=== PATIENT | female | born 1965 | race Caucasian/White ===

== ENCOUNTER 2016-06-22 15:07 | Emergency (ER) | payer OTHER ==
[2016-06-22 15:13] VITALS: BP 155/80; PULSE 82; TEMP 97.8; BMI 36.3
[2016-06-22 16:19] LABS: URINE APPEARANCE CLEAR; URINE BILIRUBIN 1+ (NEGATIVE); URINE GLUCOSE (UA) NEGATIVE (NEGATIVE); URINE KETONE NEGATIVE (NEGATIVE); URINE LEUK ESTERASE NEGATIVE (NEGATIVE); URINE NITRITE NEGATIVE (NEGATIVE); URINE PROTEIN TRACE (NEGATIVE); URINE UROBILINOGEN 2.0 E.U/dl E.U./dl (0.2-1.0)
[2016-06-22 16:27] LABS: URINE BLOOD 2+ (NEGATIVE); URINE COLOR DK YELLOW
--- NOTE | 2016-06-22 16:46 | PDOC ---
History of Present Illness - General Chief Complaint: Vaginal Sxs Stated Complaint: PAIN Time Seen by Provider: 06/22/16 15:52 History Source: Patient Exam Limitations: No Limitations - History of Present Illness Initial Comments: CHIEF COMPLAINT: 51 y/o afebrile female with no significant PMH here to have tampon removed from her vagina. HISTORY OF PRESENT ILLNESS: The patient states she put a tampon in 2 days ago. She then had a few drinks for her birthday and then had sex with her . She realized today when she started to have foul smelling discharge that she forgot to take it out. She denies f/c, n/v/d, CP, SOB, abd pain, hematuria, dysuria. Vital signs on arrival are within normal limits. REVIEW OF SYSTEMS: GENERAL/CONSTITUTIONAL: No fever/chills. No weakness. No weight change. HEAD, EYES, EARS, NOSE AND THROAT: No change in vision. No ear pain or discharge. No sore throat. GENITOURINARY: No dysuria, frequency, or change in urination. +tampon stuck in vagina. MUSCULOSKELETAL: No joint or muscle swelling or pain. No neck or back pain. SKIN: No rash or easy bruising. NEUROLOGIC: No headache, vertigo, loss of consciousness, or loss of sensation. PHYSICAL EXAM: GENERAL: The patient is awake, alert, and fully oriented, in no acute distress. She is well appearing, ambulatory, in NAD or obvious discomfort. HEAD: Normal with no signs of trauma. EYES: Pupils equal, round and reactive to light, extraocular movements intact, sclera anicteric, conjunctiva clear. VAGINAL: Tampon seen deep in the vaginal canal on speculum exam. Foul odor to area. No obvious discharge. EXTREMITIES: Normal range of motion, no edema. NEUROLOGICAL: Normal speech, normal gait. PSYCH: Normal mood, normal affect. SKIN: Warm, Dry, normal turgor, no rashes or lesions noted. Past History - Past Medical History Allergies/Adverse Reactions: Allergies Allergy/AdvReac Type Severity Reaction Status Date / Time codeine [Codeine] Allergy Severe syncope Verified 06/22/16 15:09 Home Medications: Ambulatory Orders Doxycycline Hyclate 100 mg PO BID #14 capsule 06/22/16 Anemia: Yes Asthma: Yes Cancer: No Cardiac Disorders: No CVA: No COPD: No CHF: No Dementia: No Diabetes: No GI Disorders: Yes (gastric ulcers) Disorders: No HTN: Yes Hypercholesterolemia: Yes Liver Disease: Yes (CIRRHOSIS) Suicide Attempt (Hx): No Seizures: No Thyroid Disease: No - Surgical History Abdominal Surgery: Yes (TUBAL LIGATION.) Appendectomy: No Cardiac Surgery: No Cholecystectomy: Yes Lung Surgery: No Neurologic Surgery: No Orthopedic Surgery: No - Immunization History Immunization Up to Date: No - Psycho/Social/Smoking Cessation Hx Anxiety: No Suicidal Ideation: No Smoking Status: Yes Smoking History: Never smoked Have you smoked in the past 12 months: No Number of Cigarettes Smoked Daily: 0 Information on smoking cessation initiated: No 'Breaking Loose' booklet given: 04/17/14 Hx Alcohol Use: No Drug/Substance Use Hx: No Substance Use Type: None Hx Substance Use Treatment: No *Physical Exam - Vital Signs Last Vital Signs Temp Pulse Resp BP Pulse Ox 97.8 F 82 18 155/80 100 06/22/16 15:10 06/22/16 15:10 06/22/16 15:10 06/22/16 15:10 06/22/16 15:10 Medical Decision Making - Medical Decision Making A/P: 51 y/o afebrile female with tampon stuck in vagina. Used a Santo foreceps to remove the tampon. THe patient states she instantly felt better after it was out. I then cleaned her vaginal canal with hydrogen peroxide and betadine. I will treat with doxycycline for vaginal infection. Pt had a tubal ligation. Will send rx to pharmacy I instructed her to take entire course and return to the eR with any worsening or concerning symptoms including fever, n/v/d, dizziness. The patient verbalizes understanding of all instructions, has no further questions and is awaiting discharge. *DC/Admit/Observation/Transfer Diagnosis at time of Disposition: Foreign body in vagina Qualifiers: Encounter type: initial encounter Qualified Code(s): T19.2XXA - Foreign body in vulva and vagina, initial encounter - Discharge Dispostion Condition at time of disposition: Improved - Prescriptions Prescriptions: Doxycycline Hyclate 100 mg PO BID #14 capsule - Referrals Referrals: Cecilio Alvarado MD [Primary Care Provider] - - Patient Instructions Printed Discharge Instructions: DI for Foreign Body in Vagina-Adult Additional Instructions: Discharge Instructions: -Take entire course of antibiotics -Follow up with your doctor within 1 week -Do not douche -Return to the ER with any worsening or concerning symptoms.
[2016-06-22 17:07] LABS: URINE MUCUS MANY; URINE RBC 4 /hpf (0-3); URINE WBC 2 /hpf (3-5)
== END 2016-06-22 17:22 | disposition home or self-care (01) ==
LOC: JERFT 15:07
DX: T19.2XXA Foreign body in vulva and vagina, initial encounter (principal); X58.XXXA Exposure to other specified factors, initial encounter; Y93.89 Activity, other specified; Y92.038 Other place in apartment as the place of occurrence of the external cause
CPT/HCPCS: 36415; 81003; 81015; 84703; 87491; 87591; 99281-25

== ENCOUNTER → 2016-07-19 | Emergency (ER) | payer OTHER ==
[~2016-07-19] MED LIST: FAMOTIDINE 20 MG/50 ML IVPB 50 ML IVPB ONE; MAG HYDROX/AL HYDROX/SIMETH 30 ML UNIT-DOSE CUP ONE; MAG HYDROX/AL HYDROX/SIMETH 30 ML UNIT-DOSE CUP PO ONE; MAGNESIUM SULF 50% (8.12 MEQ/2 ML-1 GM VIAL) ONE; ONDANSETRON 4 MG/2 ML VIAL ONE; RANITIDINE HCL 150 MG TABLET (FP) ONE; RANITIDINE HCL 150 MG TABLET (FP) PO ONE; SUCRALFATE 1 GM TABLET (FP) ONE; SUCRALFATE 1 GM TABLET (FP) PO ONE
[2016-07-19 11:32] VITALS: BP 126/86; PULSE 72; TEMP 97.9; BMI 35.2
--- NOTE | 2016-07-19 11:58 | PDOC ---
History of Present Illness - General Chief Complaint: Pain, Acute Stated Complaint: SOB, DIZZINESS Time Seen by Provider: 07/19/16 11:40 History Source: Patient - History of Present Illness Timing/Duration: reports: getting worse Abdominal Pain Onset Location: reports: epigastric Pain Radiation: reports: no radiation Past History - Past Medical History Allergies/Adverse Reactions: Allergies Allergy/AdvReac Type Severity Reaction Status Date / Time codeine [Codeine] Allergy Severe syncope Verified 07/19/16 11:32 Home Medications: Ambulatory Orders Ranitidine HCl [Zantac] 150 mg PO BID #30 tablet 07/19/16 Anemia: Yes Asthma: Yes Cancer: No Cardiac Disorders: No CVA: No COPD: No CHF: No Dementia: No Diabetes: No GI Disorders: Yes (gastric ulcers) Disorders: No HTN: Yes Hypercholesterolemia: Yes Liver Disease: Yes (CIRRHOSIS) Suicide Attempt (Hx): No Seizures: No Thyroid Disease: No - Surgical History Abdominal Surgery: Yes (TUBAL LIGATION.) Appendectomy: No Cardiac Surgery: No Cholecystectomy: Yes Lung Surgery: No Neurologic Surgery: No Orthopedic Surgery: No - Immunization History Immunization Up to Date: No - Psycho/Social/Smoking Cessation Hx Anxiety: No Suicidal Ideation: No Smoking Status: Yes Smoking History: Current some day smoker Have you smoked in the past 12 months: No Number of Cigarettes Smoked Daily: 0 Information on smoking cessation initiated: No 'Breaking Loose' booklet given: 04/17/14 Hx Alcohol Use: Yes (:SOCIALLY") Drug/Substance Use Hx: No Substance Use Type: None Hx Substance Use Treatment: No Review of Systems - Review of Systems Constitutional: No: Chills, Fever Respiratory: No: Cough, Shortness of Breath Cardiac (ROS): No: Chest Pain ABD/GI: Yes: Nausea, Vomiting. No: Constipated, Diarrhea : No: Dysuria, Flank Pain *Physical Exam - Vital Signs Last Vital Signs Temp Pulse Resp BP Pulse Ox 97.9 F 72 18 126/86 98 07/19/16 11:25 07/19/16 11:25 07/19/16 11:25 07/19/16 11:25 07/19/16 11:25 - Physical Exam General Appearance: Yes: Appropriately Dressed. No: Apparent Distress HEENT: positive: Normal Voice Neck: positive: Supple Respiratory/Chest: positive: Lungs Clear, Normal Breath Sounds. negative: Respiratory Distress Cardiovascular: positive: Regular Rate, S1, S2 Gastrointestinal/Abdominal: positive: Normal Bowel Sounds, Tender (to epigastrium), Soft. negative: Distended, Guarding, Rebound Musculoskeletal: negative: CVA Tenderness Integumentary: positive: Dry, Warm Neurologic: positive: Fully Oriented, Alert, Normal Mood/Affect Heart Score/ECG Review - ECG Intrepretation Comment:: 07/19/16 12:52 Twelve-lead EKG was performed and reviewed by me. There is normal sinus rhythm with a normal rate. The axis is normal. The intervals are normal. There are no ST or T wave abnormalities. Impression: Normal twelve-lead EKG ED Treatment Course - LABORATORY CBC & Chemistry Diagram: 07/19/16 12:00 07/19/16 12:00 Medical Decision Making - Medical Decision Making 07/19/16 11:54 51 yo F, h/o CAD, MT, s/p tati, p/w burning pain to epigastrium w/ n/v that started last night and worsened this am. No change in BM, melena, dysuria, f/c, CP or SOB. Took alkazelter w/ no relief as per pt. No h/o similar sxs. See exam Episgastric pain Suspect gastritis/GERD, unlikely cardiac Stable w/ sig ttp to epigastrium -pepcid -maalox -ekg/labs r/o other etiology -reassess 07/19/16 11:58 07/19/16 13:29 EKG and lab unremarkable. Pt continues to c/o epigastric pain despite meds in ED. Will continue to control pain in ED 07/19/16 15:19 Patient reports significant improvement in pain and requesting discharge at this time. Rx for Zantac sent to pharmacy and GI referral given to patient *DC/Admit/Observation/Transfer Diagnosis at time of Disposition: Epigastric abdominal pain - Discharge Dispostion Disposition: HOME Condition at time of disposition: Improved - Prescriptions Prescriptions: Ranitidine HCl [Zantac] 150 mg PO BID #30 tablet - Referrals Referrals: Cecilio Alvarado MD [Primary Care Provider] - Franck Dixon MD [Staff Physician] - - Patient Instructions Printed Discharge Instructions: Gastritis Additional Instructions: Take medication as prescribed and follow-up with Dr. Seay of GI
[2016-07-19 12:09] LABS: BASOPHIL 1.3 % (0-2.0); MCH 28.9 pg (25.7-33.7); MCHC 33.3 g/dl (32.0-36.0); MEAN CELL VOLUME 86.8 fl (80-96); MEAN PLT VOLUME 8.7 fl (7.5-11.1); NEUTROPHILS 61.4 % (42.8-82.8); PLATELET COUNT 65 K/MM3 (134-434); RDW 16.9 % (11.6-15.6); WHITE BLOOD COUNT 3.2 K/mm3 (4.0-10.0)
[2016-07-19 12:32] LABS: ALBUMIN 3.1 g/dl (3.4-5.0); ANION GAP 12 (8-16); BILIRUBIN,TOTAL 0.7 mg/dL (0.2-1.0); CALCIUM 8.3 mg/dL (8.5-10.1); CO2 26 mmol/L (21-32); CREATININE 0.6 mg/dL (0.55-1.02); GLUCOSE,RANDOM 109 mg/dL (74-106); SGOT/AST 58 U/L (15-37); SGPT/ALT 33 U/L (12-78); TOT PROT 8.3 g/dl (6.4-8.2)
[2016-07-19 12:35] LABS: ALK PHOS 167 U/L (45-117); TROPONIN I < 0.02 ng/ml (0.00-0.05)
[2016-07-19 15:00] LABS: URINE APPEARANCE CLEAR; URINE BILIRUBIN NEGATIVE (NEGATIVE); URINE COLOR YELLOW; URINE GLUCOSE (UA) NEGATIVE (NEGATIVE); URINE KETONE NEGATIVE (NEGATIVE); URINE LEUK ESTERASE NEGATIVE (NEGATIVE); URINE NITRITE NEGATIVE (NEGATIVE); URINE PROTEIN NEGATIVE (NEGATIVE); URINE UROBILINOGEN 2.0 E.U/dl E.U./dl (0.2-1.0)
[2016-07-19 15:02] LABS: URINE BLOOD 3+ (NEGATIVE)
[2016-07-19 15:07] LABS: URINE BACTERIA RARE /hpf (NONE SEEN); URINE MUCUS RARE; URINE RBC 4 /hpf (0-3); URINE WBC 7 /hpf (3-5)
--- NOTE | 2016-07-20 00:22 | EKG ---
Test Reason : Blood Pressure : / mmHG Vent. Rate : 067 BPM Atrial Rate : 067 BPM P-R Int : 176 ms QRS Dur : 082 ms QT Int : 452 ms P-R-T Axes : 025 -17 006 degrees QTc Int : 477 ms NORMAL SINUS RHYTHM NORMAL ECG WHEN COMPARED WITH ECG OF 23-MAY-2016 16:50, T WAVE VARIATION Confirmed by MOLLY BLANCA MD ([id number]) on 07/20/2016 12:21:44 AM Referred By: Confirmed By:MOLLY BLANCA MD
== END | disposition home or self-care (01) ==
LOC: JER 11:20
PROC: 3E033GC Introduction of Other Therapeutic Substance into Peripheral Vein, Percutaneous Approach (ICD-10-PCS; principal; 2016-07-19)
DX: R10.13 Epigastric pain (principal); J45.909 Unspecified asthma, uncomplicated; I10 Essential (primary) hypertension; E78.00 Pure hypercholesterolemia, unspecified; K74.60 Unspecified cirrhosis of liver; F17.210 Nicotine dependence, cigarettes, uncomplicated
CPT/HCPCS: 36415; 80053; 81003; 81015; 82550; 82553; 83690; 84484; 85025; 93005; 93010; 96365; 99284-25

== ENCOUNTER 2016-07-31 20:09 | Emergency (ER) | payer OTHER ==
[2016-07-31 20:31] VITALS: BP 113/72; PULSE 90; TEMP 97.6; BMI 34.2
[2016-07-31] MEDS ORDERED: CYCLOBENZAPRINE HCL 10 MG TABLET (FP) ONE (21:23)
[2016-07-31] MEDS ORDERED: OXYCODONE/APAP 5/325MG COMBO TABLET ONE (21:23)
[2016-07-31] MEDS ORDERED: KETOROLAC TROMETHAMINE 60 MG/2 ML VIAL ONE (21:23)
[2016-07-31] MEDS ORDERED: OXYCODONE/APAP 5/325MG COMBO TABLET PO ONE (21:33)
[2016-07-31] MEDS ORDERED: KETOROLAC TROMETHAMINE 60 MG/2 ML VIAL IM ONE (21:33)
[2016-07-31] MEDS ORDERED: CYCLOBENZAPRINE HCL 10 MG TABLET (FP) PO ONE (21:33)
--- NOTE | 2016-07-31 21:40 | PDOC ---
History of Present Illness - General Chief Complaint: Back Pain Stated Complaint: BACK PAIN Time Seen by Provider: 07/31/16 21:27 History Source: Patient Exam Limitations: No Limitations - History of Present Illness Initial Comments: 07/31/16 21:34 States woke up this morning at 4 AM to go to the bathroom, twisted and felt an acute onset of pain to left mid and lower back. Denies problems with bowel or bladder, no numbness or tingling in hands or feet. No other injury Occurred: reports: this morning Severity: reports: moderate, severe Pain Location: reports: back Method of Injury: Yes: fall Modifying Factors: improves with: None, cold therapy, pain medication Associated Symptoms (Fall): denies symptoms Past History - Travel Traveled outside of the country in the last 30 days: No Close contact w/someone who was outside of country & ill: No - Past Medical History Allergies/Adverse Reactions: Allergies Allergy/AdvReac Type Severity Reaction Status Date / Time codeine [Codeine] Allergy Severe syncope Verified 07/31/16 20:28 Home Medications: Ambulatory Orders Cyclobenzaprine HCl 7.5 mg PO Q8H PRN #14 tablet 07/31/16 Anemia: Yes Asthma: Yes Cancer: No Cardiac Disorders: No CVA: No COPD: No CHF: No Dementia: No Diabetes: No GI Disorders: Yes (gastric ulcers) Disorders: No HTN: Yes Hypercholesterolemia: Yes Liver Disease: Yes (CIRRHOSIS) Suicide Attempt (Hx): No Seizures: No Thyroid Disease: No - Surgical History Abdominal Surgery: Yes (TUBAL LIGATION.) Appendectomy: No Cardiac Surgery: No Cholecystectomy: Yes Lung Surgery: No Neurologic Surgery: No Orthopedic Surgery: No - Immunization History Immunization Up to Date: No - Psycho/Social/Smoking Cessation Hx Anxiety: No Suicidal Ideation: No Smoking Status: Yes Smoking History: Never smoked Have you smoked in the past 12 months: No Number of Cigarettes Smoked Daily: 0 Information on smoking cessation initiated: No 'Breaking Loose' booklet given: 04/17/14 Hx Alcohol Use: Yes (:SOCIALLY") Drug/Substance Use Hx: No Substance Use Type: None Hx Substance Use Treatment: No Review of Systems - Review of Systems Able to Perform ROS?: Yes Is the patient limited Frisian proficient: Yes Constitutional: Yes: Symptoms Reported, See HPI, Malaise. No: Fever HEENTM: No: Symptoms Reported Respiratory: Yes: See HPI. No: Symptoms reported ABD/GI: No: Symptoms Reported : Yes: See HPI. No: Symptoms Reported Musculoskeletal: Yes: Symptoms Reported, See HPI, Back Pain, Muscle Pain, Muscle Weakness Integumentary: Yes: See HPI. No: Symptoms Reported, Bruising Neurological: Yes: See HPI. No: Symptoms reported All Other Systems: Reviewed and Negative *Physical Exam - Vital Signs Last Vital Signs Temp Pulse Resp BP Pulse Ox 97.6 F 90 22 113/72 96 07/31/16 20:29 07/31/16 20:29 07/31/16 20:29 07/31/16 20:29 07/31/16 20:29 - Physical Exam General Appearance: Yes: Nourished, Appropriately Dressed, Apparent Distress, Mild Distress, Moderate Distress HEENT: positive: LISA, Normal ENT Inspection, TMs Normal, Pharynx Normal Neck: positive: Supple Respiratory/Chest: positive: Lungs Clear Gastrointestinal/Abdominal: positive: Soft Musculoskeletal: positive: Normal Inspection, Muscle Spasm (palpable tension and spasm noted to the paravertebral spinous muscles worse on the left side from lower thorax to upper lumbar. Has no true spine or bone tenderness, range of motion limited secondary to the spasm.). negative: CVA Tenderness, Decreased Range of Motion, Vertebral Tenderness Extremity: positive: Normal Capillary Refill, Normal Inspection, Normal Range of Motion, Tender Integumentary: positive: Normal Color, Dry, Warm, Pale Neurologic: positive: psychology intern II-XII NML intact, Fully Oriented, Alert, Normal Mood/ Affect, Normal Response, Motor Strength 5/5 Progress Note - Progress Note Progress Note: Low back strain/spasm. Will treat with NSAIDs, cyclobenzaprine and given 2 tablets of Percocet Medical Decision Making - Medical Decision Making 07/31/16 21:40 Low back spasm, will treat with NSAIDs and cyclobenzaprine *DC/Admit/Observation/Transfer Diagnosis at time of Disposition: Low back sprain Qualifiers: Encounter type: initial encounter Qualified Code(s): S33.9XXA - Sprain of unspecified parts of lumbar spine and pelvis, initial encounter - Discharge Dispostion Disposition: HOME Condition at time of disposition: Stable Admit: No - Patient Instructions Printed Discharge Instructions: DI for Back Strain or Sprain Additional Instructions: Rest, no heavy lifting or exercise until pain is resolved Hot soaks to neck and low back as often as possible/hot showers or Jacuzzis No massage or therapy until spasm is gone Continue ibuprofen 2-200 mg tablets every 6 hours for the next 3 days then as needed for pain and swelling Cyclobenzaprine 1-10mg every 8 hours as needed for spasm If not significant improvement within 24 hours with medication and rest regime, followup with private physician for change in medications and /or therapy. - Post Discharge Activity Work/School Note: Back to Work
== END 2016-07-31 21:47 | disposition home or self-care (01) ==
LOC: JERFT 20:09
PROC: 3E0233Z Introduction of Anti-inflammatory into Muscle, Percutaneous Approach (ICD-10-PCS; principal; 2016-07-31)
DX: S39.012A Strain of muscle, fascia and tendon of lower back, initial encounter (principal); X50.1XXA Overexertion from prolonged static or awkward postures, initial encounter; Y93.E8 Activity, other personal hygiene; Y92.031 Bathroom in apartment as the place of occurrence of the external cause; I10 Essential (primary) hypertension; E78.00 Pure hypercholesterolemia, unspecified; J45.909 Unspecified asthma, uncomplicated
CPT/HCPCS: 96372; 99281-25

== ENCOUNTER 2016-08-20 14:43 | Emergency (ER) | payer OTHER ==
[2016-08-20 14:49] VITALS: BMI 35.2
--- NOTE | 2016-08-20 14:49 | PDOC ---
Rapid Medical Evaluation Time Seen by Provider: 08/20/16 14:45 Medical Evaluation: Allergies Allergy/AdvReac Type Severity Reaction Status Date / Time codeine [Codeine] Allergy Severe syncope Verified 08/20/16 14:44 08/20/16 14:45 I have performed a brief in-person evaluation of this patient. The patient presents with a chief complaint of: upper epigastric pain x 5 days with nausea . no diarrhea/fever. hx cholecystectomy. sharp pain to left chest wall 2 days ago and resolved with relaxation Pertinent physical exam findings: VSS I have ordered the following: cbc, cardiac profile, comp, lipase, mag, ua, iv insert, ekg The patient will proceed to the ED for further evaluation.
[2016-08-20 15:21] LABS: BASOPHIL 0.8 % (0-2.0); EOSINOPHIL 1.9 % (0-4.5); MCHC 33.3 g/dl (32.0-36.0); MEAN CELL VOLUME 87.1 fl (80-96); MEAN PLT VOLUME 9.4 fl (7.5-11.1); NEUTROPHILS 62.9 % (42.8-82.8); RDW 16.3 % (11.6-15.6); WHITE BLOOD COUNT 3.5 K/mm3 (4.0-10.0)
[2016-08-20 15:37] LABS: URINE APPEARANCE CLEAR; URINE BILIRUBIN NEGATIVE (NEGATIVE); URINE COLOR YELLOW; URINE GLUCOSE (UA) NEGATIVE (NEGATIVE); URINE KETONE NEGATIVE (NEGATIVE); URINE LEUK ESTERASE NEGATIVE (NEGATIVE); URINE NITRITE NEGATIVE (NEGATIVE); URINE PROTEIN NEGATIVE (NEGATIVE); URINE UROBILINOGEN 4.0 E.U/dl E.U./dl (0.2-1.0)
[2016-08-20 15:38] LABS: URINE BLOOD 2+ (NEGATIVE)
[2016-08-20 15:40] LABS: URINE BACTERIA RARE /hpf (NONE SEEN); URINE MUCUS RARE; URINE RBC 2 /hpf (0-3); URINE WBC 1 /hpf (3-5)
[2016-08-20 15:45] LABS: ALBUMIN 3.2 g/dl (3.4-5.0); ANION GAP 5 (8-16); BILIRUBIN,TOTAL 0.7 mg/dL (0.2-1.0); CALCIUM 7.8 mg/dL (8.5-10.1); CO2 29 mmol/L (21-32); CREATININE 0.6 mg/dL (0.55-1.02); GLUCOSE,RANDOM 124 mg/dL (74-106); MAGNESIUM 1.7 mg/dL (1.8-2.4); SGOT/AST 57 U/L (15-37); SGPT/ALT 33 U/L (12-78); TOT PROT 8.4 g/dl (6.4-8.2)
[2016-08-20 15:49] LABS: ALK PHOS 202 U/L (45-117); TROPONIN I < 0.02 ng/ml (0.00-0.05)
--- NOTE | 2016-08-20 16:48 | PDOC ---
History of Present Illness - General History Source: Patient Exam Limitations: No Limitations - History of Present Illness Initial Comments: CHIEF COMPLAINT: 51 y/o afebrile female with PMH anemia, ?cirrhosis, angina c/ o right upper quadrant abdominal pain with nausea for the past few days. HISTORY OF PRESENT ILLNESS: The patient also admits to anterior chest pain for the past few days as well that is brought on by deep inspiration and when she touches her chest. She denies f/c, GRAHAM, v/d, SOB, abd pain, cough, runny nose, back pain, hematuria, dysuria, decrease in PO intake, decrease in urinary output. The patient had her gallbladder removed a few years ago. PCP is Dr. Cecilio Alvarado Processing Associate is Dr. Harding Vital signs on arrival are within normal limits. REVIEW OF SYSTEMS: GENERAL/CONSTITUTIONAL: No fever/chills. No weakness. No weight change. HEAD, EYES, EARS, NOSE AND THROAT: No change in vision. No ear pain or discharge. No sore throat. CARDIOVASCULAR: +anterior chest pain. No shortness of breath. RESPIRATORY: No cough, wheezing, or hemoptysis. GASTROINTESTINAL: +right upper quadrant abd pain and nausea. No vomiting or diarrhea. GENITOURINARY: No dysuria, frequency, or change in urination. MUSCULOSKELETAL: No joint or muscle swelling or pain. No neck or back pain. SKIN: No rash or easy bruising. NEUROLOGIC: No headache, vertigo, loss of consciousness, or loss of sensation. PHYSICAL EXAM: GENERAL: The patient is awake, alert, and fully oriented, in no acute distress. She is very well appearing, in NAD or obvious discomfort. HEAD: Normal with no signs of trauma. ENT: Pupils equal, round and reactive to light, extraocular movements intact, sclera anicteric, conjunctiva clear. Neck supple. LUNGS: Clear to auscultation bilaterally. Normal excursion. No respiratory distress or use of accessory muscles. CV: RRR, S1/S2, no MRG. Cap refill < 2 sec. CHEST: Reproducible chest pain with palpation of anterior chest wall. ABDOMEN: Soft, non-distended, with TTP of epigastric and RUQ. +connor's sign. Passive guarding. No rebound or rigidity. EXTREMITIES: Normal range of motion, no edema. NEUROLOGICAL: Normal speech, normal gait. CN II-XII grossly intact. SKIN: Warm, dry, normal turgor, no rashes or lesions noted. <Emperatriz Easley - Last Filed: 08/20/16 18:21> <Melonie Fink - Last Filed: 08/20/16 20:18> - General Chief Complaint: Pain Stated Complaint: ABD PAIN Time Seen by Provider: 08/20/16 14:45 Past History - Past Medical History Anemia: Yes Asthma: Yes Cancer: No Cardiac Disorders: No CVA: No COPD: No CHF: No Dementia: No Diabetes: No GI Disorders: Yes (gastric ulcers) Disorders: No HTN: Yes Hypercholesterolemia: Yes Liver Disease: Yes (CIRRHOSIS) Suicide Attempt (Hx): No Seizures: No Thyroid Disease: No - Surgical History Abdominal Surgery: Yes (TUBAL LIGATION.) Appendectomy: No Cardiac Surgery: No Cholecystectomy: Yes Lung Surgery: No Neurologic Surgery: No Orthopedic Surgery: No - Immunization History Immunization Up to Date: No - Psycho/Social/Smoking Cessation Hx Anxiety: No Suicidal Ideation: No Smoking Status: Yes Smoking History: Never smoked Have you smoked in the past 12 months: No Number of Cigarettes Smoked Daily: 0 Information on smoking cessation initiated: No 'Breaking Loose' booklet given: 04/17/14 Hx Alcohol Use: No Drug/Substance Use Hx: No Substance Use Type: None Hx Substance Use Treatment: No <Emperatriz Easley - Last Filed: 08/20/16 18:21> <Melonie Fink - Last Filed: 08/20/16 20:18> - Past Medical History Allergies/Adverse Reactions: Allergies Allergy/AdvReac Type Severity Reaction Status Date / Time codeine [Codeine] Allergy Severe syncope Verified 08/20/16 14:44 Home Medications: Ambulatory Orders NK [No Known Home Medication] 08/20/16 *Physical Exam - Vital Signs Last Vital Signs Temp Pulse Resp BP Pulse Ox 98.5 F 93 H 18 140/80 100 08/20/16 14:46 08/20/16 14:46 08/20/16 14:46 08/20/16 14:46 08/20/16 14:46 <Emperatriz Easley - Last Filed: 08/20/16 18:21> - Vital Signs Last Vital Signs Temp Pulse Resp BP Pulse Ox 98.5 F 93 H 18 140/80 100 08/20/16 14:46 08/20/16 14:46 08/20/16 14:46 08/20/16 14:46 08/20/16 14:46 <Melonie Fink - Last Filed: 08/20/16 20:18> ED Treatment Course - LABORATORY CBC & Chemistry Diagram: 08/20/16 14:10 08/20/16 14:10 - ADDITIONAL ORDERS Additional order review: Laboratory Results 08/20/16 08/20/16 14:10 14:10 Sodium 140 Potassium 3.7 Chloride 106 Carbon Dioxide 29 Anion Gap 5 L BUN 9 Creatinine 0.6 Creat Clearance w eGFR > 60 Random Glucose 124 H Calcium 7.8 L Magnesium 1.7 L Total Bilirubin 0.7 AST 57 H ALT 33 Alkaline Phosphatase 202 H D Creatine Kinase 109 Troponin I < 0.02 Total Protein 8.4 H Albumin 3.2 L Lipase 148 Urine Color Yellow Urine Appearance Clear Urine pH 7.0 Ur Specific Baldwin 1.016 Urine Protein Negative Urine Glucose (UA) Negative Urine Ketones Negative Urine Blood 2+ H Urine Nitrite Negative Urine Bilirubin Negative Urine Urobilinogen 4.0 e.u/dl H Ur Leukocyte Esterase Negative Urine RBC 2 Urine WBC 1 Ur Epithelial Cells Rare Urine Bacteria Rare Urine Mucus Rare 08/20/16 14:10 RBC 4.27 MCV 87.1 MCHC 33.3 RDW 16.3 H MPV 9.4 Neutrophils % 62.9 Lymphocytes % 26.1 Monocytes % 8.3 Eosinophils % 1.9 Basophils % 0.8 - RADIOLOGY Radiology Studies Ordered: Category Date Time Status ABDOMEN US -LIMITED [US] Stat Ultrasound 08/20/16 16:39 Ordered <Emperatriz Easley - Last Filed: 08/20/16 18:21> - LABORATORY CBC & Chemistry Diagram: 08/20/16 14:10 08/20/16 14:10 - ADDITIONAL ORDERS Additional order review: Laboratory Results 08/20/16 08/20/16 14:10 14:10 Sodium 140 Potassium 3.7 Chloride 106 Carbon Dioxide 29 Anion Gap 5 L BUN 9 Creatinine 0.6 Creat Clearance w eGFR > 60 Random Glucose 124 H Calcium 7.8 L Magnesium 1.7 L Total Bilirubin 0.7 AST 57 H ALT 33 Alkaline Phosphatase 202 H D Creatine Kinase 109 Troponin I < 0.02 Total Protein 8.4 H Albumin 3.2 L Lipase 148 Urine Color Yellow Urine Appearance Clear Urine pH 7.0 Ur Specific Baldwin 1.016 Urine Protein Negative Urine Glucose (UA) Negative Urine Ketones Negative Urine Blood 2+ H Urine Nitrite Negative Urine Bilirubin Negative Urine Urobilinogen 4.0 e.u/dl H Ur Leukocyte Esterase Negative Urine RBC 2 Urine WBC 1 Ur Epithelial Cells Rare Urine Bacteria Rare Urine Mucus Rare 08/20/16 14:10 RBC 4.27 MCV 87.1 MCHC 33.3 RDW 16.3 H MPV 9.4 Neutrophils % 62.9 Lymphocytes % 26.1 Monocytes % 8.3 Eosinophils % 1.9 Basophils % 0.8 - Medications Given in the ED: ED Medications Discontinued Medications Generic Name Dose Route Start Last Admin Trade Name Jayy PRN Reason Stop Dose Admin Famotidine/Sodium Chloride 50 mls @ 100 mls/hr 08/20/16 17:06 08/20/16 17:30 Pepcid 20 Mg Premixed Ivpb - IVPB 08/20/16 17:35 100 mls/hr ONCE ONE Administration Magnesium Sulfate 1 gm 08/20/16 17:06 08/20/16 17:30 Magnesium Sulfate IVPB 08/20/16 17:07 1 gm ONCE ONE Administration Ondansetron HCl 4 mg 08/20/16 17:06 08/20/16 17:30 Zofran Injection IVPUSH 08/20/16 17:07 4 mg ONCE ONE Administration <Melonie Fink D - Last Filed: 08/20/16 20:18> Progress Note - Progress Note Progress Note: Ultrasound WNL. Patient made aware of LFT. Patient will be referred to GI but request not to be seen by Dr. Serrano or anyone in his group. Plan: D/C to home with f/u GI Copy of Labs and US given to patient. <Melonie Fink D - Last Filed: 08/20/16 20:18> Medical Decision Making - Medical Decision Making A/P: 51 y/o afebrile female with RUQ pain and nausea for the past few days. Plan is as follows: 1. Labs 2. EKG 3. Abd ultrasound limited 4. IV zofran and pepcid Magnesium low; ordered 1g Mag Sulfate I am signing this patient out to my colleague: RYLEE Fink In brief, this patient is being seen in the ED for a chief complaint of: RUQ pain I have completed the initial assessment interview note and have ordered: labs, EKG, abd ultrasound I have reviewed the following results: EKG, labs Pending results are: Abd ultrasound Please call the PCP: Cecilio Alvarado Plan for disposition is as follows: Pending <Emperatriz Easley - Last Filed: 08/20/16 18:21> *DC/Admit/Observation/Transfer <Emperatriz Easley - Last Filed: 08/20/16 18:21> - Discharge Dispostion Admit: No <Melonie Fink - Last Filed: 08/20/16 20:18> Diagnosis at time of Disposition: Elevated liver enzymes Abdominal pain Qualifiers: Abdominal location: right upper quadrant Qualified Code(s): R10.11 - Right upper quadrant pain - Discharge Dispostion Disposition: HOME Condition at time of disposition: Improved - Referrals Referrals: Cecilio Alvarado MD [Primary Care Provider] - Franck Dixon MD [Staff Physician] - - Patient Instructions Printed Discharge Instructions: DI for Cirrhosis, Liver Cirrhosis (Alternative Therapy) Additional Instructions: FOLLOW UP WITH DR. DIXON (GASTROENTEROLOGY). CALL TO SCHEDULE APPOINTMENT. ALSO, FOLLOW UP WITH YOUR PRIMARY CARE PROVIDER FOR FURTHER EVALUATION DISCUSSED. YOU HAVE BEEN PROVIDED COPIES OF BLOOD WORK AND ULTRASOUND FOR YOUR RECORDS REQUESTED. RETURN IF ANY CONCERNS FOR FURTHER EVALUATION. Print Language: KOREAN
[2016-08-20] MEDS ORDERED: FAMOTIDINE 20 MG/50 ML IVPB 50 ML IVPB ONE (17:06)
[2016-08-20] MEDS ORDERED: MAGNESIUM SULF 50% (8.12 MEQ/2 ML-1 GM VIAL) IVPB ONE (17:06)
[2016-08-20] MEDS ORDERED: ONDANSETRON 4 MG/2 ML VIAL IVPUSH ONE (17:06)
[2016-08-20 17:14] LABS: PLATELET COUNT 61 K/MM3 (134-434)
[2016-08-20 17:15] LABS: PLATELET COMMENT2 NO CLUMPING NOTED; PLATELET COMMENT3 NO CLOTTING DETECTED; PLATELET ESTIMATE MOD DECREASED (NORMAL)
[2016-08-20 20:34] VITALS: BP 136/79; PULSE 89; TEMP 97.9
== END 2016-08-20 20:34 | disposition home or self-care (01) ==
LOC: JER 14:43
PROC: 3E033GC Introduction of Other Therapeutic Substance into Peripheral Vein, Percutaneous Approach (ICD-10-PCS; principal; 2016-08-20)
PROC: 3E033GC Introduction of Other Therapeutic Substance into Peripheral Vein, Percutaneous Approach (ICD-10-PCS; 2016-08-20)
PROC: 3E033GC Introduction of Other Therapeutic Substance into Peripheral Vein, Percutaneous Approach (ICD-10-PCS; 2016-08-20)
DX: R74.8 Abnormal levels of other serum enzymes (principal); E83.42 Hypomagnesemia; D64.9 Anemia, unspecified; J45.909 Unspecified asthma, uncomplicated; K74.60 Unspecified cirrhosis of liver
CPT/HCPCS: 36415; 76705-TC; 80053; 81003; 81015; 82550; 83690; 83735; 84484; 85025; 96365; 96375; 99283-25

== ENCOUNTER 2016-12-15 21:32 | Emergency (ER) | payer OTHER ==
[2016-12-15 21:45] VITALS: BP 131/76; PULSE 83; TEMP 98.4; BMI 34.2
--- NOTE | 2016-12-15 22:00 | PDOC ---
History of Present Illness - General History Source: Patient Exam Limitations: No Limitations - History of Present Illness Initial Comments: 12/15/16 22:54 The patient is a 51 year old female, with a significant past medical history of anemia, asthma, fatty liver, gastric ulcers, HTN and HLD, who presents to the emergency department with bilateral lower extremity and bilateral knee swelling with pain for the past 2 days. She reports that the swelling started first and then she developed pain. She describes hes pain as ranging from mild to moderate , without radiation. She states that movements and pressure exacerbates her pain. She notes that the right knee hurts more than the left knee. She states that she took 2 tablets of Motrin around 4pm today with minimal relief of her symptoms. She denies any kind of recent trauma. The patient denies chest pain, shortness of breath, headache and dizziness. Denies fever, chills, nausea, vomit, diarrhea and constipation. Denies dysuria, frequency, urgency and hematuria. Allergies: None Past surgical history: Tubal ligation and cholecystectomy Social history: No tobacco or drug se reported PMD - Dr. Cecilio Alvarado <Jim Law - Last Filed: 12/15/16 22:54> <Didier Barros - Last Filed: 12/16/16 02:11> - General Chief Complaint: Edema Stated Complaint: SWELLING ON FEET Time Seen by Provider: 12/15/16 21:59 Past History <Jim Law - Last Filed: 12/15/16 22:54> - Past Medical History Anemia: Yes Asthma: Yes Cancer: No Cardiac Disorders: No CVA: No COPD: No CHF: No Dementia: No Diabetes: No GI Disorders: Yes (gastric ulcers) Disorders: No HTN: Yes Hypercholesterolemia: Yes Liver Disease: Yes (CIRRHOSIS) Suicide Attempt (Hx): No Seizures: No Thyroid Disease: No - Surgical History Abdominal Surgery: Yes (TUBAL LIGATION.) Appendectomy: No Cardiac Surgery: No Cholecystectomy: Yes Lung Surgery: No Neurologic Surgery: No Orthopedic Surgery: No - Immunization History Immunization Up to Date: No - Psycho/Social/Smoking Cessation Hx Anxiety: No Suicidal Ideation: No Smoking Status: Yes Smoking History: Never smoked Have you smoked in the past 12 months: No Number of Cigarettes Smoked Daily: 0 'Breaking Loose' booklet given: 04/17/14 Hx Alcohol Use: No Drug/Substance Use Hx: No Substance Use Type: None Hx Substance Use Treatment: No <PapoDidier - Last Filed: 12/16/16 02:11> - Past Medical History Allergies/Adverse Reactions: Allergies Allergy/AdvReac Type Severity Reaction Status Date / Time codeine [Codeine] Allergy Severe syncope Verified 12/15/16 21:45 Home Medications: Ambulatory Orders Ibuprofen [Motrin -] 600 mg PO TID #21 tablet 12/16/16 Review of Systems - Review of Systems Able to Perform ROS?: Yes Comments:: 12/15/16 22:56 CONSTITUTIONAL: No fever, no chills, no fatigue EYES: No visual changes ENT: No ear pain, no sore throat CARDIOVASCULAR: No chest pain, no palpitations RESPIRATORY: No cough, no SOB GI: No abdominal pain, no nausea, no vomiting, no constipation, no diarrhea GENITOURINARY: No dysuria, no frequency, no hematuria EXTREMITIES: (+) Bilateral lower extremity and bilateral knee swelling with pain. MUSKULOSKELETAL: No backpain, no joint pain, no myalgias SKIN: No rash NEURO: No headache <Jim Law - Last Filed: 12/15/16 22:54> *Physical Exam - Vital Signs Last Vital Signs Temp Pulse Resp BP Pulse Ox 98.4 F 83 18 131/76 98 12/15/16 21:43 12/15/16 21:43 12/15/16 21:43 12/15/16 21:43 12/15/16 21:43 - Physical Exam Comments: 12/15/16 22:57 CONSTITUTIONAL: Well-appearing; well-nourished; in no apparent distress HEAD: Normocephalic; atraumatic EYES: PERRL; EOM intact ENMT: External appears normal; normal oropharynx NECK: Supple; non-tender; no cervical lymphadenopathy CARD: Normal S1, S2; no murmurs, rubs, or gallops RESP: Normal chest excursion with respiration; breath sounds clear and equal bilaterally; no wheezes, rhonchi, or rales ABD: Soft, non-distended; non-tender; no palpable organomegaly, no palpable hernias EXT: Normal ROM in all four extremities; non-tender to palpation; distal pulses intact SKIN: Warm, dry, no rash NEURO: No focal neurological deficiencies. <Jim Law - Last Filed: 12/15/16 22:54> - Vital Signs Last Vital Signs Temp Pulse Resp BP Pulse Ox 98.4 F 83 18 131/76 98 12/15/16 21:43 12/15/16 21:43 12/15/16 21:43 12/15/16 21:43 12/15/16 21:43 <Didier Barros - Last Filed: 12/16/16 02:11> ED Treatment Course - Medications Given in the ED: ED Medications Discontinued Medications Generic Name Dose Route Start Last Admin Trade Name Khalifq PRN Reason Stop Dose Admin Ketorolac Tromethamine 60 mg 12/15/16 22:10 12/15/16 22:33 Toradol Injection - IM 12/15/16 22:11 60 mg ONCE ONE Administration <Jim Law - Last Filed: 12/15/16 22:54> Medical Decision Making - Medical Decision Making 12/16/16 02:09 Patient is well-appearing 51-year-old female who presents with atraumatic right knee pain and bilateral foot swelling over the past several days. In the ER, patient is awake and alert, with no obvious evidence of arthritis or arthralgia , no evidence of pitting edema or lower extremity asymmetry. Has full range of motion of the hip/ankle/knee joints bilaterally. Patient is able to ambulate without difficulty. Right knee x-ray reveals no evidence of joint effusion/ fracture or dislocation. Will discharge with high-dose NSAIDs with PMD follow- up. <Didier Barros - Last Filed: 12/16/16 02:11> *DC/Admit/Observation/Transfer - Attestations Scribe Attestion: 12/15/16 22:57 Documentation prepared by Jim Law, acting as biomedical specialist for Didier Barros MD <Jim Law - Last Filed: 12/15/16 22:54> - Attestations Physician Attestion: 12/16/16 02:09 The documentation was prepared by the scribe under my direct supervision. I have reviewed the documentation which correctly represents the findings, medical decision-making and critical action taken by me. <Didier Barros - Last Filed: 12/16/16 02:11> Diagnosis at time of Disposition: Pain of right lower extremity - Discharge Dispostion Disposition: HOME Condition at time of disposition: Stable - Referrals Referrals: Cecilio Alvarado MD [Primary Care Provider] - - Patient Instructions Printed Discharge Instructions: DI for Knee Pain
[2016-12-15] MEDS ORDERED: KETOROLAC TROMETHAMINE 60 MG/2 ML VIAL IM ONE (22:10)
[2016-12-15] MEDS ORDERED: KETOROLAC TROMETHAMINE 60 MG/2 ML VIAL ONE (22:35)
== END 2016-12-16 02:15 | disposition home or self-care (01) ==
LOC: JER 21:32
PROC: 3E0333Z Introduction of Anti-inflammatory into Peripheral Vein, Percutaneous Approach (ICD-10-PCS; principal; 2016-12-15)
DX: M79.604 Pain in right leg (principal)
CPT/HCPCS: 73562-TC-RT; 99281-25

== ENCOUNTER 2017-01-04 08:01 | Day surgery (SDC) | payer OTHER ==
[2017-01-03 13:51] VITALS: BMI 36.7
[2017-01-04] MEDS ORDERED: ALPRAZolam 0.25 MG TABLET PO ONE (12:00)
[2017-01-04] MEDS ORDERED: ACETAMINOPHEN 1000 MG/100 ML VIAL (NON FORMULARY) IVPB ONE (12:00)
[2017-01-04] MEDS ORDERED: ACETAMINOPHEN INJECTION 100 ML IVPB ONE (12:08)
[2017-01-04] MEDS ORDERED: ALPRAZolam 0.25 MG TABLET ONE (12:46)
[2017-01-04] MEDS: ALPRAZolam 0.25 MG TABLET PO SCH (22:04)
[2017-01-05] MEDS ORDERED: PT OWN MED DRAWER 7, Y5N ONE ×2 (02:04→09:18)
[2017-01-05] MEDS: LIDOCAINE VISCOUS 2% ORAL/TOP 20 ML UNIT-DOSE CUP MM PRN ×2 (02:20→09:20)
[2017-01-05 07:17] VITALS: BP 146/76; PULSE 84; TEMP 98.8
[2017-01-05] MEDS: ALPRAZolam 0.25 MG TABLET PO SCH (09:20)
== END 2017-01-05 10:30 | disposition home or self-care (01) ==
LOC: JASU-ENDO 08:01 → JASUSAT 08:01 → J6S 14:20 → JASUSAT 01-05 10:30
PROVIDERS: ATTEND Internal Medicine Gastroenterology
PROC: 06L34CZ Occlusion of Esophageal Vein with Extraluminal Device, Percutaneous Endoscopic Approach (ICD-10-PCS; principal; 2017-01-04 11:00)
DX: I85.00 Esophageal varices without bleeding (principal); K75.81 Nonalcoholic steatohepatitis (NASH)
CPT/HCPCS: 36415; 84703; G0480

== ENCOUNTER 2017-03-03 10:41 | Emergency (ER) | payer OTHER ==
[2017-03-03 10:46] VITALS: BP 153/75; PULSE 79; TEMP 98.4; BMI 36.1
[2017-03-03] MEDS ORDERED: ALBUTEROL SO4 2.5/IPRATROPIUM 0.5 INH SOL 3 ML VIAL.NEB. NEB ONE (11:18)
[2017-03-03] MEDS ORDERED: IBUPROFEN 600 MG TABLET (FP) PO ONE ×2 (11:18→11:26)
[2017-03-03] MEDS ORDERED: predniSONE 20 MG TABLET (UD) PO ONE (11:18)
[2017-03-03] MEDS ORDERED: predniSONE 20 MG TABLET (UD) ONE (11:26)
--- NOTE | 2017-03-03 11:27 | PDOC ---
History of Present Illness - General Chief Complaint: Cold Symptoms Stated Complaint: CONGESTED Time Seen by Provider: 03/03/17 11:12 History Source: Patient Exam Limitations: No Limitations - History of Present Illness Initial Comments: 03/03/17 11:21 51-year-old female with history of asthma presents to the ED with complaints of nasal congestion, sore throat, cough intermittent wheezing, and intermittent shortness of breath worsened with coughing episodes. Patient states symptoms began on Tuesday and went to her primary care provider on Tuesday and was given nasal spray along with Claritin. Patient states symptoms did subside slightly but still not completely improved so decided come to the ER. Patient denies fever, chills, chest pain, dizziness, neck stiffness, ear pain abdominal pain, weakness. Patient denies smoking history and denies recent travel. Timing/Duration: reports: other Severity: reports: mild, moderate Possible Cause: Yes: occasional episodes Associated Symptoms: reports: cough, nasal congestion, nasal drainage, shortness of breath, sore throat, wheezing Past History - Past Medical History Allergies/Adverse Reactions: Allergies Allergy/AdvReac Type Severity Reaction Status Date / Time codeine [Codeine] Allergy Severe syncope Verified 03/03/17 10:45 Home Medications: Ambulatory Orders NK [No Known Home Medication] 03/03/17 Anemia: Yes Asthma: Yes Cancer: No Cardiac Disorders: No CVA: No COPD: No CHF: No Dementia: No Diabetes: No GI Disorders: Yes (gastric ulcers) Disorders: No HTN: Yes Hypercholesterolemia: Yes Liver Disease: Yes (CIRRHOSIS) Seizures: No Thyroid Disease: No - Surgical History Abdominal Surgery: Yes (TUBAL LIGATION.) Appendectomy: No Cardiac Surgery: No Cholecystectomy: Yes Lung Surgery: No Neurologic Surgery: No Orthopedic Surgery: No - Immunization History Immunization Up to Date: No - Suicide/Smoking/Psychosocial Hx Smoking Status: Yes Smoking History: Never smoked Have you smoked in the past 12 months: No Number of Cigarettes Smoked Daily: 0 'Breaking Loose' booklet given: 04/17/14 Hx Alcohol Use: No Drug/Substance Use Hx: No Substance Use Type: None Hx Substance Use Treatment: No Patient Lives Alone: No Lives with/in: spouse/SO Respiratory Specific PMHX - Complaint Specific PMHX Bronchitis: No Review of Systems - Review of Systems Able to Perform ROS?: Yes Constitutional: No: Symptoms Reported HEENTM: Yes: Nose Pain, Nose Congestion, Throat Pain Respiratory: Yes: Cough, Shortness of Breath, Wheezing Cardiac (ROS): No: Symptoms Reported ABD/GI: No: Symptoms Reported Musculoskeletal: No: Symptoms Reported Integumentary: No: Symptoms Reported Neurological: No: Headache, Dizziness Hematologic/Lymphatic: No: Symptoms Reported *Physical Exam - Vital Signs Last Vital Signs Temp Pulse Resp BP Pulse Ox 98.4 F 79 19 153/75 99 03/03/17 10:44 03/03/17 10:44 03/03/17 10:44 03/03/17 10:44 03/03/17 10:44 - Physical Exam General Appearance: Yes: Nourished, Appropriately Dressed. No: Apparent Distress HEENT: positive: EOMI, LISA, TMs Normal, Pharynx Normal, Nasal Congestion, Rhinorrhea (clear bilateral), Sinus Tenderness (maxillary). negative: Pale Conjunctivae Neck: positive: Supple Respiratory/Chest: positive: Wheezing (expiratory scattered bilateral). negative: Respiratory Distress, Accessory Muscle Use, Labored Respiration Cardiovascular: positive: Regular Rhythm, Regular Rate. negative: Murmur Gastrointestinal/Abdominal: positive: Soft. negative: Tenderness Extremity: positive: Normal Capillary Refill. negative: Pedal Edema Integumentary: positive: Normal Color, Warm, Moist Neurologic: positive: Normal Mood/Affect, Motor Strength 5/5 (ambulatory) ED Treatment Course - RADIOLOGY Radiology Studies Ordered: Category Date Time Status CHEST - PA [RAD] Stat Radiology 03/03/17 11:18 Ordered Medical Decision Making - Medical Decision Making 03/03/17 11:24 Patient complains of URI symptoms mildly improved with antihistamines such as Claritin and Nasonex for nasal congestion. Patient denies worsening symptoms but concerned with continual symptoms. Patient ordered for influenza swab, Motrin secondary to generalized discomfort, DuoNeb for expiratory wheezing, prednisone secondary to history of asthma and a chest x-ray to rule out pneumonia. 03/03/17 12:16 influence a swab negative. Chest x-ray unremarkable. Patient will be discharged home with continuation of steroids for the next 3 days. Patient also recommended to continue the medication previously prescribed by her primary care provider which included Claritin and Nasonex. Patient may take [id number] Motrin for discomfort. *DC/Admit/Observation/Transfer Diagnosis at time of Disposition: Nasal congestion, Exacerbation of asthma - Discharge Dispostion Disposition: HOME Condition at time of disposition: Improved - Referrals Referrals: Cecilio Alvarado MD [Primary Care Provider] - - Patient Instructions Printed Discharge Instructions: DI for Nasal Congestion, DI for Asthma -- Adult Additional Instructions: At this point I do recommend carrying your inhaler if you experience any wheezing or uncontrollable coughing. Otherwise use DuoNeb at home and begin prednisone tomorrow since your given your first dose here in the ER. Please also continue the medication as previously prescribed including the Claritin and Nasonex.
== END 2017-03-03 12:45 | disposition home or self-care (01) ==
LOC: JERFT 10:41
DX: J45.901 Unspecified asthma with (acute) exacerbation (principal); J34.89 Other specified disorders of nose and nasal sinuses; I10 Essential (primary) hypertension; E78.00 Pure hypercholesterolemia, unspecified; K74.60 Unspecified cirrhosis of liver; D64.9 Anemia, unspecified
CPT/HCPCS: 71010-TC; 87804; 99281-25

== ENCOUNTER 2017-05-16 09:53 | Emergency (ER) | payer OTHER ==
[2017-05-16 10:18] VITALS: BP 131/70; PULSE 81; TEMP 98; BMI 35.2
[2017-05-16] MEDS ORDERED: ALBUTEROL SO4 2.5/IPRATROPIUM 0.5 INH SOL 3 ML VIAL.NEB. NEB ONE ×2 (10:42→10:44)
--- NOTE | 2017-05-16 11:09 | PDOC ---
History of Present Illness - General Chief Complaint: Rash Stated Complaint: SCABIES Time Seen by Provider: 05/16/17 10:29 History Source: Patient Exam Limitations: No Limitations - History of Present Illness Initial Comments: 05/16/17 14:55 Patient is a 51-year-old female, anemia, asthma, hypertension, high cholesterol , cirrhosis presents emergency Department asking for Ventolin treatment states that her asthma has been acting up and she does not have any treatments at home , also requesting treatment for scabies son was recently diagnosed however she has no symptoms. Past Medical History: [Denies]. Allergies: No known allergies Medications: [See medication list] Family History: Non-contributory Social History: Denies smoking, alcohol use, or IVDU Review of Systems GENERAL/CONSTITUTIONAL: [No fever or chills. No weakness. No weight change.] HEAD, EYES, EARS, NOSE AND THROAT: [No change in vision. No ear pain or discharge. No sore throat. ] CARDIOVASCULAR: [No chest pain or shortness of breath.] RESPIRATORY: [No cough, occasional wheezing, no hemoptysis.] GASTROINTESTINAL: [No nausea, vomiting, diarrhea or constipation. No rectal bleeding.] GENITOURINARY: [No dysuria, frequency, or change in urination.] MUSCULOSKELETAL: [No joint or muscle swelling or pain. No neck or back pain.] SKIN : [No rash or easy bruising.] NEUROLOGIC: [No headache, vertigo, loss of consciousness, or loss of sensation.] Physical Exam: GENERAL: [The patient is awake, alert, and fully oriented, in no acute distress. ] HEAD: [Normal with no signs of trauma.] EYES: [Pupils equal, round and reactive to light, extraocular movements intact, sclera anicteric, conjunctiva clear.] ENT: [Ears normal, nares patent, oropharynx clear without exudates. Moist mucous membranes. No uvula deviation] NECK: [Normal range of motion, supple without lymphadenopathy, JVD, or masses.] LUNGS: [Breath sounds equal, clear to auscultation bilaterally. No wheezes, and no crackles.] HEART: [Regular rate and rhythm, normal S1 and S2 without murmur, rub or gallop. ] ABDOMEN: [Soft, nontender, normoactive bowel sounds. No guarding, no rebound. No masses. No bruising or abrasions] MUSCULOSKELETAL: [Normal range of motion, no edema. No clubbing or cyanosis. No cords, erythema, or tenderness. No CVA Tenderness with fist.] NEUROLOGICAL: [Cranial nerves II through XII grossly intact. Normal speech, normal gait.] PSYCH: [Normal mood, normal affect.] SKIN: [Warm, Dry, normal turgor, no rashes or lesions noted. No pruritis. ] 05/16/17 14:56 Past History - Past Medical History Allergies/Adverse Reactions: Allergies Allergy/AdvReac Type Severity Reaction Status Date / Time codeine [Codeine] Allergy Severe syncope Verified 05/16/17 10:16 Home Medications: Ambulatory Orders Albuterol Sulfate Inhaler - [Ventolin HFA Inhaler -] 1 - 2 inh PO Q4H #1 inhaler 05/16/17 Permethrin [Elimite] 60 gm TP ONCE #1 cream..g. 05/16/17 Anemia: Yes Asthma: Yes Cancer: No Cardiac Disorders: No CVA: No COPD: No CHF: No Dementia: No Diabetes: No GI Disorders: Yes (gastric ulcers) Disorders: No HTN: Yes Hypercholesterolemia: Yes Liver Disease: Yes (CIRRHOSIS) Seizures: No Thyroid Disease: No - Surgical History Abdominal Surgery: Yes (TUBAL LIGATION.) Appendectomy: No Cardiac Surgery: No Cholecystectomy: Yes Lung Surgery: No Neurologic Surgery: No Orthopedic Surgery: No - Immunization History Immunization Up to Date: No - Suicide/Smoking/Psychosocial Hx Smoking Status: Yes Smoking History: Current some day smoker Have you smoked in the past 12 months: No Number of Cigarettes Smoked Daily: 0 Information on smoking cessation initiated: No 'Breaking Loose' booklet given: 04/17/14 Hx Alcohol Use: No Drug/Substance Use Hx: No Substance Use Type: None Hx Substance Use Treatment: No *Physical Exam - Vital Signs Last Vital Signs Temp Pulse Resp BP Pulse Ox 98 F 81 19 131/70 99 05/16/17 10:16 05/16/17 10:16 05/16/17 10:16 05/16/17 10:16 05/16/17 10:16 ED Treatment Course - Medications Given in the ED: ED Medications Discontinued Medications Generic Name Dose Route Start Last Admin Trade Name Freq PRN Reason Stop Dose Admin Albuterol/Ipratropium 1 amp 05/16/17 10:42 05/16/17 10:51 Duoneb - NEB 05/16/17 10:43 1 amp ONCE ONE Administration Medical Decision Making - Medical Decision Making 05/16/17 14:57 A/P : She here for evaluation of occasional wheezing, lungs clear and reassessment because patient states she feels short of breath and wheezing, I will give her one Combivent treatment. We'll also give prescription for Elimite since her son lives with her is currently being treated for scabies. She needs prescription for nebulizer I have instructed Patient to call her primary care doctor for new prescription. She has no wheezing upon arrival today. I will give her an albuterol pump which strict follow-up she states she' ll follow-up today I will also given a prescription for Elimite cream which strict instructions on use. *DC/Admit/Observation/Transfer Diagnosis at time of Disposition: Exposure to scabies Asthma Qualifiers: Asthma severity: mild Asthma persistence: intermittent Asthma complication type : uncomplicated Qualified Code(s): J45.20 - Mild intermittent asthma, uncomplicated - Discharge Dispostion Disposition: HOME Condition at time of disposition: Stable Admit: No - Prescriptions Prescriptions: Albuterol Sulfate Inhaler - [Ventolin HFA Inhaler -] 1 - 2 inh PO Q4H #1 inhaler Permethrin [Elimite] 60 gm TP ONCE #1 cream..g. - Referrals Referrals: Cecilio Alvarado MD [Primary Care Provider] - - Patient Instructions Printed Discharge Instructions: DI for Scabies Additional Instructions: Please apply cream head to toe, leave on for 10-14 hours, then wash off. Wash all linens with hot water. Please repeat again in one week. - Post Discharge Activity Forms/Work/School Notes: Back to Work
== END 2017-05-16 11:16 | disposition home or self-care (01) ==
LOC: JERFT 09:53
DX: B86 Scabies (principal)
CPT/HCPCS: 99281-25

== ENCOUNTER 2017-11-15 08:41 | Inpatient (IN) | payer OTHER ==
[2017-11-15 08:49] VITALS: BMI 35.2
--- NOTE | 2017-11-15 09:02 | PDOC ---
History of Present Illness - General Chief Complaint: Vaginal Bleeding Stated Complaint: VAGINAL BLEEDING Time Seen by Provider: 11/15/17 09:02 - History of Present Illness Initial Comments: 11/15/17 09:03 Ms. Gastelum is a 52 yo female w/ pmh of anemia, asthma, fatty liver, HTN, gastric ulcers, and HLD who presents for evaluation of significant vaginal bleeding as of this morning with coinciding pain. She reports she was previously in her normal state of health however woke up this morning with significant blood in her bed and circumferential abdominal pain/cramping. She reports she has not started menopause yet however has had a distant tubal ligation. Finished her last period 10 days ago. The patient denies chest pain, shortness of breath, headache and dizziness. Denies fever, chills, nausea, vomit, diarrhea and constipation. Denies dysuria, frequency, urgency and hematuria. Allergies: Codeine Past History - Past Medical History Allergies/Adverse Reactions: Allergies Allergy/AdvReac Type Severity Reaction Status Date / Time codeine [Codeine] Allergy Severe syncope Verified 11/15/17 08:44 Home Medications: Ambulatory Orders NK [No Known Home Medication] 11/15/17 Anemia: Yes Asthma: Yes Cancer: No Cardiac Disorders: No CVA: No COPD: No CHF: No Dementia: No Diabetes: No GI Disorders: Yes (gastric ulcers) Disorders: No HTN: Yes Hypercholesterolemia: Yes Liver Disease: Yes (CIRRHOSIS) Seizures: No Thyroid Disease: No - Surgical History Abdominal Surgery: Yes (TUBAL LIGATION.) Appendectomy: No Cardiac Surgery: No Cholecystectomy: Yes Lung Surgery: No Neurologic Surgery: No Orthopedic Surgery: No - Immunization History Immunization Up to Date: No - Suicide/Smoking/Psychosocial Hx Smoking Status: Yes Smoking History: Current some day smoker Have you smoked in the past 12 months: No Number of Cigarettes Smoked Daily: 5 Information on smoking cessation initiated: No 'Breaking Loose' booklet given: 04/17/14 Hx Alcohol Use: No Drug/Substance Use Hx: No Substance Use Type: None Hx Substance Use Treatment: No Review of Systems - Review of Systems Comments:: 11/15/17 09:03 GENERAL/CONSTITUTIONAL: No fever or chills. No weakness. HEAD, EYES, EARS, NOSE AND THROAT: No change in vision. No ear pain or discharge. No sore throat. CARDIOVASCULAR: No chest pain or shortness of breath RESPIRATORY: No cough, wheezing, or hemoptysis. GASTROINTESTINAL: +Bilateral lower abdominal pain with back pain. No nausea, vomiting, diarrhea or constipation. GENITOURINARY: +Significant vaginal bleeding in excess of her normal menopause. No dysuria, frequency, or change in urination. MUSCULOSKELETAL: No joint or muscle swelling or pain. No neck or back pain. SKIN: No rash NEUROLOGIC: No headache, vertigo, loss of consciousness, or change in strength/ sensation. ENDOCRINE: No increased thirst. No abnormal weight change HEMATOLOGIC/LYMPHATIC: No anemia, easy bleeding, or history of blood clots. ALLERGIC/IMMUNOLOGIC: No hives or skin allergy. *Physical Exam - Vital Signs Last Vital Signs Temp Pulse Resp BP Pulse Ox 97.8 F 87 20 152/72 100 11/15/17 08:45 11/15/17 08:45 11/15/17 08:45 11/15/17 08:45 11/15/17 08:45 - Physical Exam Comments: 11/15/17 09:03 GENERAL: Awake, alert, and fully oriented, in no acute distress HEAD: No signs of trauma, normocephalic, atraumatic EYES: PERRLA, EOMI, sclera anicteric, conjunctiva clear ENT: Auricles normal inspection, hearing grossly normal, nares patent, oropharynx clear without exudates. Moist mucosa NECK: Normal ROM, supple, no lymphadenopathy, JVD, or masses LUNGS: No distress, speaks full sentences, clear to auscultation bilaterally HEART: Regular rate and rhythm, normal S1 and S2, no murmurs, rubs or gallops, peripheral pulses normal and equal bilaterally. ABDOMEN: Soft, nontender, normoactive bowel sounds. No guarding, no rebound. No masses EXTREMITIES: Normal inspection, Normal range of motion, no edema. No clubbing or cyanosis. NEUROLOGICAL: Cranial nerves II through XII grossly intact. Normal speech, normal gait, no focal sensorimotor deficits SKIN: Warm, Dry, normal turgor, no rashes or lesions noted. : No CMT, no adnexal tenderness. Significant blood/clot noted in vaginal vault. Midline anterior mass noted; TTP. ED Treatment Course - LABORATORY CBC & Chemistry Diagram: 11/15/17 13:00 11/15/17 11:43 Medical Decision Making - Medical Decision Making 11/15/17 12:39 Ms. Gastelum is a 52 yo female w/ pmh as described who presents for evaluation of vaginal bleeding x1 day. Labs as below. Transvaginal US revealed anterior myometrial mass likely fibroid measuring 2.4 cm in lower uterine segment. OB/ ENGRAVER RUBBER consulted for evaluation. 11/15/17 13:57 Discussed patient with AEROGRAPHER who recommended provera 5mg BID for 10 days and outpatient follow-up. Given patients continued bleeding with drop in hemoglobin as below, discussed admission overnight for observation with primary. Dr. Freitas agrees and will admit patient for overnight obs and to follow H/H. Laboratory Results - last 24 hr 11/15/17 11/15/17 11/15/17 09:55 09:57 09:57 WBC 3.8 L RBC 4.13 Hgb 10.5 L D Hct 32.6 MCV 78.8 L MCH 25.4 L D MCHC 32.3 RDW 19.0 H Plt Count 90 L D MPV 9.0 Absolute Neuts (auto) 2.4 Neutrophils % 63.4 Lymphocytes % 24.5 Monocytes % 7.7 Eosinophils % 2.7 Basophils % 1.7 Nucleated RBC % 0 PT with INR 14.70 H INR 1.30 H PTT (Actin FS) 32.5 Sodium Cancelled Potassium Cancelled Chloride Cancelled Carbon Dioxide Cancelled Anion Gap Cancelled BUN Cancelled Creatinine Cancelled Creat Clearance w eGFR Cancelled Random Glucose Cancelled Calcium Cancelled Total Bilirubin Cancelled AST Cancelled ALT Cancelled Alkaline Phosphatase Cancelled Total Protein Cancelled Albumin Cancelled Serum , Qual Blood Type Antibody Screen 11/15/17 11/15/17 11/15/17 09:57 09:57 11:43 WBC RBC Hgb Hct MCV MCH MCHC RDW Plt Count MPV Absolute Neuts (auto) Neutrophils % Lymphocytes % Monocytes % Eosinophils % Basophils % Nucleated RBC % PT with INR INR PTT (Actin FS) Sodium 142 Potassium 3.7 Chloride 111 H Carbon Dioxide 23 Anion Gap 8 BUN 10 Creatinine 0.6 Creat Clearance w eGFR > 60 Random Glucose 109 H Calcium 7.4 L Total Bilirubin 1.1 H D AST 36 ALT 23 Alkaline Phosphatase 129 H Total Protein 6.8 Albumin 2.8 L Serum , Qual Negative Blood Type O POSITIVE Antibody Screen Negative 11/15/17 13:00 WBC 3.1 L RBC 3.80 Hgb 9.6 L Hct 30.2 L MCV 79.3 L MCH 25.3 L MCHC 31.9 L RDW 18.5 H Plt Count 67 L D MPV 8.7 Absolute Neuts (auto) 1.9 Neutrophils % 62.2 Lymphocytes % 27.6 Monocytes % 6.9 Eosinophils % 2.1 Basophils % 1.2 Nucleated RBC % 0 PT with INR INR PTT (Actin FS) Sodium Potassium Chloride Carbon Dioxide Anion Gap BUN Creatinine Creat Clearance w eGFR Random Glucose Calcium Total Bilirubin AST ALT Alkaline Phosphatase Total Protein Albumin Serum , Qual Blood Type Antibody Screen *DC/Admit/Observation/Transfer Diagnosis at time of Disposition: Vaginal bleeding Anemia Qualifiers: Anemia type: unspecified type Qualified Code(s): D64.9 - Anemia, unspecified - Discharge Dispostion Decision to Admit order: Yes - Referrals Referrals: Cecilio Alvarado MD [Primary Care Provider] - - Patient Instructions - Post Discharge Activity
--- NOTE | 2017-11-15 09:27 | PDOC ---
Attending Attestation - Resident Resident Name: Tang Evans - ED Attending Attestation I have performed the following: I have examined & evaluated the patient, The case was reviewed & discussed with the resident, I agree w/resident's findings & plan, Exceptions are as noted - HPI HPI: 11/15/17 09:22 52-year-old female no past medical history here today complaining of vaginal bleeding. Patient states she had a normal period 1 week ago that lasted for 7 days. Today it's exam she awoke with heavy bleeding from the vagina and abdominal cramping. She states she is passing blood with clots does have a history of dysfunctional bleeding many years ago. Has not seen her rate clerk and actually 5 years denies any chest pain or shortness of breath is not feeling lightheaded but does have abdominal pain does not take any blood thinners does not believe that she has been perimenopausal are gone through menopause as of yet her periods have been very regular in the last 6 months - Physicial Exam PE: 11/15/17 09:27 Awake alert no acute distress lungs are clear bilaterally heart is regular without any murmurs rubs or gallops abdomen is soft mild suprapubic tenderness no rebound no guarding nondistended extremities are warm and well-perfused patient is alert oriented 3 moving all 4 extremities skin is warm and dry - Medical Decision Making 11/15/17 09:28 Patient with dysfunctional vaginal bleeding. Differential includes anemia, fibroids, dysfunctional bleeding. Plan: CBC CMP transvaginal ultrasound IV hydration Heart Score/ECG Review #1 General ECG Interpretation: Sinus Rhythm, Normal Rate (79), Normal Intervals, No acute ischemic changes
[2017-11-15] MEDS ORDERED: SODIUM CHLORIDE 1,000 ML IV STA (09:42)
[2017-11-15] MEDS ORDERED: ONDANSETRON 4 MG/2 ML VIAL IVPB ONE (09:42)
[2017-11-15] MEDS ORDERED: morphine CARPU-JECT 4 MG/1 ML DISP.SYRIN IVPUSH ONE (09:42)
[2017-11-15] MEDS ORDERED: morphine SULFATE 4 MG/ML VIAL ONE (09:53)
[2017-11-15 10:01] LABS: BASO % 1.7 % (0-2.0); EOS % 2.7 % (0-4.5); HEMATOCRIT 32.6 % (32.4-45.2); HEMOGLOBIN 10.5 GM/dL (10.7-15.3); LYMPH % 24.5 % (8-40); MCH 25.4 pg (25.7-33.7); MCHC 32.3 g/dl (32.0-36.0); MEAN CELL VOLUME 78.8 fl (80-96); MONO % 7.7 % (3.8-10.2); NEUT % 63.4 % (42.8-82.8); PLATELET COUNT 90 K/MM3 (134-434); RBC 4.13 M/mm3 (3.60-5.2); WHITE BLOOD COUNT 3.8 K/mm3 (4.0-10.0)
[2017-11-15 10:15] LABS: INR 1.3 (0.82-1.09); PROTHROMBIN TIME (PATIENT) 14.7 SEC (9.7-13.0)
[2017-11-15 10:18] LABS: ACTIVATED PTT 32.5 SECONDS (26.9-34.4)
--- NOTE | 2017-11-15 12:11 | EKG ---
Test Reason : Blood Pressure : / mmHG Vent. Rate : 079 BPM Atrial Rate : 079 BPM P-R Int : 170 ms QRS Dur : 084 ms QT Int : 454 ms P-R-T Axes : 047 -18 032 degrees QTc Int : 520 ms NORMAL SINUS RHYTHM POSSIBLE ANTERIOR INFARCT , AGE UNDETERMINED PROLONGED QT ABNORMAL ECG WHEN COMPARED WITH ECG OF 20-AUG-2016 15:03, NO SIGNIFICANT CHANGE WAS FOUND Confirmed by MD IWONA, PURA ([id number]) on 11/15/2017 12:11:22 PM Referred By: Confirmed By:PURA BUSTILLO MD
[2017-11-15 12:17] LABS: ALBUMIN 2.8 g/dl (3.4-5.0); ANION GAP 8 (8-16); BLOOD UREA NITROGEN 10 mg/dL (7-18); CALCIUM 7.4 mg/dL (8.5-10.1); CHLORIDE 111 mmol/L (98-107); CO2 23 mmol/L (21-32); CREATININE 0.6 mg/dL (0.55-1.02); GLUCOSE,RANDOM 109 mg/dL (74-106); POTASSIUM 3.7 mmol/L (3.5-5.1); SGOT/AST 36 U/L (15-37); SGPT/ALT 23 U/L (12-78); SODIUM 142 mmol/L (136-145)
[2017-11-15 12:19] LABS: ALK PHOS 129 U/L (45-117); BILIRUBIN,TOTAL 1.1 mg/dL (0.2-1.0); TOT PROT 6.8 g/dl (6.4-8.2)
[2017-11-15 13:10] LABS: BASO % 1.2 % (0-2.0); EOS % 2.1 % (0-4.5); HEMATOCRIT 30.2 % (32.4-45.2); HEMOGLOBIN 9.6 GM/dL (10.7-15.3); LYMPH % 27.6 % (8-40); MCH 25.3 pg (25.7-33.7); MCHC 31.9 g/dl (32.0-36.0); MEAN CELL VOLUME 79.3 fl (80-96); MEAN PLT VOLUME 8.7 fl (7.5-11.1); MONO % 6.9 % (3.8-10.2); NEUT % 62.2 % (42.8-82.8); PLATELET COUNT 67 K/MM3 (134-434); RDW 18.5 % (11.6-15.6); WHITE BLOOD COUNT 3.1 K/mm3 (4.0-10.0)
[2017-11-15] MEDS ORDERED: medroxyPROGESTERone ACET 5 MG TABLET PO ONE (14:00)
[2017-11-15] MEDS ORDERED: morphine CARPU-JECT 2 MG/1 ML DISP.SYRIN IVPUSH STA (17:38)
--- NOTE | 2017-11-16 02:42 | HP ---
Admitting History and Physical - Admission History of Present Illness: Pt is a 52 y/o female w/ PMH significant for anemia, asthma, fatty liver(? cirrhosis), HTN, gastric ulcers, and HLD who presents for evaluation of significant vaginal bleeding as of day of admission w/ lower abdominal pain. Pt states that there was blood in her bed w/ heavy passing of vaginal clots. Pt's last menstrual period was about 1 week ago. Pt also gives a h/o thrombocytopenia and was told her low plts fluctuated and that was normal. 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 History of Recent Travel: No Home Medications - Allergies Allergies/Adverse Reactions: Allergies Allergy/AdvReac Type Severity Reaction Status Date / Time codeine [Codeine] Allergy Severe syncope Verified 11/15/17 08:44 - Home Medications Home Medications: Ambulatory Orders NK [No Known Home Medication] 11/15/17 Family Disease History - Family Disease History Family History: Unremarkable Family Disease History: Diabetes: Father, Mother (asthma), Brother (liver cancer - age 54), Heart Disease: Father, Other: Mother Review of Systems - Review of Systems Constitutional: reports: No Symptoms HENT: reports: No Symptoms Neck: reports: No Symptoms Cardiovascular: reports: No Symptoms Respiratory: reports: No Symptoms Gastrointestinal: reports: Abdominal Pain Physical Examination Vital Signs: Vital Signs Temperature 98.3 F 11/15/17 20:46 Pulse Rate 72 11/15/17 20:46 Respiratory Rate 18 11/15/17 20:46 Blood Pressure 124/72 11/15/17 20:46 O2 Sat by Pulse Oximetry (%) 97 11/15/17 16:40 Constitutional: Yes: Well Nourished Eyes: Yes: WNL HENT: Yes: WNL Neck: Yes: WNL, Supple Cardiovascular: Yes: WNL, Regular Rate and Rhythm Respiratory: Yes: WNL, Regular, CTA Bilaterally Gastrointestinal: Yes: WNL, Normal Bowel Sounds, Soft Musculoskeletal: Yes: WNL Extremities: Yes: WNL Edema: No Neurological: Yes: WNL ...Motor Strength: WNL Labs: CBC, BMP 11/15/17 13:00 11/15/17 11:43 Problem List - Problems (1) Symptomatic anemia Assessment/Plan: Monitor H?H and transfuse as needed ?Due to vaginal bleeding Transvaginal US showed uterine fibroid Heme consults Code(s): D64.9 - ANEMIA, UNSPECIFIED (2) Vaginal bleeding Assessment/Plan: REGULATORY SUBMISSIONS ASSOCIATE consult Started on progesterone Code(s): N93.9 - ABNORMAL UTERINE AND VAGINAL BLEEDING, UNSPECIFIED (3) Pancytopenia Assessment/Plan: Cont to monitor labs Heme consult Code(s): D61.818 - OTHER PANCYTOPENIA
[2017-11-16 07:30] LABS: BASO % 0.8 % (0-2.0); EOS % 2.4 % (0-4.5); HEMATOCRIT 24.6 % (32.4-45.2); HEMOGLOBIN 8.1 GM/dL (10.7-15.3); LYMPH % 30.3 % (8-40); MCH 25.8 pg (25.7-33.7); MCHC 32.8 g/dl (32.0-36.0); MEAN CELL VOLUME 78.6 fl (80-96); MEAN PLT VOLUME 8.8 fl (7.5-11.1); MONO % 9.9 % (3.8-10.2); NEUT % 56.6 % (42.8-82.8); PLATELET COUNT 52 K/MM3 (134-434); RBC 3.13 M/mm3 (3.60-5.2); RDW 18.5 % (11.6-15.6); WHITE BLOOD COUNT 2.3 K/mm3 (4.0-10.0)
[2017-11-16 07:41] LABS: CHLORIDE 109 mmol/L (98-107); POTASSIUM 3.6 mmol/L (3.5-5.1); SODIUM 141 mmol/L (136-145)
[2017-11-16 07:56] LABS: ANION GAP 7 (8-16); BLOOD UREA NITROGEN 11 mg/dL (7-18); CALCIUM 7.4 mg/dL (8.5-10.1); CO2 25 mmol/L (21-32); CREATININE 0.6 mg/dL (0.55-1.02); GLUCOSE,RANDOM 121 mg/dL (74-106)
[2017-11-16 07:57] LABS: ALBUMIN 2.6 g/dl (3.4-5.0); ALK PHOS 140 U/L (45-117); BILIRUBIN,TOTAL 0.6 mg/dL (0.2-1.0); SGOT/AST 31 U/L (15-37); SGPT/ALT 22 U/L (12-78); TOT PROT 6.2 g/dl (6.4-8.2)
[2017-11-16] MEDS: medroxyPROGESTERone ACET 5 MG TABLET PO SCH ×2 (10:48→22:04)
--- NOTE | 2017-11-16 16:25 | CONSULT ---
Consult Consult Specialty:: Hematology - History of Present Illness History of Present Illness: Ms. Gastelum is a 52 yo female w/ pmh of anemia, asthma, fatty liver, HTN, gastric ulcers, and HLD who presents for evaluation of significant vaginal bleeding as of this morning with coinciding pain. She reports she was previously in her normal state of health however woke up this morning with significant blood in her bed and circumferential abdominal pain/cramping. She reports she has not started menopause yet however has had a distant tubal ligation. Finished her last period 10 days ago. 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 History of Recent Travel: No Home Medications - Allergies Allergies/Adverse Reactions: Allergies Allergy/AdvReac Type Severity Reaction Status Date / Time codeine [Codeine] Allergy Severe syncope Verified 11/15/17 08:44 - Home Medications Home Medications: Ambulatory Orders NK [No Known Home Medication] 11/15/17 Family Disease History - Family Disease History Family Disease History: Diabetes: Father, Mother (asthma), Brother (liver cancer - age 54), Heart Disease: Father, Other: Mother Physical Exam Vital Signs: Vital Signs Temperature 97.6 F 11/16/17 14:54 Pulse Rate 84 11/16/17 14:54 Respiratory Rate 18 11/16/17 14:54 Blood Pressure 119/59 11/16/17 14:54 O2 Sat by Pulse Oximetry (%) 99 11/16/17 09:00 Constitutional: Yes: Well Nourished, No Distress, Calm Eyes: Yes: Conjunctiva Clear HENT: Yes: Atraumatic, Normocephalic Neck: Yes: Supple Cardiovascular: Yes: Regular Rate and Rhythm Respiratory: Yes: Regular, CTA Bilaterally Musculoskeletal: Yes: WNL Extremities: Yes: WNL Labs: CBC, BMP 11/16/17 06:30 11/16/17 06:30 Assessment/Plan Long standing Pancytopenia: Likely fatty liver Was told has ?cirrhosis for w/u US abdomen to r/o HSM As bleeding, will give platelets Coags wnl Regular PRBCs threshold
[2017-11-16] MEDS ORDERED: morphine SULFATE 4 MG/ML VIAL IVPUSH ONE (17:45)
[2017-11-16] MEDS ORDERED: PT OWN MED DRAWER 7, Y5N ONE (22:02)
[2017-11-17] MEDS: ACETAMINOPHEN 325 MG TABLET (FP) PO PRN (04:57)
[2017-11-17 07:27] LABS: BASO % 0.7 % (0-2.0); EOS % 1.1 % (0-4.5); HEMATOCRIT 26.3 % (32.4-45.2); HEMOGLOBIN 8.7 GM/dL (10.7-15.3); LYMPH % 13.6 % (8-40); MCH 25.8 pg (25.7-33.7); MCHC 32.9 g/dl (32.0-36.0); MEAN CELL VOLUME 78.3 fl (80-96); MEAN PLT VOLUME 8.6 fl (7.5-11.1); MONO % 8.9 % (3.8-10.2); NEUT % 75.7 % (42.8-82.8); PLATELET COUNT 64 K/MM3 (134-434); RBC 3.36 M/mm3 (3.60-5.2); RDW 18.8 % (11.6-15.6); RETICULOCYTES 2.55 % (0.5-1.5)
[2017-11-17] MEDS ORDERED: PT OWN MED DRAWER 7, Y5N ONE ×2 (11:13→18:30)
[2017-11-17] MEDS: medroxyPROGESTERone ACET 5 MG TABLET PO SCH ×2 (11:20→21:28)
[2017-11-17] MEDS ORDERED: oxyCODONE HCL 5 MG TABLET PO ONE (19:00)
[2017-11-17] MEDS ORDERED: ACETAMINOPHEN 325 MG TABLET (FP) PO ONE (19:30)
--- NOTE | 2017-11-17 23:52 | PN ---
Progress Note, Physician History of Present Illness: Pt still w/ vaginal bleeding but it is less - Current Medication List Current Medications: Active Medications Acetaminophen (Tylenol -) 650 mg PO Q6H PRN PRN Reason: PAIN LEVEL 1-5 Last Admin: 11/17/17 04:57 Dose: 650 mg Medroxyprogesterone Acetate (Provera -) 5 mg PO BID JEFFERSON Last Admin: 11/17/17 21:28 Dose: 5 mg - Objective Vital Signs: Vital Signs Temperature 98.5 F 11/17/17 18:00 Pulse Rate 80 11/17/17 18:00 Respiratory Rate 20 11/17/17 18:00 Blood Pressure 125/62 11/17/17 18:00 O2 Sat by Pulse Oximetry (%) 99 11/17/17 09:00 Neck: Yes: WNL, Supple Cardiovascular: Yes: WNL, Regular Rate and Rhythm Respiratory: Yes: WNL, Regular, CTA Bilaterally Gastrointestinal: Yes: WNL, Normal Bowel Sounds, Soft Labs: CBC, BMP 11/17/17 06:40 11/16/17 06:30 INR, PTT INR 1.30 (0.82-1.09) H 11/15/17 09:57 Problem List - Problems (1) Symptomatic anemia Code(s): D64.9 - ANEMIA, UNSPECIFIED (2) Vaginal bleeding Code(s): N93.9 - ABNORMAL UTERINE AND VAGINAL BLEEDING, UNSPECIFIED (3) Pancytopenia Code(s): D61.818 - OTHER PANCYTOPENIA
[2017-11-18 08:06] LABS: SERUM IRON SATURATION 12 % (15-55); TOTAL IRON BINDING CAPACITY 377 ug/dL (250-450); UIBC 332 ug/dL (131-425)
[2017-11-18] MEDS ORDERED: PT OWN MED DRAWER 7, Y5N ONE (10:01)
[2017-11-18] MEDS: medroxyPROGESTERone ACET 5 MG TABLET PO SCH ×2 (10:05→21:04)
[2017-11-18 10:49] LABS: BASO % 1.1 % (0-2.0); EOS % 2.9 % (0-4.5); HEMATOCRIT 24.6 % (32.4-45.2); HEMOGLOBIN 7.8 GM/dL (10.7-15.3); LYMPH % 32.9 % (8-40); MCH 25.3 pg (25.7-33.7); MEAN CELL VOLUME 79.3 fl (80-96); MEAN PLT VOLUME 8.8 fl (7.5-11.1); NEUT % 51.1 % (42.8-82.8); PLATELET COUNT 52 K/MM3 (134-434); RDW 18.7 % (11.6-15.6); WHITE BLOOD COUNT 2.3 K/mm3 (4.0-10.0)
--- NOTE | 2017-11-18 13:49 | PN ---
Progress Note (short form) - Note Progress Note: Pt seen and examiend +vaginal bleed +fatigue Constitutional: Yes: Well Nourished, No Distress, Calm Eyes: Yes: Conjunctiva Clear HENT: Yes: Atraumatic, Normocephalic Neck: Yes: Supple Cardiovascular: Yes: Regular Rate and Rhythm Respiratory: Yes: Regular, CTA Bilaterally Musculoskeletal: Yes: WNL Extremities: Yes: WNL Temp Pulse Resp BP Pulse Ox 98.1 F 72 20 118/54 99 11/18/17 10:00 11/18/17 10:00 11/18/17 10:00 11/18/17 10:00 11/17/17 09:00 CBC, BMP 11/18/17 10:35 11/16/17 06:30 Current Medications Generic Name Dose Route Start Last Admin Trade Name Freq PRN Reason Stop Dose Admin Acetaminophen 650 mg 11/16/17 02:43 11/17/17 04:57 Tylenol - PO 650 mg Q6H PRN Administration PAIN LEVEL 1-5 Medroxyprogesterone Acetate 5 mg 11/16/17 10:00 11/18/17 10:05 Provera - PO 5 mg BID JEFFERSON Administration Pancytopenia likely in the setting of fatty liver/Hepatcellular disease Iron studies with Fe -Def Nl LDH/B12/Folate CHEL pending check peripheral blood flow consider GI f/u Inpt/outpt Ongoing vaginal bleed transfuse PRBCs today Platelets stable
[2017-11-18] MEDS ORDERED: IRON SUCROSE INJECTION 200 MG in SODIUM CHLORIDE 240 ML IVPB ONE (13:50)
--- NOTE | 2017-11-18 22:54 | PN ---
Progress Note, Physician - Current Medication List Current Medications: Active Medications Acetaminophen (Tylenol -) 650 mg PO Q6H PRN PRN Reason: PAIN LEVEL 1-5 Last Admin: 11/17/17 04:57 Dose: 650 mg Medroxyprogesterone Acetate (Provera -) 5 mg PO BID JEFFERSON Last Admin: 11/18/17 21:04 Dose: 5 mg - Objective Vital Signs: Vital Signs Temperature 98.2 F 11/18/17 19:48 Pulse Rate 82 11/18/17 19:48 Respiratory Rate 20 11/18/17 19:48 Blood Pressure 138/77 11/18/17 19:48 O2 Sat by Pulse Oximetry (%) 99 11/17/17 09:00 Labs: CBC, BMP 11/18/17 10:35 11/16/17 06:30 INR, PTT INR 1.30 (0.82-1.09) H 11/15/17 09:57 Problem List - Problems (1) Symptomatic anemia Code(s): D64.9 - ANEMIA, UNSPECIFIED (2) Vaginal bleeding Code(s): N93.9 - ABNORMAL UTERINE AND VAGINAL BLEEDING, UNSPECIFIED (3) Pancytopenia Code(s): D61.818 - OTHER PANCYTOPENIA
[2017-11-19] MEDS: ACETAMINOPHEN 325 MG TABLET (FP) PO PRN (05:10)
[2017-11-19 06:28] VITALS: TEMP 98.3
[2017-11-19 08:00] LABS: BASO % 0.9 % (0-2.0); EOS % 2.5 % (0-4.5); HEMATOCRIT 31.5 % (32.4-45.2); HEMOGLOBIN 10.4 GM/dL (10.7-15.3); LYMPH % 23.8 % (8-40); MCH 26.7 pg (25.7-33.7); MEAN CELL VOLUME 80.7 fl (80-96); MONO % 9.5 % (3.8-10.2); NEUT % 63.3 % (42.8-82.8); RDW 17.8 % (11.6-15.6); WHITE BLOOD COUNT 3.1 K/mm3 (4.0-10.0)
[2017-11-19 08:08] LABS: PLATELET COUNT 30 K/MM3 (134-434)
[2017-11-19] MEDS: medroxyPROGESTERone ACET 5 MG TABLET PO SCH (09:42)
[2017-11-19 11:27] VITALS: BP 140/78; PULSE 85
--- NOTE | 2017-11-19 13:21 | PN ---
Progress Note (short form) - Note Progress Note: Hematology/Oncology Follow-up Note S: Patient seen at bedside today, eager to go home, refusing to stay inpatient anymore. Feels well with no complaints. No bleeding etc Last Vital Signs Temp Pulse Resp BP Pulse Ox 98.3 F 85 18 140/78 99 11/19/17 10:00 11/19/17 10:00 11/19/17 10:00 11/19/17 10:00 11/19/17 09:00 PE : AOx3, PERRLA, EOMI CTA (BL) Soft abdomen No c/c/e nonfocal neuro exam CBC, BMP 11/19/17 07:25 11/16/17 06:30 Reviewed current meds Peripheral smear reviewed : smear shows several normal appearing platelets /hpf , no other abnormalities noted, poor quality smear A/P : 52 y/o female with fatty liver disease and pancytopenia -although platelets appear low on CBC today, smear reveals abundant platelets -patient insisting on going home today -recommended to follow-up with Hematology- on Tuesday next week for CBC check and schedule for follow-up appointment -per pt- vaginal bleeding has resolved, H/H is stable
--- NOTE | 2017-11-20 15:58 | DS ---
Physical Examination Vital Signs: Vital Signs Temperature 98.3 F 11/19/17 10:00 Pulse Rate 85 11/19/17 10:00 Respiratory Rate 18 11/19/17 10:00 Blood Pressure 140/78 11/19/17 10:00 O2 Sat by Pulse Oximetry (%) 99 11/19/17 09:00 Labs: CBC, BMP 11/19/17 07:25 11/16/17 06:30 Discharge Summary Reason For Visit: VAGINAL BLEEDING Condition: Good - Instructions Diet, Activity, Other Instructions: See Dr Alvarado on Tuesday See Dr Howard on Tuesday Regular diet Referrals: Cecilio Alvarado MD [Primary Care Provider] - Disposition: HOME - Home Medications Comprehensive Discharge Medication List: Ambulatory Orders Medroxyprogesterone Acetate [Provera -] 5 mg PO BID #12 tablet 11/19/17
== END 2017-11-19 12:19 | disposition home or self-care (01) | DRG 660 ==
LOC: JER 08:41 → JERBED 13:59 → J5S 16:11 → OBSVTOIN 11-16 02:34
PROVIDERS: ADMIT Internal Medicine; ATTEND Internal Medicine
PROC: 30233R1 Transfusion of Nonautologous Platelets into Peripheral Vein, Percutaneous Approach (ICD-10-PCS; principal; 2017-11-17)
PROC: 30233N1 Transfusion of Nonautologous Red Blood Cells into Peripheral Vein, Percutaneous Approach (ICD-10-PCS; 2017-11-18)
DX: D61.818 Other pancytopenia (principal); D64.9 Anemia, unspecified; N93.9 Abnormal uterine and vaginal bleeding, unspecified; I10 Essential (primary) hypertension; K76.0 Fatty (change of) liver, not elsewhere classified; E78.5 Hyperlipidemia, unspecified; Z72.0 Tobacco use; J45.909 Unspecified asthma, uncomplicated; I25.10 Atherosclerotic heart disease of native coronary artery without angina pectoris; D25.9 Leiomyoma of uterus, unspecified
CPT/HCPCS: 36415; 36430; 76700-TC; 76830-TC; 80053; 82607; 82728; 82746; 82784; 83540; 83550; 83615; 84155; 84165; 84703; 85025; 85044; 85610; 85730; 86334; 86850; 86900; 86901; 86922; 93005; 93010; 99284-25; G0378; J1756; J7030; P9034; P9038; P9058

== ENCOUNTER 2017-12-01 14:18 | Emergency (ER) | payer OTHER ==
[2017-12-01 14:25] VITALS: BP 146/83; PULSE 94; TEMP 98.5; BMI 35.3
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
[2017-12-01] MEDS ORDERED: SODIUM CHLORIDE 0.9% 1000 ML INFUS.BAG IV ONE (16:21)
[2017-12-01] MEDS ORDERED: ACETAMINOPHEN 1000 MG/100 ML VIAL (NON FORMULARY) IVPB ONE (16:21)
[2017-12-01 16:55] LABS: BASO % 0.8 % (0-2.0); EOS % 1.2 % (0-4.5); HEMATOCRIT 30.6 % (32.4-45.2); HEMOGLOBIN 10.1 GM/dL (10.7-15.3); LYMPH % 28.7 % (8-40); MCH 27.4 pg (25.7-33.7); MEAN CELL VOLUME 82.8 fl (80-96); MEAN PLT VOLUME 9.2 fl (7.5-11.1); MONO % 9.3 % (3.8-10.2); PLATELET COUNT 69 K/MM3 (134-434); RBC 3.69 M/mm3 (3.60-5.2); RDW 20.5 % (11.6-15.6); WHITE BLOOD COUNT 3.3 K/mm3 (4.0-10.0)
[2017-12-01 16:58] LABS: URINE APPEARANCE CLEAR; URINE BILIRUBIN NEGATIVE (<2.0 mg/dL); URINE COLOR LTYELLOW; URINE GLUCOSE (UA) NEGATIVE (NEGATIVE); URINE KETONE TRACE (NEGATIVE); URINE LEUK ESTERASE NEGATIVE (NEGATIVE); URINE NITRITE NEGATIVE (NEGATIVE); URINE PROTEIN NEGATIVE (NEGATIVE); URINE UROBILINOGEN 4.0 E.U/dl mg/dL (0.2-1.0)
[2017-12-01 17:03] LABS: EPI CELLS RARE /HPF (FEW); URINE MUCUS RARE
[2017-12-01 17:18] LABS: INR 1.1 (0.82-1.09); PROTHROMBIN TIME (PATIENT) 12.4 SEC (9.7-13.0)
[2017-12-01] MEDS ORDERED: ACETAMINOPHEN INJECTION 100 ML IVPB ONE (17:20)
[2017-12-01 17:21] LABS: ACTIVATED PTT 25.4 SECONDS (25.2-36.5)
[2017-12-01 17:30] LABS: ALBUMIN 3.1 g/dl (3.4-5.0); ALK PHOS 105 U/L (45-117); ANION GAP 11 (8-16); BLOOD UREA NITROGEN 8 mg/dL (7-18); CALCIUM 7.5 mg/dL (8.5-10.1); CHLORIDE 110 mmol/L (98-107); CO2 21 mmol/L (21-32); CREATININE 0.5 mg/dL (0.55-1.02); GLUCOSE,RANDOM 93 mg/dL (74-106); POTASSIUM 3.7 mmol/L (3.5-5.1); SGOT/AST 36 U/L (15-37); SGPT/ALT 25 U/L (12-78); SODIUM 142 mmol/L (136-145); TOT PROT 7.6 g/dl (6.4-8.2)
--- NOTE | 2017-12-02 08:49 | EKG ---
Test Reason : Blood Pressure : / mmHG Vent. Rate : 072 BPM Atrial Rate : 072 BPM P-R Int : 176 ms QRS Dur : 082 ms QT Int : 456 ms P-R-T Axes : 053 -13 021 degrees QTc Int : 499 ms NORMAL SINUS RHYTHM PROLONGED QT ABNORMAL ECG WHEN COMPARED WITH ECG OF 15-NOV-2017 10:39, NO SIGNIFICANT CHANGE WAS FOUND Confirmed by PROMISE CANCINO MD ([id number]) on 12/02/2017 8:48:53 AM Referred By: Confirmed By:PROMISE CANCINO MD
== END 2017-12-01 21:15 | disposition home or self-care (01) ==
LOC: JER 14:18
PROC: 3E033NZ Introduction of Analgesics, Hypnotics, Sedatives into Peripheral Vein, Percutaneous Approach (ICD-10-PCS; principal; 2017-12-01)
DX: S09.8XXA Other specified injuries of head, initial encounter (principal); S40.022A Contusion of left upper arm, initial encounter; S40.021A Contusion of right upper arm, initial encounter; N93.8 Other specified abnormal uterine and vaginal bleeding; D69.6 Thrombocytopenia, unspecified; D25.9 Leiomyoma of uterus, unspecified; M54.6 Pain in thoracic spine; Y04.2XXA Assault by strike against or bumped into by another person, initial encounter; Y93.89 Activity, other specified; Y92.098 Other place in other non-institutional residence as the place of occurrence of the external cause; Y99.8 Other external cause status; Y07.03 Male partner, perpetrator of maltreatment and neglect
CPT/HCPCS: 36415; 70450-TC; 71046-TC-FY; 72070-TC-FY; 72100-TC-FY; 76830-TC; 80053; 81003; 81015; 84703; 85025; 85610; 85730; 86850; 86900; 86901; 93005; 93010; 99284-25; J0131; J7030

== ENCOUNTER 2017-12-06 13:37 | Inpatient (IN) | payer OTHER ==
[2017-12-06] MEDS ORDERED: SODIUM CHLORIDE 1,000 ML IV STA (15:30)
--- NOTE | 2017-12-06 15:37 | PDOC ---
*Physical Exam - Vital Signs Last Vital Signs Temp Pulse Resp BP Pulse Ox 98.1 F 85 18 120/60 100 12/06/17 13:52 12/06/17 13:52 12/06/17 13:52 12/06/17 13:52 12/06/17 13:52 ED Treatment Course - LABORATORY CBC & Chemistry Diagram: 12/07/17 06:30 12/07/17 06:30 Medical Decision Making - Medical Decision Making 12/06/17 15:37 Pt seen by Midlevel Provider under my direct supervision Ancillary studies reviewed I agree with plan as outlined by Midlevel Provider *DC/Admit/Observation/Transfer Diagnosis at time of Disposition: Thrombocytopenia, Vaginal bleeding, abnormal, Hypokalemia - Referrals - Patient Instructions - Post Discharge Activity
[2017-12-06 15:50] LABS: BASO % 1.3 % (0-2.0); EOS % 2.2 % (0-4.5); HEMATOCRIT 29.1 % (32.4-45.2); HEMOGLOBIN 9.5 GM/dL (10.7-15.3); MCH 27.5 pg (25.7-33.7); MCHC 32.8 g/dl (32.0-36.0); MEAN CELL VOLUME 83.8 fl (80-96); MEAN PLT VOLUME 8.9 fl (7.5-11.1); MONO % 8.9 % (3.8-10.2); NEUT % 65.6 % (42.8-82.8); PLATELET COUNT 80 K/MM3 (134-434); RBC 3.48 M/mm3 (3.60-5.2); RDW 19.5 % (11.6-15.6); WHITE BLOOD COUNT 3.7 K/mm3 (4.0-10.0)
[2017-12-06] MEDS ORDERED: morphine CARPU-JECT 2 MG/1 ML DISP.SYRIN IVPUSH ONE ×2 (15:51→18:21)
--- NOTE | 2017-12-06 15:51 | PDOC ---
History of Present Illness - General Chief Complaint: Vaginal Bleeding Stated Complaint: VAGINAL BLEEDING Time Seen by Provider: 12/06/17 15:29 History Source: Patient Exam Limitations: No Limitations - History of Present Illness Travel History: No Initial Comments: 12/06/17 15:54 52-year-old female presents the emergency department for evaluation of vaginal bleeding for the past 2 days now associated lower abdominal pain and back pain. Patient is currently under the care of audience development manager secondary to recent diagnosis of thrombocytopenia and under the care of Dr. Hooks, PUBLIC HEALTH MICROBIOLOGIST for fibroids. Patient denies fever, chills, or weakness presently. Patient was told by the audience development manager and PUBLIC HEALTH MICROBIOLOGIST to go to the emergency room for evaluation and likely admission Timing/Duration: reports: constant, getting worse Quality: reports: moderate, cramping Abdominal Pain Onset Location: reports: suprapubic Pain Radiation: reports: back Aggravating Factors: improves with: None Alleviating Factors: improves with: None Past History - Travel Traveled outside of the country in the last 30 days: No - Past Medical History Allergies/Adverse Reactions: Allergies Allergy/AdvReac Type Severity Reaction Status Date / Time codeine [Codeine] Allergy Severe syncope Verified 12/06/17 13:57 Home Medications: Ambulatory Orders NK [No Known Home Medication] 12/06/17 Anemia: Yes Asthma: Yes Cancer: No Cardiac Disorders: No CVA: No COPD: No CHF: No Dementia: No Diabetes: No GI Disorders: Yes (gastric ulcers) Disorders: No HTN: Yes Hypercholesterolemia: Yes Liver Disease: Yes (CIRRHOSIS/spleen swelling) Seizures: No Thyroid Disease: No - Surgical History Abdominal Surgery: Yes (TUBAL LIGATION.) Appendectomy: No Cardiac Surgery: No Cholecystectomy: Yes Lung Surgery: No Neurologic Surgery: No Orthopedic Surgery: No - Reproductive History Therapeutic (s) & number: No - Immunization History Immunization Up to Date: No - Suicide/Smoking/Psychosocial Hx Smoking Status: Yes Smoking History: Never smoked Have you smoked in the past 12 months: No Number of Cigarettes Smoked Daily: 5 Information on smoking cessation initiated: No 'Breaking Loose' booklet given: 04/17/14 Hx Alcohol Use: No Drug/Substance Use Hx: No Substance Use Type: None Hx Substance Use Treatment: No Patient Lives Alone: No Lives with/in: spouse/SO Review of Systems - Review of Systems Able to Perform ROS?: Yes Constitutional: No: Symptoms Reported HEENTM: No: Symptoms Reported Respiratory: No: Symptoms reported Cardiac (ROS): No: Symptoms Reported ABD/GI: Yes: Abdominal cramping : Yes: Discharge Musculoskeletal: Yes: Back Pain Integumentary: No: Symptoms Reported Neurological: No: Symptoms reported Hematologic/Lymphatic: Yes: See HPI *Physical Exam - Vital Signs Last Vital Signs Temp Pulse Resp BP Pulse Ox 98.1 F 85 18 120/60 100 12/06/17 13:52 12/06/17 13:52 12/06/17 13:52 12/06/17 13:52 12/06/17 13:52 - Physical Exam General Appearance: Yes: Nourished, Appropriately Dressed. No: Apparent Distress HEENT: positive: EOMI, LISA. negative: Pale Conjunctivae Neck: positive: Supple Respiratory/Chest: positive: Lungs Clear, Normal Breath Sounds. negative: Respiratory Distress, Accessory Muscle Use Cardiovascular: positive: Regular Rhythm, Regular Rate. negative: Murmur Female Pelvic Exam: positive: vaginal bleeding (moderate amount of bright red blood, no clots) Gastrointestinal/Abdominal: positive: Soft, Tenderness (midsuprapubic) Musculoskeletal: negative: CVA Tenderness Extremity: positive: Normal Capillary Refill. negative: Pedal Edema Integumentary: positive: Warm, Moist, Ecchymosis (scattered to extremities) Neurologic: positive: Motor Strength 5/5 (ambulatory) Heart Score/ECG Review - ECG Intrepretation Rhythm: Regular Rhythm (Sinus rhythm. Rate 81. Prolonged QT. No ST elevation or depression.) ED Treatment Course - LABORATORY CBC & Chemistry Diagram: 12/06/17 15:47 12/06/17 15:47 - RADIOLOGY Radiology Studies Ordered: Category Date Time Status PELVIC / BLADDER US [US] Stat Ultrasound 12/06/17 15:29 Ordered Medical Decision Making - Medical Decision Making 12/06/17 16:05 Pt with low platelet count. Patient ordered for labs, ultrasound, IV fluids and morphine. Consultation placed audience development manager and PUBLIC HEALTH MICROBIOLOGIST. Patient to be admitted to Dr. Freitas. Pt states going through 1 pad every 3-4 hours consisting of bright red blood and large clots the size of grapes. 12/06/17 16:08 Laboratory Tests 11/19/17 11/21/17 12/01/17 07:25 20:30 16:20 WBC Hgb Hct RDW Plt Count 30 L* D 73 L D 69 L Blood Type Antibody Screen 12/06/17 12/06/17 15:47 15:47 WBC 3.7 L Hgb 9.5 L Hct 29.1 L RDW 19.5 H Plt Count 80 L Blood Type Pending Antibody Screen Pending 12/06/17 16:27 Laboratory Tests 12/06/17 15:47 PT with INR 14.00 H INR 1.24 H 12/06/17 18:23 Ultrasound shows fibroids with no other acute pathology. Case discussed with Dr. Freitas and will admit to [facility]. Consultation placed for [employer] OPERATOR and audience development manager. 12/06/17 18:24 Laboratory Tests 12/06/17 15:47 Potassium 3.2 L Magnesium 1.9 *DC/Admit/Observation/Transfer Diagnosis at time of Disposition: Thrombocytopenia, Vaginal bleeding, abnormal, Hypokalemia - Discharge Dispostion Decision to Admit order: Yes - Referrals Referrals: Cecilio Alvarado MD [Primary Care Provider] - - Patient Instructions - Post Discharge Activity
[2017-12-06] MEDS ORDERED: morphine SULFATE 4 MG/ML VIAL ONE ×2 (15:54→18:30)
[2017-12-06 16:05] LABS: INR 1.24 (0.82-1.09)
[2017-12-06 16:36] LABS: ALBUMIN 2.9 g/dl (3.4-5.0); ANION GAP 6 (8-16); BLOOD UREA NITROGEN 10 mg/dL (7-18); CALCIUM 7.8 mg/dL (8.5-10.1); CHLORIDE 108 mmol/L (98-107); CO2 25 mmol/L (21-32); CREATININE 0.8 mg/dL (0.55-1.02); GLUCOSE,RANDOM 137 mg/dL (74-106); POTASSIUM 3.2 mmol/L (3.5-5.1); SGOT/AST 32 U/L (15-37); SGPT/ALT 23 U/L (12-78); SODIUM 139 mmol/L (136-145)
[2017-12-06 16:38] LABS: ALK PHOS 89 U/L (45-117); TOT PROT 7.1 g/dl (6.4-8.2)
[2017-12-06 16:43] LABS: MAGNESIUM 1.9 mg/dL (1.8-2.4)
--- NOTE | 2017-12-06 16:57 | PN ---
Progress Note (short form) - Note Progress Note: this am, received a call from the patient that the vaginal bleeding was "very heavy and with clots and walking makes worse". Spoke to the pt. Asked her to come to the ER to assess her CBC. Spoke to ER attending. Pt mentioned she also spoke to her FOOD ANALYST . I have reached out to and discussed about the pt. Pt's platelets >50K (as of last office visit 12/01). Coags wnl . will check VWD. No bleeding at other sites reportedly. Pt hs hepatocellular disease (?etiology)---->splenomegaly----> thrombocytopenia (since 2010,as per [facility] labs). If any FOOD ANALYST procedure is planned, Hematological management, can give platelet transfusion prior to a goal of platelets as deemed by the surgical/anesthesia team. Communicated this with . Medical optimization per medical team. Avoid NSAIDs/ASA
[2017-12-06] MEDS ORDERED: POTASSIUM CHLORIDE TABS 20 MEQ TABLET.ER (FP) PO ONE ×2 (18:24→18:30)
[2017-12-06 19:04] LABS: URINE APPEARANCE CLOUDY; URINE BILIRUBIN NEGATIVE (<2.0 mg/dL); URINE COLOR AMBER; URINE GLUCOSE (UA) NEGATIVE (NEGATIVE); URINE KETONE NEGATIVE (NEGATIVE); URINE LEUK ESTERASE NEGATIVE (NEGATIVE); URINE NITRITE NEGATIVE (NEGATIVE); URINE UROBILINOGEN 4.0 E.U/dl mg/dL (0.2-1.0)
[2017-12-06 19:05] LABS: URINE PROTEIN 2+ (NEGATIVE)
[2017-12-06 19:10] LABS: URINE MUCUS MANY
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
[2017-12-07] MEDS ORDERED: MORPHINE SULFATE 2 MG/ML VIAL IVPUSH ONE (01:29)
[2017-12-07 07:08] LABS: BASO % 0.7 % (0-2.0); EOS % 3.1 % (0-4.5); HEMATOCRIT 25.4 % (32.4-45.2); HEMOGLOBIN 8.4 GM/dL (10.7-15.3); MCH 27.5 pg (25.7-33.7); MEAN CELL VOLUME 83.4 fl (80-96); MEAN PLT VOLUME 9.1 fl (7.5-11.1); MONO % 9.4 % (3.8-10.2); NEUT % 55.8 % (42.8-82.8); PLATELET COUNT 61 K/MM3 (134-434); RBC 3.05 M/mm3 (3.60-5.2); RDW 19.9 % (11.6-15.6); WHITE BLOOD COUNT 2.8 K/mm3 (4.0-10.0)
[2017-12-07 07:42] LABS: ALBUMIN 2.5 g/dl (3.4-5.0); ANION GAP 6 (8-16); BLOOD UREA NITROGEN 8 mg/dL (7-18); CALCIUM 7.2 mg/dL (8.5-10.1); CHLORIDE 112 mmol/L (98-107); CO2 23 mmol/L (21-32); GLUCOSE,RANDOM 97 mg/dL (74-106); POTASSIUM 3.6 mmol/L (3.5-5.1); SODIUM 141 mmol/L (136-145)
[2017-12-07 08:08] LABS: ALK PHOS 92 U/L (45-117); BILIRUBIN,TOTAL 0.6 mg/dL (0.2-1.0); CREATININE 0.5 mg/dL (0.55-1.02); SGOT/AST 30 U/L (15-37); SGPT/ALT 22 U/L (12-78); TOT PROT 6.1 g/dl (6.4-8.2)
--- NOTE | 2017-12-07 13:00 | EKG ---
Test Reason : Blood Pressure : / mmHG Vent. Rate : 081 BPM Atrial Rate : 081 BPM P-R Int : 158 ms QRS Dur : 084 ms QT Int : 436 ms P-R-T Axes : 005 -04 033 degrees QTc Int : 506 ms NORMAL SINUS RHYTHM PROLONGED QT ABNORMAL ECG WHEN COMPARED WITH ECG OF 01-DEC-2017 20:10, NO SIGNIFICANT CHANGE WAS FOUND Confirmed by ELOISE LI MD ([id number]) on 12/07/2017 12:59:31 PM Referred By: Confirmed By:ELOISE LI MD
[2017-12-07] MEDS: MORPHINE SULFATE 2 MG/ML VIAL IVPUSH PRN ×2 (13:44→20:04)
--- NOTE | 2017-12-07 14:25 | PN ---
Progress Note (short form) - Note Progress Note: Constitutional: Yes: Well Nourished, No Distress, Calm Eyes: Yes: Conjunctiva Clear HENT: Yes: Atraumatic, Normocephalic Neck: Yes: Supple Cardiovascular: Yes: Regular Rate and Rhythm Respiratory: Yes: Regular, CTA Bilaterally Musculoskeletal: Yes: WNLLast Vital Signs Temp Pulse Resp BP Pulse Ox 98.5 F 74 18 130/52 98 12/07/17 08:57 12/07/17 08:57 12/07/17 09:00 12/07/17 08:57 12/07/17 09:00 CBC, BMP 12/07/17 06:30 12/07/17 06:30 Current Medications Generic Name Dose Route Start Last Admin Trade Name Freq PRN Reason Stop Dose Admin Acetaminophen 1,000 mg 12/07/17 01:02 Ofirmev Injection - IVPB Q6H PRN PAIN Morphine Sulfate 2 mg 12/07/17 13:35 12/07/17 13:44 Morphine Sulfate IVPUSH 2 mg Q6H PRN Administration PAIN SCALE 5-8 thrombocytopenia Pancytopenia likely in the setting of fatty liver/Hepatcellular disease Iron studies with Fe -Def Nl LDH/B12/Folate CHEL normal Ongoing vaginal bleed transfuse PRBCs today Platelets stable
[2017-12-07] MEDS: ACETAMINOPHEN 1000 MG/100 ML VIAL (NON FORMULARY) IVPB PRN (23:30)
[2017-12-08 10:51] LABS: BASO % 0.8 % (0-2.0); EOS % 3.1 % (0-4.5); HEMATOCRIT 31.5 % (32.4-45.2); HEMOGLOBIN 10.4 GM/dL (10.7-15.3); LYMPH % 26.6 % (8-40); MCH 27.9 pg (25.7-33.7); MEAN CELL VOLUME 84.5 fl (80-96); MEAN PLT VOLUME 9.2 fl (7.5-11.1); MONO % 8.4 % (3.8-10.2); NEUT % 61.1 % (42.8-82.8); RBC 3.73 M/mm3 (3.60-5.2); WHITE BLOOD COUNT 2.5 K/mm3 (4.0-10.0)
[2017-12-08 11:10] LABS: INR 1.2 (0.82-1.09); PROTHROMBIN TIME (PATIENT) 13.6 SEC (9.7-13.0)
[2017-12-08 11:12] LABS: PLATELET COUNT 22 K/MM3 (134-434)
--- NOTE | 2017-12-08 12:01 | PN ---
Progress Note (short form) - Note Progress Note: seen and examined feels well, ongoing vaginal bleed Constitutional: Yes: Well Nourished, No Distress, Calm Eyes: Yes: Conjunctiva Clear HENT: Yes: Atraumatic, Normocephalic Neck: Yes: Supple Cardiovascular: Yes: Regular Rate and Rhythm Respiratory: Yes: Regular, CTA Bilaterally Musculoskeletal: Yes: WNL Extremities: Yes: WNL Last Vital Signs Temp Pulse Resp BP Pulse Ox 98.4 F 71 20 125/58 98 12/08/17 06:00 12/08/17 06:00 12/08/17 06:00 12/08/17 06:00 12/07/17 21:00 CBC, BMP 12/08/17 10:30 12/07/17 06:30 Current Medications Generic Name Dose Route Start Last Admin Trade Name Freq PRN Reason Stop Dose Admin Acetaminophen 1,000 mg 12/07/17 01:02 12/07/17 23:30 Ofirmev Injection - IVPB 1,000 mg Q6H PRN Administration PAIN Morphine Sulfate 2 mg 12/07/17 13:35 12/07/17 20:04 Morphine Sulfate IVPUSH 2 mg Q6H PRN Administration PAIN SCALE 5-8 thrombocytopenia Anemia--s/ p 2U PRBCS--Iron def--from the vaginal bleeding Liver disease--splenomegaly Vaginal bleeding Plan Liver disease (?etiology)--splenomegaly--noted portal HTN in the CT scans prior- -low platelets could be an explanation--but the down trend of the platelets today to 22K of no unknown cause per pt--underwent BMB by in the past. today, will repeat platelet count in blue top tube LDH wnl B12 / folate/ SPEP/ TSH/extended DAYRON panel /peripheral blood flow cytometry-- all wnl send FISH/Cytogenetics send rheumatoid factor pt seems not have any infectious process going on to consider steroids (Dex 40mg daily for 4days). may need marrow to re-assess. await VW profile. check ct scans--r/o lymphadenopathy or any other process. DRAINMAN Bleeding: pt off of OCPs ?alternate treatment (medicinal) for now Will get GI consult detailed discussion with patient today and with son yesterday
--- NOTE | 2017-12-08 12:28 | PN ---
Progress Note, Physician History of Present Illness: Pt seen and examined on 12/07/17 however note is being entered now due to computer issues - Current Medication List Current Medications: Active Medications Acetaminophen (Ofirmev Injection -) 1,000 mg IVPB Q6H PRN PRN Reason: PAIN Last Admin: 12/07/17 23:30 Dose: 1,000 mg Morphine Sulfate (Morphine Sulfate) 2 mg IVPUSH Q6H PRN PRN Reason: PAIN SCALE 5-8 Last Admin: 12/07/17 20:04 Dose: 2 mg - Objective Vital Signs: Vital Signs Temperature 98.4 F 12/08/17 06:00 Pulse Rate 71 12/08/17 06:00 Respiratory Rate 20 12/08/17 06:00 Blood Pressure 125/58 12/08/17 06:00 O2 Sat by Pulse Oximetry (%) 98 12/07/17 21:00 HENT: Yes: WNL Neck: Yes: WNL, Supple Cardiovascular: Yes: WNL, Regular Rate and Rhythm Respiratory: Yes: WNL, Regular, CTA Bilaterally Gastrointestinal: Yes: WNL, Normal Bowel Sounds, Soft Labs: CBC, BMP 12/08/17 10:30 12/07/17 06:30 INR, PTT INR 1.20 (0.82-1.09) H 12/08/17 10:30 Problem List - Problems (1) Vaginal bleeding, abnormal Code(s): N93.9 - ABNORMAL UTERINE AND VAGINAL BLEEDING, UNSPECIFIED (2) Anemia Code(s): D64.9 - ANEMIA, UNSPECIFIED Qualifiers: Anemia type: unspecified type Qualified Code(s): D64.9 - Anemia, unspecified (3) Asthma Code(s): J45.909 - UNSPECIFIED ASTHMA, UNCOMPLICATED Qualifiers: Asthma severity: mild Asthma persistence: intermittent Asthma complication type: uncomplicated Qualified Code(s): J45.20 - Mild intermittent asthma, uncomplicated (4) Hypertension Code(s): I10 - ESSENTIAL (PRIMARY) HYPERTENSION (5) Pancytopenia Code(s): D61.818 - OTHER PANCYTOPENIA
--- NOTE | 2017-12-08 14:12 | CON.GI ---
Consult Consult Specialty:: GI Reason for Consultation:: Liver cirrhosis - History of Present Illness History of Present Illness: Chart reviewed., Event noted. Prior admissions and EGD 12/2016 reviewed. As per ED: 52-year-old female presents the emergency department for evaluation of vaginal bleeding for the past 2 days now associated lower abdominal pain and back pain. Patient is currently under the care of assurance auditor secondary to recent diagnosis of thrombocytopenia and under the care of Dr. Hooks, PAIN MEDICINE PHYSICIAN for fibroids. Patient denies fever, chills, or weakness presently. Patient was told by the assurance auditor and PAIN MEDICINE PHYSICIAN to go to the emergency room for evaluation and likely admission The pt has been evaluated for pancytopenia. EGD in December of 2016 showed esophageal varices, which were banded. SHe was advised to follow up in 1 month, which she didn't do. Last colonoscopy was done 2y ago at [facility], per patient. No history of heavy ETOH, viral hepatitis, or autoimmune problems. Pt's brother had liver cancer and pt's mother was diagnosed with liver cirrhosis in her 80s. There is normal liver chemistry, ALP, bili, low albumin and minimally elevated PT. US liver in 2016, 2018 showed fatty infiltrate/parenchymal disease and left lobe "hemangioma". S/p cholecystectomy. Never had liver biopsy. Reports no melena, hematochezia, hematemesis, dysphagia, odynophagia, dyspepsia, or jaundice. 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 History of Recent Travel: No Home Medications - Allergies Allergies/Adverse Reactions: Allergies Allergy/AdvReac Type Severity Reaction Status Date / Time codeine [Codeine] Allergy Severe syncope Verified 12/06/17 13:57 - Home Medications Home Medications: Ambulatory Orders NK [No Known Home Medication] 12/06/17 Family Disease History - Family Disease History Family History: Unremarkable Family Disease History: Diabetes: Father, Mother (asthma), Brother (liver cancer - age 54), Heart Disease: Father, Other: Mother Review of Systems Findings/Remarks: as per HPI, H&P Physical Exam-GI Vital Signs: Vital Signs Temperature 98.4 F 12/08/17 06:00 Pulse Rate 71 12/08/17 06:00 Respiratory Rate 20 12/08/17 06:00 Blood Pressure 125/58 12/08/17 06:00 O2 Sat by Pulse Oximetry (%) 98 12/07/17 21:00 Constitutional: Yes: Well Nourished, No Distress, Calm Eyes: No: Sclera Icterus HENT: Yes: Atraumatic Neck: Yes: Supple Cardiovascular: Yes: Regular Rate and Rhythm Respiratory: Yes: Regular Gastrointestinal Inspection: No: Ascites, Distention ...Auscultate: Yes: Normoactive Bowel Sounds ...Palpate: Yes: Soft. No: Firm/Rigid, Guarding, Hepatomegaly, Mass, Tenderness Neurological: Yes: Alert, Oriented Labs: CBC, BMP 12/08/17 10:30 12/07/17 06:30 INR, PTT INR 1.20 (0.82-1.09) H 12/08/17 10:30 Laboratory Last Values WBC 2.5 K/mm3 (4.0-10.0) L 12/08/17 10:30 RBC 3.73 M/mm3 (3.60-5.2) 12/08/17 10:30 Hgb 10.4 GM/dL (10.7-15.3) L 12/08/17 10:30 Hct 31.5 % (32.4-45.2) L D 12/08/17 10:30 MCV 84.5 fl (80-96) 12/08/17 10:30 MCH 27.9 pg (25.7-33.7) 12/08/17 10:30 MCHC 33.0 g/dl (32.0-36.0) 12/08/17 10:30 RDW 18.0 % (11.6-15.6) H 12/08/17 10:30 Plt Count 22 K/MM3 (134-434) L* D 12/08/17 10:30 MPV 9.2 fl (7.5-11.1) 12/08/17 10:30 Absolute Neuts (auto) 1.5 # 12/08/17 10:30 Neutrophils % 61.1 % (42.8-82.8) 12/08/17 10:30 Lymphocytes % 26.6 % (8-40) 12/08/17 10:30 Monocytes % 8.4 % (3.8-10.2) 12/08/17 10:30 Eosinophils % 3.1 % (0-4.5) 12/08/17 10:30 Basophils % 0.8 % (0-2.0) 12/08/17 10:30 Nucleated RBC % 0 % (0-0) 12/08/17 10:30 Plt Clumps, Citrate 49.0 K/MM3 (134-434) L 12/08/17 10:30 PT with INR 13.60 SEC (9.7-13.0) H 12/08/17 10:30 INR 1.20 (0.82-1.09) H 12/08/17 10:30 PTT (Actin FS) 18.0 SECONDS (25.2-36.5) L 12/08/17 10:30 Sodium 141 mmol/L (136-145) 12/07/17 06:30 Potassium 3.6 mmol/L (3.5-5.1) 12/07/17 06:30 Chloride 112 mmol/L (98-107) H 12/07/17 06:30 Carbon Dioxide 23 mmol/L (21-32) 12/07/17 06:30 Anion Gap 6 (8-16) L 12/07/17 06:30 BUN 8 mg/dL (7-18) 12/07/17 06:30 Creatinine 0.5 mg/dL (0.55-1.02) L 12/07/17 06:30 Creat Clearance w eGFR > 60 (>60) 12/07/17 06:30 Random Glucose 97 mg/dL (74-106) 12/07/17 06:30 Calcium 7.2 mg/dL (8.5-10.1) L 12/07/17 06:30 Magnesium 1.9 mg/dL (1.8-2.4) 12/06/17 15:47 Ferritin 14.1 ng/ml (6.9-282.5) 12/07/17 06:30 Total Bilirubin 0.6 mg/dL (0.2-1.0) 12/07/17 06:30 AST 30 U/L (15-37) 12/07/17 06:30 ALT 22 U/L (12-78) 12/07/17 06:30 Alkaline Phosphatase 92 U/L (45-117) 12/07/17 06:30 LD Total 197 U/L (84-246) 12/08/17 10:30 Total Protein 6.1 g/dl (6.4-8.2) L 12/07/17 06:30 Albumin 2.5 g/dl (3.4-5.0) L 12/07/17 06:30 Urine Color M[place]a 12/06/17 18:22 Urine Appearance Cloudy 12/06/17 18:22 Urine pH 6.0 (5.0-8.0) 12/06/17 18:22 Ur Specific [place] 1.017 (1.001-1.035) 12/06/17 18:22 Urine Protein 2+ (NEGATIVE) H 12/06/17 18:22 Urine Glucose (UA) Negative (NEGATIVE) 12/06/17 18:22 Urine Ketones Negative (NEGATIVE) 12/06/17 18:22 Urine Blood 3+ (NEGATIVE) H 12/06/17 18:22 Urine Nitrite Negative (NEGATIVE) 12/06/17 18:22 Urine Bilirubin Negative (<2.0 mg/dL) 12/06/17 18:22 Urine Urobilinogen 4.0 e.u/dl mg/dL (0.2-1.0) H 12/06/17 18:22 Ur Leukocyte Esterase Negative (NEGATIVE) 12/06/17 18:22 Urine WBC (Auto) 6 /hpf (3-5) 12/06/17 18:22 Urine RBC (Auto) 5022 /hpf (0-3) 12/06/17 18:22 Urine Mucus Many 12/06/17 18:22 Blood Type O POSITIVE 12/06/17 15:47 Antibody Screen Negative 12/06/17 15:47 Crossmatch See Detail 12/06/17 15:47 Imaging - Results Ultrasound: Report Reviewed Problem List - Problems (1) Portal hypertension Code(s): K76.6 - PORTAL HYPERTENSION (2) Thrombocytopenia Code(s): D69.6 - THROMBOCYTOPENIA, UNSPECIFIED (3) Vaginal bleeding, abnormal Code(s): N93.9 - ABNORMAL UTERINE AND VAGINAL BLEEDING, UNSPECIFIED (4) Acquired pancytopenia Code(s): D61.818 - OTHER PANCYTOPENIA (5) Fibroid (bleeding) (uterine) Code(s): D25.9 - LEIOMYOMA OF UTERUS, UNSPECIFIED Assessment/Plan A 52F with known esophageal varices, thromobocytopenia/pancytopenia, and a strong family history of liver disease is being evaluated for vaginal bleeding and significant throbosytopenia. Recommend liver biopsy after PLT are restored to around 80-100. MRI of the liver with contrast (hemangioma protocol) to assess the liver lesions noted on the US. DAYRON, AMA, ASMA, ALKM-1, Repeat viral serologies. EGD for esophageal varices surveillance. Discussed with the patient
--- NOTE | 2017-12-08 16:38 | CON.OBG ---
Consult Consult Specialty:: PRORATION CLERK Reason for Consultation:: Vaginal bleeding - History of Present Illness Chief Complaint: Severe anemia / Low platelet History of Present Illness: 52 yo Para 5 with h/o Thrombocytopenia and severe anemia associated with vaginal bleeding, seen and evaluated. Patient is lying comfortably in bed; no malaise, no shortness of breath. Extensive discussion with patient regarding management of menorrhagia. 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 History of Recent Travel: No Home Medications - Allergies Allergies/Adverse Reactions: Allergies Allergy/AdvReac Type Severity Reaction Status Date / Time codeine [Codeine] Allergy Severe syncope Verified 12/06/17 13:57 - Home Medications Home Medications: Ambulatory Orders NK [No Known Home Medication] 12/06/17 Family Disease History - Family Disease History Family Disease History: Diabetes: Father, Mother (asthma), Brother (liver cancer - age 54), Heart Disease: Father, Other: Mother Review of Systems - Review of Systems Constitutional: reports: Malaise, Weakness Eyes: reports: No Symptoms HENT: reports: No Symptoms Neck: reports: No Symptoms Cardiovascular: reports: No Symptoms Respiratory: reports: No Symptoms Gastrointestinal: reports: No Symptoms Genitourinary: reports: No Symptoms Breasts: reports: No Symptoms Reported Musculoskeletal: reports: No Symptoms Neurological: reports: No Symptoms Hematology/Lymphatic: reports: Excessive Bleeding Psychiatric: reports: No Symptoms Pain Intensity: 0 Physical Exam-PRORATION CLERK Vital Signs: Vital Signs Temperature 99.0 F 12/08/17 13:25 Pulse Rate 76 12/08/17 13:25 Respiratory Rate 20 12/08/17 13:25 Blood Pressure 122/56 12/08/17 13:25 O2 Sat by Pulse Oximetry (%) 98 12/08/17 09:00 Constitutional: Yes: Calm. No: No Distress Eyes: Yes: Conjunctiva Clear HENT: Yes: Atraumatic Neck: Yes: Supple, Trachea Midline Cardiovascular: Yes: Regular Rate and Rhythm Respiratory: Yes: Regular Gastrointestinal: Yes: Normal Bowel Sounds Pelvis: Yes: WNL External Genitalia: Yes: Normal Vaginal Exam: Yes: Normal Cervix: Yes: Normal Uterus: Yes: Normal Neurological: Yes: Alert, Oriented Labs: CBC, BMP 12/08/17 10:30 12/07/17 06:30 Assessment/Plan Menorrhagia Thrombocytopenia Severe anemia Consider RYAN after replenishing platelets to avoid excessive vaginal bleeding. Surgery will be scheduled for Tuesday if possible
[2017-12-08] MEDS: MORPHINE SULFATE 2 MG/ML VIAL IVPUSH PRN (16:44)
[2017-12-08] MEDS ORDERED: ACETAMINOPHEN 325 MG TABLET (FP) ONE (16:54)
[2017-12-08] MEDS ORDERED: ACETAMINOPHEN 325 MG TABLET (FP) PO ONE (18:00)
--- NOTE | 2017-12-08 18:34 | PN ---
Progress Note, Physician History of Present Illness: Pt transfused 2 units PRBC's - Current Medication List Current Medications: Active Medications Acetaminophen (Ofirmev Injection -) 1,000 mg IVPB Q6H PRN PRN Reason: PAIN Last Admin: 12/07/17 23:30 Dose: 1,000 mg Morphine Sulfate (Morphine Sulfate) 2 mg IVPUSH Q6H PRN PRN Reason: PAIN SCALE 5-8 Last Admin: 12/08/17 16:44 Dose: 2 mg - Objective Vital Signs: Vital Signs Temperature 99.0 F 12/08/17 13:25 Pulse Rate 91 H 12/08/17 16:55 Respiratory Rate 20 12/08/17 16:55 Blood Pressure 144/104 12/08/17 16:55 O2 Sat by Pulse Oximetry (%) 98 12/08/17 09:00 Neck: Yes: WNL, Supple Cardiovascular: Yes: WNL, Regular Rate and Rhythm Respiratory: Yes: WNL, Regular, CTA Bilaterally Gastrointestinal: Yes: WNL, Normal Bowel Sounds, Soft Labs: CBC, BMP 12/08/17 10:30 12/07/17 06:30 INR, PTT INR 1.20 (0.82-1.09) H 12/08/17 10:30 Problem List - Problems (1) Pancytopenia Assessment/Plan: S/P bone marroww bx Probable due to liver dz Will need to discuss w/ heme how to optimize for possible liver bx Monitor plts Steroids on hold Code(s): D61.818 - OTHER PANCYTOPENIA (2) Vaginal bleeding, abnormal Code(s): N93.9 - ABNORMAL UTERINE AND VAGINAL BLEEDING, UNSPECIFIED (3) Anemia Assessment/Plan: Pt has been transfused 2 unit's PRBC's Monitor H/H Code(s): D64.9 - ANEMIA, UNSPECIFIED Qualifiers: Anemia type: unspecified type Qualified Code(s): D64.9 - Anemia, unspecified (4) Hypertension Code(s): I10 - ESSENTIAL (PRIMARY) HYPERTENSION
[2017-12-08 20:31] LABS: URINE APPEARANCE CLOUDY; URINE BILIRUBIN NEGATIVE (<2.0 mg/dL); URINE COLOR RED; URINE GLUCOSE (UA) NEGATIVE (NEGATIVE); URINE KETONE NEGATIVE (NEGATIVE); URINE LEUK ESTERASE NEGATIVE (NEGATIVE); URINE NITRITE NEGATIVE (NEGATIVE); URINE UROBILINOGEN 4.0 E.U/dl mg/dL (0.2-1.0)
[2017-12-08 21:16] LABS: URINE PROTEIN 2+ (NEGATIVE)
[2017-12-09 07:50] LABS: BASO % 0.8 % (0-2.0); EOS % 2.4 % (0-4.5); HEMATOCRIT 30.7 % (32.4-45.2); HEMOGLOBIN 10.4 GM/dL (10.7-15.3); LYMPH % 24.9 % (8-40); MCH 28.3 pg (25.7-33.7); MCHC 33.8 g/dl (32.0-36.0); MEAN CELL VOLUME 83.7 fl (80-96); MEAN PLT VOLUME 9.9 fl (7.5-11.1); NEUT % 61.9 % (42.8-82.8); PLATELET COUNT 55 K/MM3 (134-434); RBC 3.66 M/mm3 (3.60-5.2); RDW 18.3 % (11.6-15.6); WHITE BLOOD COUNT 2.7 K/mm3 (4.0-10.0)
[2017-12-09 08:10] LABS: CHLORIDE 109 mmol/L (98-107); POTASSIUM 3.7 mmol/L (3.5-5.1); SODIUM 139 mmol/L (136-145)
[2017-12-09] MEDS ORDERED: LIDOCAINE HCL 1%, 10 MG/ML (20ML VIAL) ONE (08:17)
[2017-12-09 08:24] LABS: ALBUMIN 2.6 g/dl (3.4-5.0); ALK PHOS 89 U/L (45-117); ANION GAP 8 (8-16); BILIRUBIN,TOTAL 1.2 mg/dL (0.2-1.0); BLOOD UREA NITROGEN 8 mg/dL (7-18); CALCIUM 7.5 mg/dL (8.5-10.1); CO2 22 mmol/L (21-32); CREATININE 0.5 mg/dL (0.55-1.02); GLUCOSE,RANDOM 82 mg/dL (74-106); SGOT/AST 33 U/L (15-37); SGPT/ALT 22 U/L (12-78); TOT PROT 6.5 g/dl (6.4-8.2)
[2017-12-09] MEDS ORDERED: ACETAMINOPHEN 325 MG TABLET (FP) ONE (15:45)
[2017-12-09] MEDS: MORPHINE SULFATE 2 MG/ML VIAL IVPUSH PRN (17:17)
--- NOTE | 2017-12-09 22:13 | PN ---
Progress Note, Physician History of Present Illness: Pt tolerated bone marrow bx(Rt hip) - Current Medication List Current Medications: Active Medications Acetaminophen (Ofirmev Injection -) 1,000 mg IVPB Q6H PRN PRN Reason: PAIN Last Admin: 12/07/17 23:30 Dose: 1,000 mg Morphine Sulfate (Morphine Sulfate) 2 mg IVPUSH Q6H PRN PRN Reason: PAIN SCALE 5-8 Last Admin: 12/09/17 17:17 Dose: 2 mg - Objective Vital Signs: Vital Signs Temperature 98.8 F 12/09/17 06:00 Pulse Rate 71 12/09/17 06:00 Respiratory Rate 20 12/09/17 06:00 Blood Pressure 113/69 12/09/17 06:00 O2 Sat by Pulse Oximetry (%) 100 12/09/17 09:00 HENT: Yes: WNL Neck: Yes: WNL, Supple Cardiovascular: Yes: WNL, Regular Rate and Rhythm Respiratory: Yes: WNL, Regular, CTA Bilaterally Gastrointestinal: Yes: WNL, Normal Bowel Sounds, Soft Labs: CBC, BMP 12/09/17 06:30 12/09/17 06:30 INR, PTT INR 1.20 (0.82-1.09) H 12/08/17 10:30 Problem List - Problems (1) Pancytopenia Assessment/Plan: S/P bone marroww bx Probable due to liver dz Code(s): D61.818 - OTHER PANCYTOPENIA (2) Vaginal bleeding, abnormal Assessment/Plan: H/O uterine fibroids Pt still needs time to discuss option of RYAN vs ? D&C w/ family Pt advised she needs RYAN and not D&C As per ICE CUTTER Code(s): N93.9 - ABNORMAL UTERINE AND VAGINAL BLEEDING, UNSPECIFIED (3) Anemia Assessment/Plan: Monitor H/H Code(s): D64.9 - ANEMIA, UNSPECIFIED Qualifiers: Anemia type: unspecified type Qualified Code(s): D64.9 - Anemia, unspecified (4) Hypertension Code(s): I10 - ESSENTIAL (PRIMARY) HYPERTENSION
--- NOTE | 2017-12-09 23:07 | PN ---
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 +fatigue Constitutional: Yes: Well Nourished, No Distress, Calm Eyes: Yes: Conjunctiva Clear HENT: Yes: Atraumatic, Normocephalic Neck: Yes: Supple Cardiovascular: Yes: Regular Rate and Rhythm Respiratory: Yes: Regular, CTA Bilaterally Musculoskeletal: Yes: WNL Extremities: Yes: WNLLast Vital Signs Temp Pulse Resp BP Pulse Ox 98.8 F 71 20 113/69 100 12/09/17 06:00 12/09/17 06:00 12/09/17 06:00 12/09/17 06:00 12/09/17 09:00 CBC, BMP 12/09/17 06:30 12/09/17 06:30 Current Medications Generic Name Dose Route Start Last Admin Trade Name Freq PRN Reason Stop Dose Admin Acetaminophen 1,000 mg 12/07/17 01:02 12/07/17 23:30 Ofirmev Injection - IVPB 1,000 mg Q6H PRN Administration PAIN Morphine Sulfate 2 mg 12/07/17 13:35 12/09/17 17:17 Morphine Sulfate IVPUSH 2 mg Q6H PRN Administration PAIN SCALE 5-8 Pancytopenia with Fe def anemia in the setting if cirrhosis/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 Today'splatelets count in 50s, from 49K--though received Platelet transfusion yesterday GI eval in the setting of portal hypertension/varices/splenomegaly prior to any planned procedures. ?auto-immune to consider steroids
[2017-12-10] MEDS: MORPHINE SULFATE 2 MG/ML VIAL IVPUSH PRN ×2 (01:40→09:57)
[2017-12-10 06:11] LABS: HBsAG SCREEN Negative (Negative); SERUM IRON SATURATION 11 % (15-55); TOTAL IRON BINDING CAPACITY 326 ug/dL (250-450); UIBC 290 ug/dL (131-425)
[2017-12-10] MEDS ORDERED: PT OWN MED DRAWER 7, Y5N ONE (09:55)
[2017-12-10 10:35] LABS: BASO % 0.7 % (0-2.0); EOS % 2.5 % (0-4.5); HEMATOCRIT 32.9 % (32.4-45.2); HEMOGLOBIN 10.8 GM/dL (10.7-15.3); LYMPH % 26.9 % (8-40); MCH 27.9 pg (25.7-33.7); MCHC 32.7 g/dl (32.0-36.0); MEAN CELL VOLUME 85.3 fl (80-96); MONO % 9.5 % (3.8-10.2); NEUT % 60.4 % (42.8-82.8); PLATELET COUNT 58 K/MM3 (134-434); RBC 3.86 M/mm3 (3.60-5.2); RDW 18.7 % (11.6-15.6); WHITE BLOOD COUNT 2.7 K/mm3 (4.0-10.0)
--- NOTE | 2017-12-10 12:33 | PN ---
Progress Note (short form) - Note Progress Note: Patient seen in follow up. No new complaints. No significant events overnight. Inpatient Meds reviewed. Current Medications Generic Name Dose Route Start Last Admin Trade Name Jayy PRN Reason Stop Dose Admin Acetaminophen 1,000 mg 12/07/17 01:02 12/07/17 23:30 Ofirmev Injection - IVPB 1,000 mg Q6H PRN Administration PAIN Morphine Sulfate 2 mg 12/07/17 13:35 12/10/17 09:57 Morphine Sulfate IVPUSH 2 mg Q6H PRN Administration PAIN SCALE 5-8 On Examination: Last Vital Signs Temp Pulse Resp BP Pulse Ox 98.4 F 67 20 115/59 100 12/10/17 08:05 12/10/17 08:05 12/10/17 08:05 12/10/17 08:05 12/09/17 21:00 General: In no acute distress, lying comfortably in bed. Extremities: No pallor or icterus. No pedal edema. No palpable lymphadenopathy. CVS: S1, S2, regular, no gallop or murmur. Chest: good air entry bilaterally, clear Abdomen: Non-distended, non-tender, no palpable organomegaly. Neuro: Alert, oriented, non-focal. Labs: CBC, BMP 12/10/17 10:00 12/09/17 06:30 Assessment. Neutropenia and thrombocytopenia, likely attributable to liver disease, with portal hypertension and splenomegaly. Etiology of liver disease onbscure, serology and biopsy pending. Bone marrow biopsy result pending. Iron deficient anemia secondary to heavy menstrual bleeding - IV iron while admitted.
[2017-12-10] MEDS ORDERED: IRON SUCROSE INJECTION 200 MG in SODIUM CHLORIDE 90 ML IVPB ONE (12:42)
[2017-12-10 14:14] LABS: TRANSGLUTAMINASE IGA < 2 U/mL (0-3); TRANSGLUTAMINASE IGG 2 U/mL (0-5)
--- NOTE | 2017-12-10 15:59 | PROC ---
Bone Marrow Aspiration/Biopsy - Procedure Location: Right Iliac Crest Anesthesia: 1% Lidocaine Sterile Technique: Yes Specimen: Obtained Position: Other (left lateral decub) Patient tolerated procedure: Well with minimal pain, Slight localized bleeding Sterile Dressing Applied: Yes Remarks: done on 12/09/2017 Aspirate clot Biopsy submitted to pathology post-procedural instructions given
--- NOTE | 2017-12-10 18:39 | PN ---
Progress Note, Physician History of Present Illness: This was entered in error - Current Medication List Current Medications: Active Medications Acetaminophen (Ofirmev Injection -) 1,000 mg IVPB Q6H PRN PRN Reason: PAIN Last Admin: 12/07/17 23:30 Dose: 1,000 mg - Objective Vital Signs: Vital Signs Temperature 98.2 F 12/10/17 15:30 Pulse Rate 73 12/10/17 15:30 Respiratory Rate 20 12/10/17 15:30 Blood Pressure 116/61 12/10/17 15:30 O2 Sat by Pulse Oximetry (%) 100 12/09/17 21:00 Labs: CBC, BMP 12/10/17 10:00 12/09/17 06:30 INR, PTT INR 1.20 (0.82-1.09) H 12/08/17 10:30
--- NOTE | 2017-12-10 18:47 | PN ---
Progress Note, Physician History of Present Illness: (+) pain at site of bone marrow bx? - Current Medication List Current Medications: Active Medications Acetaminophen (Ofirmev Injection -) 1,000 mg IVPB Q6H PRN PRN Reason: PAIN Last Admin: 12/07/17 23:30 Dose: 1,000 mg - Objective Vital Signs: Vital Signs Temperature 98.2 F 12/10/17 15:30 Pulse Rate 73 12/10/17 15:30 Respiratory Rate 20 12/10/17 15:30 Blood Pressure 116/61 12/10/17 15:30 O2 Sat by Pulse Oximetry (%) 100 12/09/17 21:00 Neck: Yes: WNL, Supple Cardiovascular: Yes: WNL, Regular Rate and Rhythm Respiratory: Yes: WNL, Regular, CTA Bilaterally Gastrointestinal: Yes: WNL, Normal Bowel Sounds, Soft Labs: CBC, BMP 12/10/17 10:00 12/09/17 06:30 INR, PTT INR 1.20 (0.82-1.09) H 12/08/17 10:30 Problem List - Problems (1) Pancytopenia Assessment/Plan: S/P bone marroww bx Probable due to liver dz Will need to discuss w/ heme how to optimize for possible liver bx Monitor plts Steroids on hold Code(s): D61.818 - OTHER PANCYTOPENIA (2) Vaginal bleeding, abnormal Assessment/Plan: H/O uterine fibroids HEMMER LOCKSTITCH to be reconsulted Pt aware of need for RYAN However will need to coordinate w/ heme about plts prior to surgery Will probably need plt transfusion pre-op Code(s): N93.9 - ABNORMAL UTERINE AND VAGINAL BLEEDING, UNSPECIFIED (3) Anemia Assessment/Plan: Pt has been transfused 1 unit PRBC's Monitor H/H Code(s): D64.9 - ANEMIA, UNSPECIFIED Qualifiers: Anemia type: unspecified type Qualified Code(s): D64.9 - Anemia, unspecified (4) Hypertension Assessment/Plan: Pt is n ot on any antihypertensives Unclear if pt has any h/o CAD Check echo Will get cardio consult for medical clearance if pt is to have RYAN Code(s): I10 - ESSENTIAL (PRIMARY) HYPERTENSION (5) Asthma Assessment/Plan: Stable Pt has not been on any inhalers Code(s): J45.909 - UNSPECIFIED ASTHMA, UNCOMPLICATED Qualifiers: Asthma severity: mild Asthma persistence: intermittent Asthma complication type: uncomplicated Qualified Code(s): J45.20 - Mild intermittent asthma, uncomplicated
[2017-12-11 06:47] LABS: HBSAG SCREEN Negative (Negative); HEP A AB, IGM Negative (Negative); HEPATITIS B CORE ANTIBODY Negative (Negative)
[2017-12-11] MEDS: ACETAMINOPHEN 1000 MG/100 ML VIAL (NON FORMULARY) IVPB PRN (06:51)
--- NOTE | 2017-12-11 14:10 | PN ---
Progress Note (short form) - Note Progress Note: Patient seen in follow up. No new complaints. No significant events overnight. IV iron administered Inpatient Meds reviewed. Current Medications Generic Name Dose Route Start Last Admin Trade Name [place] PRN Reason Stop Dose Admin Acetaminophen 1,000 mg 12/07/17 01:02 12/11/17 06:51 Ofirmev Injection - IVPB 1,000 mg Q6H PRN Administration PAIN On Examination: Last Vital Signs Temp Pulse Resp BP Pulse Ox 98.3 F 69 18 103/52 98 12/11/17 10:56 12/11/17 10:56 12/11/17 10:56 12/11/17 10:56 12/10/17 21:00 General: In no acute distress, lying comfortably in bed. Extremities: No pallor or icterus. No pedal edema. No palpable lymphadenopathy. CVS: S1, S2, regular, no gallop or murmur. Chest: good air entry bilaterally, clear Abdomen: Non-distended, non-tender, no palpable organomegaly. Neuro: Alert, oriented, non-focal. Labs: CBC, BMP 12/10/17 10:00 12/09/17 06:30 Assessment. Neutropenia and thrombocytopenia, likely attributable to liver disease, with portal hypertension and splenomegaly. Etiology of liver disease obscure, serology and biopsy pending. Bone marrow biopsy result pending. Iron deficient anemia secondary to heavy menstrual bleeding - IV iron while admitted.
--- NOTE | 2017-12-11 18:49 | PN ---
Progress Note, Physician - Current Medication List Current Medications: Active Medications Acetaminophen (Ofirmev Injection -) 1,000 mg IVPB Q6H PRN PRN Reason: PAIN Last Admin: 12/11/17 06:51 Dose: 1,000 mg - Objective Vital Signs: Vital Signs Temperature 98.4 F 12/11/17 18:05 Pulse Rate 72 12/11/17 18:05 Respiratory Rate 18 12/11/17 18:05 Blood Pressure 103/59 12/11/17 18:05 O2 Sat by Pulse Oximetry (%) 98 12/10/17 21:00 Constitutional: Yes: No Distress HENT: Yes: Atraumatic Neck: Yes: Supple Cardiovascular: Yes: Regular Rate and Rhythm Respiratory: Yes: CTA Bilaterally Gastrointestinal: Yes: Normal Bowel Sounds Extremities: Yes: WNL Neurological: Yes: Alert, Oriented Labs: CBC, BMP 12/10/17 10:00 12/09/17 06:30 INR, PTT INR 1.20 (0.82-1.09) H 12/08/17 10:30 Problem List - Problems (1) Thrombocytopenia Assessment/Plan: s/p platelet transfusion Code(s): D69.6 - THROMBOCYTOPENIA, UNSPECIFIED (2) Vaginal bleeding, abnormal Assessment/Plan: better Code(s): N93.9 - ABNORMAL UTERINE AND VAGINAL BLEEDING, UNSPECIFIED Assessment/Plan COVERING DR URIBE FOR TODAY THIS IS MY FIRST ENCOUNTER WITH THIS PATIENT
--- NOTE | 2017-12-12 03:06 | PN ---
Progress Note (short form) - Note Progress Note: 52 yo with h/o low platelets and Menorrhagia associated with severe anemia is pre op for hysterectomy. She received platelets over the weekend. PE : Chest: CTA, no rales Heart : S1S2, no murmur ABD : Soft, NT A / P : Thrombocytopenia Menorrhagia Severe anemia Pre op for hysterectomy Consent signed Anesthesia to see patient
[2017-12-12] MEDS: ACETAMINOPHEN 1000 MG/100 ML VIAL (NON FORMULARY) IVPB PRN (05:46)
[2017-12-12] MEDS ORDERED: MEPERIDINE HCL CARPU-JECT 50 MG/1 ML DISP.SYRIN IM ONE (06:15)
--- NOTE | 2017-12-12 08:32 | CON.CARD ---
Cardiology Consult (text) - Consultation Consultation Note: Cardiology Consult Dictated IMP: Pancytopenia requiring tx PRBCs and Platelets Cirrhosis of unclear etiology Menorrhagia Hypokalemia Prolonged QT REC: 1. Repeat Basic Metabolic Panel to assess K+, Mg2+ 2. Repeat 12 lead ECG. Avoid opiates/ QT prolonging drugs. 3. Echo for EF assessment 4. 24 hour holter 5. Prior cath no sig CAD and stress MIBI 2014 normal perfusion- no further ischemic evaluation is needed. 6. Heme f/u for platelet reccs prior to surgery. 7. GI following- possible liver bx, timing to be determined. Will hold on surgery until electrolytes can be evaluated, holter performed and Echo done to assure normal LV fxn. D/w RN and PMD.
[2017-12-12 09:53] LABS: BLOOD UREA NITROGEN 10 mg/dL (7-18); CHLORIDE 112 mmol/L (98-107); CREATININE 0.6 mg/dL (0.55-1.02); POTASSIUM 3.8 mmol/L (3.5-5.1); SODIUM 141 mmol/L (136-145)
[2017-12-12 10:02] LABS: ANION GAP 7 (8-16); CALCIUM 7.9 mg/dL (8.5-10.1); CO2 22 mmol/L (21-32); GLUCOSE,RANDOM 85 mg/dL (74-106); MAGNESIUM 1.9 mg/dL (1.8-2.4)
--- NOTE | 2017-12-12 10:33 | EKG ---
Test Reason : Blood Pressure : / mmHG Vent. Rate : 063 BPM Atrial Rate : 063 BPM P-R Int : 178 ms QRS Dur : 086 ms QT Int : 472 ms P-R-T Axes : 046 -11 027 degrees QTc Int : 483 ms NORMAL SINUS RHYTHM PROLONGED QT ABNORMAL ECG WHEN COMPARED WITH ECG OF 06-DEC-2017 15:28, NO SIGNIFICANT CHANGE WAS FOUND Confirmed by MOLLY BLANCA MD ([id number]) on 12/12/2017 10:32:41 AM Referred By: Confirmed By:MOLLY BLANCA MD
[2017-12-12] MEDS: MORPHINE SULFATE 2 MG/ML VIAL IVPUSH PRN (11:02)
--- NOTE | 2017-12-12 12:25 | CONS ---
DATE OF CONSULTATION: 12/12/2017 REQUESTING PHYSICIAN: Tess Freitas MD REASON FOR CONSULTATION: Preoperative management prior to hysterectomy. HISTORY: The patient is a 52-year-old female who was admitted to [facility] on December 06 through the emergency department for vaginal bleeding. She presents to the ER for evaluation of vaginal bleeding for the past 2 days associated with lower abdominal pain. The patient also has a history of chronic thrombocytopenia and was under the care of a em physician. She was also seeing [employer] for uterine fibroids. Since admission, the patient has required transfusions of packed red cells for a hemoglobin of 8.4 with ongoing vaginal bleeding as well as a transfusion of platelets as they were 22 on December 08. She was found to have evidence of cirrhosis on abdominal imaging. GI was consulted, and she is planned for a possible liver biopsy. Due to pancytopenia, a bone marrow biopsy was performed the results of which are pending. She is currently undergoing an evaluation for cirrhosis with serologies and autoimmune testing. I am asked to see her prior to hysterectomy for cardiac evaluation. The patient is known to me from prior office practice and previous hospitalizations; however, I have not seen her for at least 3 years. Several years ago, I had sent her for a cardiac catheterization, which showed no significant coronary artery disease. She presented again in 2014 and was seen by my office partner here at [facility] when she presented with atypical chest pain at which time she underwent a repeated cardiac evaluation including an echocardiogram and a nuclear stress test both of which are on file here. The stress test was normal with no ischemia. The echocardiogram was also normal. Her primary complaint over the last several months has been intermittent/ongoing vaginal bleeding. She denies chest pain, syncope. She denies pamela palpitations. No edema, PND, or orthopnea. She has exertional fatigue, which she has attributed to her chronic anemia. PAST MEDICAL HISTORY: As above and including menorrhagia, uterine fibroids, cirrhosis, prior history of "hypertension", although she is not on any home medications. ALLERGIES: She has allergies to CODEINE. MEDICATIONS: At home, none. Medication here, Tylenol 1000 mg IV q.6 p.r.n. FAMILY HISTORY: There is no early family history of coronary disease or sudden cardiac . SOCIAL HISTORY: She drinks alcohol socially. She has 1 cigarette socially but does not consider herself a smoker. She denies any history of illicit drug use or chronic opiate use. PHYSICAL EXAMINATION: General: She is comfortable in no acute distress. Vital Signs: Temperature 98.9, pulse 68 and regular, blood pressure 135/51, O2 saturation 98 on room air. Her blood pressure has ranged between 103-135 systolic, 50s diastolic. HEENT: She is anicteric. Neck: There are no carotid bruits or JVD. Heart: Regular without murmurs, rubs, or gallops. Chest: Clear. Abdomen: Soft and nontender. Extremities: Warm. No edema. Have 2+ dorsalis pedis pulses. DIAGNOSTIC DATA: Her EKG from December 06 was reviewed showing normal sinus rhythm at 81 beats per minute with a prolonged QTc of 506 msec. Labs: Most recent CBC from December 10: White count 2.7, hematocrit 32.9, platelets 58, INR 1.2, Von Willebrand antigen 431. Sodium 139, potassium 3.7 (of note 3.2 on December 06), BUN 8, creatinine 0.5, iron 36, TIBC 326. AST and ALT normal. Albumin 2.6, AFP 7.2. Urinalysis 2+ protein, 3+ blood. Rheumatoid factor 40.3. DAYRON negative. Smooth muscle, antismooth muscle antigen 14, which is normal. Tissue transglutaminase IgG 2, which is normal. Tissue transglutaminase IgA 2, which is also normal. Hepatitis A IgM negative, hepatitis A antibody positive, hepatitis B antigen negative, hepatitis B antibody reactive, hepatitis B core total antibody pending, hepatitis B core antibody pending, hepatitis BE antibody negative, hepatitis BE antigen negative, hepatitis B antibody pending. Chest CT and abdominal CT are pending. Abdominal MRI performed on December 09 showed coarse liver features suggestive of cirrhosis, 2 small foci of arterial enhancement in the dome of the liver possibly benign; however, underlying HCC could not be excluded. Correlation with alpha-fetoprotein level was recommended. The alpha-fetoprotein level is above. There were nonocclusive thrombi in the main portal vein and proximal right and left portal veins. Widely patent SMV, IMV splenic veins. Massive splenomegaly with perisplenic and paraesophageal varices as well as colonic diverticula. GI is following her in the hospital. Blood cultures from December 08 are negative to date. IMPRESSION: 1. Pancytopenia requiring transfusion of packed red cells and platelets. 2. Cirrhosis of unclear etiology. 3. Menorrhagia. 4. Hypokalemia. 5. Prolonged QT. RECOMMENDATIONS: 1. Repeat basic metabolic panel today to reassess potassium and magnesium. They should be repleted to normal levels. 2. Repeat 12-lead EKG to reassess QT interval. Avoid opiates or any QT prolonging drugs. 3. Echocardiogram to be repeated for EF assessment. Known to be normal in the past. 4. A 24-hour Holter to assess for ventricular ectopy. 5. Prior catheterization showed no significant CAD. A repeat ischemic evaluation with nuclear stress testing in 2014 showed normal perfusion with normal EF. No further ischemic evaluation is required/needed/indicated at this time. 6. Hematology follow up for platelet recommendations prior to surgery. 7. GI following, possible liver biopsy timing of which to be determined. Given the prolongation of the QT, we will hold off on surgery as the symptoms have been going on for several weeks, possibly even longer. We will re-evaluate electrolytes, obtain Holter and echocardiogram to assure no significant arrhythmias and overall normal LV function. The above plan was discussed with the patient, RN, and PMD. Thank you for the consultation. PROMISE CANCINO M.D. [id number]
--- NOTE | 2017-12-12 17:29 | PATH ---
Surgical Pathology Report Patient Name: [facility]. Rec. #: [id number] /Age/Gender: 1965 (Age: 52) / F Account: [id number] Location: [facility] MED/SURG Taken: 12/09/2017 Received: 12/09/2017 Reported: 12/12/2017 Physicians: Alicia Howard M.D. Specimen(s) Received A: BONE MARROW BIOPSY B: 2 GREEN TOPS 2 LAVENDER C: BONE MARROW ASPIRATION SMEARS 2 SLIDES Clinical History Pancytopenia Final Diagnosis COMPREHENSIVE FLOW PANEL performed and interpreted at [place], [place] ([id number]) shows the following: INTERPRETATION: NO ATYPICAL FLOW CYTOMETRIC FINDINGS SEEN. COMMENT: The light scatter characteristics resemble bone marrow. ADDITIONAL TESTS: Cytogenetics, FISH See [facility] report ([id number]) for additional details. Electronically Signed Jennifer Thomas M.D. Addendum Reported: 12/13/2017 Addendum Diagnosis MYELODYSPLASIA FISH PANEL performed and interpreted at [place], [place] ([id number]) shows the following: INTERPRETATION: No evidence of deletion 5q or monosomy 5 is present. No evidence of deletion 7q or monosomy 7 is present. No evidence of trisomy 8 (+8) is present. No evidence of deletion 13q14 is present. No evidence of rearrangement of 11q23. No evidence of a deletion of the p53 (17p13) locus. No evidence of deletion 20q12 is present COMMENTS: Correlation with pending cytogenetics ([id number]) is recommended. See [facility] report ([id number]) for additional details. Jennifer Thomas M.D. Addendum Reported: 12/21/2017 Addendum Diagnosis CYTOGENETIC KARYOTYPE ANALYSIS performed and interpreted at [facility] ([id number]) shows the following: RESULTS: 46, XX [20] INTERPRETATION: Normal Karyotype Within the limits of the cytogenetic methods, the chromosomes had normal G-banding patterns with no evidence of an acquired clonal numerical or structural abnormality. This normal results does not rule out a neoplasm. Subtle rearrangements or the presence of an aberrant clone in a low proportion of cells cannot be ruled out. Correlation with other clinical and hematologic data is suggested. See [facility] report for additional details ([id number]) Jennifer Thomas M.D. Gross Description A. Received in formalin, labeled with the patient's name and indicated on the requisition to be a bone marrow biopsy, is a 1.2 cm in length x 0.2 cm in diameter stratton, cylindrical portion of bone. Also received within the same container is a 3.4 x 3.2 x 0.6 cm red-brown blood clot. The specimen is entirely submitted in 3 cassettes as follows: 1-bone biopsy, following decalcification; 2-3-clot. B. Received are 2 green top tubes and 2 lavender top tubes of blood which are sent to [facility]. C. Received are 2 bone marrow aspiration smear slides. 12/12/201712/12/2017
--- NOTE | 2017-12-12 20:15 | PN ---
Progress Note (short form) - Note Progress Note: Patient seen and examined' Denies any complaints AFVSS Cor: RSR, No murmurs, No gallops Lungs: Clear to P&A Abd: Soft, Normal bowel sounds, No organomegaly Ext:No significant edema Abnormal Lab Results 12/12/17 08:45 Chloride 112 H Anion Gap 7 L Calcium 7.9 L Active Medications Generic Name Dose Route Start Last Admin Trade Name Freq PRN Reason Stop Dose Admin Acetaminophen 1,000 mg 12/07/17 01:02 12/12/17 05:46 Ofirmev Injection - IVPB 1,000 mg Q6H PRN Administration PAIN Morphine Sulfate 2 mg 12/12/17 10:48 12/13/17 00:36 Morphine Sulfate IVPUSH 2 mg Q6H PRN Administration PAIN LEVEL 5-8 A/P 52 y/o patient with cirrhosis/varices/portal htn/splenmegaly/thrombocytopenia/ fibroids/menorrhagia/iron deficiency anemia Will discuss with GI and SECURITY TESTER team Patient with thrombocytopenia due to cirrhosis May not respond to platelet transfusions due to splenomegaly Will need to coordinate with GI/SECURITY TESTER abnormal MRI--needs repeat imaging in 3 months check AFP level
--- NOTE | 2017-12-12 22:53 | PN ---
Progress Note, Physician History of Present Illness: Long d/w pt and her daughter today who is questioning hysterectomy? Unclear why pt has change of mind Pt is now asking about possibilty of D&C instead of RYAN and the effectiveness of D&C for her vaginal bleeding? Pt wants to discuss w/ LEAD ASSEMBLER again However pt also stating that she is still having heavy vaginal bleeding w/ clots and also doesn't want to wait to stop the bleeding? - Current Medication List Current Medications: Active Medications Acetaminophen (Ofirmev Injection -) 1,000 mg IVPB Q6H PRN PRN Reason: PAIN Last Admin: 12/12/17 05:46 Dose: 1,000 mg Morphine Sulfate (Morphine Sulfate) 2 mg IVPUSH Q6H PRN PRN Reason: PAIN LEVEL 5-8 Last Admin: 12/12/17 11:02 Dose: 2 mg - Objective Vital Signs: Vital Signs Temperature 97.8 F 12/12/17 17:14 Pulse Rate 69 12/12/17 17:14 Respiratory Rate 20 12/12/17 21:00 Blood Pressure 121/67 12/12/17 17:14 O2 Sat by Pulse Oximetry (%) 98 12/12/17 21:00 Neck: Yes: WNL, Supple Cardiovascular: Yes: WNL, Regular Rate and Rhythm Respiratory: Yes: WNL, Regular, CTA Bilaterally Gastrointestinal: Yes: WNL, Normal Bowel Sounds, Soft Labs: CBC, BMP 12/10/17 10:00 12/12/17 08:45 INR, PTT INR 1.20 (0.82-1.09) H 12/08/17 10:30 Problem List - Problems (1) Pancytopenia Code(s): D61.818 - OTHER PANCYTOPENIA (2) Vaginal bleeding, abnormal Assessment/Plan: H/O uterine fibroids Pt to discuss w/ LEAD ASSEMBLER need of D&C vs RYAN Cardio consult for clearance Pt has holter to evaluate prolongation of QT interval As per cardio for clearance Code(s): N93.9 - ABNORMAL UTERINE AND VAGINAL BLEEDING, UNSPECIFIED (3) Anemia Assessment/Plan: Monitor H/H Pt has been transfused 2 units PRBC's during this hospitalization Code(s): D64.9 - ANEMIA, UNSPECIFIED Qualifiers: Anemia type: unspecified type Qualified Code(s): D64.9 - Anemia, unspecified (4) Hypertension Assessment/Plan: Pt is not on any antihypertensives Unclear if pt has any h/o CAD Code(s): I10 - ESSENTIAL (PRIMARY) HYPERTENSION
[2017-12-13] MEDS: MORPHINE SULFATE 2 MG/ML VIAL IVPUSH PRN ×3 (00:36→16:23)
[2017-12-13 07:38] LABS: BASO % 0.8 % (0-2.0); EOS % 2.4 % (0-4.5); HEMOGLOBIN 10.5 GM/dL (10.7-15.3); LYMPH % 36.6 % (8-40); MCH 28.2 pg (25.7-33.7); MCHC 32.8 g/dl (32.0-36.0); MEAN PLT VOLUME 9.9 fl (7.5-11.1); MONO % 10.7 % (3.8-10.2); NEUT % 49.5 % (42.8-82.8); PLATELET COUNT 49 K/MM3 (134-434); RBC 3.71 M/mm3 (3.60-5.2); RDW 18.8 % (11.6-15.6); WHITE BLOOD COUNT 2.5 K/mm3 (4.0-10.0)
[2017-12-13 07:41] LABS: INR 1.19 (0.82-1.09); PROTHROMBIN TIME (PATIENT) 13.4 SEC (9.7-13.0)
[2017-12-13 07:43] LABS: ACTIVATED PTT 30.1 SECONDS (25.2-36.5)
[2017-12-13 07:53] LABS: ALBUMIN 2.6 g/dl (3.4-5.0); ANION GAP 8 (8-16); BLOOD UREA NITROGEN 11 mg/dL (7-18); CALCIUM 7.5 mg/dL (8.5-10.1); CHLORIDE 110 mmol/L (98-107); CO2 23 mmol/L (21-32); CREATININE 0.5 mg/dL (0.55-1.02); GLUCOSE,RANDOM 81 mg/dL (74-106); POTASSIUM 3.6 mmol/L (3.5-5.1); SGPT/ALT 24 U/L (12-78); SODIUM 141 mmol/L (136-145)
[2017-12-13 08:22] LABS: ALK PHOS 78 U/L (45-117); BILIRUBIN,TOTAL 0.6 mg/dL (0.2-1.0); SGOT/AST 35 U/L (15-37); TOT PROT 6.7 g/dl (6.4-8.2)
--- NOTE | 2017-12-13 08:39 | PN ---
Progress Note, Physician Chief Complaint: Echo with normal LV fxn Holter in progress - Current Medication List Current Medications: Active Medications Acetaminophen (Ofirmev Injection -) 1,000 mg IVPB Q6H PRN PRN Reason: PAIN Last Admin: 12/12/17 05:46 Dose: 1,000 mg Morphine Sulfate (Morphine Sulfate) 2 mg IVPUSH Q6H PRN PRN Reason: PAIN LEVEL 5-8 Last Admin: 12/13/17 00:36 Dose: 2 mg - Objective Vital Signs: Vital Signs Temperature 98.4 F 12/13/17 06:00 Pulse Rate 70 12/13/17 06:00 Respiratory Rate 20 12/13/17 06:00 Blood Pressure 125/65 12/13/17 06:00 O2 Sat by Pulse Oximetry (%) 98 12/12/17 21:00 Constitutional: Yes: Calm Cardiovascular: Yes: Regular Rate and Rhythm Respiratory: Yes: CTA Bilaterally Gastrointestinal: Yes: Soft Edema: No Neurological: Yes: Alert, Oriented ...Motor Strength: WNL Labs: CBC, BMP 12/13/17 06:38 12/13/17 06:38 INR, PTT INR 1.19 (0.82-1.09) H 12/13/17 06:38 Laboratory Tests 12/13/17 12/13/17 12/13/17 06:38 06:38 06:38 WBC 2.5 L Hgb 10.5 L Plt Count 49 L INR 1.19 H Sodium 141 Potassium 3.6 BUN 11 Creatinine 0.5 L AST 35 ALT 24 Alkaline Phosphatase 78 D - ....Imaging EKG: Report Reviewed Assessment/Plan IMP: Pancytopenia requiring tx PRBCs and Platelets Cirrhosis of unclear etiology Menorrhagia Hypokalemia Prolonged QT REC: 1. Repleting Mg2+ and K+ 2. Avoid opiates/ QT prolonging drugs. 3. Echo shows normal LVEF. 4. 24 hour holter in progress 5. Prior cath no sig CAD and stress MIBI 2014 normal perfusion- no further ischemic evaluation is needed. 6. Heme f/u for platelet reccs prior to surgery. 7. GI following- possible liver bx, timing to be determined. Will hold on surgery until electrolytes repleted, holter completed.
[2017-12-13] MEDS: MAGNESIUM OXIDE 400 MG TABLET (FP) PO SCH ×2 (09:51→21:20)
[2017-12-13] MEDS: POTASSIUM CHLORIDE TABS 20 MEQ TABLET.ER (FP) PO SCH (09:51)
[2017-12-13 13:04] VITALS: BMI 34.2
--- NOTE | 2017-12-13 17:14 | HOL ---
Hook-up date: 2017-12-12 09:08:00 Duration: 24:00:00 Test Indications: PROLONGED QT Medications: 544275 QRS complexes 2270 Ventricular ectopics which represent 2 % of total QRS comp. 3 Supraventricular ectopics which represent <1 % of total QRS comp. * Paced QRS complexs which represent % of total QRS comp. * % of Time Classified as Noise VENTRICULAR ECTOPY 2270 Isolated 240 Bigeminal Cycles 0 Couplets 0 Runs 0 Beats in Runs * Beats LONGEST at * BPM at :: -- * Beats FASTEST at * BPM at :: -- SUPRAVENTRICULAR ECTOPY 3 Isolated 0 Couplets 0 Runs 0 Beats in Runs * Beats LONGEST at * BPM at :: -- * Beats FASTEST at * BPM at :: -- HEART RATES 55 MIN at 03:00:55 2017-12-13 71 AVG 105 MAX at 20:12:42 2017-12-12 LONGEST RR 1.568 secs at 03:00:50 2017-12-13 SCANNED BY LUL MARTE ON 12/13/17 Predominatley NSR. Minimum HR 61 BPM. Maximum HR 79 BPM. Average HR 68 BPM. Freuent VPC's with periods of Bigeminy. Confirmed by MD Grady, Abundio ([id number]) on 12/13/2017 5:14:02 PM Referred By: JUDITH SANTOS,[facility] Overread By: Abundio Rasmussen MD
--- NOTE | 2017-12-13 18:44 | PN ---
Progress Note (short form) - Note Progress Note: Patient seen and examined Continues to have crampy pelvic pain and lower extremitypains Continues to have vaginal bleeding Last Vital Signs Temp Pulse Resp BP Pulse Ox 98.2 F 71 20 112/69 98 12/13/17 16:54 12/13/17 16:54 12/13/17 16:54 12/13/17 16:54 12/13/17 09:00 HEENT: PRASANNA, EOM Intact Cor: RSR, No murmurs, No gallops Lungs: Clear to P&A Abd: Soft, Normal bowel sounds, No organomegaly Ext:No significant edema Skin: No rashes, Integument intact CBC, BMP 12/13/17 06:38 12/13/17 06:38 INR, PTT INR 1.19 (0.82-1.09) H 12/13/17 06:38 Current Medications Generic Name Dose Route Start Last Admin Trade Name Freq PRN Reason Stop Dose Admin Acetaminophen 1,000 mg 12/07/17 01:02 12/12/17 05:46 Ofirmev Injection - IVPB 1,000 mg Q6H PRN Administration PAIN Magnesium Oxide 400 mg 12/13/17 10:00 12/13/17 09:51 Mag-Ox - PO 12/15/17 09:59 400 mg BID [facility] Administration Morphine Sulfate 2 mg 12/12/17 10:48 12/13/17 16:23 Morphine Sulfate IVPUSH 2 mg Q6H PRN Administration PAIN LEVEL 5-8 Potassium Chloride 20 meq 12/13/17 10:00 12/13/17 09:51 K-Dur - PO 20 meq DAILY [facility] Administration Impression: Complicated case Menometrorrhagia Cirrhosis Splenic and esophageal 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 With splenomegaly, response to exogenous platelets will be tempered Will need blood product replacement for any intervention. To discuss.
[2017-12-14] MEDS: MORPHINE SULFATE 2 MG/ML VIAL IVPUSH PRN ×2 (00:28→09:07)
--- NOTE | 2017-12-14 00:45 | PN ---
Progress Note, Physician - Current Medication List Current Medications: Active Medications Acetaminophen (Ofirmev Injection -) 1,000 mg IVPB Q6H PRN PRN Reason: PAIN Last Admin: 12/12/17 05:46 Dose: 1,000 mg Magnesium Oxide (Mag-Ox -) 400 mg PO BID [facility] Stop: 12/15/17 09:59 Last Admin: 12/13/17 21:20 Dose: 400 mg Morphine Sulfate (Morphine Sulfate) 2 mg IVPUSH Q6H PRN PRN Reason: PAIN LEVEL 5-8 Last Admin: 12/14/17 00:28 Dose: 2 mg Potassium Chloride (K-Dur -) 20 meq PO DAILY [facility] Last Admin: 12/13/17 09:51 Dose: 20 meq - Objective Vital Signs: Vital Signs Temperature 98.2 F 12/13/17 16:54 Pulse Rate 71 12/13/17 16:54 Respiratory Rate 20 12/13/17 16:54 Blood Pressure 112/69 12/13/17 16:54 O2 Sat by Pulse Oximetry (%) 100 12/13/17 21:00 Labs: CBC, BMP 12/13/17 06:38 12/13/17 06:38 INR, PTT INR 1.19 (0.82-1.09) H 12/13/17 06:38 Problem List - Problems (1) Pancytopenia Code(s): D61.818 - OTHER PANCYTOPENIA (2) Vaginal bleeding, abnormal Code(s): N93.9 - ABNORMAL UTERINE AND VAGINAL BLEEDING, UNSPECIFIED (3) Anemia Code(s): D64.9 - ANEMIA, UNSPECIFIED Qualifiers: Anemia type: unspecified type Qualified Code(s): D64.9 - Anemia, unspecified (4) Hypertension Code(s): I10 - ESSENTIAL (PRIMARY) HYPERTENSION
[2017-12-14 08:09] LABS: EOS % 2.3 % (0-4.5); HEMATOCRIT 30.7 % (32.4-45.2); HEMOGLOBIN 10.1 GM/dL (10.7-15.3); LYMPH % 26.3 % (8-40); MCH 28.3 pg (25.7-33.7); MCHC 32.9 g/dl (32.0-36.0); MONO % 12.8 % (3.8-10.2); NEUT % 57.6 % (42.8-82.8); PLATELET COUNT 48 K/MM3 (134-434); RBC 3.57 M/mm3 (3.60-5.2); RDW 18.6 % (11.6-15.6); WHITE BLOOD COUNT 2.6 K/mm3 (4.0-10.0)
[2017-12-14 08:56] LABS: CHLORIDE 109 mmol/L (98-107); POTASSIUM 3.3 mmol/L (3.5-5.1); SODIUM 141 mmol/L (136-145)
[2017-12-14 09:05] LABS: ALBUMIN 2.5 g/dl (3.4-5.0); ALK PHOS 89 U/L (45-117); ANION GAP 9 (8-16); BILIRUBIN,TOTAL 0.5 mg/dL (0.2-1.0); BLOOD UREA NITROGEN 9 mg/dL (7-18); CALCIUM 7.3 mg/dL (8.5-10.1); CO2 23 mmol/L (21-32); CREATININE 0.5 mg/dL (0.55-1.02); GLUCOSE,RANDOM 90 mg/dL (74-106); SGOT/AST 36 U/L (15-37); SGPT/ALT 24 U/L (12-78); TOT PROT 6.4 g/dl (6.4-8.2)
[2017-12-14] MEDS: MAGNESIUM OXIDE 400 MG TABLET (FP) PO SCH ×2 (09:07→21:33)
[2017-12-14] MEDS: POTASSIUM CHLORIDE TABS 20 MEQ TABLET.ER (FP) PO SCH (09:07)
--- NOTE | 2017-12-14 09:15 | PN ---
Progress Note, Physician - Current Medication List Current Medications: Active Medications Acetaminophen (Ofirmev Injection -) 1,000 mg IVPB Q6H PRN PRN Reason: PAIN Last Admin: 12/12/17 05:46 Dose: 1,000 mg Magnesium Oxide (Mag-Ox -) 400 mg PO BID [facility] Stop: 12/15/17 09:59 Last Admin: 12/14/17 09:07 Dose: 400 mg Morphine Sulfate (Morphine Sulfate) 2 mg IVPUSH Q6H PRN PRN Reason: PAIN LEVEL 5-8 Last Admin: 12/14/17 09:07 Dose: 2 mg Potassium Chloride (K-Dur -) 20 meq PO DAILY [facility] Last Admin: 12/14/17 09:07 Dose: 20 meq - Objective Vital Signs: Vital Signs Temperature 98.8 F 12/14/17 08:34 Pulse Rate 90 12/14/17 08:34 Respiratory Rate 20 12/14/17 08:34 Blood Pressure 116/72 12/14/17 08:34 O2 Sat by Pulse Oximetry (%) 100 12/13/17 21:00 Eyes: Yes: WNL, Conjunctiva Clear, EOM Intact HENT: Yes: WNL, Atraumatic, Normocephalic Neck: Yes: WNL, Supple, Trachea Midline Cardiovascular: Yes: WNL, Regular Rate and Rhythm Respiratory: Yes: WNL, Regular, CTA Bilaterally Gastrointestinal: Yes: WNL, Normal Bowel Sounds Genitourinary: Yes: WNL Musculoskeletal: Yes: WNL Extremities: Yes: WNL Edema: No Integumentary: Yes: WNL Neurological: Yes: WNL, Alert, Oriented ...Motor Strength: WNL Psychiatric: Yes: WNL Labs: CBC, BMP 12/14/17 06:20 12/14/17 06:20 INR, PTT INR 1.19 (0.82-1.09) H 12/13/17 06:38 Assessment/Plan MP: Pancytopenia requiring tx PRBCs and Platelets Cirrhosis of unclear etiology Menorrhagia Hypokalemia Prolonged QT REC: 1. Repleting Mg2+ and K+ 2. Avoid opiates/ QT prolonging drugs. 3. Echo shows normal LVEF. 4. 24 hour holter in progress 5. Prior cath no sig CAD and stress MIBI 2014 normal perfusion- no further ischemic evaluation is needed. 6. Heme f/u for platelet reccs prior to surgery. 7. GI following- possible liver bx, timing to be determined. Will hold on surgery until electrolytes repleted, holter completed. Coverage for dr. Harding
--- NOTE | 2017-12-14 14:40 | PN ---
Progress Note (short form) - Note Progress Note: Patient seen and examined Still with crampy lower abdominal pains and vaginal bleeding Last Vital Signs Temp Pulse Resp BP Pulse Ox 98.8 F 90 20 116/72 100 12/14/17 08:34 12/14/17 08:34 12/14/17 09:00 12/14/17 08:34 12/14/17 09:00 HEENT: PRASANNA, EOM Intact Oropharynx: No thrush, No mucositis Cor: RSR, No murmurs, No gallops Lungs: Clear to P&A Abd: Soft, Normal bowel sounds, No organomegaly Ext:No significant edema Skin: No rashes, Integument intact CBC, BMP 12/14/17 06:20 12/14/17 06:20 Current Medications Generic Name Dose Route Start Last Admin Trade Name Freq PRN Reason Stop Dose Admin Acetaminophen 1,000 mg 12/07/17 01:02 12/12/17 05:46 Ofirmev Injection - IVPB 1,000 mg Q6H PRN Administration PAIN Magnesium Oxide 400 mg 12/13/17 10:00 12/14/17 09:07 Mag-Ox - PO 12/15/17 09:59 400 mg BID [facility] Administration Morphine Sulfate 2 mg 12/12/17 10:48 12/14/17 09:07 Morphine Sulfate IVPUSH 2 mg Q6H PRN Administration PAIN LEVEL 5-8 Potassium Chloride 20 meq 12/13/17 10:00 12/14/17 09:07 K-Dur - PO 20 meq DAILY [facility] Administration Impression: Metrorrhagia Cirrhosis Esophageal and splenic varices 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
[2017-12-14] MEDS: ACETAMINOPHEN 1000 MG/100 ML VIAL (NON FORMULARY) IVPB PRN (15:10)
[2017-12-14] MEDS ORDERED: ACETAMINOPHEN 325 MG TABLET (FP) PO PRN (19:26)
[2017-12-14] MEDS: ZOLPIDEM TARTRATE 5 MG TABLET PO PRN (21:33)
--- NOTE | 2017-12-14 23:37 | PN ---
Progress Note, Physician - Current Medication List Current Medications: Active Medications Acetaminophen (Tylenol -) 650 mg PO Q6H PRN PRN Reason: PAIN LEVEL 1 - 3 Magnesium Oxide (Mag-Ox -) 400 mg PO BID [facility] Stop: 12/15/17 09:59 Last Admin: 12/14/17 21:33 Dose: 400 mg Morphine Sulfate (Morphine Sulfate) 2 mg IVPUSH Q6H PRN PRN Reason: PAIN LEVEL 5-8 Potassium Chloride (K-Dur -) 20 meq PO DAILY [facility] Last Admin: 12/14/17 09:07 Dose: 20 meq Zolpidem Tartrate (Ambien -) 5 mg PO HS PRN PRN Reason: INSOMNIA Last Admin: 12/14/17 21:33 Dose: 5 mg - Objective Vital Signs: Vital Signs Temperature 98.5 F 12/14/17 22:00 Pulse Rate 78 12/14/17 22:00 Respiratory Rate 18 12/14/17 22:00 Blood Pressure 119/61 12/14/17 22:00 O2 Sat by Pulse Oximetry (%) 100 12/14/17 21:00 Labs: CBC, BMP 12/14/17 06:20 12/14/17 06:20 INR, PTT INR 1.19 (0.82-1.09) H 12/13/17 06:38 Problem List - Problems (1) Pancytopenia Code(s): D61.818 - OTHER PANCYTOPENIA (2) Vaginal bleeding, abnormal Code(s): N93.9 - ABNORMAL UTERINE AND VAGINAL BLEEDING, UNSPECIFIED (3) Anemia Code(s): D64.9 - ANEMIA, UNSPECIFIED Qualifiers: Anemia type: unspecified type Qualified Code(s): D64.9 - Anemia, unspecified (4) Hypertension Code(s): I10 - ESSENTIAL (PRIMARY) HYPERTENSION
[2017-12-15] MEDS: MORPHINE SULFATE 2 MG/ML VIAL IVPUSH PRN ×3 (06:26→21:33)
[2017-12-15 07:40] LABS: BASO % 0.7 % (0-2.0); EOS % 1.9 % (0-4.5); HEMATOCRIT 29.1 % (32.4-45.2); HEMOGLOBIN 9.6 GM/dL (10.7-15.3); LYMPH % 27.8 % (8-40); MCH 28.6 pg (25.7-33.7); MCHC 32.9 g/dl (32.0-36.0); MEAN CELL VOLUME 86.9 fl (80-96); MEAN PLT VOLUME 9.7 fl (7.5-11.1); MONO % 13.5 % (3.8-10.2); NEUT % 56.1 % (42.8-82.8); PLATELET COUNT 44 K/MM3 (134-434); RBC 3.35 M/mm3 (3.60-5.2); RDW 19.2 % (11.6-15.6); WHITE BLOOD COUNT 2.1 K/mm3 (4.0-10.0)
[2017-12-15 07:51] LABS: ALBUMIN 2.5 g/dl (3.4-5.0); ALK PHOS 86 U/L (45-117); ANION GAP 8 (8-16); BILIRUBIN,TOTAL 0.6 mg/dL (0.2-1.0); BLOOD UREA NITROGEN 10 mg/dL (7-18); CALCIUM 7.7 mg/dL (8.5-10.1); CHLORIDE 109 mmol/L (98-107); CO2 23 mmol/L (21-32); CREATININE 0.7 mg/dL (0.55-1.02); GLUCOSE,RANDOM 155 mg/dL (74-106); POTASSIUM 3.7 mmol/L (3.5-5.1); SGOT/AST 37 U/L (15-37); SGPT/ALT 26 U/L (12-78); SODIUM 140 mmol/L (136-145); TOT PROT 6.4 g/dl (6.4-8.2)
--- NOTE | 2017-12-15 09:04 | PN ---
Progress Note, Physician Chief Complaint: Holter with frequent VPCs and periods bigeminy Alert, oriented, no distress. - Current Medication List Current Medications: Active Medications Acetaminophen (Tylenol -) 650 mg PO Q6H PRN PRN Reason: PAIN LEVEL 1 - 3 Magnesium Oxide (Mag-Ox -) 400 mg PO BID [facility] Stop: 12/15/17 09:59 Last Admin: 12/14/17 21:33 Dose: 400 mg Morphine Sulfate (Morphine Sulfate) 2 mg IVPUSH Q6H PRN PRN Reason: PAIN LEVEL 5-8 Last Admin: 12/15/17 06:26 Dose: 2 mg Potassium Chloride (K-Dur -) 20 meq PO DAILY [facility] Last Admin: 12/14/17 09:07 Dose: 20 meq Zolpidem Tartrate (Ambien -) 5 mg PO HS PRN PRN Reason: INSOMNIA Last Admin: 12/14/17 21:33 Dose: 5 mg - Objective Vital Signs: Vital Signs Temperature 99.5 F 12/15/17 07:16 Pulse Rate 84 12/15/17 07:16 Respiratory Rate 20 12/15/17 07:16 Blood Pressure 108/64 12/15/17 07:16 O2 Sat by Pulse Oximetry (%) 100 12/14/17 21:00 Constitutional: Yes: No Distress, Calm Cardiovascular: Yes: Regular Rate and Rhythm Respiratory: Yes: CTA Bilaterally Gastrointestinal: Yes: Soft Edema: No Neurological: Yes: Alert, Oriented Labs: CBC, BMP 12/15/17 06:20 12/15/17 06:20 INR, PTT INR 1.19 (0.82-1.09) H 12/13/17 06:38 - ....Imaging EKG: Report Reviewed, Image Reviewed Assessment/Plan IMP: Pancytopenia requiring tx PRBCs and Platelets Cirrhosis of unclear etiology Menorrhagia Hypokalemia Prolonged QT Frequent VPCs, bigeminy on Holter. REC: 1. Repleting Mg2+ and K+ 2. Avoid opiates/ QT prolonging drugs. 3. Echo shows normal LVEF. 4. Will start low dose/short acting beta ingrid q8H for frequent ventricular ectopy. 5. Prior cath no sig CAD and stress MIBI 2014 normal perfusion- no further ischemic evaluation is needed. 6. Heme f/u for platelet reccs prior to surgery. 7. GI following- possible liver bx, timing to be determined. Elevated periop risk of arrhythmias. Patient now agrees to transfer to tertiary center for surgery.
[2017-12-15] MEDS ORDERED: PT OWN MED DRAWER 7, Y5N ONE (10:09)
[2017-12-15] MEDS: POTASSIUM CHLORIDE TABS 20 MEQ TABLET.ER (FP) PO SCH (10:10)
[2017-12-15] MEDS: METOPROLOL TARTRATE 25 MG TABLET (FP) PO SCH ×2 (13:30→21:32)
--- NOTE | 2017-12-15 23:25 | PN ---
Progress Note (short form) - Note Progress Note: Patient seen and examined' Denies any complaints AFVSS Cor: RSR, No murmurs, No gallops Lungs: Clear to P&A Abd: Soft, Normal bowel sounds, + splenomegaly Ext:No significant edema Labs/meds reviewed A/P 52 y/o patient with cirrhosis/varices/portal htn/splenmegaly/thrombocytopenia/ fibroids/menorrhagia/iron deficiency anemia Patient with thrombocytopenia due to cirrhosis May not respond to platelet transfusions due to splenomegaly Menorrhagia from fibroids Will need to coordinate with GI/MELTER [employer]ER Being transferred to tertiary center ? Evolving HCC abnormal MRI--needs repeat imaging in 3 months AFP level normal discussed this with patient and need to closely follow up with liver team there. CDs given contact nos. given for my office
[2017-12-15] MEDS: ZOLPIDEM TARTRATE 5 MG TABLET PO PRN (23:33)
--- NOTE | 2017-12-15 23:51 | PN ---
Progress Note, Physician History of Present Illness: Pt still complains of heavy vaginal bleeding w/ generalized lower abdominal pain w/ clotting - Current Medication List Current Medications: Active Medications Acetaminophen (Tylenol -) 650 mg PO Q6H PRN PRN Reason: PAIN LEVEL 1 - 3 Metoprolol Tartrate (Lopressor -) 12.5 mg PO TID [facility] Last Admin: 12/15/17 21:32 Dose: 12.5 mg Morphine Sulfate (Morphine Sulfate) 2 mg IVPUSH Q6H PRN PRN Reason: PAIN LEVEL 5-8 Last Admin: 12/15/17 21:33 Dose: 2 mg Potassium Chloride (K-Dur -) 20 meq PO DAILY [facility] Last Admin: 12/15/17 10:10 Dose: 20 meq Zolpidem Tartrate (Ambien -) 5 mg PO HS PRN PRN Reason: INSOMNIA Last Admin: 12/15/17 23:33 Dose: 5 mg - Objective Vital Signs: Vital Signs Temperature 98.2 F 12/15/17 17:54 Pulse Rate 84 12/15/17 17:54 Respiratory Rate 20 12/15/17 17:54 Blood Pressure 120/79 12/15/17 17:54 O2 Sat by Pulse Oximetry (%) 100 12/14/17 21:00 Cardiovascular: Yes: WNL, Regular Rate and Rhythm Respiratory: Yes: WNL, Regular, CTA Bilaterally Gastrointestinal: Yes: WNL, Normal Bowel Sounds, Soft Labs: CBC, BMP 12/15/17 06:20 12/15/17 06:20 INR, PTT INR 1.19 (0.82-1.09) H 12/13/17 06:38 Problem List - Problems (1) Vaginal bleeding, abnormal Assessment/Plan: H/O uterine fibroids Pt to discuss w/ [employer] need of D&C vs RYAN Long d/w pt about complexity of surgical procedure and risk of bleeding Pt agreed to be transferred to [facility](pt also needs liver bx) Code(s): N93.9 - ABNORMAL UTERINE AND VAGINAL BLEEDING, UNSPECIFIED (2) Pancytopenia Assessment/Plan: S/P bone marrow bx Await bone marrow results wc are pending Probable due to liver dz MRI liver showed splenomegaly/portal vein thrombosis Code(s): D61.818 - OTHER PANCYTOPENIA (3) Anemia Assessment/Plan: Monitor H/H Pt has been transfused 2 units PRBC's during this hospitalization Code(s): D64.9 - ANEMIA, UNSPECIFIED Qualifiers: Anemia type: unspecified type Qualified Code(s): D64.9 - Anemia, unspecified (4) Hypertension Code(s): I10 - ESSENTIAL (PRIMARY) HYPERTENSION
[2017-12-16] MEDS ORDERED: diphenhydrAMINE HCL 25 MG CAPSULE (FP) PO ONE (03:15)
[2017-12-16] MEDS: METOPROLOL TARTRATE 25 MG TABLET (FP) PO SCH ×3 (06:04→21:35)
[2017-12-16] MEDS: MORPHINE SULFATE 2 MG/ML VIAL IVPUSH PRN ×4 (06:05→22:10)
[2017-12-16 06:59] LABS: BASO % 1.4 % (0-2.0); EOS % 4.1 % (0-4.5); HEMATOCRIT 30.4 % (32.4-45.2); LYMPH % 37.7 % (8-40); MCH 28.4 pg (25.7-33.7); MEAN CELL VOLUME 86.2 fl (80-96); MEAN PLT VOLUME 9.9 fl (7.5-11.1); MONO % 15.5 % (3.8-10.2); NEUT % 41.3 % (42.8-82.8); PLATELET COUNT 46 K/MM3 (134-434); RBC 3.52 M/mm3 (3.60-5.2); RDW 19.3 % (11.6-15.6); WHITE BLOOD COUNT 2.5 K/mm3 (4.0-10.0)
--- NOTE | 2017-12-16 08:41 | PN ---
Progress Note, Physician Chief Complaint: Seen and examined No new complaints No distress - Current Medication List Current Medications: Active Medications Acetaminophen (Tylenol -) 650 mg PO Q6H PRN PRN Reason: PAIN LEVEL 1 - 3 Metoprolol Tartrate (Lopressor -) 12.5 mg PO TID [facility] Last Admin: 12/16/17 06:04 Dose: Not Given Morphine Sulfate (Morphine Sulfate) 2 mg IVPUSH Q6H PRN PRN Reason: PAIN LEVEL 5-8 Last Admin: 12/16/17 06:05 Dose: 2 mg Potassium Chloride (K-Dur -) 20 meq PO DAILY [facility] Last Admin: 12/15/17 10:10 Dose: 20 meq Zolpidem Tartrate (Ambien -) 5 mg PO HS PRN PRN Reason: INSOMNIA Last Admin: 12/15/17 23:33 Dose: 5 mg - Objective Vital Signs: Vital Signs Temperature 98 F 12/16/17 06:14 Pulse Rate 62 12/16/17 06:14 Respiratory Rate 20 12/16/17 06:14 Blood Pressure 93/50 12/16/17 06:14 O2 Sat by Pulse Oximetry (%) 98 12/15/17 21:00 Constitutional: Yes: No Distress, Calm Cardiovascular: Yes: Regular Rate and Rhythm Respiratory: Yes: CTA Bilaterally Gastrointestinal: Yes: Soft Edema: No Neurological: Yes: Alert, Oriented ...Motor Strength: WNL Labs: CBC, BMP 12/16/17 06:30 12/15/17 06:20 INR, PTT INR 1.19 (0.82-1.09) H 12/13/17 06:38 Laboratory Tests 12/15/17 12/15/17 12/16/17 06:20 06:20 06:30 WBC 2.1 L 2.5 L Hgb 9.6 L 10.0 L Plt Count 44 L 46 L Sodium 140 Potassium 3.7 BUN 10 Creatinine 0.7 Creat Clearance w eGFR > 60 Assessment/Plan IMP: Pancytopenia requiring tx PRBCs and Platelets Cirrhosis of unclear etiology Menorrhagia Hypokalemia, improved Prolonged QT Frequent VPCs, bigeminy on Holter. REC: 1. Keep Mg2+ and K+ > 2.0 and 3.5 respectively 2. Avoid opiates/ QT prolonging drugs. 3. Echo shows normal LVEF. 4. Continue low dose/short acting beta ingrid q8H for frequent ventricular ectopy. 5. Prior cath no sig CAD and stress MIBI 2014 normal perfusion- no further ischemic evaluation is needed. 6. Heme f/u for platelet reccs prior to surgery. 7. GI following- possible liver bx, timing to be determined. Elevated periop risk of arrhythmias. Patient now agrees to transfer to tertiary center for surgery, EP consultation and liver biopsy.
[2017-12-16] MEDS: POTASSIUM CHLORIDE TABS 20 MEQ TABLET.ER (FP) PO SCH (10:20)
--- NOTE | 2017-12-16 23:02 | PN ---
Progress Note, Physician History of Present Illness: Called [facility] for transfer of pt. However medicine refused pt(due to fact of vaginal bleeding) and then spoke to [employer] service(Dr Adrian Pollard) who has agreed to accept pt for transfer. [employer] service is aware that pt needs heme/liver specialists for management of this case. However [employer] felt that being that weekend is coming there would be no plans for any intervention and that pt will be transferred on tuesday12/19/17. Pt is upset that she has to wait until tuesday. - Current Medication List Current Medications: Active Medications Acetaminophen (Tylenol -) 650 mg PO Q6H PRN PRN Reason: PAIN LEVEL 1 - 3 Metoprolol Tartrate (Lopressor -) 12.5 mg PO TID [facility] Last Admin: 12/16/17 21:35 Dose: 12.5 mg Morphine Sulfate (Morphine Sulfate) 2 mg IVPUSH Q6H PRN PRN Reason: PAIN LEVEL 5-8 Last Admin: 12/16/17 22:10 Dose: 2 mg Potassium Chloride (K-Dur -) 20 meq PO DAILY [facility] Last Admin: 12/16/17 10:20 Dose: 20 meq Zolpidem Tartrate (Ambien -) 5 mg PO HS PRN PRN Reason: INSOMNIA Last Admin: 12/15/17 23:33 Dose: 5 mg - Objective Vital Signs: Vital Signs Temperature 99.0 F 12/16/17 22:00 Pulse Rate 75 12/16/17 22:00 Respiratory Rate 18 12/16/17 22:21 Blood Pressure 136/64 12/16/17 22:00 O2 Sat by Pulse Oximetry (%) 98 12/16/17 22:21 Neck: Yes: WNL, Supple Cardiovascular: Yes: WNL, Regular Rate and Rhythm Respiratory: Yes: WNL, Regular, CTA Bilaterally Gastrointestinal: Yes: WNL, Normal Bowel Sounds, Soft Labs: CBC, BMP 12/16/17 06:30 12/15/17 06:20 INR, PTT INR 1.19 (0.82-1.09) H 12/13/17 06:38 Problem List - Problems (1) Vaginal bleeding, abnormal Assessment/Plan: H/O uterine fibroids Pt has been accepted for transfer to [facility] on tuesday12/19/17 Conitor to monitor H/H Code(s): N93.9 - ABNORMAL UTERINE AND VAGINAL BLEEDING, UNSPECIFIED (2) Pancytopenia Assessment/Plan: S/P bone marrow bx Await bone marrow results wc are pending Probable due to liver dz(?cirrhosis Pt has h/o esophageal varices about 3 yrs ago w/ banding However pt will need to be seen by liver team at [facility] and probable liver bx to be done at [facility] MRI liver showed splenomegaly/portal vein nonocclusive thrombosis Hep C Ab was (+) but HCV RNA PCR was negative Code(s): D61.818 - OTHER PANCYTOPENIA (3) Anemia Code(s): D64.9 - ANEMIA, UNSPECIFIED Qualifiers: Anemia type: unspecified type Qualified Code(s): D64.9 - Anemia, unspecified (4) Hypertension Code(s): I10 - ESSENTIAL (PRIMARY) HYPERTENSION
--- NOTE | 2017-12-16 23:40 | PN ---
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 Evolving HCC abnormal MRI--needs repeat imaging in 3 months AFP level normal discussed this with patient and need to closely follow up with liver team there. CDs given contact nos. given for my office possible transfer to [facility] on tuesday
[2017-12-17] MEDS: ZOLPIDEM TARTRATE 5 MG TABLET PO PRN (00:03)
[2017-12-17] MEDS: METOPROLOL TARTRATE 25 MG TABLET (FP) PO SCH ×3 (05:41→21:48)
[2017-12-17 07:54] LABS: BASO % 0.8 % (0-2.0); EOS % 2.2 % (0-4.5); HEMATOCRIT 36.4 % (32.4-45.2); HEMOGLOBIN 11.9 GM/dL (10.7-15.3); LYMPH % 35.2 % (8-40); MCH 28.3 pg (25.7-33.7); MCHC 32.8 g/dl (32.0-36.0); MEAN CELL VOLUME 86.4 fl (80-96); MEAN PLT VOLUME 9.6 fl (7.5-11.1); MONO % 11.3 % (3.8-10.2); NEUT % 50.5 % (42.8-82.8); PLATELET COUNT 68 K/MM3 (134-434); RBC 4.21 M/mm3 (3.60-5.2); RDW 19.6 % (11.6-15.6); WHITE BLOOD COUNT 4.4 K/mm3 (4.0-10.0)
[2017-12-17 08:33] LABS: ANION GAP 9 (8-16); BLOOD UREA NITROGEN 12 mg/dL (7-18); CHLORIDE 110 mmol/L (98-107); CO2 25 mmol/L (21-32); CREATININE 0.7 mg/dL (0.55-1.02); GLUCOSE,RANDOM 76 mg/dL (74-106); POTASSIUM 3.5 mmol/L (3.5-5.1); SGOT/AST 42 U/L (15-37); SGPT/ALT 30 U/L (12-78); SODIUM 144 mmol/L (136-145); TOT PROT 7.5 g/dl (6.4-8.2)
[2017-12-17 08:39] LABS: ALK PHOS 104 U/L (45-117); BILIRUBIN,TOTAL 0.5 mg/dL (0.2-1.0)
--- NOTE | 2017-12-17 08:43 | PN ---
Progress Note, Physician - Current Medication List Current Medications: Active Medications Acetaminophen (Tylenol -) 650 mg PO Q6H PRN PRN Reason: PAIN LEVEL 1 - 3 Metoprolol Tartrate (Lopressor -) 12.5 mg PO TID [facility] Last Admin: 12/17/17 05:41 Dose: Not Given Morphine Sulfate (Morphine Sulfate) 2 mg IVPUSH Q6H PRN PRN Reason: PAIN LEVEL 5-8 Last Admin: 12/16/17 22:10 Dose: 2 mg Potassium Chloride (K-Dur -) 20 meq PO DAILY [facility] Last Admin: 12/16/17 10:20 Dose: 20 meq Zolpidem Tartrate (Ambien -) 5 mg PO HS PRN PRN Reason: INSOMNIA Last Admin: 12/17/17 00:03 Dose: 5 mg - Objective Vital Signs: Vital Signs Temperature 97.9 F 12/17/17 05:41 Pulse Rate 64 12/17/17 05:41 Respiratory Rate 18 12/17/17 05:41 Blood Pressure 97/53 12/17/17 05:41 O2 Sat by Pulse Oximetry (%) 98 12/16/17 22:21 Eyes: Yes: WNL, Conjunctiva Clear, EOM Intact HENT: Yes: WNL, Atraumatic, Normocephalic Neck: Yes: WNL, Supple, Trachea Midline Cardiovascular: Yes: WNL, Regular Rate and Rhythm Respiratory: Yes: WNL, Regular, CTA Bilaterally Gastrointestinal: Yes: WNL, Normal Bowel Sounds Genitourinary: Yes: WNL Musculoskeletal: Yes: WNL Extremities: Yes: WNL Edema: No Integumentary: Yes: WNL Neurological: Yes: WNL, Alert, Oriented ...Motor Strength: WNL Psychiatric: Yes: WNL Labs: CBC, BMP 12/17/17 06:40 INR, PTT INR 1.19 (0.82-1.09) H 12/13/17 06:38 Assessment/Plan IMP: Pancytopenia requiring tx PRBCs and Platelets Cirrhosis of unclear etiology Menorrhagia Hypokalemia, improved Prolonged QT Frequent VPCs, bigeminy on Holter. REC: 1. Keep Mg2+ and K+ > 2.0 and 3.5 respectively 2. Avoid opiates/ QT prolonging drugs. 3. Echo shows normal LVEF. 4. Continue low dose/short acting beta ingrid q8H for frequent ventricular ectopy. 5. Prior cath no sig CAD and stress MIBI 2014 normal perfusion- no further ischemic evaluation is needed. 6. Heme f/u for platelet reccs prior to surgery. 7. GI following- possible liver bx, timing to be determined. Elevated periop risk of arrhythmias. Patient now agrees to transfer to tertiary center for surgery, EP consultation and liver biopsy. coverage dr. Harding
[2017-12-17] MEDS: POTASSIUM CHLORIDE TABS 20 MEQ TABLET.ER (FP) PO SCH (09:28)
[2017-12-17] MEDS: MORPHINE SULFATE 2 MG/ML VIAL IVPUSH PRN ×3 (09:41→19:14)
[2017-12-17] MEDS: ALPRAZolam 0.25 MG TABLET PO PRN ×2 (14:44→21:50)
--- NOTE | 2017-12-17 23:33 | PN ---
Progress Note, Physician - Current Medication List Current Medications: Active Medications Acetaminophen (Tylenol -) 650 mg PO Q6H PRN PRN Reason: PAIN LEVEL 1 - 3 Alprazolam (Xanax -) 0.25 mg PO Q8H PRN PRN Reason: ANXIETY Last Admin: 12/17/17 21:50 Dose: 0.25 mg Metoprolol Tartrate (Lopressor -) 12.5 mg PO TID [facility] Last Admin: 12/17/17 21:48 Dose: 12.5 mg Potassium Chloride (K-Dur -) 20 meq PO DAILY [facility] Last Admin: 12/17/17 09:28 Dose: 20 meq - Objective Vital Signs: Vital Signs Temperature 99.1 F 12/17/17 15:22 Pulse Rate 74 12/17/17 17:07 Respiratory Rate 20 12/17/17 17:07 Blood Pressure 131/74 12/17/17 17:07 O2 Sat by Pulse Oximetry (%) 98 12/16/17 22:21 Labs: CBC, BMP 12/17/17 06:40 12/17/17 06:40 INR, PTT INR 1.19 (0.82-1.09) H 12/13/17 06:38 Problem List - Problems (1) Vaginal bleeding, abnormal Code(s): N93.9 - ABNORMAL UTERINE AND VAGINAL BLEEDING, UNSPECIFIED (2) Pancytopenia Code(s): D61.818 - OTHER PANCYTOPENIA (3) Anemia Code(s): D64.9 - ANEMIA, UNSPECIFIED Qualifiers: Anemia type: unspecified type Qualified Code(s): D64.9 - Anemia, unspecified (4) Hypertension Code(s): I10 - ESSENTIAL (PRIMARY) HYPERTENSION
[2017-12-18] MEDS ORDERED: MORPHINE SULFATE 2 MG/ML VIAL IVPUSH ONE (01:25)
[2017-12-18] MEDS: METOPROLOL TARTRATE 25 MG TABLET (FP) PO SCH ×3 (06:23→21:37)
--- NOTE | 2017-12-18 08:57 | PN ---
Progress Note, Physician - Current Medication List Current Medications: Active Medications Acetaminophen (Tylenol -) 650 mg PO Q6H PRN PRN Reason: PAIN LEVEL 1 - 3 Alprazolam (Xanax -) 0.25 mg PO Q8H PRN PRN Reason: ANXIETY Last Admin: 12/17/17 21:50 Dose: 0.25 mg Metoprolol Tartrate (Lopressor -) 12.5 mg PO TID [facility] Last Admin: 12/18/17 06:23 Dose: Not Given Morphine Sulfate (Morphine Sulfate) 2 mg SQ Q6H PRN PRN Reason: PAIN LEVEL 6-10 Potassium Chloride (K-Dur -) 20 meq PO DAILY [facility] Last Admin: 12/17/17 09:28 Dose: 20 meq - Objective Vital Signs: Vital Signs Temperature 97.9 F 12/18/17 06:54 Pulse Rate 64 12/18/17 06:54 Respiratory Rate 18 12/18/17 06:54 Blood Pressure 95/55 12/18/17 06:54 O2 Sat by Pulse Oximetry (%) 99 12/17/17 22:00 Eyes: Yes: WNL, Conjunctiva Clear, EOM Intact HENT: Yes: WNL, Atraumatic, Normocephalic Neck: Yes: WNL, Supple, Trachea Midline Cardiovascular: Yes: WNL, Regular Rate and Rhythm Respiratory: Yes: WNL, Regular, CTA Bilaterally Gastrointestinal: Yes: WNL, Normal Bowel Sounds Genitourinary: Yes: WNL Musculoskeletal: Yes: WNL Extremities: Yes: WNL Edema: No Integumentary: Yes: WNL Neurological: Yes: WNL, Alert, Oriented ...Motor Strength: WNL Psychiatric: Yes: WNL Labs: CBC, BMP 12/17/17 06:40 12/17/17 06:40 INR, PTT INR 1.19 (0.82-1.09) H 12/13/17 06:38 Assessment/Plan IMP: Pancytopenia requiring tx PRBCs and Platelets Cirrhosis of unclear etiology Menorrhagia Hypokalemia, improved Prolonged QT Frequent VPCs, bigeminy on Holter. REC: 1. Keep Mg2+ and K+ > 2.0 and 3.5 respectively 2. Avoid opiates/ QT prolonging drugs. 3. Echo shows normal LVEF. 4. Continue low dose/short acting beta ingrid q8H for frequent ventricular ectopy. 5. Prior cath no sig CAD and stress MIBI 2014 normal perfusion- no further ischemic evaluation is needed. 6. Heme f/u for platelet reccs prior to surgery. 7. GI following- possible liver bx, timing to be determined. Elevated periop risk of arrhythmias. Patient now agrees to transfer to tertiary center for surgery, EP consultation and liver biopsy. coverage dr. Harding
[2017-12-18] MEDS: POTASSIUM CHLORIDE TABS 20 MEQ TABLET.ER (FP) PO SCH (09:07)
[2017-12-18 10:17] LABS: BASO % 0.7 % (0-2.0); EOS % 2.4 % (0-4.5); HEMATOCRIT 36.3 % (32.4-45.2); HEMOGLOBIN 11.8 GM/dL (10.7-15.3); LYMPH % 38.2 % (8-40); MCH 28.3 pg (25.7-33.7); MCHC 32.6 g/dl (32.0-36.0); MEAN CELL VOLUME 86.7 fl (80-96); MEAN PLT VOLUME 9.8 fl (7.5-11.1); MONO % 8.2 % (3.8-10.2); NEUT % 50.5 % (42.8-82.8); PLATELET COUNT 80 K/MM3 (134-434); RBC 4.19 M/mm3 (3.60-5.2); RDW 19.9 % (11.6-15.6); WHITE BLOOD COUNT 4.3 K/mm3 (4.0-10.0)
[2017-12-18 10:52] LABS: ANION GAP 9 (8-16); BLOOD UREA NITROGEN 14 mg/dL (7-18); CALCIUM 8.1 mg/dL (8.5-10.1); CHLORIDE 108 mmol/L (98-107); CO2 25 mmol/L (21-32); CREATININE 0.6 mg/dL (0.55-1.02); GLUCOSE,RANDOM 98 mg/dL (74-106); POTASSIUM 3.7 mmol/L (3.5-5.1); SGOT/AST 46 U/L (15-37); SGPT/ALT 32 U/L (12-78); SODIUM 142 mmol/L (136-145)
[2017-12-18 10:54] LABS: ALK PHOS 118 U/L (45-117); BILIRUBIN,TOTAL 0.6 mg/dL (0.2-1.0); TOT PROT 7.5 g/dl (6.4-8.2)
[2017-12-18] MEDS: MORPHINE SULFATE 2 MG/ML VIAL SQ PRN ×2 (11:18→20:45)
[2017-12-18] MEDS: ALPRAZolam 0.25 MG TABLET PO PRN (14:21)
--- NOTE | 2017-12-18 23:13 | PN ---
Progress Note, Physician History of Present Illness: Pt states that as long as she doesn't move and stays in bed than vaginal bleeding decreases but as soon as she walks across the room than vaginal bleeding increases along w/ abdominal cramping. - Current Medication List Current Medications: Active Medications Acetaminophen (Tylenol -) 650 mg PO Q6H PRN PRN Reason: PAIN LEVEL 1 - 3 Alprazolam (Xanax -) 0.25 mg PO Q8H PRN PRN Reason: ANXIETY Last Admin: 12/18/17 14:21 Dose: 0.25 mg Metoprolol Tartrate (Lopressor -) 12.5 mg PO TID [facility] Last Admin: 12/18/17 21:37 Dose: 12.5 mg Morphine Sulfate (Morphine Sulfate) 2 mg SQ Q6H PRN PRN Reason: PAIN LEVEL 6-10 Last Admin: 12/18/17 20:45 Dose: 2 mg Potassium Chloride (K-Dur -) 20 meq PO DAILY [facility] Last Admin: 12/18/17 09:07 Dose: 20 meq - Objective Vital Signs: Vital Signs Temperature 99.3 F 12/18/17 22:00 Pulse Rate 78 12/18/17 22:00 Respiratory Rate 20 12/18/17 22:00 Blood Pressure 112/57 12/18/17 22:00 O2 Sat by Pulse Oximetry (%) 99 12/18/17 21:00 HENT: Yes: WNL Neck: Yes: WNL, Supple Cardiovascular: Yes: WNL, Regular Rate and Rhythm Respiratory: Yes: WNL, Regular, CTA Bilaterally Gastrointestinal: Yes: WNL, Normal Bowel Sounds, Soft Labs: CBC, BMP 12/18/17 08:34 12/18/17 08:34 INR, PTT INR 1.19 (0.82-1.09) H 12/13/17 06:38 Problem List - Problems (1) Vaginal bleeding, abnormal Assessment/Plan: H/O uterine fibroids Pt has been accepted for transfer to [facility] on tuesday12/19/17 Conitor to monitor H/H Pt still w/ vaginal bleeding w/ increases w/ ambulation Code(s): N93.9 - ABNORMAL UTERINE AND VAGINAL BLEEDING, UNSPECIFIED (2) Pancytopenia Assessment/Plan: S/P bone marrow bx Await bone marrow results wc are pending Probable due to liver dz(?cirrhosis) Pt has h/o esophageal varices about 3 yrs ago w/ banding However pt will need to be seen by liver team at [facility] and probable liver bx to be done at [facility] MRI liver showed splenomegaly/portal vein nonocclusive thrombosis Hep C Ab was (+) but HCV RNA PCR was negative Code(s): D61.818 - OTHER PANCYTOPENIA (3) Anemia Assessment/Plan: Monitor H/H Pt has been transfused 2 units PRBC's during this hospitalization Code(s): D64.9 - ANEMIA, UNSPECIFIED Qualifiers: Anemia type: unspecified type Qualified Code(s): D64.9 - Anemia, unspecified (4) Hypertension Assessment/Plan: Pt is not on any antihypertensives Unclear if pt has any h/o CAD Code(s): I10 - ESSENTIAL (PRIMARY) HYPERTENSION
[2017-12-19] MEDS: ALPRAZolam 0.25 MG TABLET PO PRN ×2 (00:52→20:29)
[2017-12-19] MEDS: MORPHINE SULFATE 2 MG/ML VIAL SQ PRN ×2 (02:37→20:29)
[2017-12-19] MEDS: METOPROLOL TARTRATE 25 MG TABLET (FP) PO SCH ×3 (06:29→22:36)
[2017-12-19 08:24] LABS: BASO % 1.1 % (0-2.0); HEMATOCRIT 31.7 % (32.4-45.2); HEMOGLOBIN 10.5 GM/dL (10.7-15.3); LYMPH % 36.6 % (8-40); MCH 28.7 pg (25.7-33.7); MCHC 33.1 g/dl (32.0-36.0); MEAN CELL VOLUME 86.7 fl (80-96); MEAN PLT VOLUME 9.9 fl (7.5-11.1); NEUT % 47.3 % (42.8-82.8); PLATELET COUNT 60 K/MM3 (134-434); RBC 3.65 M/mm3 (3.60-5.2); RDW 19.3 % (11.6-15.6); WHITE BLOOD COUNT 2.5 K/mm3 (4.0-10.0)
[2017-12-19 08:47] LABS: ALBUMIN 2.7 g/dl (3.4-5.0); ANION GAP 7 (8-16); BLOOD UREA NITROGEN 11 mg/dL (7-18); CALCIUM 7.9 mg/dL (8.5-10.1); CHLORIDE 109 mmol/L (98-107); CO2 26 mmol/L (21-32); CREATININE 0.6 mg/dL (0.55-1.02); GLUCOSE,RANDOM 109 mg/dL (74-106); POTASSIUM 3.3 mmol/L (3.5-5.1); SGOT/AST 40 U/L (15-37); SGPT/ALT 31 U/L (12-78); SODIUM 142 mmol/L (136-145)
[2017-12-19 08:49] LABS: ALK PHOS 122 U/L (45-117); BILIRUBIN,TOTAL 0.4 mg/dL (0.2-1.0); TOT PROT 6.8 g/dl (6.4-8.2)
--- NOTE | 2017-12-19 09:12 | PN ---
Progress Note, Physician Chief Complaint: sitting comfortably, no distress No CP or palps - Current Medication List Current Medications: Active Medications Acetaminophen (Tylenol -) 650 mg PO Q6H PRN PRN Reason: PAIN LEVEL 1 - 3 Last Admin: 12/19/17 06:29 Dose: 650 mg Alprazolam (Xanax -) 0.25 mg PO Q8H PRN PRN Reason: ANXIETY Last Admin: 12/19/17 00:52 Dose: 0.25 mg Metoprolol Tartrate (Lopressor -) 12.5 mg PO TID [facility] Last Admin: 12/19/17 06:29 Dose: 12.5 mg Morphine Sulfate (Morphine Sulfate) 2 mg SQ Q6H PRN PRN Reason: PAIN LEVEL 6-10 Last Admin: 12/19/17 02:37 Dose: 2 mg Potassium Chloride (K-Dur -) 20 meq PO DAILY [facility] Last Admin: 12/18/17 09:07 Dose: 20 meq - Objective Vital Signs: Vital Signs Temperature 98.2 F 12/19/17 07:27 Pulse Rate 64 12/19/17 07:27 Respiratory Rate 20 12/19/17 07:27 Blood Pressure 105/47 12/19/17 07:27 O2 Sat by Pulse Oximetry (%) 99 12/18/17 21:00 Constitutional: Yes: No Distress, Calm Cardiovascular: Yes: Regular Rate and Rhythm Respiratory: Yes: CTA Bilaterally Gastrointestinal: Yes: Soft Edema: No Neurological: Yes: Alert, Oriented ...Motor Strength: WNL Psychiatric: Yes: WNL Labs: CBC, BMP 12/19/17 07:00 12/19/17 07:00 INR, PTT INR 1.19 (0.82-1.09) H 12/13/17 06:38 Assessment/Plan IMP: Pancytopenia requiring tx PRBCs and Platelets Cirrhosis of unclear etiology Menorrhagia Hypokalemia, improved Prolonged QT Frequent VPCs, bigeminy on Holter. REC: 1. Keep Mg2+ and K+ > 2.0 and 3.5 respectively. Will replete K+ 2. Avoid opiates/ QT prolonging drugs. 3. Echo shows normal LVEF. 4. Continue low dose/short acting beta ingrid q8H for frequent ventricular ectopy. 5. Prior cath no sig CAD and stress MIBI 2014 normal perfusion- no further ischemic evaluation is needed. 6. Heme f/u for platelet reccs prior to surgery. 7. GI following- possible liver bx, timing to be determined. Elevated periop risk of arrhythmias. Patient now agrees to transfer to tertiary center for surgery, EP consultation and liver biopsy.
[2017-12-19] MEDS ORDERED: POTASSIUM CHLORIDE TABS 20 MEQ TABLET.ER (FP) PO ONE (09:45)
[2017-12-19 10:11] LABS: HEP B CORE AB, TOT Negative (Negative)
--- NOTE | 2017-12-19 15:04 | EKG ---
Test Reason : Blood Pressure : / mmHG Vent. Rate : 066 BPM Atrial Rate : 066 BPM P-R Int : 184 ms QRS Dur : 082 ms QT Int : 440 ms P-R-T Axes : 023 -15 005 degrees QTc Int : 461 ms NORMAL SINUS RHYTHM NORMAL ECG WHEN COMPARED WITH ECG OF 12-DEC-2017 08:45, NO SIGNIFICANT CHANGE WAS FOUND Confirmed by MOLLY BLANCA MD ([id number]) on 12/19/2017 3:03:45 PM Referred By: [facility] Confirmed By:MOLLY BLANCA MD
[2017-12-19] MEDS ORDERED: PT OWN MED DRAWER 7, Y5N ONE (22:35)
--- NOTE | 2017-12-19 23:37 | PN ---
Progress Note, Physician History of Present Illness: Pt accepted for transfer to [facility] Pt still having vaginal bleeding - Current Medication List Current Medications: Active Medications Acetaminophen (Tylenol -) 650 mg PO Q6H PRN PRN Reason: PAIN LEVEL 1 - 3 Last Admin: 12/19/17 06:29 Dose: 650 mg Alprazolam (Xanax -) 0.25 mg PO Q8H PRN PRN Reason: ANXIETY Last Admin: 12/19/17 20:29 Dose: 0.25 mg Metoprolol Tartrate (Lopressor -) 12.5 mg PO TID [facility] Last Admin: 12/19/17 22:36 Dose: 12.5 mg Morphine Sulfate (Morphine Sulfate) 2 mg SQ Q6H PRN PRN Reason: PAIN LEVEL 6-10 Last Admin: 12/19/17 20:29 Dose: 2 mg - Objective Vital Signs: Vital Signs Temperature 98 F 12/19/17 16:30 Pulse Rate 66 12/19/17 16:30 Respiratory Rate 18 12/19/17 21:00 Blood Pressure 84/48 12/19/17 16:30 O2 Sat by Pulse Oximetry (%) 99 12/18/17 21:00 Neck: Yes: WNL, Supple Cardiovascular: Yes: WNL, Regular Rate and Rhythm Respiratory: Yes: WNL, Regular, CTA Bilaterally Gastrointestinal: Yes: WNL, Normal Bowel Sounds, Soft Labs: CBC, BMP 12/19/17 07:00 12/19/17 07:00 INR, PTT INR 1.19 (0.82-1.09) H 12/13/17 06:38 Problem List - Problems (1) Vaginal bleeding, abnormal Assessment/Plan: H/O uterine fibroids Pt has been accepted for transfer to [facility] on tuesday12/19/17 Conitor to monitor H/H Slight decrease in H/H today Cont to monitor H/H Code(s): N93.9 - ABNORMAL UTERINE AND VAGINAL BLEEDING, UNSPECIFIED (2) Pancytopenia Assessment/Plan: S/P bone marrow bx Await bone marrow results wc are pending Probable due to liver dz(?cirrhosis) Pt has h/o esophageal varices about 3 yrs ago w/ banding However pt will need to be seen by liver team at [facility] and probable liver bx to be done at [facility] MRI liver showed splenomegaly/portal vein nonocclusive thrombosis Hep C Ab was (+) but HCV RNA PCR was negative Code(s): D61.818 - OTHER PANCYTOPENIA (3) Anemia Assessment/Plan: Monitor H/H Pt has been transfused 2 units PRBC's during this hospitalization Code(s): D64.9 - ANEMIA, UNSPECIFIED Qualifiers: Anemia type: unspecified type Qualified Code(s): D64.9 - Anemia, unspecified (4) Hypertension Assessment/Plan: Pt is not on any antihypertensives Unclear if pt has any h/o CAD Code(s): I10 - ESSENTIAL (PRIMARY) HYPERTENSION
[2017-12-20] MEDS: MORPHINE SULFATE 2 MG/ML VIAL SQ PRN (02:31)
[2017-12-20] MEDS: METOPROLOL TARTRATE 25 MG TABLET (FP) PO SCH (06:45)
[2017-12-20 06:55] LABS: BASO % 1.1 % (0-2.0); EOS % 2.8 % (0-4.5); HEMOGLOBIN 10.9 GM/dL (10.7-15.3); LYMPH % 29.7 % (8-40); MCH 28.5 pg (25.7-33.7); MCHC 33.1 g/dl (32.0-36.0); MEAN CELL VOLUME 86.3 fl (80-96); MEAN PLT VOLUME 9.3 fl (7.5-11.1); MONO % 9.8 % (3.8-10.2); NEUT % 56.6 % (42.8-82.8); PLATELET COUNT 68 K/MM3 (134-434); RBC 3.82 M/mm3 (3.60-5.2); RDW 19.3 % (11.6-15.6); WHITE BLOOD COUNT 3.1 K/mm3 (4.0-10.0)
[2017-12-20 07:15] VITALS: BP 109/67; PULSE 65; TEMP 98.6
[2017-12-20 07:22] LABS: ALBUMIN 2.8 g/dl (3.4-5.0); ALK PHOS 110 U/L (45-117); ANION GAP 7 (8-16); BILIRUBIN,TOTAL 0.5 mg/dL (0.2-1.0); BLOOD UREA NITROGEN 9 mg/dL (7-18); CALCIUM 7.8 mg/dL (8.5-10.1); CHLORIDE 110 mmol/L (98-107); CO2 25 mmol/L (21-32); CREATININE 0.6 mg/dL (0.55-1.02); GLUCOSE,RANDOM 95 mg/dL (74-106); POTASSIUM 3.6 mmol/L (3.5-5.1); SGOT/AST 45 U/L (15-37); SGPT/ALT 31 U/L (12-78); SODIUM 142 mmol/L (136-145); TOT PROT 6.8 g/dl (6.4-8.2)
== END 2017-12-20 07:10 | disposition short-term general hospital (02) | DRG 532 ==
LOC: JER 13:37 → JERBED 18:27 → J8W 21:56
PROVIDERS: ADMIT Internal Medicine; ATTEND Internal Medicine
PROC: 30233R1 Transfusion of Nonautologous Platelets into Peripheral Vein, Percutaneous Approach (ICD-10-PCS; 2017-12-07)
PROC: 30233N1 Transfusion of Nonautologous Red Blood Cells into Peripheral Vein, Percutaneous Approach (ICD-10-PCS; 2017-12-08)
PROC: 07DR3ZX Extraction of Iliac Bone Marrow, Percutaneous Approach, Diagnostic (ICD-10-PCS; principal; 2017-12-10)
DX: N92.0 Excessive and frequent menstruation with regular cycle (principal); D69.6 Thrombocytopenia, unspecified; I10 Essential (primary) hypertension; E78.00 Pure hypercholesterolemia, unspecified; D25.9 Leiomyoma of uterus, unspecified; E87.6 Hypokalemia; R16.1 Splenomegaly, not elsewhere classified; I25.10 Atherosclerotic heart disease of native coronary artery without angina pectoris; K25.9 Gastric ulcer, unspecified as acute or chronic, without hemorrhage or perforation; D61.818 Other pancytopenia; J45.20 Mild intermittent asthma, uncomplicated; K76.6 Portal hypertension; N93.9 Abnormal uterine and vaginal bleeding, unspecified; D50.9 Iron deficiency anemia, unspecified; I45.81 Long QT syndrome; K74.60 Unspecified cirrhosis of liver; I85.00 Esophageal varices without bleeding; D68.9 Coagulation defect, unspecified; I81 Portal vein thrombosis; D70.9 Neutropenia, unspecified; F41.9 Anxiety disorder, unspecified; I49.3 Ventricular premature depolarization; K76.0 Fatty (change of) liver, not elsewhere classified
CPT/HCPCS: 36415; 36430; 71260-TC; 74178-TC; 74183-TC; 76856-TC; 80048; 80053; 81003; 81015; 82105; 82728; 83516; 83540; 83550; 83615; 83735; 85025; 85032; 85246; 85610; 85730; 86038; 86078; 86431; 86704; 86706; 86707; 86708; 86850; 86900; 86901; 86922; 87040; 87205; 87340; 87350; 88300-TC; 88305-TC; 88311-TC; 88313-TC; 93005; 93010; 93225; 93226; 93306-TC; 99285-25; C1887; J0131; J1756; J7030; P9034; P9038; P9058

== ENCOUNTER 2018-02-19 02:17 | Inpatient (IN) | payer OTHER ==
[2018-02-19] MEDS ORDERED: SODIUM CHLORIDE 1,000 ML IV STA (05:02)
--- NOTE | 2018-02-19 05:20 | PDOC ---
Attending Attestation - Resident Resident Name: Lucy Doherty - ED Attending Attestation I have performed the following: I have examined & evaluated the patient, The case was reviewed & discussed with the resident, I agree w/resident's findings & plan - HPI HPI: 02/19/18 05:20 Pt with thrombocytopenia and anemia and now vag bleeding 02/19/18 05:26 She has a hx of bleeding diathesis and she has often been admitted for vag bleeding. But I see no indication that she had a uterine biopsy to explore whether she has anormal uterine cells/mass. - Physicial Exam PE: 02/19/18 05:27 Agree with resident exam. - Medical Decision Making 02/19/18 05:27 Pt will be admitted to her PMD [facility]. We will request a PEST CONTROL SPECIALIST consult. 02/19/18 06:32 Pt has hb/hct that is lower than usual. 02/19/18 06:[address] Freitas again. Still awaiting call. 02/20/18 06:34 Pt signed out to the day team to get in touch with [facility], or admit to day hospitalist.
[2018-02-19 05:48] LABS: BASO % 0.8 % (0-2.0); EOS % 2.4 % (0-4.5); HEMATOCRIT 24.1 % (32.4-45.2); HEMOGLOBIN 7.9 GM/dL (10.7-15.3); LYMPH % 22.2 % (8-40); MCH 25.8 pg (25.7-33.7); MCHC 32.7 g/dl (32.0-36.0); MEAN CELL VOLUME 78.9 fl (80-96); MEAN PLT VOLUME 8.5 fl (7.5-11.1); MONO % 7.9 % (3.8-10.2); NEUT % 66.7 % (42.8-82.8); PLATELET COUNT 79 K/MM3 (134-434); RBC 3.05 M/mm3 (3.60-5.2); RDW 17.5 % (11.6-15.6); WHITE BLOOD COUNT 4.8 K/mm3 (4.0-10.0)
[2018-02-19] MEDS ORDERED: morphine CARPU-JECT 2 MG/1 ML DISP.SYRIN IVPUSH ONE (05:49)
[2018-02-19] MEDS ORDERED: MORPHINE SULFATE 2 MG/ML VIAL ONE (05:54)
--- NOTE | 2018-02-19 05:55 | PDOC ---
History of Present Illness - General Chief Complaint: Vaginal Bleeding Stated Complaint: VAGINAL BLEEDING Time Seen by Provider: 02/19/18 04:44 - History of Present Illness Initial Comments: Dayana Gastelum is a 52yo woman with a h/o cirrhosis, pancytopenia, HTN, asthma , uterine fibroids, previous admission for vaginal bleeding secondary to fibroids in November 2017 who presents with copious vaginal bleeding since earlier today. Ms Gastelum reports that she just finished her period several days ago. She started to notice spotting after doing some heavy lifting today and thought that her period was coming back. The bleeding continued to increase throughout the day along with suprapubic pain. She reports going through "20 pads in an hour" and states that the pads have been soaked through. She also notes some large blood clots. She feels that the bleeding has continued to increase, and she has started to feel lightheaded and have increasing pain. Ms Gastelum reports that she follows with hematology as well as gynecology regularly. She does not believe that she has ever had a uterine biopsy to evalute the fibroids. She denies any recent heavy vaginal bleeding prior to today, and she has felt well otherwise recently. Past History - Past Medical History Allergies/Adverse Reactions: Allergies Allergy/AdvReac Type Severity Reaction Status Date / Time codeine [Codeine] Allergy Severe syncope Verified 02/19/18 04:33 Home Medications: Ambulatory Orders NK [No Known Home Medication] 12/06/17 Anemia: Yes Asthma: Yes COPD: No GI Disorders: Yes (gastric ulcers) HTN: Yes Hypercholesterolemia: Yes Liver Disease: Yes (CIRRHOSIS/spleen swelling) - Surgical History Abdominal Surgery: Yes (TUBAL LIGATION.) Cholecystectomy: Yes - Reproductive History Therapeutic (s) & number: No - Immunization History Immunization Up to Date: No - Suicide/Smoking/Psychosocial Hx Smoking Status: Yes Smoking History: Current some day smoker Have you smoked in the past 12 months: No Number of Cigarettes Smoked Daily: 1 Information on smoking cessation initiated: No 'Breaking Loose' booklet given: 04/17/14 Hx Alcohol Use: No Drug/Substance Use Hx: No Substance Use Type: None Hx Substance Use Treatment: No Review of Systems - Review of Systems Comments:: General: No fevers, no chills, no weight or appetite change, no malaise HEENT: No changes in vision, no changes in hearing, no congestion, no sore throat CV: No chest pain, no palpitations, no LE edema Pulm: No SOB, no cough, no wheezing GI: No nausea or vomiting, no change in bowel habits, no melena : No frequency, no urgency, no dysuria Musc: No back pain, no joint swelling, no recent injury Skin: No rash, no lesions, no erythema Endo: No excessive thirst, no heat/cold intolerance Heme: No unusual bruising or bleeding, no swollen glands Neuro: No syncope, no numbness/tingling, no focal weakness Vasc: No claudication Psych: No recent change in mood, no SI or HI *Physical Exam - Vital Signs Last Vital Signs Temp Pulse Resp BP Pulse Ox 99.0 F 97 H 18 151/78 99 02/19/18 04:33 02/19/18 04:33 02/19/18 04:33 02/19/18 04:33 02/19/18 04:33 - Physical Exam Comments: General: Comfortable, no acute distress HEENT: PERRL, EOMI, MMM, voice normal, normal neck ROM, no LAD Cards: RRR, no murmur appreciated Pulm: Comfortable on room air, clear to auscultation bilaterally Abd: Soft, nondistended. Moderate suprapubic tenderness. : No CVA tenderness Pelvic: Red blood noted in vaginal canal. Clotted blood at cervical os. No cervical motion tenderness. Ext: Atraumatic. No LE edema. ROM intact. Strength 5/5 and equal bilaterally Vasc: Extremities WWP. Neuro: A&Ox3, CN grossly intact, normal speech, motor/sensory grossly intact and symmetric Psych: Mood appropriate to situation ED Treatment Course - LABORATORY CBC & Chemistry Diagram: 02/19/18 05:40 02/19/18 06:42 - RADIOLOGY Radiology Studies Ordered: Category Date Time Status PELVIC / BLADDER US [US] Stat Ultrasound 02/19/18 05:02 Ordered Medical Decision Making - Medical Decision Making 02/19/18 05:57 Dayana Gastelum is a 52yo woman with a history of cirrhosis, HTN, asthma, pancytopenia, known uterine fibroids with heavy vaginal bleeding who presents with severe vaginal bleeding soaking multiple pads per hour since earlier today. She reports feeling lightheaded at this point. - CBC, coags, CMP, UA, urine preg ordered - 1L NS bolus - 2mg morphine for pain, 25mg diphenhydramine for itching/sneezing (exposure to cat fur on her daughter's clothes). - Page to Dr Freitas as Ms Gastelum will likely need admission for monitoring, potentially transfusion if bleeding continues. - Currently not tachycardic or pale. Will reassess 02/19/18 06:42 - CBC with hgb 7.9 and continued bleeding. Will transfuse 1u pRBCs. - Discussed with Dr Hooks via phone, no additional medications recommended at this time 02/19/18 07:04 - Waiting for call back from Dr Freitas. Second page sent. Patient endorsed to Dr Romo for additional management. Discussed with Dr Woodward. *DC/Admit/Observation/Transfer Diagnosis at time of Disposition: Vaginal bleeding, abnormal - Referrals Referrals: Cecilio Alvarado MD [Primary Care Provider] - - Patient Instructions - Post Discharge Activity
[2018-02-19 06:00] LABS: INR 1.43 (0.83-1.09); PROTHROMBIN TIME (PATIENT) 16.2 SEC (9.7-13.0)
[2018-02-19 07:25] LABS: ANION GAP 5 MMOL/L (8-16); BLOOD UREA NITROGEN 13 mg/dL (7-18); CHLORIDE 112 mmol/L (98-107); CO2 26 mmol/L (21-32); CREATININE 0.6 mg/dL (0.55-1.02); GLUCOSE,RANDOM 119 mg/dL (74-106); POTASSIUM 3.5 mmol/L (3.5-5.1); SODIUM 143 mmol/L (136-145)
--- NOTE | 2018-02-19 07:41 | PDOC ---
*Physical Exam - Vital Signs Last Vital Signs Temp Pulse Resp BP Pulse Ox 99.0 F 97 H 18 151/78 99 02/19/18 04:33 02/19/18 04:33 02/19/18 04:33 02/19/18 04:33 02/19/18 04:33 ED Treatment Course - LABORATORY CBC & Chemistry Diagram: 02/19/18 05:40 02/19/18 06:42 - ADDITIONAL ORDERS Additional order review: Laboratory Results 02/19/18 02/19/18 02/19/18 06:10 05:40 05:40 PT with INR 16.20 H INR 1.43 H PTT (Actin FS) 30.3 Crossmatch See Detail 02/19/18 05:40 RBC 3.05 L MCV 78.9 L MCHC 32.7 RDW 17.5 H MPV 8.5 Neutrophils % 66.7 Lymphocytes % 22.2 D Monocytes % 7.9 Eosinophils % 2.4 Basophils % 0.8 - Medications Given in the ED: ED Medications Discontinued Medications Generic Name Dose Route Start Last Admin Trade Name Jayy PRN Reason Stop Dose Admin Diphenhydramine HCl 25 mg 02/19/18 05:49 02/19/18 05:59 Benadryl Injection - IVPUSH 02/19/18 05:50 25 mg ONCE ONE Administration Sodium Chloride 1,000 mls @ 1,000 mls/hr 02/19/18 05:02 02/19/18 05:59 Normal Saline - IV 02/19/18 06:01 1,000 mls/hr ASDIR STA Administration Morphine Sulfate 2 mg 02/19/18 05:49 02/19/18 05:59 Morphine Injection - IVPUSH 02/19/18 05:50 2 mg ONCE ONE Administration Medical Decision Making - Medical Decision Making 02/19/18 07:39 The patient was signed out to me by Dr. Doherty. The patient is a 52F who presented with vaginal bleeding. Hgb in the 7's. SENIOR TECHNICAL BUSINESS ANALYST on board. Pending CMP and transfusion. Dr. Freitas paged x 2. Pending call back. 02/19/18 08:[address] Freitas, cell phone paged x 2 again. Hospitalist microblogged for admission. 02/19/18 09:32 Attending admitted pt. 02/19/18 13:43 Pt requesting pain medication. Will give morphine again. *DC/Admit/Observation/Transfer Diagnosis at time of Disposition: Vaginal bleeding, abnormal, Symptomatic anemia - Discharge Dispostion Condition at time of disposition: Guarded - Referrals - Patient Instructions - Post Discharge Activity
--- NOTE | 2018-02-19 07:48 | PDOC ---
*Physical Exam - Vital Signs Last Vital Signs Temp Pulse Resp BP Pulse Ox 99.0 F 97 H 18 151/78 99 02/19/18 04:33 02/19/18 04:33 02/19/18 04:33 02/19/18 04:33 02/19/18 04:33 - Physical Exam Comments: 02/19/18 07:45 gen: sleeping, easily arousable, pale heart: +s1s2 reg lungs: cta b/l abd: soft, nt/nd =bs ext: no c/c/e ED Treatment Course - LABORATORY CBC & Chemistry Diagram: 02/19/18 05:40 02/19/18 06:42 - ADDITIONAL ORDERS Additional order review: Laboratory Results 02/19/18 02/19/18 02/19/18 06:10 05:40 05:40 PT with INR 16.20 H INR 1.43 H PTT (Actin FS) 30.3 Crossmatch See Detail 02/19/18 05:40 RBC 3.05 L MCV 78.9 L MCHC 32.7 RDW 17.5 H MPV 8.5 Neutrophils % 66.7 Lymphocytes % 22.2 D Monocytes % 7.9 Eosinophils % 2.4 Basophils % 0.8 - Medications Given in the ED: ED Medications Discontinued Medications Generic Name Dose Route Start Last Admin Trade Name Jayy PRN Reason Stop Dose Admin Diphenhydramine HCl 25 mg 02/19/18 05:49 02/19/18 05:59 Benadryl Injection - IVPUSH 02/19/18 05:50 25 mg ONCE ONE Administration Sodium Chloride 1,000 mls @ 1,000 mls/hr 02/19/18 05:02 02/19/18 05:59 Normal Saline - IV 02/19/18 06:01 1,000 mls/hr ASDIR STA Administration Morphine Sulfate 2 mg 02/19/18 05:49 02/19/18 05:59 Morphine Injection - IVPUSH 02/19/18 05:50 2 mg ONCE ONE Administration Medical Decision Making - Medical Decision Making 02/19/18 07:45 52yo female signed out from the prior attending pending admission to Dr. Freitas. Dr. Hooks is pts product owner -pt with heavy vaginal bleeding -pt hgb 11 down to 7.9 -transfusion ordered -will place consult to dr. hooks -family and pt agree with the plan 02/19/18 07:47 pt does c/o dizziness - symptomatic anemia 02/19/18 08:[address] to Dr. Freitas- will place to [facility] pending response from Dr. Freitas microblog sent to [facility] 02/19/18 08:[address] Freitas who states the patient doesn't follow with them anymore and requests pt go to [facility] 02/19/18 08:51 case discussed again with Dr. Freitas who accepts pt to service *DC/Admit/Observation/Transfer Diagnosis at time of Disposition: Vaginal bleeding, abnormal, Symptomatic anemia - Discharge Dispostion Condition at time of disposition: Guarded Decision to Admit order: Yes - Referrals Referrals: Cecilio Alvarado MD [Primary Care Provider] - - Patient Instructions - Post Discharge Activity - Attestations Physician Attestion: 02/19/18 07:48 I, Dr. Ember West, DO, attest that this document has been prepared under my direction and personally reviewed by me in its entirety. I further attest, that it accurately reflects all work, treatment, procedures and medical decision -making performed by me.
[2018-02-19 07:59] LABS: CALCIUM 6.8 mg/dL (8.5-10.1)
[2018-02-19] MEDS ORDERED: ACETAMINOPHEN 1000 MG/100 ML VIAL (NON FORMULARY) IVPB ONE (08:30)
[2018-02-19] MEDS ORDERED: ACETAMINOPHEN INJECTION 100 ML IVPB ONE (08:43)
[2018-02-19 09:00] LABS: ALBUMIN 2.3 g/dl (3.4-5.0); BILIRUBIN,DIRECT 0.3 mg/dL (0.0-0.2); BILIRUBIN,TOTAL 0.7 mg/dL (0.2-1.0)
[2018-02-19] MEDS ORDERED: morphine CARPU-JECT 4 MG/1 ML DISP.SYRIN IVPUSH ONE (13:44)
[2018-02-19] MEDS ORDERED: morphine SULFATE 4 MG/ML VIAL ONE (14:35)
[2018-02-19 18:41] VITALS: BMI 34.9
[2018-02-19 21:00] LABS: HEMATOCRIT 22.8 % (32.4-45.2); HEMOGLOBIN 7.4 GM/dL (10.7-15.3); MCH 26.1 pg (25.7-33.7); MCHC 32.5 g/dl (32.0-36.0); MEAN CELL VOLUME 80.4 fl (80-96); MEAN PLT VOLUME 8.5 fl (7.5-11.1); PLATELET COUNT 50 K/MM3 (134-434); RBC 2.84 M/mm3 (3.60-5.2); RDW 17.2 % (11.6-15.6); WHITE BLOOD COUNT 2.3 K/mm3 (4.0-10.0)
[2018-02-19] MEDS ORDERED: IRON SUCROSE INJECTION 100 MG in SODIUM CHLORIDE 95 ML IVPB ONE (21:31)
--- NOTE | 2018-02-19 21:43 | HP ---
Admitting History and Physical - Admission History of Present Illness: Pt is a 52 y/o female who is not compliant with medical follow-up. Pt has PMH significant for cirrhosis?, esophageal varices, pancytopenia, HTN, HLD, asthma, uterine fibroids. Pt has had multiple admissions for vaginal bleeding and anemia (requiring multiple blood transfusions). In November 2017, during hospitalization at [facility] pt was but on waiting list to be transferred to [facility] to [facility] service and was scheduled to also be seen by Clinical Program Consultant for probable liver bx however she signed out AMA. Pt states that she never saw director of maintenance but states she has appointment in Feb 2018 but doesn't remember the name of the physician. It is also unclear if pt has followed up with [facility] and again says that she has appointment with [facility] in feb 2018. Pt does not know her last PAP smear. Pt reports that she just finished her period several days ago. She started to notice spotting after doing some heavy lifting today and thought that her period was coming back. The bleeding continued and increased to the point that she had to use multiple pads and was passing large clots. Pt also complains of lower abdominal pain. Pt began to feel symptomatic w/ lightheadedness and fatigue. In the eR pt was transfused 1 unit PRBC's. - Past Medical History Cardiovascular: Yes: HTN, Hyperlipdemia Gastrointestinal: Yes: Other (liver cirrhosis ? 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 History of Recent Travel: No Home Medications - Allergies Allergies/Adverse Reactions: Allergies Allergy/AdvReac Type Severity Reaction Status Date / Time codeine [Codeine] Allergy Severe syncope Verified 02/19/18 04:33 - Home Medications Home Medications: Ambulatory Orders NK [No Known Home Medication] 12/06/17 Family Disease History - Family Disease History Family History: Unremarkable Family Disease History: Diabetes: Father, Mother (asthma), Brother (liver cancer - age 54), Heart Disease: Father, Other: Mother Review of Systems - Review of Systems Constitutional: reports: Weakness, Other (Lightheadedness) Gastrointestinal: reports: Abdominal Pain Physical Examination Vital Signs: Vital Signs Temperature 98.2 F 02/19/18 18:41 Pulse Rate 80 02/19/18 18:41 Respiratory Rate 18 02/19/18 18:41 Blood Pressure 132/70 02/19/18 18:41 O2 Sat by Pulse Oximetry (%) 99 02/19/18 18:45 Eyes: Yes: WNL HENT: Yes: WNL Neck: Yes: WNL, Supple Cardiovascular: Yes: WNL, Regular Rate and Rhythm Respiratory: Yes: WNL, Regular, CTA Bilaterally Gastrointestinal: Yes: WNL, Normal Bowel Sounds, Soft Musculoskeletal: Yes: WNL Extremities: Yes: WNL Edema: No Neurological: Yes: WNL, Alert, Oriented ...Motor Strength: WNL Labs: CBC, BMP 02/19/18 20:40 02/19/18 06:42 Problem List - Problems (1) Symptomatic anemia Assessment/Plan: Monitor H/H Transfuse PRBC's as indicated Start IV venofer Heme consult Code(s): D64.9 - ANEMIA, UNSPECIFIED (2) Vaginal bleeding, abnormal Assessment/Plan: [facility] consult Check ct scan abdomen Pt requiring pain meds for her pain Code(s): N93.9 - ABNORMAL UTERINE AND VAGINAL BLEEDING, UNSPECIFIED (3) Pancytopenia Assessment/Plan: Unclear etiology ?Cirrhosis Pt states that she has appointment w/ liver specialist at [facility] wc she was supposed to see in November 2017 but she never did Long d/w pt about need for medical compliance and risk of serious health risks including without follow-up Pt needs further work-up to determine origin Heme/GI consult Code(s): D61.818 - OTHER PANCYTOPENIA (4) Asthma Code(s): J45.909 - UNSPECIFIED ASTHMA, UNCOMPLICATED Qualifiers: Asthma severity: mild Asthma persistence: intermittent Asthma complication type: uncomplicated Qualified Code(s): J45.20 - Mild intermittent asthma, uncomplicated
[2018-02-19] MEDS: KETOROLAC TROMETHAMINE 30 MG/1 ML VIAL IVPUSH SCH (21:56)
[2018-02-19] MEDS: ZOLPIDEM TARTRATE 5 MG TABLET PO PRN (21:57)
[2018-02-20] MEDS: KETOROLAC TROMETHAMINE 30 MG/1 ML VIAL IVPUSH SCH ×3 (02:15→17:07)
[2018-02-20 08:01] LABS: BASO % 0.7 % (0-2.0); EOS % 2.9 % (0-4.5); HEMATOCRIT 23.3 % (32.4-45.2); HEMOGLOBIN 7.7 GM/dL (10.7-15.3); LYMPH % 32.8 % (8-40); MCH 26.4 pg (25.7-33.7); MCHC 33.2 g/dl (32.0-36.0); MEAN CELL VOLUME 79.5 fl (80-96); MEAN PLT VOLUME 8.2 fl (7.5-11.1); MONO % 10.3 % (3.8-10.2); NEUT % 53.3 % (42.8-82.8); PLATELET COUNT 44 K/MM3 (134-434); RBC 2.93 M/mm3 (3.60-5.2); RDW 16.9 % (11.6-15.6)
[2018-02-20 08:11] LABS: ALBUMIN 2.3 g/dl (3.4-5.0); ANION GAP 8 MMOL/L (8-16); BLOOD UREA NITROGEN 12 mg/dL (7-18); CALCIUM 7.4 mg/dL (8.5-10.1); CHLORIDE 112 mmol/L (98-107); CO2 24 mmol/L (21-32); GLUCOSE,RANDOM 127 mg/dL (74-106); POTASSIUM 3.9 mmol/L (3.5-5.1); SODIUM 144 mmol/L (136-145)
[2018-02-20 08:12] LABS: WHITE BLOOD COUNT 1.8 K/mm3 (4.0-10.0)
[2018-02-20 08:16] LABS: ALK PHOS 122 U/L (45-117); BILIRUBIN,TOTAL 1.1 mg/dL (0.2-1.0); CREATININE 0.5 mg/dL (0.55-1.02); SGOT/AST 36 U/L (15-37); SGPT/ALT 21 U/L (12-78); TOT PROT 5.8 g/dl (6.4-8.2)
[2018-02-20 09:23] LABS: URINE APPEARANCE SLCLOUDY; URINE BILIRUBIN NEGATIVE (<2.0 mg/dL); URINE COLOR DKYELLOW; URINE GLUCOSE (UA) NEGATIVE (NEGATIVE); URINE KETONE NEGATIVE (NEGATIVE); URINE LEUK ESTERASE NEGATIVE (NEGATIVE); URINE NITRITE NEGATIVE (NEGATIVE); URINE PROTEIN NEGATIVE (NEGATIVE); URINE UROBILINOGEN 4.0 E.U/dl mg/dL (0.2-1.0)
[2018-02-20 09:25] LABS: HCG,QUALITATIVE URINE Negative
[2018-02-20 09:31] LABS: EPI CELLS RARE /HPF (FEW); URINE BACTERIA RARE /hpf (NONE SEEN); URINE MUCUS RARE; YEAST FEW
--- NOTE | 2018-02-20 10:33 | EKG ---
Test Reason : Blood Pressure : / mmHG Vent. Rate : 071 BPM Atrial Rate : 071 BPM P-R Int : 178 ms QRS Dur : 080 ms QT Int : 500 ms P-R-T Axes : 050 -11 018 degrees QTc Int : 543 ms NORMAL SINUS RHYTHM PROLONGED QT ABNORMAL ECG WHEN COMPARED WITH ECG OF 19-DEC-2017 11:10, T WAVE VARIATION Confirmed by MOLLY BLANCA MD ([id number]) on 02/20/2018 10:32:59 AM Referred By: Confirmed By:MOLLY BLANCA MD
[2018-02-20 11:19] LABS: ANISOCYTOSIS 1+; MACROCYTOSIS 0; PLATELET ESTIMATE DECREASED
--- NOTE | 2018-02-20 13:12 | CON.GI ---
Consult Consult Specialty:: GI Reason for Consultation:: hx of liver cirrhosis - History of Present Illness History of Present Illness: Chart reviewed. Events noted. Previous admission for the same in 11/28 noted. Dayana Gastelum is a 52yo woman with a h/o cirrhosis, pancytopenia, HTN, asthma , uterine fibroids, previous admission for vaginal bleeding secondary to fibroids in November 2017 who presents with copious vaginal bleeding since earlier today. Ms Gastelum reports that she just finished her period several days ago. She started to notice spotting after doing some heavy lifting today and thought that her period was coming back. The bleeding continued to increase throughout the day along with suprapubic pain. She reports going through "20 pads in an hour" and states that the pads have been soaked through. She also notes some large blood clots. She feels that the bleeding has continued to increase, and she has started to feel lightheaded and have increasing pain. On the last admission it was recommend that the pt undergoes an MRI and liver biposy after PLT transfusion to clarify the dx of the liver cirrhosis. She hasn' t follow through with these recommendations yet. She is, however, scheduled with Dr. Mago Jenkins at [facility] later this months. Overall, the pot reports good appetite, no fluctuating abdominal girth, lower extremity edema, jaundice, weight loss, fever, chills. - History Source History Provided By: Patient, Medical Record - Past Medical History Cardio/Vascular: Yes: HTN, Hyperlipdemia Gastrointestinal: Yes: Other (liver cirrhosis ? 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 History of Recent Travel: No Home Medications - Allergies Allergies/Adverse Reactions: Allergies Allergy/AdvReac Type Severity Reaction Status Date / Time codeine [Codeine] Allergy Severe syncope Verified 02/19/18 04:33 - Home Medications Home Medications: Ambulatory Orders NK [No Known Home Medication] 12/06/17 Family Disease History - Family Disease History Family Disease History: Diabetes: Father, Mother (asthma), Brother (liver cancer - age 54), Heart Disease: Father, Other: Mother Review of Systems Unable to obtain ROS, reason: as per HPI, ED, H&P Physical Exam-GI Vital Signs: Vital Signs Temperature 98.3 F 02/20/18 10:00 Pulse Rate 72 02/20/18 10:00 Respiratory Rate 18 02/20/18 10:00 Blood Pressure 114/54 02/20/18 10:00 O2 Sat by Pulse Oximetry (%) 99 02/19/18 18:45 Constitutional: Yes: Well Nourished, No Distress, Calm Eyes: Yes: Conjunctiva Clear HENT: Yes: Atraumatic Neck: Yes: Supple Cardiovascular: Yes: Regular Rate and Rhythm Respiratory: Yes: Regular Gastrointestinal Inspection: No: Ascites, Distention ...Auscultate: Yes: Normoactive Bowel Sounds ...Palpate: Yes: Soft. No: Firm/Rigid, Guarding, Mass, Tenderness, Tenderness, Epigastium Neurological: Yes: Alert, Oriented Labs: CBC, BMP 02/20/18 07:30 02/20/18 07:30 INR, PTT INR 1.43 (0.83-1.09) H 02/19/18 05:40 Laboratory Last Values WBC 1.8 K/mm3 (4.0-10.0) L* 02/20/18 07:30 RBC 2.93 M/mm3 (3.60-5.2) L 02/20/18 07:30 Hgb 7.7 GM/dL (10.7-15.3) L 02/20/18 07:30 Hct 23.3 % (32.4-45.2) L 02/20/18 07:30 MCV 79.5 fl (80-96) L 02/20/18 07:30 MCH 26.4 pg (25.7-33.7) 02/20/18 07:30 MCHC 33.2 g/dl (32.0-36.0) 02/20/18 07:30 RDW 16.9 % (11.6-15.6) H 02/20/18 07:30 Plt Count 44 K/MM3 (134-434) L 02/20/18 07:30 MPV 8.2 fl (7.5-11.1) 02/20/18 07:30 Absolute Neuts (auto) 1.0 K/mm3 (1.5-8.0) L 02/20/18 07:30 Neutrophils % 53.3 % (42.8-82.8) D 02/20/18 07:30 Neutrophils % (Manual) 59.6 % (42.8-82.8) 02/20/18 07:30 Band Neutrophils % 0.0 % 02/20/18 07:30 Lymphocytes % 32.8 % (8-40) D 02/20/18 07:30 Lymphocytes % (Manual) 24.3 % (8-40) 02/20/18 07:30 Monocytes % 10.3 % (3.8-10.2) H 02/20/18 07:30 Monocytes % (Manual) 13 % (3.8-10.2) H 02/20/18 07:30 Eosinophils % 2.9 % (0-4.5) 02/20/18 07:30 Eosinophils % (Manual) 2.0 % (0-4.5) 02/20/18 07:30 Basophils % 0.7 % (0-2.0) 02/20/18 07:30 Basophils % (Manual) 1.0 % (0-2.0) 02/20/18 07:30 Myelocytes % (Man) 0 % (0-2) 02/20/18 07:30 Promyelocytes % (Man) 0 % (0-2) 02/20/18 07:30 Blast Cells % (Manual) 0 % (0-0) 02/20/18 07:30 Nucleated RBC % 0 % (0-0) 02/20/18 07:30 Metamyelocytes 0 % (0-2) 02/20/18 07:30 Hypochromia 0 02/20/18 07:30 Platelet Estimate Decreased 02/20/18 07:30 Polychromasia 0 02/20/18 07:30 Poikilocytosis 0 02/20/18 07:30 Anisocytosis 1+ 02/20/18 07:30 Microcytosis 1+ 02/20/18 07:30 Macrocytosis 0 02/20/18 07:30 PT with INR 16.20 SEC (9.7-13.0) H 02/19/18 05:40 INR 1.43 (0.83-1.09) H 02/19/18 05:40 PTT (Actin FS) 30.3 SECONDS (25.2-36.5) 02/19/18 05:40 Sodium 144 mmol/L (136-145) 02/20/18 07:30 Potassium 3.9 mmol/L (3.5-5.1) 02/20/18 07:30 Chloride 112 mmol/L (98-107) H 02/20/18 07:30 Carbon Dioxide 24 mmol/L (21-32) 02/20/18 07:30 Anion Gap 8 MMOL/L (8-16) 02/20/18 07:30 BUN 12 mg/dL (7-18) 02/20/18 07:30 Creatinine 0.5 mg/dL (0.55-1.02) L 02/20/18 07:30 Creat Clearance w eGFR > 60 (>60) 02/20/18 07:30 Random Glucose 127 mg/dL (74-106) H 02/20/18 07:30 Calcium 7.4 mg/dL (8.5-10.1) L 02/20/18 07:30 Total Bilirubin 1.1 mg/dL (0.2-1.0) H 02/20/18 07:30 Direct Bilirubin 0.3 mg/dL (0.0-0.2) H 02/19/18 06:42 AST 36 U/L (15-37) 02/20/18 07:30 ALT 21 U/L (12-78) 02/20/18 07:30 Alkaline Phosphatase 122 U/L (45-117) H 02/20/18 07:30 Total Protein 5.8 g/dl (6.4-8.2) L 02/20/18 07:30 Albumin 2.3 g/dl (3.4-5.0) L 02/20/18 07:30 Urine Color Dkyellow 02/20/18 05:02 Urine Appearance Slcloudy 02/20/18 05:02 Urine pH 7.0 (5.0-8.0) 02/20/18 05:02 Ur Specific [place] 1.021 (1.001-1.035) 02/20/18 05:02 Urine Protein Negative (NEGATIVE) 02/20/18 05:02 Urine Glucose (UA) Negative (NEGATIVE) 02/20/18 05:02 Urine Ketones Negative (NEGATIVE) 02/20/18 05:02 Urine Blood 3+ (NEGATIVE) H 02/20/18 05:02 Urine Nitrite Negative (NEGATIVE) 02/20/18 05:02 Urine Bilirubin Negative (<2.0 mg/dL) 02/20/18 05:02 Urine Urobilinogen 4.0 e.u/dl mg/dL (0.2-1.0) H 02/20/18 05:02 Ur Leukocyte Esterase Negative (NEGATIVE) 02/20/18 05:02 Urine WBC (Auto) 4 /hpf (3-5) 02/20/18 05:02 Urine RBC (Auto) 11 /hpf (0-3) 02/20/18 05:02 Ur Epithelial Cells Rare /HPF (FEW) 02/20/18 05:02 Urine Bacteria Rare /hpf (NONE SEEN) 02/20/18 05:02 Urine Mucus Rare 02/20/18 05:02 Urine Yeast Few 02/20/18 05:02 Urine HCG, Qual Negative 02/20/18 05:02 Blood Type O POSITIVE 02/19/18 06:10 Antibody Screen Negative 02/19/18 06:10 Crossmatch See Detail 02/19/18 06:10 Problem List - Problems (1) Esophageal varices determined by endoscopy Code(s): I85.00 - ESOPHAGEAL VARICES WITHOUT BLEEDING (2) Vaginal bleeding, abnormal Code(s): N93.9 - ABNORMAL UTERINE AND VAGINAL BLEEDING, UNSPECIFIED (3) Acquired pancytopenia Code(s): D61.818 - OTHER PANCYTOPENIA Assessment/Plan A 52F with known esophageal varices, thromobocytopenia/pancytopenia, and a strong family history of liver disease is being evaluated for vaginal bleeding and significant throbosytopenia. Recommend liver biopsy after PLT are restored to around 80-100. MRI of the liver with contrast (hemangioma protocol) to assess the liver lesions noted on the US. DAYRON, AMA, ASMA, ALKM-1, Repeat viral serologies. EGD for esophageal varices surveillance. Discussed with the patient who is scheduled to be evaluated at [facility] hematology earlier this moths.
--- NOTE | 2018-02-20 14:27 | CONSULT ---
Consultation: REQUESTING PROVIDER: CONSULT REQUEST: We have been asked to medically evaluate this patient for ( pancytopenia-HEME/CONSULT). HISTORY OF PRESENT ILLNESS: Patient is a 52 year old female presented to the ED with the chief complaint of "heavy vaginal bleeding" x 2 days. Patient has had menorrhagia since November, and was admitted here, was found to have uterine fibroids. Got several blood transfusion past admission. On further investigation, MRI of abdomen showed Splenic/Esophageal varices, Massive splenomegaly, questionable early Hepatocellular carcinoma/cirrhosis. Was admitted at [facility] in for a week after she was discharged from [facility], was given Blood transfusions.She was supposed to f/up as outpatient with the hemaologist at [facility] and also perform a liver biopsy for evaluation of thrombocytopenia however, has been non compliant to f/ups. Has an appointment for liver biopsy in Feb, 2018. This admission, she complaints of heavy vaginal bleed that started 2 days ago, started after she picked up a heavy box, since then she bleed continuously for several hours, changed 24 pads, had SOB which prompted her to come to the ED for further evaluation and treatment. Patient reports that she was diagnosed to have Uterine fibroids during every (5 pregnancies) which had resolved. Last Pap smear was done a year ago and it was normal as per the patient. Denies chest pain, palpitation, abdominal pain, nausea or vomiting. Bowel/ Bladder habit normal. Sleep/Appetite normal. PAST MEDICAL HISTORY: Uterine fibroids, pancytopenia (etiology unknown), Splenic /Esophageal varices, cirrhosis (cause unknown), questionable HCC, prolonged Qt; ALLERGIES: Codeine PAST SURGICAL HISTORY: Cholecystectomy, Tubal ligation, 2 c-sec FAMILY HISTORY: Ovarian cancer, prostatic cancer, breast cancer, lung cancer - Maternal side of the family. 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 REVIEW OF SYSTEMS: CONSTITUTIONAL: Absent: fever, chills, diaphoresis, generalized weakness, malaise, loss of appetite, weight change HEENT: Absent: rhinorrhea, nasal congestion, throat pain, throat swelling, difficulty swallowing, mouth swelling, ear pain, eye pain, visual changes CARDIOVASCULAR: Present: SOB Absent: chest pain, syncope, palpitations, irregular heart rate, lightheadedness , peripheral edema RESPIRATORY: Absent: cough, shortness of breath, dyspnea with exertion, orthopnea, wheezing, stridor, hemoptysis GASTROINTESTINAL: Absent: abdominal pain, abdominal distension, nausea, vomiting, diarrhea, constipation, melena, hematochezia GENITOURINARY: Absent: dysuria, frequency, urgency, hesitancy, hematuria, flank pain, genital pain MUSCULOSKELETAL: Absent: myalgia, arthralgia, joint swelling, back pain, neck pain SKIN: Absent: rash, itching, pallor HEMATOLOGIC/IMMUNOLOGIC: Absent: easy bleeding, easy bruising, lymphadenopathy, frequent infections ENDOCRINE: Absent: unexplained weight gain, unexplained weight loss, heat intolerance, cold intolerance NEUROLOGIC: Absent: headache, focal weakness or paresthesias, dizziness, unsteady gait, seizure, mental status changes, bladder or bowel incontinence PSYCHIATRIC: Absent: anxiety, depression, suicidal or homicidal ideation, hallucinations. PHYSICAL EXAMINATION Vital Signs - 24 hr 02/19/18 02/19/18 02/19/18 16:55 18:41 18:45 Temperature 98.2 F 98.2 F Pulse Rate 80 Pulse Rate [ 76 Left Radial] Respiratory 16 18 Rate Blood Pressure 132/70 Blood Pressure 116/72 [Right Arm] O2 Sat by Pulse 98 99 Oximetry (%) 02/19/18 02/20/18 02/20/18 22:00 08:02 10:00 Temperature 98.3 F 98.6 F 98.3 F Pulse Rate 73 78 72 Pulse Rate [ Left Radial] Respiratory 16 18 18 Rate Blood Pressure 114/56 111/52 114/54 Blood Pressure [Right Arm] O2 Sat by Pulse Oximetry (%) GENERAL: Middle aged women, sitting comfortably in bed, eating lunch, Awake, alert, and fully oriented, in no acute distress. HEAD: Normal with no signs of trauma. EYES: EOM intact, pallor +, no icterus. EARS, NOSE, THROAT: Ears normal. Moist mucous membranes. NECK: Supple. LUNGS: B/L Breath sounds equal, clear to auscultation bilaterally. No wheezes, and no crackles. No accessory muscle use. HEART: Regular rate and rhythm, normal S1 and S2 with soft systolic murmur. ABDOMEN: Soft, tenderness in the suprapubic area, not distended, normoactive bowel sounds, no guarding, no rebound, no masses. No hepatomegaly or splenomegaly. MUSCULOSKELETAL: Normal range of motion at all joints. No bony deformities or tenderness. No CVA tenderness. UPPER EXTREMITIES: 2+ pulses, warm, well-perfused. No cyanosis. No clubbing. Cap refill <2 seconds. No peripheral edema. LOWER EXTREMITIES: 2+ pulses, warm, well-perfused. No calf tenderness. No peripheral edema. NEUROLOGICAL: No facial droop. Normal speech.Gait not observed. PSYCHIATRIC: Cooperative. Good eye contact. Appropriate mood and affect. SKIN: Warm, dry, normal turgor, no rashes or lesions noted. Laboratory Results - last 24 hr 02/19/18 02/19/18 02/20/18 06:10 20:40 05:02 WBC 2.3 L RBC 2.84 L Hgb 7.4 L Hct 22.8 L MCV 80.4 MCH 26.1 MCHC 32.5 RDW 17.2 H Plt Count 50 L D MPV 8.5 Absolute Neuts (auto) Neutrophils % Neutrophils % (Manual) Band Neutrophils % Lymphocytes % Lymphocytes % (Manual) Monocytes % Monocytes % (Manual) Eosinophils % Eosinophils % (Manual) Basophils % Basophils % (Manual) Myelocytes % (Man) Promyelocytes % (Man) Blast Cells % (Manual) Nucleated RBC % Metamyelocytes Hypochromia Platelet Estimate Polychromasia Poikilocytosis Anisocytosis Microcytosis Macrocytosis Sodium Potassium Chloride Carbon Dioxide Anion Gap BUN Creatinine Creat Clearance w eGFR Random Glucose Calcium Total Bilirubin AST ALT Alkaline Phosphatase Total Protein Albumin Urine Color Dkyellow Urine Appearance Slcloudy Urine pH 7.0 Ur Specific Hopkins 1.021 Urine Protein Negative Urine Glucose (UA) Negative Urine Ketones Negative Urine Blood 3+ H Urine Nitrite Negative Urine Bilirubin Negative Urine Urobilinogen 4.0 e.u/dl H Ur Leukocyte Esterase Negative Urine WBC (Auto) 4 Urine RBC (Auto) 11 Ur Epithelial Cells Rare Urine Bacteria Rare Urine Mucus Rare Urine Yeast Few Urine HCG, Qual Negative Blood Type O POSITIVE Antibody Screen Negative Crossmatch See Detail 02/20/18 02/20/18 07:30 07:30 WBC 1.8 L* RBC 2.93 L Hgb 7.7 L Hct 23.3 L MCV 79.5 L MCH 26.4 MCHC 33.2 RDW 16.9 H Plt Count 44 L MPV 8.2 Absolute Neuts (auto) 1.0 L Neutrophils % 53.3 D Neutrophils % (Manual) 59.6 Band Neutrophils % 0.0 Lymphocytes % 32.8 D Lymphocytes % (Manual) 24.3 Monocytes % 10.3 H Monocytes % (Manual) 13 H Eosinophils % 2.9 Eosinophils % (Manual) 2.0 Basophils % 0.7 Basophils % (Manual) 1.0 Myelocytes % (Man) 0 Promyelocytes % (Man) 0 Blast Cells % (Manual) 0 Nucleated RBC % 0 Metamyelocytes 0 Hypochromia 0 Platelet Estimate Decreased Polychromasia 0 Poikilocytosis 0 Anisocytosis 1+ Microcytosis 1+ Macrocytosis 0 Sodium 144 Potassium 3.9 Chloride 112 H Carbon Dioxide 24 Anion Gap 8 BUN 12 Creatinine 0.5 L Creat Clearance w eGFR > 60 Random Glucose 127 H Calcium 7.4 L Total Bilirubin 1.1 H AST 36 ALT 21 Alkaline Phosphatase 122 H Total Protein 5.8 L Albumin 2.3 L Urine Color Urine Appearance Urine pH Ur Specific Hopkins Urine Protein Urine Glucose (UA) Urine Ketones Urine Blood Urine Nitrite Urine Bilirubin Urine Urobilinogen Ur Leukocyte Esterase Urine WBC (Auto) Urine RBC (Auto) Ur Epithelial Cells Urine Bacteria Urine Mucus Urine Yeast Urine HCG, Qual Blood Type Antibody Screen Crossmatch Active Medications Generic Name Dose Route Start Last Admin Trade Name Freq PRN Reason Stop Dose Admin Acetaminophen 650 mg 02/19/18 21:08 Tylenol - PO Q6H PRN PAIN LEVEL 1-5 Ketorolac Tromethamine 30 mg 02/19/18 21:45 02/20/18 10:02 Toradol Injection - IVPUSH 02/24/18 21:44 30 mg Q8H-IV JEFFERSON Administration Zolpidem Tartrate 5 mg 02/19/18 21:09 02/19/18 21:57 Ambien - PO 5 mg HS PRN Administration INSOMNIA Patient is a 52 year old female with significant PMHx of Uterine fibroids, pancytopenia (etiology unknown), Splenic/Esophageal varices, cirrhosis (cause unknown), questionable HCC, prolonged Qt presented to the ED with the chief complaint of "heavy vaginal bleeding" x 2 days. ASSESSMENT Menorrhagia likely secondary to uterine fibroids Iron Deficiency anemia likely from bleeding d/t fibroids Neutropenia Throbmocytopenia Splenic/Esophageal varices, cirrhosis (cause unknown), questionable HCC Active smoker- smoking cessation counseling. PLAN: Symptomatic anemia H/H on admission 7.9/24.1---> 7.7/23.3 received 2 PRBC's. Had has multiple blood transfusion. Last BT in [facility] in November, Symptoms have resolved after BT. Will do a repeat CBC in AM. Transfuse if actively bleeding. Iron studies, B12, folate sent 1 mg of Folic acid PO daily. Thrombocytopenia-etiology unknown Platelet count -44. Has been progressively getting low since 2010 (90-120 platelet count) Could be from Cirrhosis of liver. Has an appointment at [facility] (Mar 01) for a liver biospy and MRI abdomen as per the patient. Neutropenia WBC count 1.8 today, lowest as compared to previous Likely secondary to cirrhosis of liver. Rest as per the primary. Plan of care explained to the patient. She verbalized understanding. Case discussed with Dr. Reynoso. Dispo: We will continue to follow the patient. Thank you for this consultative opportunity.
--- NOTE | 2018-02-20 15:25 | CON.OBG ---
Consult Consult Specialty:: HAND SHAPER Reason for Consultation:: Vaginal bleeding - History of Present Illness Chief Complaint: Vaginal bleeding History of Present Illness: Pt is a 52 y/o female who is not compliant with medical follow-up. Pt has PMH significant for cirrhosis?, esophageal varices, pancytopenia, HTN, HLD, asthma, uterine fibroids. Pt has had multiple admissions for vaginal bleeding and anemia (requiring multiple blood transfusions). In November 2017, during hospitalization at [facility] pt was but on waiting list to be transferred to [facility] to HAND SHAPER service and was scheduled to also be seen by Road Builder for probable liver bx however she signed out AMA. Pt states that she never saw machine feeder but states she has appointment in Feb 2018 but doesn't remember the name of the physician. It is also unclear if pt has followed up with HAND SHAPER and again says that she has appointment with HAND SHAPER in feb 2018. Pt does not know her last PAP smear. Pt reports that she just finished her period several days ago. She started to notice spotting after doing some heavy lifting today and thought that her period was coming back. The bleeding continued and increased to the point that she had to use multiple pads and was passing large clots. Pt also complains of lower abdominal pain. Pt began to feel symptomatic w/ lightheadedness and fatigue. In the eR pt was transfused 1 unit PRBC's. I came to see patient, she's lying comfortably in bed She denies any SOB. Labs reviewed and there's still evidence of anemia and thrombocytopenia. - Past Medical History Cardio/Vascular: Yes: HTN, Hyperlipdemia Gastrointestinal: Yes: Other (liver cirrhosis ? 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 History of Recent Travel: No Home Medications - Allergies Allergies/Adverse Reactions: Allergies Allergy/AdvReac Type Severity Reaction Status Date / Time codeine [Codeine] Allergy Severe syncope Verified 02/19/18 04:33 - Home Medications Home Medications: Ambulatory Orders NK [No Known Home Medication] 12/06/17 Family Disease History - Family Disease History Family Disease History: Diabetes: Father, Mother (asthma), Brother (liver cancer - age 54), Heart Disease: Father, Other: Mother Review of Systems - Review of Systems Constitutional: reports: Weakness Eyes: reports: No Symptoms HENT: reports: No Symptoms Neck: reports: No Symptoms Cardiovascular: reports: No Symptoms Respiratory: reports: No Symptoms Gastrointestinal: reports: No Symptoms Genitourinary: reports: Vaginal Bleeding Breasts: reports: No Symptoms Reported Musculoskeletal: reports: No Symptoms Integumentary: reports: No Symptoms Neurological: reports: No Symptoms Endocrine: reports: No Symptoms Hematology/Lymphatic: reports: Other Psychiatric: reports: No Symptoms Pain Intensity: 2 Physical Exam-HAND SHAPER Vital Signs: Vital Signs Temperature 98.3 F 02/20/18 10:00 Pulse Rate 72 02/20/18 10:00 Respiratory Rate 18 02/20/18 10:00 Blood Pressure 114/54 02/20/18 10:00 O2 Sat by Pulse Oximetry (%) 99 02/19/18 18:45 Constitutional: Yes: No Distress Eyes: Yes: Conjunctiva Clear HENT: Yes: Atraumatic Neck: Yes: Supple Respiratory: Yes: Regular Gastrointestinal: Yes: Normal Bowel Sounds External Genitalia: Yes: Normal Vaginal Exam: Yes: Normal Neurological: Yes: Alert, Oriented ...Motor Strength: WNL Psychiatric: Yes: Alert, Oriented Labs: CBC, BMP 02/20/18 07:30 02/20/18 07:30 Assessment/Plan Abnormal vaginal bleeding Anemia Thrombocytopenia Hysterectyomy is recommended once platelet is normalized. Surgery to be done at [facility]
[2018-02-20] MEDS: ACETAMINOPHEN 325 MG TABLET (FP) PO PRN (15:47)
[2018-02-20] MEDS: FOLIC ACID 1 MG TABLET (FP) PO SCH (17:52)
[2018-02-20 21:22] LABS: URINE APPEARANCE CLEAR; URINE BILIRUBIN NEGATIVE (<2.0 mg/dL); URINE COLOR AMBER; URINE GLUCOSE (UA) NEGATIVE (NEGATIVE); URINE KETONE NEGATIVE (NEGATIVE); URINE LEUK ESTERASE NEGATIVE (NEGATIVE); URINE NITRITE NEGATIVE (NEGATIVE); URINE PROTEIN NEGATIVE (NEGATIVE); URINE UROBILINOGEN 4.0 E.U/dl mg/dL (0.2-1.0)
[2018-02-20 21:36] LABS: EPI CELLS RARE /HPF (FEW); URINE MUCUS RARE
[2018-02-20] MEDS: MORPHINE SULFATE 2 MG/ML VIAL IVPUSH PRN (21:41)
--- NOTE | 2018-02-20 22:59 | PN ---
Progress Note (short form) - Note Progress Note: Patient is a 52 year old female presents with the chief complaint of menorrhagia. Patient had a similar presentation 2 months back --On further investigation, MRI of abdomen showed Splenic/Esophageal varices, Massive splenomegaly, questionable early lesions ?? evolving Hepatocellular carcinoma/ cirrhosis. Was admitted at [facility] in for a week after she was discharged from [facility], was given Blood transfusions.She was supposed to f/up as outpatient with the hemaologist and cloth hand at [facility] but has not been compliant This admission, she complaints of heavy vaginal bleed that started 2 days ago, started after she picked up a heavy box, since then she bleed continuously for several hours, changed 24 pads, had SOB which prompted her to come to the ED for further evaluation and treatment. Denies chest pain, palpitation, abdominal pain, nausea or vomiting. Bowel/ Bladder habit normal. Sleep/Appetite normal. PAST MEDICAL HISTORY: Uterine fibroids, pancytopenia (etiology unknown), Splenic /Esophageal varices, cirrhosis , ? evolving HCC on MRI ALLERGIES: Codeine PAST SURGICAL HISTORY: Cholecystectomy, Tubal ligation, 2 c-sec FAMILY HISTORY: Ovarian cancer, prostatic cancer, breast cancer, lung cancer - Maternal side of the family. 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 PHYSICAL EXAMINATION Last Vital Signs Temp Pulse Resp BP Pulse Ox 98.4 F 80 18 112/64 97 02/20/18 18:00 02/20/18 18:00 02/20/18 21:00 02/20/18 18:00 02/20/18 21:00 Cor: RSR, No murmurs, No gallops Lungs: Clear to P&A Abd: Soft, Normal bowel sounds, No organomegaly Ext:No significant edema Labs/Meds reviewed A/P 52 y/o patient with cirrhosis/varices/portal htn/splenmegaly/thrombocytopenia/ fibroids/menorrhagia/iron deficiency anemia Patient with thrombocytopenia/leukopenia due to cirrhosis May not respond to platelet transfusions due to splenomegaly Will check iron studies/B12/folate Anemia--? menorrhagia +/- gi lossed menorrhagia improved will need hysteretomy at [facility] with liver tamfollow up GI following patient here ? Evolving HCC abnormal MRI--needs repeat imaging --per GI team Also needs close follow up with hepatology team at [facility] --scheduled for 03/01 with AFP level normal chronic portal v. thrombosis on imaging --will discuss with GI team Needs close follow up with Hepatology at [facility]
--- NOTE | 2018-02-20 23:08 | PN ---
Progress Note, Physician History of Present Illness: Pt lying in bed comfortable but complains of abdominal pain - Current Medication List Current Medications: Active Medications Acetaminophen (Tylenol -) 650 mg PO Q6H PRN PRN Reason: PAIN LEVEL 1-5 Last Admin: 02/20/18 15:47 Dose: 650 mg Folic Acid (Folic Acid -) 1 mg PO DAILY JEFFERSON Last Admin: 02/20/18 17:52 Dose: 1 mg Ketorolac Tromethamine (Toradol Injection -) 30 mg IVPUSH Q8H-IV JEFFERSON Stop: 02/24/18 21:44 Last Admin: 02/20/18 17:07 Dose: 30 mg Morphine Sulfate (Morphine Sulfate) 2 mg IVPUSH Q8H PRN PRN Reason: PAIN LEVEL 6-10 Last Admin: 02/20/18 21:41 Dose: 2 mg Zolpidem Tartrate (Ambien -) 5 mg PO HS PRN PRN Reason: INSOMNIA Last Admin: 02/19/18 21:57 Dose: 5 mg - Objective Vital Signs: Vital Signs Temperature 98.4 F 02/20/18 18:00 Pulse Rate 80 02/20/18 18:00 Respiratory Rate 18 02/20/18 18:00 Blood Pressure 112/64 02/20/18 18:00 O2 Sat by Pulse Oximetry (%) 97 02/20/18 09:00 Neck: Yes: WNL, Supple Cardiovascular: Yes: WNL, Regular Rate and Rhythm Respiratory: Yes: WNL, Regular, CTA Bilaterally Gastrointestinal: Yes: WNL, Normal Bowel Sounds, Soft Labs: CBC, BMP 02/20/18 07:30 02/20/18 07:30 INR, PTT INR 1.43 (0.83-1.09) H 02/19/18 05:40 Problem List - Problems (1) Symptomatic anemia Assessment/Plan: Monitor H/H Transfuse PRBC's as indicated IV venofer Heme consult Code(s): D64.9 - ANEMIA, UNSPECIFIED (2) Vaginal bleeding, abnormal Assessment/Plan: ENVIRONMENTAL PLANNER consult noted However pt now states that she did see ENVIRONMENTAL PLANNER at [facility] who recommended ?uterine embolization However at this point it is unclear if pt is following up Pt requiring pain meds for her pain Code(s): N93.9 - ABNORMAL UTERINE AND VAGINAL BLEEDING, UNSPECIFIED (3) Pancytopenia Assessment/Plan: Unclear etiology ?Cirrhosis Pt states that she has appointment w/ liver specialist at [facility] wc she was supposed to see in November 2017 but she never did Long d/w pt about need for medical compliance and risk of serious health risks including without follow-up Close monitoring of plts/wbc Check mri liver Pt admits to some etoh intake over the past month Code(s): D61.818 - OTHER PANCYTOPENIA (4) Asthma Code(s): J45.909 - UNSPECIFIED ASTHMA, UNCOMPLICATED Qualifiers: Asthma severity: mild Asthma persistence: intermittent Asthma complication type: uncomplicated Qualified Code(s): J45.20 - Mild intermittent asthma, uncomplicated (5) Esophageal varices Assessment/Plan: Possible EGD as per GI Code(s): I85.00 - ESOPHAGEAL VARICES WITHOUT BLEEDING
[2018-02-21] MEDS: ZOLPIDEM TARTRATE 5 MG TABLET PO PRN ×2 (00:48→22:25)
[2018-02-21] MEDS: KETOROLAC TROMETHAMINE 30 MG/1 ML VIAL IVPUSH SCH ×3 (01:45→18:38)
[2018-02-21] MEDS ORDERED: PT OWN MED DRAWER 7, Y5N ONE (02:03)
[2018-02-21 06:58] LABS: HEMATOCRIT 24.8 % (32.4-45.2); HEMOGLOBIN 7.9 GM/dL (10.7-15.3); MCH 25.7 pg (25.7-33.7); MEAN CELL VOLUME 80.2 fl (80-96); MEAN PLT VOLUME 8.6 fl (7.5-11.1); PLATELET COUNT 49 K/MM3 (134-434); RBC 3.09 M/mm3 (3.60-5.2); WHITE BLOOD COUNT 2.5 K/mm3 (4.0-10.0)
[2018-02-21] MEDS: MORPHINE SULFATE 2 MG/ML VIAL IVPUSH PRN ×2 (07:12→21:34)
[2018-02-21] MEDS: FOLIC ACID 1 MG TABLET (FP) PO SCH (10:38)
--- NOTE | 2018-02-21 12:03 | PN ---
Physical Exam: SUBJECTIVE: Patient seen and examined at bed side this morning. Complaining of back pain-at the site where she had the bone marrow biopsy. Minimal vaginal bleeding. Abdominal discomfort resolved. Denies chest pain, sob, cough, palpitation, nausea ro vomiting. Bowel/Bladder habit normal. Sleep/Appetite normal. No acute overnight events. Awaiting for Abdominal MRI. OBJECTIVE: Vital Signs Period Temp Pulse Resp BP Sys/Berry Pulse Ox Last 24 Hr 97.8 F-98.4 F 78-82 18-18 112-126/64-68 97 GENERAL: Middle aged women, sitting comfortably in bed, eating lunch, Awake, alert, and fully oriented, in no acute distress. HEAD: Normal with no signs of trauma. EYES: EOM intact, pallor +, no icterus. EARS, NOSE, THROAT: Ears normal. Moist mucous membranes. NECK: Supple. LUNGS: B/L Breath sounds equal, clear to auscultation bilaterally. No wheezes, and no crackles. No accessory muscle use. HEART: Regular rate and rhythm, normal S1 and S2 with soft systolic murmur. ABDOMEN: Soft, non tender, no organomegaly. MUSCULOSKELETAL: Normal range of motion at all joints. No bony deformities or tenderness. No CVA tenderness. UPPER EXTREMITIES: 2+ pulses, warm, well-perfused. No cyanosis. No clubbing. Cap refill <2 seconds. No peripheral edema. LOWER EXTREMITIES: 2+ pulses, warm, well-perfused. No calf tenderness. No peripheral edema. NEUROLOGICAL: No facial droop. Normal speech.Gait not observed. PSYCHIATRIC: Cooperative. Good eye contact. Appropriate mood and affect. SKIN: Warm, dry, normal turgor, no rashes or lesions noted. Laboratory Results - last 24 hr 02/20/18 02/21/18 02/21/18 19:00 06:30 06:30 WBC 2.5 L RBC 3.09 L Hgb 7.9 L Hct 24.8 L MCV 80.2 MCH 25.7 MCHC 32.0 RDW 17.0 H Plt Count 49 L MPV 8.6 Ferritin 35.4 Vitamin B12 564 Urine Color Mouna Urine Appearance Clear Urine pH 6.0 Ur Specific [place] 1.021 Urine Protein Negative Urine Glucose (UA) Negative Urine Ketones Negative Urine Blood 2+ H Urine Nitrite Negative Urine Bilirubin Negative Urine Urobilinogen 4.0 e.u/dl H Ur Leukocyte Esterase Negative Urine WBC (Auto) 1 Urine RBC (Auto) 35 Ur Epithelial Cells Rare Urine Mucus Rare Active Medications Generic Name Dose Route Start Last Admin Trade Name Jayy PRN Reason Stop Dose Admin Acetaminophen 650 mg 02/19/18 21:08 02/20/18 15:47 Tylenol - PO 650 mg Q6H PRN Administration PAIN LEVEL 1-5 Folic Acid 1 mg 02/20/18 17:45 02/21/18 10:38 Folic Acid - PO 1 mg DAILY JEFFERSON Administration Ketorolac Tromethamine 30 mg 02/19/18 21:45 02/21/18 01:45 Toradol Injection - IVPUSH 02/24/18 21:44 30 mg Q8H-IV JEFFERSON Administration Morphine Sulfate 2 mg 02/20/18 18:54 02/21/18 07:12 Morphine Sulfate IVPUSH 2 mg Q8H PRN Administration PAIN LEVEL 6-10 Zolpidem Tartrate 5 mg 02/19/18 21:09 02/21/18 00:48 Ambien - PO 5 mg HS PRN Administration INSOMNIA Patient is a 52 year old female with significant PMHx of Uterine fibroids, pancytopenia (etiology unknown), Splenic/Esophageal varices, cirrhosis (cause unknown), questionable HCC, prolonged Qt presented to the ED with the chief complaint of "heavy vaginal bleeding" x 2 days. ASSESSMENT Menorrhagia likely secondary to uterine fibroids Iron Deficiency anemia likely from bleeding d/t fibroids Neutropenia Throbmocytopenia Abdominal pain- Awaiting MRI of abdomen. Splenic/Esophageal varices, cirrhosis (cause unknown), questionable HCC Active smoker- smoking cessation counseling. PLAN: Symptomatic anemia-resolved after blood transfusion H/H on admission 7.9/24.1---> 7.7/23.3 received 2 PRBC's----> today it is 7.9 /24.8. Transfuse if actively bleeding or if Hb is < 7gm/dl. Had has multiple blood transfusion. Last BT in [facility] in November, Iron studies, B12, folate sent 1 mg of Folic acid PO daily. Thrombocytopenia-etiology unknown Platelet count -49. Has been progressively getting low since 2010 (90-120 platelet count) Could be from Cirrhosis of liver. Awaiting MRI of abdomen. Has an appointment at [facility] (Mar 01) with Dr. Grant and for a liver biospy. Neutropenia WBC count 1.8 ---> 2.5 Likely secondary to cirrhosis of liver. Rest as per the primary. Plan of care explained to the patient. She verbalized understanding. Case discussed with Dr. Mcfadden: We will continue to follow the patient. Thank you for this consultative opportunity.
--- NOTE | 2018-02-21 23:54 | PN ---
Progress Note, Physician - Current Medication List Current Medications: Active Medications Acetaminophen (Tylenol -) 650 mg PO Q6H PRN PRN Reason: PAIN LEVEL 1-5 Last Admin: 02/20/18 15:47 Dose: 650 mg Folic Acid (Folic Acid -) 1 mg PO DAILY JEFFERSON Last Admin: 02/21/18 10:38 Dose: 1 mg Ketorolac Tromethamine (Toradol Injection -) 30 mg IVPUSH Q8H-IV JEFFERSON Stop: 02/24/18 21:44 Last Admin: 02/21/18 18:38 Dose: 30 mg Morphine Sulfate (Morphine Sulfate) 2 mg IVPUSH Q8H PRN PRN Reason: PAIN LEVEL 6-10 Last Admin: 02/21/18 21:34 Dose: 2 mg Zolpidem Tartrate (Ambien -) 5 mg PO HS PRN PRN Reason: INSOMNIA Last Admin: 02/21/18 22:25 Dose: 5 mg - Objective Vital Signs: Vital Signs Temperature 98.5 F 02/21/18 21:00 Pulse Rate 89 02/21/18 21:00 Respiratory Rate 18 02/21/18 21:00 Blood Pressure 142/74 02/21/18 21:00 O2 Sat by Pulse Oximetry (%) 97 02/21/18 09:00 Labs: CBC, BMP 02/21/18 06:30 02/20/18 07:30 INR, PTT INR 1.43 (0.83-1.09) H 02/19/18 05:40 Problem List - Problems (1) Symptomatic anemia Code(s): D64.9 - ANEMIA, UNSPECIFIED (2) Vaginal bleeding, abnormal Code(s): N93.9 - ABNORMAL UTERINE AND VAGINAL BLEEDING, UNSPECIFIED (3) Pancytopenia Code(s): D61.818 - OTHER PANCYTOPENIA (4) Asthma Code(s): J45.909 - UNSPECIFIED ASTHMA, UNCOMPLICATED Qualifiers: Asthma severity: mild Asthma persistence: intermittent Asthma complication type: uncomplicated Qualified Code(s): J45.20 - Mild intermittent asthma, uncomplicated (5) Esophageal varices Code(s): I85.00 - ESOPHAGEAL VARICES WITHOUT BLEEDING
[2018-02-22] MEDS: ACETAMINOPHEN 325 MG TABLET (FP) PO PRN (00:32)
[2018-02-22] MEDS: KETOROLAC TROMETHAMINE 30 MG/1 ML VIAL IVPUSH SCH ×2 (02:04→11:46)
[2018-02-22 07:05] LABS: BASO % 0.6 % (0-2.0); EOS % 3.1 % (0-4.5); HEMATOCRIT 27.7 % (32.4-45.2); HEMOGLOBIN 9.1 GM/dL (10.7-15.3); LYMPH % 28.9 % (8-40); MCH 26.5 pg (25.7-33.7); MCHC 32.8 g/dl (32.0-36.0); MEAN CELL VOLUME 80.7 fl (80-96); MONO % 9.6 % (3.8-10.2); NEUT % 57.8 % (42.8-82.8); PLATELET COUNT 51 K/MM3 (134-434); RBC 3.43 M/mm3 (3.60-5.2); WHITE BLOOD COUNT 3.2 K/mm3 (4.0-10.0)
[2018-02-22 07:59] LABS: ALBUMIN 2.4 g/dl (3.4-5.0); ANION GAP 4 MMOL/L (8-16); BLOOD UREA NITROGEN 8 mg/dL (7-18); CALCIUM 7.6 mg/dL (8.5-10.1); CHLORIDE 108 mmol/L (98-107); CO2 28 mmol/L (21-32); GLUCOSE,RANDOM 94 mg/dL (74-106); SODIUM 140 mmol/L (136-145)
[2018-02-22 08:04] LABS: ALK PHOS 117 U/L (45-117); BILIRUBIN,TOTAL 1.2 mg/dL (0.2-1.0); CREATININE 0.5 mg/dL (0.55-1.02); SGOT/AST 40 U/L (15-37); SGPT/ALT 23 U/L (12-78); TOT PROT 6.5 g/dl (6.4-8.2)
[2018-02-22 11:43] VITALS: PULSE 76
[2018-02-22] MEDS: FOLIC ACID 1 MG TABLET (FP) PO SCH (11:48)
--- NOTE | 2018-02-22 14:57 | PN ---
Progress Note (short form) - Note Progress Note: MRCP/MRI results noted and discussed with the patient. [facility] liver clinic appointment is on of this months. Problem List - Problems (1) Esophageal varices determined by endoscopy Code(s): I85.00 - ESOPHAGEAL VARICES WITHOUT BLEEDING (2) Vaginal bleeding, abnormal Code(s): N93.9 - ABNORMAL UTERINE AND VAGINAL BLEEDING, UNSPECIFIED (3) Acquired pancytopenia Code(s): D61.818 - OTHER PANCYTOPENIA
[2018-02-22 16:28] VITALS: BP 117/69; TEMP 98.2
== END 2018-02-22 16:26 | disposition home or self-care (01) | DRG 532 ==
LOC: JER 02:17 → JERBED 07:48 → J5S 18:24
PROVIDERS: ADMIT Internal Medicine; ATTEND Internal Medicine
PROC: 30233N1 Transfusion of Nonautologous Red Blood Cells into Peripheral Vein, Percutaneous Approach (ICD-10-PCS; principal; 2018-02-20)
DX: N93.9 Abnormal uterine and vaginal bleeding, unspecified (principal); D50.9 Iron deficiency anemia, unspecified; D61.818 Other pancytopenia; I85.00 Esophageal varices without bleeding; R16.1 Splenomegaly, not elsewhere classified; D69.6 Thrombocytopenia, unspecified; K76.6 Portal hypertension; J45.909 Unspecified asthma, uncomplicated; K74.60 Unspecified cirrhosis of liver; I10 Essential (primary) hypertension; D25.9 Leiomyoma of uterus, unspecified; D64.9 Anemia, unspecified; F17.210 Nicotine dependence, cigarettes, uncomplicated; I45.81 Long QT syndrome; N92.0 Excessive and frequent menstruation with regular cycle; Z80.41 Family history of malignant neoplasm of ovary; Z80.42 Family history of malignant neoplasm of prostate; Z80.3 Family history of malignant neoplasm of breast; Z80.1 Family history of malignant neoplasm of trachea, bronchus and lung
CPT/HCPCS: 36415; 36430; 71045-TC-FY; 74182-TC; 76856-TC; 80048; 80053; 80076; 81003; 81015; 82607; 82728; 82747; 83540; 83550; 84466; 84703; 85014; 85025; 85027; 85610; 85730; 86850; 86900; 86901; 86922; 87086; 93005; 93010; 99285-25; J0131; J1756; J7030; P9038; P9058

== ENCOUNTER 2018-03-10 00:06 | Emergency (ER) | payer OTHER ==
[2018-03-10 00:12] VITALS: BMI 29.2
[2018-03-10] MEDS ORDERED: HALOPERIDOL LACTATE 5 MG/ML IM ONE (00:21)
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
[2018-03-10] MEDS ORDERED: SODIUM CHLORIDE 0.9% 1000 ML INFUS.BAG IV ONE (01:20)
[2018-03-10] MEDS ORDERED: morphine CARPU-JECT 2 MG/1 ML DISP.SYRIN IVPUSH ONE (01:20)
[2018-03-10] MEDS ORDERED: MORPHINE SULFATE 2 MG/ML VIAL ONE (01:45)
[2018-03-10 02:04] LABS: BASO % 1.1 % (0-2.0); EOS % 1.9 % (0-4.5); HEMATOCRIT 34.9 % (32.4-45.2); HEMOGLOBIN 11.2 GM/dL (10.7-15.3); LYMPH % 19.7 % (8-40); MCH 26.3 pg (25.7-33.7); MCHC 32.1 g/dl (32.0-36.0); MEAN CELL VOLUME 81.9 fl (80-96); MEAN PLT VOLUME 8.5 fl (7.5-11.1); MONO % 6.4 % (3.8-10.2); NEUT % 70.9 % (42.8-82.8); PLATELET COUNT 109 K/MM3 (134-434); RBC 4.25 M/mm3 (3.60-5.2); RDW 19.2 % (11.6-15.6); WHITE BLOOD COUNT 5.8 K/mm3 (4.0-10.0)
[2018-03-10 02:17] LABS: INR 1.11 (0.83-1.09); PROTHROMBIN TIME (PATIENT) 12.5 SEC (9.7-13.0)
[2018-03-10 02:40] LABS: ALBUMIN 3.3 g/dl (3.4-5.0); ALK PHOS 164 U/L (45-117); ANION GAP 8 MMOL/L (8-16); BILIRUBIN,TOTAL 0.7 mg/dL (0.2-1); BLOOD UREA NITROGEN 9 mg/dL (7-18); CHLORIDE 115 mmol/L (98-107); CO2 22 mmol/L (21-32); CREATININE 0.7 mg/dL (0.55-1.3); GLUCOSE,RANDOM 115 mg/dL (74-106); POTASSIUM 4.1 mmol/L (3.5-5.1); SGOT/AST 86 U/L (15-37); SGPT/ALT 34 U/L (13-61); SODIUM 145 mmol/L (136-145); TOT PROT 8.6 g/dl (6.4-8.2)
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
[2018-03-10] MEDS ORDERED: SODIUM CHLORIDE 0.9% 500 ML INFUS.BAG IV ONE (05:22)
[2018-03-10 06:48] VITALS: BP 119/71; PULSE 98; TEMP 97
--- NOTE | 2018-03-10 11:16 | EKG ---
Test Reason : Blood Pressure : / mmHG Vent. Rate : 103 BPM Atrial Rate : 103 BPM P-R Int : 168 ms QRS Dur : 080 ms QT Int : 384 ms P-R-T Axes : 039 -18 021 degrees QTc Int : 503 ms SINUS TACHYCARDIA OTHERWISE NORMAL ECG WHEN COMPARED WITH ECG OF 19-FEB-2018 10:48, NO SIGNIFICANT CHANGE WAS FOUND Confirmed by ELOISE LI MD ([id number]) on 03/10/2018 11:16:00 AM Referred By: Confirmed By:ELOISE LI MD
== END 2018-03-10 06:56 | disposition home or self-care (01) ==
LOC: JER 00:06
PROC: 3E033NZ Introduction of Analgesics, Hypnotics, Sedatives into Peripheral Vein, Percutaneous Approach (ICD-10-PCS; principal; 2018-03-10)
PROC: 3E0337Z Introduction of Electrolytic and Water Balance Substance into Peripheral Vein, Percutaneous Approach (ICD-10-PCS; 2018-03-10)
DX: F10.120 Alcohol abuse with intoxication, uncomplicated (principal); D69.6 Thrombocytopenia, unspecified; I10 Essential (primary) hypertension; J45.909 Unspecified asthma, uncomplicated; K74.60 Unspecified cirrhosis of liver; V43.62XA Car passenger injured in collision with other type car in traffic accident, initial encounter; W22.10XA Striking against or struck by unspecified automobile airbag, initial encounter; Y93.89 Activity, other specified; Y92.410 Unspecified street and highway as the place of occurrence of the external cause
CPT/HCPCS: 36415; 70450-TC; 71260-TC; 72125-TC; 73562-TC-LT-FY; 74177-TC; 80053; 80307; 82550; 82553; 84484; 84703; 85025; 85610; 86850; 86900; 86901; 93005; 93010; 99283-25; J7030

== ENCOUNTER 2018-03-29 15:31 | Emergency (ER) | payer OTHER ==
[2018-03-29 15:46] VITALS: BMI 34.9
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
[2018-03-29] MEDS ORDERED: morphine CARPU-JECT 4 MG/1 ML DISP.SYRIN IVPUSH ONE ×3 (17:00→21:33)
[2018-03-29] MEDS ORDERED: morphine SULFATE 4 MG/ML VIAL ONE ×3 (17:07→21:44)
[2018-03-29 17:26] LABS: BASO % 0.8 % (0-2.0); EOS % 3.1 % (0-4.5); HEMOGLOBIN 9.4 GM/dL (10.7-15.3); LYMPH % 28.4 % (8-40); MCH 25.4 pg (25.7-33.7); MCHC 31.3 g/dl (32.0-36.0); MEAN CELL VOLUME 81.2 fl (80-96); MEAN PLT VOLUME 9.3 fl (7.5-11.1); MONO % 11.6 % (3.8-10.2); NEUT % 56.1 % (42.8-82.8); RBC 3.69 M/mm3 (3.60-5.2); RDW 18.8 % (11.6-15.6)
[2018-03-29 17:29] LABS: PLATELET COUNT 86 K/MM3 (134-434); WHITE BLOOD COUNT 1.9 K/mm3 (4.0-10.0)
[2018-03-29 17:45] LABS: ACTIVATED PTT 31.4 SECONDS (25.2-36.5)
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
[2018-03-29 18:12] VITALS: BP 139/72; PULSE 90; TEMP 98.1
[2018-03-29 18:47] LABS: URINE APPEARANCE CLOUDY; URINE BILIRUBIN NEGATIVE (<2.0 mg/dL); URINE COLOR YELLOW; URINE GLUCOSE (UA) NEGATIVE (NEGATIVE); URINE KETONE NEGATIVE (NEGATIVE); URINE LEUK ESTERASE TRACE (NEGATIVE); URINE NITRITE NEGATIVE (NEGATIVE); URINE PROTEIN NEGATIVE (NEGATIVE)
[2018-03-29 18:53] LABS: CALCIUM OXALATE CRYSTALS RARE /hpf (NONE SEEN); EPI CELLS MANY /HPF (FEW); URINE BACTERIA RARE /hpf (NONE SEEN); URINE MUCUS RARE
[2018-03-29 19:01] LABS: ALBUMIN 2.9 g/dl (3.4-5.0); ALK PHOS 185 U/L (45-117); ANION GAP 7 MMOL/L (8-16); BILIRUBIN,TOTAL 0.6 mg/dL (0.2-1); BLOOD UREA NITROGEN 9 mg/dL (7-18); CALCIUM 8.2 mg/dL (8.5-10.1); CHLORIDE 112 mmol/L (98-107); CO2 23 mmol/L (21-32); CREATININE 0.5 mg/dL (0.55-1.3); GLUCOSE,RANDOM 117 mg/dL (74-106); POTASSIUM 3.4 mmol/L (3.5-5.1); SGOT/AST 33 U/L (15-37); SGPT/ALT 20 U/L (13-61); SODIUM 143 mmol/L (136-145); TOT PROT 7.3 g/dl (6.4-8.2)
[2018-03-29 19:03] LABS: ANISOCYTOSIS 2+; MACROCYTOSIS 2+; PLATELET ESTIMATE DECREASED
[2018-03-29 19:30] LABS: HCG,QUALITATIVE URINE NEGATIVE
[2018-03-29 21:35] LABS: INR 1.26 (0.83-1.09); PROTHROMBIN TIME (PATIENT) 14.9 SEC (9.7-13.0)
--- NOTE | 2018-03-29 21:46 | PDOC ---
*Physical Exam - Vital Signs Last Vital Signs Temp Pulse Resp BP Pulse Ox 98.1 F 90 16 139/72 98 03/29/18 18:12 03/29/18 18:12 03/29/18 18:12 03/29/18 18:12 03/29/18 18:12 ED Treatment Course - LABORATORY CBC & Chemistry Diagram: 03/29/18 17:02 03/29/18 18:00 - ADDITIONAL ORDERS Additional order review: Laboratory Results 03/29/18 03/29/18 03/29/18 18:20 18:16 18:00 PT with INR Cancelled INR Cancelled PTT (Actin FS) Sodium 143 Potassium 3.4 L Chloride 112 H Carbon Dioxide 23 Anion Gap 7 L BUN 9 Creatinine 0.5 L Creat Clearance w eGFR > 60 Random Glucose 117 H Calcium 8.2 L Total Bilirubin 0.6 AST 33 ALT 20 Alkaline Phosphatase 185 H Total Protein 7.3 Albumin 2.9 L Urine Color Yellow Urine Appearance Cloudy Urine pH 5.0 Ur Specific [place] 1.019 Urine Protein Negative Urine Glucose (UA) Negative Urine Ketones Negative Urine Blood Negative Urine Nitrite Negative Urine Bilirubin Negative Urine Urobilinogen 2.0 H Ur Leukocyte Esterase Trace Urine WBC (Auto) 4 Urine RBC (Auto) 4 Ur Epithelial Cells Many Calcium Oxalate Crystal Rare Urine Bacteria Rare Urine Mucus Rare Urine HCG, Qual Negative Blood Type Antibody Screen 03/29/18 03/29/18 03/29/18 17:02 17:02 17:01 PT with INR 14.90 H INR 1.26 H PTT (Actin FS) 31.4 Sodium Cancelled Potassium Cancelled Chloride Cancelled Carbon Dioxide Cancelled Anion Gap Cancelled BUN Cancelled Creatinine Cancelled Creat Clearance w eGFR Cancelled Random Glucose Cancelled Calcium Cancelled Total Bilirubin Cancelled AST Cancelled ALT Cancelled Alkaline Phosphatase Cancelled Total Protein Cancelled Albumin Cancelled Urine Color Urine Appearance Urine pH Ur Specific [place] Urine Protein Urine Glucose (UA) Urine Ketones Urine Blood Urine Nitrite Urine Bilirubin Urine Urobilinogen Ur Leukocyte Esterase Urine WBC (Auto) Urine RBC (Auto) Ur Epithelial Cells Calcium Oxalate Crystal Urine Bacteria Urine Mucus Urine HCG, Qual Blood Type Cancelled Antibody Screen Cancelled 03/29/18 17:02 RBC 3.69 MCV 81.2 MCHC 31.3 L RDW 18.8 H MPV 9.3 Neutrophils % 56.1 D Lymphocytes % 28.4 D Monocytes % 11.6 H D Eosinophils % 3.1 Basophils % 0.8 - Medications Given in the ED: ED Medications Discontinued Medications Generic Name Dose Route Start Last Admin Trade Name Jayy PRN Reason Stop Dose Admin Morphine Sulfate 4 mg 03/29/18 17:00 03/29/18 17:05 Morphine Injection - IVPUSH 03/29/18 17:01 4 mg ONCE ONE Administration Morphine Sulfate 4 mg 03/29/18 18:19 03/29/18 18:21 Morphine Injection - IVPUSH 03/29/18 18:20 4 mg ONCE ONE Administration Medical Decision Making - Medical Decision Making 03/29/18 21:40 Ms Gastelum was signed out to me pending CT CT demonstrates abdominal wall hematoma Hgb decrease by 2 points compared to Hgb on presentation No intra-abdominal hematoma or bleeding Pt given several doses of Morphine given Pt is ok with discharge to home Will ask pt to follow up with PMD Return to the ER for any other concerns or complaints *DC/Admit/Observation/Transfer Diagnosis at time of Disposition: Pancytopenia, Hematoma, Pain - Discharge Dispostion Disposition: HOME Condition at time of disposition: Improved - Referrals Referrals: Cecilio Alvarado MD [Staff Physician] - - Patient Instructions Printed Discharge Instructions: DI for Hematoma (Bruise) Additional Instructions: You were seen here today for pain and evaluation of hematoma. Your lab tests showed that you have low blood cell levels, but they are at what you normally are at. The CT scan was negative for problems in your abdomen, it did show a hematoma in your abdominal wall. Please continue to see Dr. Alvarado for further management of your low platelets and cirrhosis. A pain medication was sent to your pharmacy. Take it as directed. Come back to the emergency room if: abdominal pain gets worse, you lose consciousness, you feel lightheaded, you start to vomit blood or if any new concerning symptom develops. Thank you - Post Discharge Activity
== END 2018-03-29 22:43 | disposition home or self-care (01) ==
LOC: JER 15:31
PROC: 3E033NZ Introduction of Analgesics, Hypnotics, Sedatives into Peripheral Vein, Percutaneous Approach (ICD-10-PCS; principal; 2018-03-29)
DX: S30.1XXS Contusion of abdominal wall, sequela (principal); V49.9XXS Car occupant (driver) (passenger) injured in unspecified traffic accident, sequela; D69.6 Thrombocytopenia, unspecified; I10 Essential (primary) hypertension; E78.5 Hyperlipidemia, unspecified; R16.1 Splenomegaly, not elsewhere classified; Z87.09 Personal history of other diseases of the respiratory system; K74.60 Unspecified cirrhosis of liver; Z85.05 Personal history of malignant neoplasm of liver; I25.2 Old myocardial infarction
CPT/HCPCS: 36415; 74177-TC; 80053; 81003; 81015; 84703; 85025; 85610; 85730; 99283-25

== ENCOUNTER 2018-04-11 17:27 | Emergency (ER) | payer OTHER ==
--- NOTE | 2018-04-11 17:38 | PDOC ---
Rapid Medical Evaluation Time Seen by Provider: 04/11/18 17:37 Medical Evaluation: Allergies Allergy/AdvReac Type Severity Reaction Status Date / Time codeine [Codeine] Allergy Severe syncope Verified 03/10/18 00:11 04/11/18 17:39 Pt presents to the ED for vaginal bleeding starting at 2pm. Pt states she has gone through 5-6 pads in the past hour. States she still gets her menstrual cycle. LMP 03/16/18. Hx of low platelets Exam: Pt appears uncomfortable. No respiratory distress Orders: Labs, IV, T&S, urine Pt to proceed to ED for further evaluation. Discharge Disposition - Diagnosis Vaginal bleeding - Referrals Referrals: Cecilio Alvarado MD [Primary Care Provider] - - Patient Instructions - Post Discharge Activity
[2018-04-11 17:41] VITALS: BMI 33.2
[2018-04-11 18:19] LABS: BASO % 0.6 % (0-2.0); EOS % 2.1 % (0-4.5); HEMATOCRIT 32.3 % (32.4-45.2); HEMOGLOBIN 10.2 GM/dL (10.7-15.3); LYMPH % 23.8 % (8-40); MCH 25.3 pg (25.7-33.7); MCHC 31.6 g/dl (32.0-36.0); MEAN CELL VOLUME 79.9 fl (80-96); MEAN PLT VOLUME 8.5 fl (7.5-11.1); MONO % 7.2 % (3.8-10.2); NEUT % 66.3 % (42.8-82.8); PLATELET COUNT 78 K/MM3 (134-434); RBC 4.04 M/mm3 (3.60-5.2); RDW 17.8 % (11.6-15.6); WHITE BLOOD COUNT 3.1 K/mm3 (4.0-10.0)
[2018-04-11 18:38] LABS: INR 1.26 (0.83-1.09); PROTHROMBIN TIME (PATIENT) 14.9 SEC (9.7-13.0)
[2018-04-11 18:49] LABS: ALBUMIN 3.2 g/dl (3.4-5.0); ALK PHOS 182 U/L (45-117); ANION GAP 8 MMOL/L (8-16); BILIRUBIN,TOTAL 0.6 mg/dL (0.2-1); BLOOD UREA NITROGEN 12 mg/dL (7-18); CALCIUM 7.8 mg/dL (8.5-10.1); CHLORIDE 107 mmol/L (98-107); CO2 24 mmol/L (21-32); CREATININE 0.6 mg/dL (0.55-1.3); GLUCOSE,RANDOM 131 mg/dL (74-106); POTASSIUM 3.5 mmol/L (3.5-5.1); SGOT/AST 35 U/L (15-37); SGPT/ALT 23 U/L (13-61); SODIUM 139 mmol/L (136-145); TOT PROT 7.8 g/dl (6.4-8.2)
[2018-04-11] MEDS ORDERED: morphine CARPU-JECT 4 MG/1 ML DISP.SYRIN IVPUSH ONE (19:28)
[2018-04-11] MEDS ORDERED: morphine SULFATE 4 MG/ML VIAL ONE (19:32)
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
[2018-04-11 21:29] VITALS: BP 136/78; PULSE 88; TEMP 98.5
--- NOTE | 2018-04-12 12:06 | EKG ---
Test Reason : Blood Pressure : / mmHG Vent. Rate : 081 BPM Atrial Rate : 081 BPM P-R Int : 166 ms QRS Dur : 078 ms QT Int : 430 ms P-R-T Axes : 052 -18 023 degrees QTc Int : 499 ms NORMAL SINUS RHYTHM PROLONGED QT ABNORMAL ECG WHEN COMPARED WITH ECG OF 10-MAR-2018 01:37, NO SIGNIFICANT CHANGE WAS FOUND Confirmed by ELOISE LI MD ([id number]) on 04/12/2018 12:06:31 PM Referred By: Confirmed By:ELOISE LI MD
== END 2018-04-11 21:28 | disposition home or self-care (01) ==
LOC: JER 17:27
PROC: 3E033NZ Introduction of Analgesics, Hypnotics, Sedatives into Peripheral Vein, Percutaneous Approach (ICD-10-PCS; principal; 2018-04-11)
DX: N93.8 Other specified abnormal uterine and vaginal bleeding (principal); I10 Essential (primary) hypertension; E78.5 Hyperlipidemia, unspecified; Z86.2 Personal history of diseases of the blood and blood-forming organs and certain disorders involving the immune mechanism; D69.6 Thrombocytopenia, unspecified; Z87.19 Personal history of other diseases of the digestive system
CPT/HCPCS: 36415; 80053; 85025; 85610; 86850; 86900; 86901; 93005; 93010; 96374; 99283-25

== ENCOUNTER 2018-09-09 15:38 | Inpatient (IN) | payer OTHER ==
[2018-09-09 15:50] VITALS: BMI 35.2
[2018-09-09 16:42] LABS: BASO % 1.1 % (0-2.0); EOS % 1.6 % (0-4.5); HEMATOCRIT 25.1 % (32.4-45.2); HEMOGLOBIN 7.6 GM/dL (10.7-15.3); LYMPH % 26.8 % (8-40); MCH 20.6 pg (25.7-33.7); MCHC 30.2 g/dl (32.0-36.0); MEAN CELL VOLUME 68.2 fl (80-96); MEAN PLT VOLUME 8.7 fl (7.5-11.1); MONO % 9.2 % (3.8-10.2); NEUT % 61.3 % (42.8-82.8); PLATELET COUNT 61 K/MM3 (134-434); RBC 3.68 M/mm3 (3.60-5.2); WHITE BLOOD COUNT 3.1 K/mm3 (4.0-10.0)
[2018-09-09 16:52] LABS: INR 1.28 (0.83-1.09); PROTHROMBIN TIME (PATIENT) 15.1 SEC (9.7-13.0)
--- NOTE | 2018-09-09 16:53 | PDOC ---
Attending Attestation - Resident Resident Name: Robert Sanders - ED Attending Attestation I have performed the following: I have examined & evaluated the patient, The case was reviewed & discussed with the resident, I agree w/resident's findings & plan, Exceptions are as noted - HPI HPI: 09/09/18 16:52 53 yo F h/o thrombocytopenia, cirrhosis, htn prior DE here with co sudden onset chest pain, left arm heaviness and dizziness. pt states her sxs started around 3 pm today. she states she is feeling dizzy with vertigo like sxs currently. denies f/c no n/v feels left sided arm and leg weakness. no change to speech. no mod factors. did take a ntg prior to arrival which helped her chest pain some , and was given 325 asa by EMS prior to arrival. no changes to vision. - Physicial Exam PE: 09/09/18 16:53 awake alert eyes closed, opens when requested, no visible nystagmus. VF nornmal EOMI, facies symmetric. moist mucous membranes. lungs clear bilaterally heart rrr no mrg abd soft nt nd. no pulsatile mass. ext wwp . no rash. nuero speech clear, CN II - XII intact, EOMI, PERRL. VF intact. strength 4/5 left side, right 5/5. right leg 5/5. left leg 0/ 5. pulses symmetric throughout. decreased sensation left leg to light tough. and left arm. left touch. - Medical Decision Making 09/09/18 16:55 differential: aortic dissection, cva, vert or carotid dissection. DE, mca cva. plan labs ct head without, negative. CTA chest abd and pelvis. will add neck r/o upper dissection. pt not TPA candidate due to concerns for dissection, and h/o thrombocytopenia. platelets pending. nuero consulted. ct head negative. focused ED TTE performed. four views obtained. no pericardial effusion. no visiable ascending flap of ao. normal contractility, no wall motion abnormalities appreciated. impressions: normal TTE focused ED us aorta: indication r/o aaa, dissection aorta of abd scanned continuously using curvilinear probe. aorta normal less than 2 cm in all three locations ( prox, mid and distal) impression: no AAA. plan to obtain CTA C/a/p cleared with radiologist. pt consented prior to procedure as no labs . 09/09/18 17:58 CTA obtained of neck ( r/o carotid or VA involvement) and chest /abd and pelvis. pain control given morphine. pt ct head negative. due to low platelets pt poor candidate for TPA. d/w dr pagan. 09/09/18 19:55 CTA no dissection, MCA and carotids clear bilaterally on neck. d/w dr pagan. will order MRI head and neck r/o cervical spine issue or lesion. admitted to DR Freitas . Heart Score/ECG Review #2 ECG reviewed & interpreted by me at: 16:59 General ECG Interpretation: Sinus Rhythm, Normal Rate (97), No acute ischemic changes Compared to previous ECG there are: Other (sinus tachycardia. no st elevation or depression.) - ECG Intrepretation Rhythm: Regular Rhythm - [place]: Normal NIH Stroke Scale - Last Known Well Date/Time & Onset Date Last Known Well: 09/09/18 Time Last Known Well: 15:00 - Initial Evaluation Level of consciousness: Alert Ask patient the month and their age: Answers both correctly Ask patient to open & close eyes; make fist and let go: Obeys both correctly Best gaze (horizontal eye movement): Normal Visual field testing: No visual field loss Facial paresis (Show teeth/raise eyebrows/close eyes tight): Normal symmetrical movement Motor Function: Left Arm: Some effort against gravity Motor Function: Right Arm: Normal (extends arm 90 (or 45) degrees for 10 seconds without drift Motor Function: Left Leg: No movement Motor Function: Right Leg: Normal (extends leg 30 degrees for 5 seconds without drift) Limb Ataxia: No ataxia Sensory(Use pinprick test arms,legs,trunk,face/side to side): Mild to moderate decrease in sensation Best language (Describe picture, name items, read sentences): No Aphasia Dysarthria (read several words): Normal articulation Extinction and Inattention: No abnormality - Total Score NIH Stroke Scale Score: 7 tPA Exclusion Checklist 0-3hr - Time Elapsed Date last known well: 09/09/18 Time last known well: 15:00 Elaspsed time: Day(s) and 4 Hour(s) and 54 Minutes - Thrombolytic Therapy Candidate Is the patient eligible for Thrombolytic Therapy?: No - Exclusion Criteria 0-3hr SBP greater than 185 or DBP greater than 110mmHg despite tx: No Recent IC/spinal surgery,head trauma or stroke w/in last 3mo: No Hx of previous IC hemorrhage, IC neoplasm, AVM or aneurysm: No Active internal bleeding: No Blding diathesis(low plt ct, inc PTT,INR>1.7 or use of NOAC): Yes Symptoms suggest subarachnoid hemorrhage: No CT demonstrates multilobar infarct(>1/3 cerebral hemiphere): No Arterial puncture at noncompressible site in previous 7 days: No Blood glucose concentration less than 50mg/dL (2.7mmol/L): No - Relative Exclusion Criteria 0-3h Life expectancy <1yr/severe co-morbid illness/[employer] on admit: No : No Patient/family refused: No Rapid improvement: No Stroke severity too mild: No Recent acute DE (w/in previous 3 months): No Seizure at onset with postictal residual neuro impairments: No Major surgery or serious trauma w/in previous 14 days: No Recent GI or hemorrhage (w/in previous 21 days): No - Ineligibility reason(s) Reasons No tPA given: See reason(s) noted above (thrombocytopenia)
[2018-09-09 16:54] LABS: ACTIVATED PTT 33.6 SECONDS (25.2-36.5)
[2018-09-09 17:38] LABS: ALBUMIN 3.1 g/dl (3.4-5.0); ALK PHOS 127 U/L (45-117); ANION GAP 8 MMOL/L (8-16); BILIRUBIN,TOTAL 0.6 mg/dL (0.2-1); BLOOD UREA NITROGEN 9 mg/dL (7-18); CALCIUM 7.7 mg/dL (8.5-10.1); CHLORIDE 109 mmol/L (98-107); CO2 22 mmol/L (21-32); CREATININE 0.6 mg/dL (0.55-1.3); GLUCOSE,RANDOM 136 mg/dL (74-106); POTASSIUM 3.8 mmol/L (3.5-5.1); SGOT/AST 47 U/L (15-37); SGPT/ALT 20 U/L (13-61); SODIUM 139 mmol/L (136-145); TOT PROT 7.6 g/dl (6.4-8.2)
--- NOTE | 2018-09-09 17:50 | PDOC ---
History of Present Illness - General Chief Complaint: Chest Pain Stated Complaint: CHEST PAIN Time Seen by Provider: 09/09/18 15:50 History Source: Patient Exam Limitations: No Limitations - History of Present Illness Initial Comments: 53 yo F h/o uterine fibroids, pancytopenia, splenic and esophageal varices, cirrhosis BIBEMS for chest pain and L sided weakness. Per sons at bedside, patient noted sudden onset of chest pain and L arm heaviness right after lunch in bed. She endorses L upper chest pain radiates to L jaw and L arm, sharp, reproducible, a/w L sided weakness and sensation loss and vertigo. denies n/v, fever, chills, urinary and bowel sx. 09/09/18 19:24 Negative CTA of chest, a/p, case discussed with Dr. Hobbs and on-call radiologist, will send the patient for MRI brain/spine to r/o hematoma which could also give pt the symptoms. Disussed with Dr. Freitas. Will admit the patient to tele obs Past History - Past Medical History Allergies/Adverse Reactions: Allergies Allergy/AdvReac Type Severity Reaction Status Date / Time codeine [Codeine] Allergy Severe syncope Verified 09/09/18 15:50 Home Medications: Ambulatory Orders Oxycodone HCl/Acetaminophen [Percocet 5-325 mg Tablet -] 1 tab PO TID PRN #10 tablet MDD 3 03/29/18 Anemia: Yes Asthma: Yes Cancer: Yes (HX LIVER CANCER) Cardiac Disorders: Yes (MILD HEART ATTACK 10YRS AGO) CVA: No COPD: No CHF: No Dementia: No Diabetes: No GI Disorders: Yes (gastric ulcers) Disorders: No HTN: No Hypercholesterolemia: No Liver Disease: Yes (CIRRHOSIS/spleen swelling) Seizures: No Thyroid Disease: No - Surgical History Abdominal Surgery: Yes (TUBAL LIGATION.) Appendectomy: No Cardiac Surgery: No Cholecystectomy: Yes Lung Surgery: No Neurologic Surgery: No Orthopedic Surgery: No - Reproductive History Therapeutic (s) & number: No - Immunization History Immunization Up to Date: No - Suicide/Smoking/Psychosocial Hx Smoking Status: Yes Smoking History: Never smoked Have you smoked in the past 12 months: No Number of Cigarettes Smoked Daily: 1 Information on smoking cessation initiated: No 'Breaking Loose' booklet given: 04/17/14 Hx Alcohol Use: No Drug/Substance Use Hx: No Substance Use Type: None Hx Substance Use Treatment: No Review of Systems - Review of Systems Able to Perform ROS?: Yes Is the patient limited [place] Islander proficient: No Constitutional: Yes: Weakness. No: Chills, Fever HEENTM: No: Blurred Vision, Difficulty Swallowing Respiratory: No: Cough, Shortness of Breath, SOB at Rest Cardiac (ROS): No: Chest Pain, Irregular Heart Rate Neurological: Yes: Numbness, Paresthesia, Weakness. No: Headache *Physical Exam - Vital Signs Last Vital Signs Temp Pulse Resp BP Pulse Ox 98 F 96 H 16 147/71 100 09/09/18 15:44 09/09/18 15:44 09/09/18 15:44 09/09/18 15:44 09/09/18 15:44 - Physical Exam General Appearance: Yes: Appropriately Dressed. No: Apparent Distress Respiratory/Chest: positive: Lungs Clear, Normal Breath Sounds Cardiovascular: positive: Regular Rhythm, Regular Rate, S1, S2. negative: Murmur Gastrointestinal/Abdominal: positive: Normal Bowel Sounds. negative: Tender Neurologic: positive: Fully Oriented, Alert, Normal Mood/Affect, Responsive, Numbness (L sided upper and lower extremities), Sensory Deficit (L upper and lower extremities), Babinski (no reflex). negative: Facial Droop, Confused, Disoriented ED Treatment Course - LABORATORY CBC & Chemistry Diagram: 09/09/18 16:33 09/09/18 16:33 - ADDITIONAL ORDERS Additional order review: Laboratory Results 09/09/18 09/09/18 09/09/18 16:33 16:33 16:33 WBC 3.1 L RBC 3.68 Hgb 7.6 L Hct 25.1 L D MCV 68.2 L MCH 20.6 L D MCHC 30.2 L RDW 19.0 H Plt Count 61 L D MPV 8.7 Absolute Neuts (auto) 1.9 Neutrophils % 61.3 Lymphocytes % 26.8 Monocytes % 9.2 Eosinophils % 1.6 Basophils % 1.1 Nucleated RBC % 0 PT with INR 15.10 H INR 1.28 H PTT (Actin FS) 33.6 B-Natriuretic Peptide 33.8 09/09/18 16:33 RBC 3.68 MCV 68.2 L MCHC 30.2 L RDW 19.0 H MPV 8.7 Neutrophils % 61.3 Lymphocytes % 26.8 Monocytes % 9.2 Eosinophils % 1.6 Basophils % 1.1 - RADIOLOGY Radiology Studies Ordered: Category Date Time Status ABDOMEN & PELVIS CT W/WO CONTR [CT] Stat CT Scan 09/09/18 16:[address] W/WO CONTRAST [CT] Stat CT Scan 09/09/18 16:42 Ordered *DC/Admit/Observation/Transfer Diagnosis at time of Disposition: Chest pain of uncertain etiology, Paresthesia of upper and lower extremities of both sides, Weakness of left side of body - Discharge Dispostion Decision to Admit order: Yes - Referrals Referrals: Cecilio Alvarado MD [Primary Care Provider] - - Patient Instructions - Post Discharge Activity
[2018-09-09] MEDS ORDERED: morphine SULFATE 4 MG/ML VIAL IVPUSH ONE (18:00)
[2018-09-09] MEDS ORDERED: morphine SULFATE 4 MG/ML VIAL ONE ×2 (18:06→23:15)
[2018-09-09 19:38] LABS: ANISOCYTOSIS 3+; MACROCYTOSIS 1+; OVALOCYTE 1+; PLATELET ESTIMATE DECREASED; TARGET CELLS 1+; TEAR DROP CELLS 1+
[2018-09-09] MEDS ORDERED: morphine CARPU-JECT 4 MG/1 ML DISP.SYRIN IVPUSH ONE (23:10)
[2018-09-10] MEDS ORDERED: ACETAMINOPHEN 1000 MG/100 ML VIAL (NON FORMULARY) IVPB ONE (04:45)
[2018-09-10] MEDS ORDERED: ACETAMINOPHEN INJECTION 100 ML IVPB ONE (04:47)
[2018-09-10 08:15] LABS: BASO % 0.5 % (0-2.0); EOS % 1.8 % (0-4.5); HEMOGLOBIN 7.4 GM/dL (10.7-15.3); LYMPH % 25.2 % (8-40); MCH 20.2 pg (25.7-33.7); MCHC 29.4 g/dl (32.0-36.0); MEAN CELL VOLUME 68.4 fl (80-96); MONO % 7.5 % (3.8-10.2); PLATELET COUNT 47 K/MM3 (134-434); RBC 3.66 M/mm3 (3.60-5.2); WHITE BLOOD COUNT 2.6 K/mm3 (4.0-10.0)
[2018-09-10 08:28] LABS: ALBUMIN 3.1 g/dl (3.4-5.0); ALK PHOS 131 U/L (45-117); ANION GAP 8 MMOL/L (8-16); BLOOD UREA NITROGEN 11 mg/dL (7-18); CALCIUM 7.6 mg/dL (8.5-10.1); CHLORIDE 107 mmol/L (98-107); CO2 22 mmol/L (21-32); CREATININE 0.6 mg/dL (0.55-1.3); GLUCOSE,RANDOM 122 mg/dL (74-106); POTASSIUM 3.8 mmol/L (3.5-5.1); SGOT/AST 36 U/L (15-37); SGPT/ALT 18 U/L (13-61); SODIUM 137 mmol/L (136-145); TOT PROT 7.5 g/dl (6.4-8.2)
--- NOTE | 2018-09-10 10:25 | CON.CARD ---
Consult Consult Specialty:: Cardiology Referred by:: Medicine Reason for Consultation:: chest pain - History of Present Illness Chief Complaint: chest pain History of Present Illness: 53F h/o thrombocytopenia, cirrhosis, htn prior MT with chest pain, L arm heavy, dizziness. Symptoms started yesterday afternoon, has vertigo as well. She took NTG prior to coming to ER, improved symptoms. Received aspirin 325 mg x 1. CTA neck, no dissection. Complains of pain and weakness on her left side, dizziness. Pain with palpation of neck. Sees Dr. Harding. - Past Medical History Cardio/Vascular: Yes: HTN, Hyperlipdemia Gastrointestinal: Yes: Other (liver cirrhosis ? 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 History of Recent Travel: No Home Medications - Allergies Allergies/Adverse Reactions: Allergies Allergy/AdvReac Type Severity Reaction Status Date / Time codeine [Codeine] Allergy Severe syncope Verified 09/09/18 15:50 - Home Medications Home Medications: Ambulatory Orders Oxycodone HCl/Acetaminophen [Percocet 5-325 mg Tablet -] 1 tab PO TID PRN #10 tablet MDD 3 03/29/18 Family Disease History - Family Disease History Family Disease History: Diabetes: Father, Mother (asthma), Brother (liver cancer - age 54), Heart Disease: Father, Other: Mother Review of Systems - Review of Systems Constitutional: reports: No Symptoms Eyes: reports: No Symptoms HENT: reports: No Symptoms Neck: reports: No Symptoms Cardiovascular: reports: No Symptoms Respiratory: reports: No Symptoms Gastrointestinal: reports: No Symptoms Genitourinary: reports: No Symptoms Musculoskeletal: reports: No Symptoms Integumentary: reports: No Symptoms Neurological: reports: No Symptoms Endocrine: reports: No Symptoms Hematology/Lymphatic: reports: No Symptoms Psychiatric: reports: No Symptoms Vital Signs: Vital Signs Temperature 98.1 F 09/10/18 07:47 Pulse Rate 78 09/10/18 07:47 Respiratory Rate 17 09/10/18 07:47 Blood Pressure 112/60 09/10/18 07:47 O2 Sat by Pulse Oximetry (%) 97 09/10/18 07:47 Constitutional: Yes: No Distress, Calm Eyes: Yes: Conjunctiva Clear, EOM Intact HENT: Yes: Atraumatic, Normocephalic Neck: Yes: Supple, Trachea Midline Respiratory: Yes: Regular, CTA Bilaterally Gastrointestinal: Yes: Normal Bowel Sounds, Soft Cardiovascular: Yes: Regular Rate and Rhythm JVD: No Carotid Bruit: No PMI: Non-Displaced Heart Sounds: Yes: S1, S2 Murmur: No: Systolic Murmur Musculoskeletal: No: Back Pain Extremities: No: Cold Edema: No Peripheral Pulses WNL: Yes Peripheral Pulses: 2+ Left Doralis Pedis, 2+ Right Dorsalis Pedis Integumentary: No: Jaundice Neurological: Yes: Alert, Oriented Psychiatric: No: Agitated - Other Data Labs, Other Data: CBC, BMP 09/10/18 07:00 09/10/18 07:00 INR, PTT INR 1.28 (0.83-1.09) H 09/09/18 16:33 Troponin, BNP 09/09/18 09/09/18 09/10/18 16:33 16:33 04:42 Troponin I < 0.02 < 0.02 B-Natriuretic Peptide 33.8 Troponin, BNP 09/09/18 09/09/18 09/10/18 16:33 16:33 04:42 Troponin I < 0.02 < 0.02 B-Natriuretic Peptide 33.8 Assessment/Plan EKG: sinus, prolonged QTc 520 ms CXR: poor inspiration, no acute process echo 12/2017 nl LV fn, mildly dilated LA 53F h/o thrombocytopenia, cirrhosis, htn prior MT with chest pain, L arm heavy, dizziness. chest pain - trop neg x2, EKG stable - CT chest pending - prior cath no significant CAD (per patient 2010), stress mibi 2014 nl perfusion - history of worse with position changes, palpation most likely MSK prolonged QTc - stable - avoid QT prolonging agents - maintain K >4.0, Mg >2.0 vertigo - MRI brain pending, neuro consulted pancytopenia - manage pr primary
--- NOTE | 2018-09-10 13:37 | HP ---
Admitting History and Physical - Past Medical History Cardiovascular: Yes: HTN, Hyperlipdemia Gastrointestinal: Yes: Other (liver cirrhosis ? 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 History of Recent Travel: No Home Medications - Allergies Allergies/Adverse Reactions: Allergies Allergy/AdvReac Type Severity Reaction Status Date / Time codeine [Codeine] Allergy Severe syncope Verified 09/09/18 15:50 - Home Medications Home Medications: Ambulatory Orders Oxycodone HCl/Acetaminophen [Percocet 5-325 mg Tablet -] 1 tab PO TID PRN #10 tablet MDD 3 03/29/18 Family Disease History - Family Disease History Family Disease History: Diabetes: Father, Mother (asthma), Brother (liver cancer - age 54), Heart Disease: Father, Other: Mother Physical Examination Vital Signs: Vital Signs Temperature 98.1 F 09/10/18 07:47 Pulse Rate 78 09/10/18 07:47 Respiratory Rate 17 09/10/18 07:47 Blood Pressure 112/60 09/10/18 07:47 O2 Sat by Pulse Oximetry (%) 97 09/10/18 07:47 Labs: CBC, BMP 09/10/18 07:00 09/10/18 07:00
--- NOTE | 2018-09-10 16:29 | CON.NEURO ---
Consult - History of Present Illness History of Present Illness: 53 yo F h/o uterine fibroids, pancytopenia, splenic and esophageal varices, cirrhosis BIBEMS for chest pain and L sided weakness on 09/10/18. patient noted sudden onset of chest pain and L arm heaviness right after lunch in bed (3Pm). She endorses L upper chest pain radiates to L jaw and L arm, sharp, reproducible , a/w L sided weakness and sensation loss and vertigo. denies n/v, fever, chills , urinary and bowel sx. CT HD (-); Given low platelets and NL CTA she was relatively contraindicated for TPA. MRI BRAIN was additionally (-) for stroke, CTA wet read did not show any large vessel occlusion or Dissection. s she endorses pain on the left side today , this limited her strength--she does feel she is moving left side better today. when touching left arm or left foot - she feels pain and has difficulty with strength testing. 09/09/18 19:24 Negative CTA of chest, a/p MRI BRAIN prelim for stroke (-) MRI C S SPINE prelim no cord signal changes, ? extraaxial signal change T2-T3, no obvious hematoma /mass etc - Past Medical History Cardio/Vascular: Yes: HTN, Hyperlipdemia Gastrointestinal: Yes: Other (liver cirrhosis ? 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 History of Recent Travel: No Home Medications - Allergies Allergies/Adverse Reactions: Allergies Allergy/AdvReac Type Severity Reaction Status Date / Time codeine [Codeine] Allergy Severe syncope Verified 09/09/18 15:50 - Home Medications Home Medications: Ambulatory Orders Oxycodone HCl/Acetaminophen [Percocet 5-325 mg Tablet -] 1 tab PO TID PRN #10 tablet MDD 3 03/29/18 Family Disease History - Family Disease History Family Disease History: Diabetes: Father, Mother (asthma), Brother (liver cancer - age 54), Heart Disease: Father, Other: Mother Physical Exam-Neuro Vital Signs: Vital Signs Temperature 98.1 F 09/10/18 16:03 Pulse Rate 76 09/10/18 16:03 Respiratory Rate 14 09/10/18 16:03 Blood Pressure 140/64 09/10/18 16:03 O2 Sat by Pulse Oximetry (%) 100 09/10/18 16:03 Labs: CBC, BMP 09/10/18 07:00 09/10/18 07:00 INR, PTT INR 1.28 (0.83-1.09) H 09/09/18 16:33 - Neuro Exam Level Of Consciousness: Yes: Alert (awake, alert, no dysarthria, no facial, motor PAIN LIMITED though with best effort atleast 4/5 LUE and LLE (pain with local palpation), no sensory nlevel, reflexes symmetric ) Problem List - Problems (1) Chest pain of uncertain etiology Code(s): R07.89 - OTHER CHEST PAIN (2) Weakness of left side of body Code(s): R53.1 - WEAKNESS (3) Anemia Code(s): D64.9 - ANEMIA, UNSPECIFIED Qualifiers: Anemia type: unspecified type Qualified Code(s): D64.9 - Anemia, unspecified Assessment/Plan 53 yo F h/o uterine fibroids, pancytopenia, splenic and esophageal varices, cirrhosis BIBEMS for chest pain and L sided weakness on 09/10/18. patient noted sudden onset of chest pain and L arm heaviness right after lunch in bed (3Pm). She endorses L upper chest pain radiates to L jaw and L arm, sharp, reproducible , a/w L sided weakness and sensation loss and vertigo. denies n/v, fever, chills , urinary and bowel sx. CT HD (-); Given low platelets and NL CTA she was relatively contraindicated for TPA. MRI BRAIN was additionally (-) for stroke, CTA wet read did not show any large vessel occlusion or Dissection. she endorses pain on the left side today , this limited her strength--she does feel she is moving left side better today. when touching left arm or left foot - she feels pain and has difficulty with strength testing. 09/09/18 19:24 Negative CTA of chest, a/p MRI BRAIN prelim for stroke (-) MRI C S SPINE prelim no cord signal changes, ? extraaxial signal change T2-T3, no obvious hematoma /mass etc AP : left sided hemiplegia ( arm and leg without face ) atypical for small vessel stroke; large vessel stroke (-) on MRI and limited CTA ;along with low platelets, so did not qualify for TPA or LVO procedure. localized pain is also unusual, for cerberovascular -? if strain on the left side will like to review imaging with radiology officially , to ensure no spinal process at hand HEM FU for anemia DR GAO
[2018-09-10] MEDS: ACETAMINOPHEN 1000 MG/100 ML VIAL (NON FORMULARY) IVPB PRN (18:52)
[2018-09-10] MEDS ORDERED: traMADol HCL 50 MG TABLET PO ONE (23:15)
[2018-09-11] MEDS ORDERED: ZOLPIDEM TARTRATE 5 MG TABLET PO ONE (01:45)
[2018-09-11 06:51] LABS: BASO % 0.4 % (0-2.0); EOS % 1.1 % (0-4.5); HEMATOCRIT 23.3 % (32.4-45.2); LYMPH % 36.3 % (8-40); MCH 20.1 pg (25.7-33.7); MCHC 29.6 g/dl (32.0-36.0); MEAN CELL VOLUME 67.9 fl (80-96); MEAN PLT VOLUME 8.4 fl (7.5-11.1); MONO % 9.9 % (3.8-10.2); NEUT % 52.3 % (42.8-82.8); PLATELET COUNT 42 K/MM3 (134-434); RBC 3.43 M/mm3 (3.60-5.2); RDW 19.2 % (11.6-15.6)
[2018-09-11 07:20] LABS: HEMOGLOBIN 6.9 GM/dL (10.7-15.3); WHITE BLOOD COUNT 1.6 K/mm3 (4.0-10.0)
[2018-09-11 08:14] LABS: ALBUMIN 2.8 g/dl (3.4-5.0); ALK PHOS 128 U/L (45-117); ANION GAP 7 MMOL/L (8-16); BILIRUBIN,TOTAL 0.7 mg/dL (0.2-1); BLOOD UREA NITROGEN 9 mg/dL (7-18); CALCIUM 7.6 mg/dL (8.5-10.1); CHLORIDE 106 mmol/L (98-107); CO2 23 mmol/L (21-32); CREATININE 0.6 mg/dL (0.55-1.3); GLUCOSE,RANDOM 176 mg/dL (74-106); POTASSIUM 3.1 mmol/L (3.5-5.1); SGOT/AST 28 U/L (15-37); SGPT/ALT 18 U/L (13-61); SODIUM 136 mmol/L (136-145); TOT PROT 7.1 g/dl (6.4-8.2)
[2018-09-11 08:53] LABS: ERYTHROCYTE SEDIMENTATION RATE 25 mm/hr (0-30)
[2018-09-11 10:12] LABS: ANISOCYTOSIS 1+; MACROCYTOSIS 0; OVALOCYTE 1+; PLATELET ESTIMATE DECREASED; TEAR DROP CELLS 1+
--- NOTE | 2018-09-11 10:18 | EKG ---
Test Reason : Blood Pressure : / mmHG Vent. Rate : 097 BPM Atrial Rate : 097 BPM P-R Int : 162 ms QRS Dur : 074 ms QT Int : 410 ms P-R-T Axes : 058 -15 039 degrees QTc Int : 520 ms NORMAL SINUS RHYTHM NONSPECIFIC ST AND T WAVE ABNORMALITY PROLONGED QT ABNORMAL ECG WHEN COMPARED WITH ECG OF 11-APR-2018 19:47, NO SIGNIFICANT CHANGE WAS FOUND Confirmed by EVANGELIST CROCKER, MOLLY ([id number]) on 09/11/2018 10:18:41 AM Referred By: Confirmed By:MOLLY BLANCA MD
[2018-09-11] MEDS ORDERED: POTASSIUM CHLORIDE TABS 20 MEQ TABLET.ER (FP) PO ONE (11:45)
--- NOTE | 2018-09-11 12:40 | CONSULT ---
Consultation: HEMATOLOGY/ONCOLOGY Consultation REQUESTING PROVIDER: JOJO CONSULT REQUEST: We have been asked to medically evaluate this patient for pancytopenia HISTORY OF PRESENT ILLNESS: This is a 53 year old female wit jesus history of uterine fibroids, pancytopenia, cirrhosis, and esophageal varices presented to the hospital for chest pain with left sided weakness/pain for 1 day duration. We are being consulted for evaluation of pancytopenia, was seen back in February 2018 also for pancytopenia, which was deemed likely as a result of cirrhosis vs menorrhagia. Patient reports that she has been worked up at Dr. Cecilio Alvarado's office for cirrhosis,which was diagnosed 3 years ago, and sees Dr. Sanchez for GI followup, but she does not know what the cause is. Reports continued chest pain, which is reproducible on palpation and left sided hemiparesis as well as sensory deficits on left side. Social Hx: Drinks socially, does not smoke Family History: -extensive family history of ovarian/breast cancers -History of cirrhosis in family REVIEW OF SYSTEMS: CONSTITUTIONAL: Absent: fever, chills, diaphoresis, generalized weakness, malaise, loss of appetite, weight change HEENT: Absent: rhinorrhea, nasal congestion, throat pain, throat swelling, difficulty swallowing, mouth swelling, ear pain, eye pain, visual changes CARDIOVASCULAR: chest pain Absent: syncope, palpitations, irregular heart rate, lightheadedness, peripheral edema RESPIRATORY: Absent: cough, shortness of breath, dyspnea with exertion, orthopnea, wheezing, stridor, hemoptysis GASTROINTESTINAL: Absent: abdominal pain, abdominal distension, nausea, vomiting, diarrhea, constipation, melena, hematochezia GENITOURINARY: Absent: dysuria, frequency, urgency, hesitancy, hematuria, flank pain, genital pain MUSCULOSKELETAL: Absent: myalgia, arthralgia, joint swelling, back pain, neck pain SKIN: Absent: rash, itching, pallor HEMATOLOGIC/IMMUNOLOGIC: Absent: easy bleeding, easy bruising, lymphadenopathy, frequent infections ENDOCRINE: Absent: unexplained weight gain, unexplained weight loss, heat intolerance, cold intolerance NEUROLOGIC: focal weakness or paresthesias Absent: headache,dizziness, unsteady gait, seizure, mental status changes, bladder or bowel incontinence PSYCHIATRIC: Absent: anxiety, depression, suicidal or homicidal ideation, hallucinations. PHYSICAL EXAMINATION Vital Signs - 24 hr 09/10/18 09/10/18 09/11/18 16:03 21:00 02:00 Temperature 98.1 F 98.6 F 98.2 F Pulse Rate 76 71 73 Respiratory 14 17 18 Rate Blood Pressure 140/64 112/56 L 107/56 L O2 Sat by Pulse 100 97 Oximetry (%) 09/11/18 09/11/18 09/11/18 05:00 08:24 08:34 Temperature 98 F 98 F 98 F Pulse Rate 77 76 80 Respiratory 18 20 20 Rate Blood Pressure 140/80 127/86 129/73 O2 Sat by Pulse Oximetry (%) GENERAL: A&O x3 no acute distress EYES: PERRL ENT: normal mucus membranes, no lymph nodes palpated LUNGS: CTA HEART: RRR, systolic murmur noted on exam ABDOMEN: TTP in RUQ, hepatosplenomegaly palpated NEUROLOGICAL: Cranial nerves II-XII intact. Normal speech. Left sided hemiparesis with decreased sensation on L side. SKIN: Warm, dry, normal turgor, no rashes or lesions noted. Laboratory Results - last 24 hr 09/09/18 09/11/18 09/11/18 16:57 06:30 06:30 WBC 1.6 L* RBC 3.43 L Hgb 6.9 L* Hct 23.3 L MCV 67.9 L MCH 20.1 L MCHC 29.6 L RDW 19.2 H Plt Count 42 L MPV 8.4 Absolute Neuts (auto) 0.9 L Neutrophils % 52.3 Neutrophils % (Manual) 68.4 Band Neutrophils % 0.0 Lymphocytes % 36.3 D Lymphocytes % (Manual) 27.6 Monocytes % 9.9 Monocytes % (Manual) 2 L Eosinophils % 1.1 Eosinophils % (Manual) 1.0 Basophils % 0.4 Basophils % (Manual) 1.0 Myelocytes % (Man) 0 Promyelocytes % (Man) 0 Blast Cells % (Manual) 0 Nucleated RBC % 0 Metamyelocytes 0 Hypochromia 2+ Platelet Estimate Decreased Polychromasia 1+ Poikilocytosis 1+ Anisocytosis 1+ Microcytosis 2+ Macrocytosis 0 Tear Drop Cells 1+ Ovalocytes 1+ ESR 25 Sodium 136 Potassium 3.1 L Chloride 106 Carbon Dioxide 23 Anion Gap 7 L BUN 9 Creatinine 0.6 Creat Clearance w eGFR 105.40 Random Glucose 176 H Calcium 7.6 L Total Bilirubin 0.7 AST 28 ALT 18 Alkaline Phosphatase 128 H Creatine Kinase 47 Troponin I < 0.02 C-Reactive Protein < 0.3 Total Protein 7.1 Albumin 2.8 L Blood Type O POSITIVE Antibody Screen Negative Crossmatch See Detail Active Medications Generic Name Dose Route Start Last Admin Trade Name Freq PRN Reason Stop Dose Admin Acetaminophen 1,000 mg 09/10/18 18:39 09/10/18 18:52 Ofirmev Injection - IVPB 1,000 mg Q8H PRN Administration PAIN LEVEL 7 - 10 ASSESSMENT/PLAN: 53 year old female wit jesus history of uterine fibroids, pancytopenia, cirrhosis, and esophageal varices presented to the hospital for chest pain with left sided weakness/pain for 1 day duration and being evaluated for acute coronary syndrome #Pancytopenia - possible as a result of cirrhosis, but need cirrhosis workup, patient states marrow results as outpatient were negative, states she follows with Dr. Sanchez -transfuse if platelets < 10 unless bleeding, then if < 20 -transfuse PRBCs to a goal of 10 -last iron studies showed anemia of chronic inflammation #Concern for Hepatocellular Carcinoma: on previous admission, patient had concern, AFP levels normal, was recommended to get repeat imaging -will discuss with patient if had followup with hepatology team at [place] Will Discuss w/ Dr. Reynoso Dispo: We will continue to follow the patient. Thank you for this consultative opportunity. Visit type - Emergency Visit Emergency Visit: No - New Patient This patient is new to me today: Yes Date on this admission: 09/11/18 - Critical Care Critical Care patient: No
--- NOTE | 2018-09-11 14:21 | ECHO ---
Name: ALEJANDRO LYNNE Exam:Adult Echocardiogram Study Date: 09/11/2018 09:33 AM Age: 53 yrs Reason For Study: CVA Height: 60 in Weight: 180 lb BSA: 1.8 m2 MMode/2D Measurements & Calculations IVSd: 0.73 cm Ao root diam: 2.5 cm LVIDd: 4.6 cm LA dimension: 3.7 cm LVPWd: 0.71 cm EDV(Teich): 98.7 ml LVOT diam: 2.1 cm Doppler Measurements & Calculations MV E max lakhwinder: 92.3 cm/sec Ao V2 max: 165.8 cm/sec MV A max lakhwinder: 80.5 cm/sec Ao max P.0 mmHg MV E/A: 1.1 Ao V2 mean: 122.3 cm/sec MV dec time: 0.25 sec Ao mean P.6 mmHg Ao V2 VTI: 40.9 cm MORE(V,D): 1.8 cm2 LV V1 max P.8 mmHg TR max lakhwinder: 240.6 cm/sec LV V1 max: 83.6 cm/sec TR max P.3 mmHg Med Peak E' Lakhwinder: 8.8 cm/sec Med E/e': 10.5 Lat Peak E' Lakhwinder: 9.1 cm/sec Lat E/e': 10.2 Left Ventricle The left ventricle is normal in size. Left ventricular systolic function is normal. Ejection Fraction = 65- 70%. No regional wall motion abnormalities noted. Right Ventricle The right ventricle is normal size. The right ventricular systolic function is normal. RV systolic TD I is 13 cm/s. Atria The left atrial size is normal. Right atrial size is normal. Mitral Valve The mitral valve is normal in structure and function. There is mild mitral regurgitation. Tricuspid Valve The tricuspid valve is normal in structure and function. There is mild tricuspid regurgitation. Pulmo nary artery systolic pressure is at least 31 mmHg if RA pressure is assumed 3 mmHg. Aortic Valve The aortic valve is normal in structure and function. No aortic regurgitation is present. Pulmonic Valve The pulmonic valve is not well visualized. Great Vessels The aortic root is normal size. Pericardium/Pleura There is no pericardial effusion. Interpretation Summary The left ventricle is normal in size. Left ventricular systolic function is normal. No regional wall motion abnormalities noted. Ejection Fraction = 65-70%. The right ventricular systolic function is normal. The left atrial size is normal. Right atrial size is normal. There is mild mitral regurgitation. There is mild tricuspid regurgitation. Pulmonary artery systolic pressure is at least 31 mmHg if RA pressure is assumed 3 mmHg There is no pericardial effusion. When compared to study dated 12/12/17, likely no significant changes Yahir Shah MD 09/11/2018 02:21 PM
--- NOTE | 2018-09-11 16:02 | PN ---
Progress Note (short form) - Note Progress Note: s: complains of pain in L side of body, no chest pain, palps, sob, dizziness. Current Medications Acetaminophen (Ofirmev Injection -) 1,000 mg IVPB Q8H PRN PRN Reason: PAIN LEVEL 7 - 10 Last Admin: 09/10/18 18:52 Dose: 1,000 mg Vital Signs Period Temp Pulse Resp BP Sys/Berry Pulse Ox Last 24 Hr 98 F-98.6 F 71-80 14-20 107-140/56-86 97-100 Constitutional: Yes: No Distress, Calm Eyes: Yes: Conjunctiva Clear, EOM Intact HENT: Yes: Atraumatic, Normocephalic Neck: Yes: Supple, Trachea Midline Respiratory: Yes: Regular, CTA Bilaterally Gastrointestinal: Yes: Normal Bowel Sounds, Soft Cardiovascular: Yes: Regular Rate and Rhythm JVD: No Carotid Bruit: No PMI: Non-Displaced Heart Sounds: Yes: S1, S2 Murmur: No: Systolic Murmur Musculoskeletal: No: Back Pain Extremities: No: Cold Edema: No Peripheral Pulses WNL: Yes Peripheral Pulses: 2+ Left Doralis Pedis, 2+ Right Dorsalis Pedis Integumentary: No: Jaundice Neurological: Yes: Alert, Oriented Psychiatric: No: Agitated Assessment/Plan EKG: sinus, prolonged QTc 520 ms CXR: poor inspiration, no acute process echo 12/2017 nl LV fn, mildly dilated LA echo 09/2018 nl LV/RV function, mild MR, mild TR, PASP at least 31 mmHg CTA chest: no dissection 53F h/o thrombocytopenia, cirrhosis, htn prior [place] with chest pain, L arm heavy, dizziness. chest pain - trop neg x2, EKG stable - CT chest no acute process - echo nl LV function - prior cath no significant CAD (per patient 2010), stress mibi 2014 nl perfusion - history of worse with position changes, palpation most likely MSK - dc tele prolonged QTc - stable - avoid QT prolonging agents - maintain K >4.0, Mg >2.0 vertigo - neuro consulted pancytopenia - manage pr primary
[2018-09-11] MEDS: ACETAMINOPHEN 1000 MG/100 ML VIAL (NON FORMULARY) IVPB PRN (17:35)
--- NOTE | 2018-09-11 18:59 | PN ---
Progress Note, Physician - Current Medication List Current Medications: Active Medications Acetaminophen (Ofirmev Injection -) 1,000 mg IVPB Q8H PRN PRN Reason: PAIN LEVEL 7 - 10 Last Admin: 09/11/18 17:35 Dose: 1,000 mg - Objective Vital Signs: Vital Signs Temperature 98 F 09/11/18 17:28 Pulse Rate 74 09/11/18 17:28 Respiratory Rate 20 09/11/18 17:28 Blood Pressure 118/67 09/11/18 17:28 O2 Sat by Pulse Oximetry (%) 97 09/11/18 09:00 Labs: CBC, BMP 09/11/18 06:30 09/11/18 06:30 INR, PTT INR 1.28 (0.83-1.09) H 09/09/18 16:33
--- NOTE | 2018-09-11 19:49 | PN ---
Progress Note (short form) - Note Progress Note: COmplains of improved but ongoing weakness of left side. She has mild weakness with non-pronating drift of left arm. This is unlikely to be centrally mediated. Could be sensory, though difficult to account for. MRI brain negative. C spine shows discs but no neural impact. Wouldn't explain hemiparesis. Unclear etiology.
--- NOTE | 2018-09-11 23:02 | CONSULT ---
Consult - text type - Consultation Consultation Note: 53F h/o thrombocytopenia, cirrhosis, htn prior [place] with chest pain, L arm heavy, dizziness. Symptoms started yesterday afternoon, has vertigo as well. Received aspirin 325 mg x 1. CTA neck, no dissection. Complains of pain and weakness on her left side, dizziness. Pain with palpation of neck. - Past Medical History Cardio/Vascular: Yes: HTN, Hyperlipdemia Gastrointestinal: Yes: Other (liver cirrhosis ? 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 - Allergies Allergies/Adverse Reactions: Allergies Allergy/AdvReac Type Severity Reaction Status Date / Time codeine [Codeine] Allergy Severe syncope Verified 09/09/18 15:50 - Home Medications Home Medications: Ambulatory Orders Oxycodone HCl/Acetaminophen [Percocet 5-325 mg Tablet -] 1 tab PO TID PRN #10 tablet MDD 3 03/29/18 Family Disease History - Family Disease History Family Disease History: Diabetes: Father, Mother (asthma), Brother (liver cancer - age 54), Heart Disease: Father, Other: Mother Vital Signs: Vital Signs Temperature 98.1 F 09/10/18 07:47 Pulse Rate 78 09/10/18 07:47 Respiratory Rate 17 09/10/18 07:47 Blood Pressure 112/60 09/10/18 07:47 O2 Sat by Pulse Oximetry (%) 97 09/10/18 07:47 Cor: RSR, No murmurs, No gallops Lungs: Clear to P&A Abd: Soft, Normal bowel sounds, No organomegaly Ext:No significant edema Labs/meds reviewed a/p 53F h/o, cirrhosis, ? fatty liver, htn , prior [place] with chest pain, presenting with left sided weakness mri brain neg. for stroke mri c spine was nl patient using LUe to tlk on cell phoe and dial nos. ? pseudo paresis strength is much improved in lue and lle splenic aneurysm --get vascular consult will request hepatology consult pancytopenia dueto liver disease/portal htn/ splenomegaly will follow
[2018-09-12] MEDS: ZOLPIDEM TARTRATE 5 MG TABLET PO PRN ×2 (01:33→23:51)
[2018-09-12] MEDS: ACETAMINOPHEN 1000 MG/100 ML VIAL (NON FORMULARY) IVPB PRN (09:16)
--- NOTE | 2018-09-12 10:34 | PN ---
Progress Note (short form) - Note Progress Note: COmplains of improved but ongoing weakness of left side. Today her weakness on exam is resolved, and her sensory loss is also not present on exam, but she complains of a sense of cold inside her left leg. Again, these findings are hard to account for. This type of complaint is typically seen in central spinal cord disease or in thalamic pain but there are no MRI findings to account for this, particularly in light of her initial presentation of complete paralysis on her left side. This is unlikely to be centrally mediated. Could be sensory, though difficult to account for. MRI brain negative. C spine shows discs but no neural impact. Wouldn't explain hemiparesis. The possibility of conversion disorder is entertained, but given her multiple medical problems, I would also consider nuclear spect study before ruling out central pathology. Even if it were central, though, the non-pronating drift is unusual for a centrally mediated weakenss, unless it were due to a sensory finding, but this is usually a drift that goes up and down, rather than strictly down. I'll have another one of my colleagues review her case tomorrow and consider Brain Spect study if appropriate. Unclear etiology.
--- NOTE | 2018-09-12 10:46 | PN ---
Progress Note (short form) - Note Progress Note: Vascular Surgery CT abd/pelvis images reviewed. 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 Largest is 1.7cm. No intervention needed at this time. The aneurysms are small in size, and there is no increased risk of rupture due to the pt not being of child bearing age. Medical management. If the aneurysms grew in size in the future, due to their location being in the hilum of the spleen, the best treatment would be splenectomy. Very unlikely that the aneurysms will change in size. Kris Blackman DO
--- NOTE | 2018-09-12 11:45 | PN ---
Progress Note (short form) - Note Progress Note: s: no chest pain, palps, sob, dizziness. numbness of L leg Current Medications Zolpidem Tartrate (Ambien -) 5 mg PO HS PRN PRN Reason: INSOMNIA Last Admin: 09/12/18 01:33 Dose: 5 mg Vital Signs Period Temp Pulse Resp BP Sys/Berry Pulse Ox Last 24 Hr 98 F-98.2 F 72-77 18-180 110-134/63-76 99-99 Constitutional: Yes: No Distress, Calm Eyes: Yes: Conjunctiva Clear, EOM Intact HENT: Yes: Atraumatic, Normocephalic Neck: Yes: Supple, Trachea Midline Respiratory: Yes: Regular, CTA Bilaterally Gastrointestinal: Yes: Normal Bowel Sounds, Soft Cardiovascular: Yes: Regular Rate and Rhythm JVD: No Carotid Bruit: No PMI: Non-Displaced Heart Sounds: Yes: S1, S2 Murmur: No: Systolic Murmur Musculoskeletal: No: Back Pain Extremities: No: Cold Edema: No Peripheral Pulses WNL: Yes Peripheral Pulses: 2+ Left Doralis Pedis, 2+ Right Dorsalis Pedis Integumentary: No: Jaundice Neurological: Yes: Alert, Oriented Psychiatric: No: Agitated Assessment/Plan EKG: sinus, prolonged QTc 520 ms CXR: poor inspiration, no acute process echo 12/2017 nl LV fn, mildly dilated LA echo 09/2018 nl LV/RV function, mild MR, mild TR, PASP at least 31 mmHg CTA chest: no dissection 53F h/o thrombocytopenia, cirrhosis, htn prior [place] with chest pain, L arm heavy, dizziness. chest pain - trop neg x2, EKG stable - CT chest no acute process - echo nl LV function - prior cath no significant CAD (per patient 2010), stress mibi 2014 nl perfusion - history of worse with position changes, palpation most likely MSK prolonged QTc - stable - avoid QT prolonging agents - maintain K >4.0, Mg >2.0 vertigo - neuro consulted pancytopenia - manage pr primary
--- NOTE | 2018-09-12 12:23 | PN ---
Physical Exam: SUBJECTIVE: Patient seen and examined at bedside. Complains that her leg is "cold" originating from the inside and radiating to the periphery. Reports she can move slightly better than yesterday. OBJECTIVE: Vital Signs Period Temp Pulse Resp BP Sys/Berry Pulse Ox Last 24 Hr 98 F-98.2 F 72-77 18-180 110-134/63-76 99-99 GENERAL: A&O x3 no acute distress EYES: PERRL ENT: normal mucus membranes, no lymph nodes palpated LUNGS: CTA HEART: RRR, systolic murmur noted on exam ABDOMEN: hepatosplenomegaly palpated, not tender to palpation NEUROLOGICAL: Cranial nerves II-XII intact. Normal speech. Left sided hemiparesis with decreased sensation on L side. Improved from yesterday. SKIN: Warm, dry, normal turgor, no rashes or lesions noted. Laboratory Results - last 24 hr 09/11/18 06:30 Rheumatoid Arth Biomark 68.3 H Active Medications Generic Name Dose Route Start Last Admin Trade Name Freq PRN Reason Stop Dose Admin Zolpidem Tartrate 5 mg 09/12/18 01:08 09/12/18 01:33 Ambien - PO 5 mg HS PRN Administration INSOMNIA ASSESSMENT/PLAN: This is a 53 year old female wit jesus history of uterine fibroids, pancytopenia, cirrhosis, and esophageal varices presented to the hospital for chest pain with left sided weakness/pain for 1 day duration 53 year old female wit jesus history of uterine fibroids, pancytopenia, cirrhosis, and esophageal varices presented to the hospital for chest pain with left sided weakness/pain for 1 day duration and being evaluated for acute coronary syndrome #Pancytopenia - possible as a result of cirrhosis, but need cirrhosis workup, patient states marrow results as outpatient were negative, states she follows with Dr. Sanchez -transfuse if platelets < 10 unless bleeding, then if < 20 -transfuse PRBCs to a goal of 10 -last iron studies showed anemia of chronic inflammation #Concern for Hepatocellular Carcinoma: on previous admission, patient had concern, AFP levels normal, was recommended to get repeat imaging -will discuss with patient if had followup with hepatology team at [place] -Dr. Sanchez f/u Will Discuss w/ Dr. Valente Dispo: We will continue to follow the patient. Thank you for this consultative opportunity. Visit type - Emergency Visit Emergency Visit: No - New Patient This patient is new to me today: No - Critical Care Critical Care patient: No
[2018-09-12] MEDS ORDERED: ACETAMINOPHEN 1000 MG/100 ML VIAL (NON FORMULARY) IVPB PRN (16:28)
--- NOTE | 2018-09-12 17:57 | CONSULT ---
Consult Consult Specialty:: Rheumatology - History of Present Illness History of Present Illness: 53 yo F h/o with history of cirrhosis prob secondary to DAILY, splenomegly, esophageal varices, pancytopenia, uterine fibroids admitted with left sided chest pain and L sided weakness. The patient noted sudden onset of chest pain radiated to the left jaw and left arm and left arm and left leg heaviness. The patient denies joint pain. She reports intermittent pain in the left side of the chest and mild diffuse heaviness or mild pain in the left side of her body. CT of the brain reported as normal. Chest and abdominal CT with hepatic cirrhosis, splenomegaly, prominent esophageal and perisplenic varices. MRI brain normal. MRI C spine : minimal C5-6 right paracentral disc bulge with no gross cord or nerve root nerve impingement. One year ago serology reported with [facility], anti-smooth muscle and celiac serology negative. Rheumatoid factor was 40. Hepatitis C was positive and PCR negative. On this admission CBC with WBC if 1.6, Hgb 6.9, HCT 23.3 and platelets 42. Creatinine 0.6 and rheumatoid factor 68.3. - History Source History Provided By: Patient, Medical Record - Past Medical History Cardio/Vascular: Yes: HTN, Hyperlipdemia Gastrointestinal: Yes: Other (liver cirrhosis ? 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 [employer] History of Recent Travel: No Home Medications - Allergies Allergies/Adverse Reactions: Allergies Allergy/AdvReac Type Severity Reaction Status Date / Time codeine [Codeine] Allergy Severe syncope Verified 09/09/18 15:50 - Home Medications Home Medications: Ambulatory Orders Oxycodone HCl/Acetaminophen [Percocet 5-325 mg Tablet -] 1 tab PO TID PRN #10 tablet MDD 3 03/29/18 Family Disease History - Family Disease History Family Disease History: Diabetes: Father, Mother (asthma), Brother (liver cancer - age 54), Heart Disease: Father, Other: Mother Review of Systems - Review of Systems Constitutional: reports: Malaise Eyes: reports: No Symptoms HENT: reports: No Symptoms Neck: reports: No Symptoms Cardiovascular: reports: No Symptoms Respiratory: reports: No Symptoms Gastrointestinal: reports: Other (See HPI) Musculoskeletal: reports: Other (See HPi) Physical Exam Vital Signs: Vital Signs Temperature 98 F 09/12/18 14:30 Pulse Rate 76 09/12/18 14:30 Respiratory Rate 20 09/12/18 14:30 Blood Pressure 126/67 09/12/18 14:30 O2 Sat by Pulse Oximetry (%) 99 09/12/18 08:34 Constitutional: Yes: Mild Distress Eyes: Yes: WNL HENT: Yes: WNL Neck: Yes: WNL Cardiovascular: Yes: WNL Respiratory: Yes: WNL Gastrointestinal: Yes: WNL Musculoskeletal: Yes: Other (Tenderness in the left costo-chondral region. No tender or swollen joints.) Labs: CBC, BMP 09/11/18 06:30 09/11/18 06:30 Laboratory Tests 09/11/18 09/11/18 06:30 06:30 Calcium 7.6 L Total Bilirubin 0.7 AST 28 ALT 18 Alkaline Phosphatase 128 H Creatine Kinase 47 Troponin I < 0.02 C-Reactive Protein < 0.3 Total Protein 7.1 Albumin 2.8 L Rheumatoid Arth Biomark 68.3 H Problem List - Problems (1) Chest pain of uncertain etiology Assessment/Plan: Pobable costochondritis. Assessment/Plan Rheumatoid factor positive with no inflammatory arthritis. Probable false positive test. Rule out paraproteinemia. Chest pain probably relatred to costchondritis. Left hemiparesia - etiology to be determined. Plan Labs M spike, UA. Continue same mnedications
--- NOTE | 2018-09-12 17:58 | CON.GI ---
Consult Consult Specialty:: Gastroenterology Referred by:: Dr Reynoso Reason for Consultation:: Cirrhosis - History of Present Illness Chief Complaint: chest pain and left sided numbness UE and LE History of Present Illness: 53F BIBA after developing retrosternal chest pain associated with left arm and leg numbness and weakness. A CVA has been excluded and the symptoms have resolved. No trauma associated with the event. She describes having had an "ID" several years ago but required no stents after a cardiac cath was done at [facility]. She is followed by Dr. Katie Grant at the [facility] at [facility] for DAILY related cirrhosis. She did have an EGD and banding of esophageal varices by my associate, Dr. Ethan Sanchez 01/04/17 but has failed to respond to recall. She has also been seen by Dr Serrano and Dr Ding. She tells me that she had colon polyps removed by Dr Grant at [facility] about 2 years ago. She moves her bowel regularly and denies any recent bleeding. She denies ever having had a GI bleed or ascites. Her brother of liver cancer and her mother of cirrhosis but she in not aware of any etiologies. She denies pruritus. She has cirrhosis and splenomegaly with splenic and esophageal varices (and a partial portal vein thrombosis on 11/28 MRI) on imaging as well as splenic artery aneurysms and a splenic aneurysm She has been previously told of pancytopenia and tells me that she had had two bone marrow exams here and one at [facility]. - History Source History Provided By: Patient, Medical Record Limitations to Obtaining History: No Limitations - Past Medical History Cardio/Vascular: Yes: Aneurysm (splenic aneurysm, splenic artery aneurysms), HTN , Hyperlipdemia Gastrointestinal: Yes: Esophageal Varices (banded 01/04/17 but still present), Other (colon polyps) Hepatobiliary: Yes: Cirrhosis (DAILY related cirrhosis with esophageal and splenic varices and partial portal vein thrombosis) ...LMP: 02/03/18 Heme/Onc: Yes: Anemia, Thrombocytopenia, Other (several nondiagnostic bone marows) - Past Surgical History Past Surgical History: Yes: Cholecystectomy, Colonoscopy, (x 2), Tubal Ligation, Upper Endoscopy - Alcohol/Substance Use Hx Alcohol Use: Yes ("I drink socially but not too much") History of Substance Use: reports: None - Smoking History Smoking history: Current some day smoker (1 cigarette socially prn) Have you smoked in the past 12 months: No Aproximately how many cigarettes per day: 1 - Social History Usual Living Arrangement: With Child ADL: Independent 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 (year): age 5 History of Recent Travel: No Home Medications - Allergies Allergies/Adverse Reactions: Allergies Allergy/AdvReac Type Severity Reaction Status Date / Time codeine [Codeine] Allergy Severe syncope Verified 09/09/18 15:50 - Home Medications Home Medications: Ambulatory Orders Oxycodone HCl/Acetaminophen [Percocet 5-325 mg Tablet -] 1 tab PO TID PRN #10 tablet MDD 3 03/29/18 Family Disease History - Family Disease History Family Disease History: Diabetes: Father (alive), Mother ( of cirrhosis), Brother (liver cancer- age 54), Heart Disease: Father, Other: Mother Other Family History: Aunt with breast cancer and cousins with ovarian and prostate cancers Review of Systems - Review of Systems Constitutional: reports: Chills Eyes: reports: No Symptoms HENT: reports: No Symptoms Neck: reports: No Symptoms Cardiovascular: reports: Chest Pain, Palpitations Respiratory: reports: SOB on Exertion Gastrointestinal: reports: No Symptoms Physical Exam-GI Vital Signs: Vital Signs Temperature 98 F 09/12/18 14:30 Pulse Rate 76 09/12/18 14:30 Respiratory Rate 20 09/12/18 14:30 Blood Pressure 126/67 09/12/18 14:30 O2 Sat by Pulse Oximetry (%) 99 09/12/18 08:34 CBC,CMP WBC 1.6 K/mm3 (4.0-10.0) L* 09/11/18 06:30 RBC 3.43 M/mm3 (3.60-5.2) L 09/11/18 06:30 Hgb 6.9 GM/dL (10.7-15.3) L* 09/11/18 06:30 Hct 23.3 % (32.4-45.2) L 09/11/18 06:30 MCV 67.9 fl (80-96) L 09/11/18 06:30 MCH 20.1 pg (25.7-33.7) L 09/11/18 06:30 MCHC 29.6 g/dl (32.0-36.0) L 09/11/18 06:30 RDW 19.2 % (11.6-15.6) H 09/11/18 06:30 Plt Count 42 K/MM3 (134-434) L 09/11/18 06:30 MPV 8.4 fl (7.5-11.1) 09/11/18 06:30 Absolute Neuts (auto) 0.9 K/mm3 (1.5-8.0) L 09/11/18 06:30 Neutrophils % 52.3 % (42.8-82.8) 09/11/18 06:30 Neutrophils % (Manual) 68.4 % (42.8-82.8) 09/11/18 06:30 Band Neutrophils % 0.0 % 09/11/18 06:30 Lymphocytes % 36.3 % (8-40) D 09/11/18 06:30 Lymphocytes % (Manual) 27.6 % (8-40) 09/11/18 06:30 Monocytes % 9.9 % (3.8-10.2) 09/11/18 06:30 Monocytes % (Manual) 2 % (3.8-10.2) L 09/11/18 06:30 Eosinophils % 1.1 % (0-4.5) 09/11/18 06:30 Eosinophils % (Manual) 1.0 % (0-4.5) 09/11/18 06:30 Basophils % 0.4 % (0-2.0) 09/11/18 06:30 Basophils % (Manual) 1.0 % (0-2.0) 09/11/18 06:30 Myelocytes % (Man) 0 % (0-2) 09/11/18 06:30 Promyelocytes % (Man) 0 % (0-2) 09/11/18 06:30 Blast Cells % (Manual) 0 % (0-0) 09/11/18 06:30 Nucleated RBC % 0 % (0-0) 09/11/18 06:30 Metamyelocytes 0 % (0-2) 09/11/18 06:30 Hypochromia 2+ 09/11/18 06:30 Platelet Estimate Decreased 09/11/18 06:30 Platelet Comment Present 09/09/18 16:33 Polychromasia 1+ 09/11/18 06:30 Poikilocytosis 1+ 09/11/18 06:30 Anisocytosis 1+ 09/11/18 06:30 Microcytosis 2+ 09/11/18 06:30 Macrocytosis 0 09/11/18 06:30 Target Cells 1+ 09/09/18 16:33 Tear Drop Cells 1+ 09/11/18 06:30 Ovalocytes 1+ 09/11/18 06:30 Fragmented RBCs 1+ 09/09/18 16:33 ESR 25 mm/hr (0-30) 09/11/18 06:30 Sodium 136 mmol/L (136-145) 09/11/18 06:30 Potassium 3.1 mmol/L (3.5-5.1) L 09/11/18 06:30 Chloride 106 mmol/L (98-107) 09/11/18 06:30 Carbon Dioxide 23 mmol/L (21-32) 09/11/18 06:30 Anion Gap 7 MMOL/L (8-16) L 09/11/18 06:30 BUN 9 mg/dL (7-18) 09/11/18 06:30 Creatinine 0.6 mg/dL (0.55-1.3) 09/11/18 06:30 Creat Clearance w eGFR 105.40 (>60) 09/11/18 06:30 Random Glucose 176 mg/dL (74-106) H 09/11/18 06:30 Calcium 7.6 mg/dL (8.5-10.1) L 09/11/18 06:30 Total Bilirubin 0.7 mg/dL (0.2-1) 09/11/18 06:30 AST 28 U/L (15-37) 09/11/18 06:30 ALT 18 U/L (13-61) 09/11/18 06:30 Alkaline Phosphatase 128 U/L (45-117) H 09/11/18 06:30 Creatine Kinase 47 U/L (26-192) 09/11/18 06:30 Troponin I < 0.02 ng/ml (0.00-0.05) 09/11/18 06:30 C-Reactive Protein < 0.3 MG/DL (0.00-0.3) 09/11/18 06:30 B-Natriuretic Peptide 33.8 pg/ml (5-125) 09/09/18 16:33 Total Protein 7.1 g/dl (6.4-8.2) 09/11/18 06:30 Albumin 2.8 g/dl (3.4-5.0) L 09/11/18 06:30 Current Medications Generic Name Dose Route Start Last Admin Trade Name Khalifq PRN Reason Stop Dose Admin Acetaminophen 1,000 mg 09/12/18 16:28 09/12/18 17:01 Ofirmev Injection - IVPB 1,000 mg Q6H PRN Administration pain Zolpidem Tartrate 5 mg 09/12/18 01:08 09/12/18 01:33 Ambien - PO 5 mg HS PRN Administration INSOMNIA Constitutional: Yes: No Distress Eyes: Yes: Conjunctiva Clear HENT: Yes: Atraumatic Neck: Yes: Supple Cardiovascular: Yes: Regular Rate and Rhythm Respiratory: Yes: CTA Bilaterally Gastrointestinal Inspection: Yes: Scars (healed Pfannensteil and laparoscopic incisions) ...Auscultate: Yes: Normoactive Bowel Sounds ...Palpate: Yes: Soft, Other (nontender) ...Percussion: Yes: Tympanitic ...Rectal Exam: Yes: Guaiac Negative (brown guaiac negative stool), Hemorrhoids/ External Edema: No Neurological: Yes: Alert, Oriented Labs: CBC, BMP 09/11/18 06:30 09/11/18 06:30 INR, PTT INR 1.28 (0.83-1.09) H 09/09/18 16:33 Laboratory Tests 12/09/17 02/21/18 03/10/18 06:30 06:30 01:48 WBC Hgb Plt Count PT with INR 12.50 Ferritin 35.4 Tumor Marker AFP 7.2 09/09/18 09/09/18 09/11/18 16:33 16:33 06:30 WBC 3.1 L 1.6 L* Hgb 7.6 L 6.9 L* Plt Count 61 L D 42 L PT with INR 15.10 H Ferritin Tumor Marker AFP Imaging - Results Cat Scan: Report Reviewed (Vanesa Correia Name: DAYANA LYNNE DEPARTMENT OF RADIOLOGY Phys: Luis Alberto Hernandez RESIDENT : 1965 Age: 52 Sex: F [facility] Acct: [id number] Loc: [facility] [facility] Exam Date: 03/10/18 Status: JOCELYNN Vance01 Unit Number: [id number] EXAM#: TYPE/EXAM: RESULT: CT/ABDOMEN PELVIS CT WITH CONTR HISTORY PROVIDED: Abdominal pain. Sequential axial images were obtained from the domes of the diaphragms through the symphysis pubis following the administration of intravenous contrast material. There are mild atelectatic changes noted at both lung bases. The liver is somewhat small in size and hypodense in texture. This suggests hepatocellular disease. Clinical and laboratory correlation is recommended. No mass lesions identified within the liver. The spleen is enlarged measuring 15.9 cm in craniocaudad dimension. There are serpiginous vascular structures within the splenic hilum, within the gastrohepatic ligament and about the distal esophagus consistent with varices. The portal venous system appears to be patent. There is no evidence of ascites. The pancreas, adrenal glands and kidneys demonstrate no significant abnormalities. There is no evidence of intra-abdominal or retroperitoneal lymphadenopathy or fluid collections. There is no evidence of pneumoperitoneum, bowel obstruction or intra-abdominal abscess. There is no CT evidence of acute appendicitis or diverticulitis. Examination of the pelvis demonstrates no evidence of pelvic masses, fluid collections or lymphadenopathy. The uterus is somewhat prominent. There is no evidence of acute bony abnormalities. IMPRESSION: 1. Findings consistent with advanced hepatocellular disease with splenomegaly and upper abdominal varices. There is no evidence of ascites. 2. No evidence of acute pathology within the abdomen or pelvis. Please see above discussion. Reported By: Josue Bustos MD 08 Luis Alberto Hernandez Technologist: Jasper Blackman Transcribed Date/Time : 03/10/18 08 Biological Science Aide: Josue Bustos Printed Date/Time: By: Signed by: Josue Bustos Signed on: 10-Mar-2018 08:41) Problem List - Problems (1) Liver cirrhosis secondary to DAILY (nonalcoholic steatohepatitis) Assessment/Plan: I have explained to Dayana that she has advanced cirrhosis related to DAILY and that she should not drink alcohol. I encouraged her to continue to see Dr Grant at [facility] should she come to need a liver transplant in the future. An AFP will be ordered and if elevated then her MRI will be repeated. She will need another round of rubber band ligation of varices if her platelet count and coagulation profile permit. Otherwise may need to initiate a nonselective beta ingrid.. Code(s): K75.81 - NONALCOHOLIC STEATOHEPATITIS (DAILY); K74.60 - UNSPECIFIED CIRRHOSIS OF LIVER (2) Pancytopenia Assessment/Plan: Although I can attribute the thrombocytopenia to cirrhosis the changing anemia and leucopenia argue against the splenomegaly alone causing this. This is no GI bleeding evident. Code(s): D61.818 - OTHER PANCYTOPENIA (3) Esophageal varices determined by endoscopy Code(s): I85.00 - ESOPHAGEAL VARICES WITHOUT BLEEDING (4) Portal hypertension Code(s): K76.6 - PORTAL HYPERTENSION (5) Chest pain of uncertain etiology Code(s): R07.89 - OTHER CHEST PAIN (6) Weakness of left side of body Code(s): R53.1 - WEAKNESS (7) Thrombocytopenia Code(s): D69.6 - THROMBOCYTOPENIA, UNSPECIFIED (8) History of colonic polyps Code(s): Z86.010 - PERSONAL HISTORY OF COLONIC POLYPS (9) Family history of primary liver cancer Code(s): Z80.0 - FAMILY HISTORY OF MALIGNANT NEOPLASM OF DIGESTIVE ORGANS Assessment/Plan Impression: Cirrhosis related to DAILY Esophageal varices Partial portal vein thrombosis Pancytopenia ? worsening, ? viral syndrome Plan: I advised Dayana that she should not drink alcohol. I encouraged her to continue to see Dr Grant at [facility] should she come to need a liver transplant in the future. An AFP will be ordered and if elevated then her MRI will be repeated. She will need another round of rubber band ligation of varices if her platelet count and coagulation profile permit. Otherwise may need to initiate a nonselective beta ingrid. I discussed the case with Dr Valente who will review the case
--- NOTE | 2018-09-12 23:52 | PN ---
Progress Note, Physician History of Present Illness: Pt still w/ pain and weakness Lt sided but improved - Current Medication List Current Medications: Active Medications Acetaminophen (Ofirmev Injection -) 1,000 mg IVPB Q6H PRN PRN Reason: pain Last Admin: 09/12/18 17:01 Dose: 1,000 mg Zolpidem Tartrate (Ambien -) 5 mg PO HS PRN PRN Reason: INSOMNIA Last Admin: 09/12/18 01:33 Dose: 5 mg - Objective Vital Signs: Vital Signs Temperature 98.3 F 09/12/18 21:00 Pulse Rate 77 09/12/18 21:00 Respiratory Rate 18 09/12/18 21:00 Blood Pressure 131/66 09/12/18 21:00 O2 Sat by Pulse Oximetry (%) 99 09/12/18 21:00 Neck: Yes: WNL, Supple Cardiovascular: Yes: WNL, Regular Rate and Rhythm Respiratory: Yes: WNL, Regular, CTA Bilaterally Gastrointestinal: Yes: WNL, Normal Bowel Sounds, Soft Musculoskeletal: Yes: WNL Extremities: Yes: WNL Edema: No Labs: CBC, BMP 09/11/18 06:30 09/11/18 06:30 INR, PTT INR 1.28 (0.83-1.09) H 09/09/18 16:33 Problem List - Problems (1) Pancytopenia Assessment/Plan: Cont to monitor counts Code(s): D61.818 - OTHER PANCYTOPENIA (2) Chest pain of uncertain etiology Assessment/Plan: Muscular skeletal in origin Cont tylenol PT eval Code(s): R07.89 - OTHER CHEST PAIN (3) Liver cirrhosis secondary to DAILY (nonalcoholic steatohepatitis) Assessment/Plan: Long d/w pt about need for f/u w/ liver specialist at [facility] Code(s): K75.81 - NONALCOHOLIC STEATOHEPATITIS (DAILY); K74.60 - UNSPECIFIED CIRRHOSIS OF LIVER (4) Weakness of left side of body Assessment/Plan: Unclear etiology However w/u as been negative Code(s): R53.1 - WEAKNESS (5) Esophageal varices Code(s): I85.00 - ESOPHAGEAL VARICES WITHOUT BLEEDING
[2018-09-13 07:50] LABS: BASO % 0.3 % (0-2.0); EOS % 3.3 % (0-4.5); HEMATOCRIT 28.3 % (32.4-45.2); HEMOGLOBIN 8.7 GM/dL (10.7-15.3); LYMPH % 28.4 % (8-40); MCH 21.5 pg (25.7-33.7); MCHC 30.7 g/dl (32.0-36.0); MEAN CELL VOLUME 69.9 fl (80-96); MEAN PLT VOLUME 8.8 fl (7.5-11.1); MONO % 8.2 % (3.8-10.2); NEUT % 59.8 % (42.8-82.8); PLATELET COUNT 49 K/MM3 (134-434); RBC 4.05 M/mm3 (3.60-5.2); RDW 20.9 % (11.6-15.6); WHITE BLOOD COUNT 2.1 K/mm3 (4.0-10.0)
[2018-09-13 08:25] LABS: ALBUMIN 2.9 g/dl (3.4-5.0); ALK PHOS 157 U/L (45-117); ANION GAP 6 MMOL/L (8-16); BILIRUBIN,TOTAL 0.6 mg/dL (0.2-1); BLOOD UREA NITROGEN 11 mg/dL (7-18); CALCIUM 7.8 mg/dL (8.5-10.1); CHLORIDE 108 mmol/L (98-107); CO2 24 mmol/L (21-32); CREATININE 0.6 mg/dL (0.55-1.3); GAMMA GLUTAMYL TRANSPEPTIDASE 143 U/L (5-85); GLUCOSE,RANDOM 168 mg/dL (74-106); LDH 152 U/L (84-246); POTASSIUM 3.4 mmol/L (3.5-5.1); SGOT/AST 26 U/L (15-37); SGPT/ALT 19 U/L (13-61); SODIUM 138 mmol/L (136-145); TOT PROT 7.4 g/dl (6.4-8.2)
--- NOTE | 2018-09-13 09:57 | PN ---
Progress Note (short form) - Note Progress Note: COmplains of improved but ongoing weakness of left side. Today her weakness on exam is resolved, and her sensory loss is also not present on exam, but she complains of a sense of cold inside her left leg. Again, these findings are hard to account for. This type of complaint is typically seen in central spinal cord disease or in thalamic pain but there are no MRI findings to account for this, particularly in light of her initial presentation of complete paralysis on her left side. This is unlikely to be centrally mediated. Could be sensory, though difficult to account for. MRI brain negative. C spine shows discs but no neural impact. Wouldn't explain hemiparesis. The possibility of conversion disorder is entertained, but given her multiple medical problems, I would also consider nuclear spect study before ruling out central pathology. Even if it were central, though, the non-pronating drift is unusual for a centrally mediated weakenss, unless it were due to a sensory finding, but this is usually a drift that goes up and down, rather than strictly down. I'll have another one of my colleagues review her case tomorrow and consider Brain Spect study if appropriate. Unclear etiology. F/U: Conts to reports left leg pain, -begins in heel and radiates up in L5 dist. Yesterday had back pain. Exam- + LUE pronator drift, LLE-4/5 but not clear if it is due to pain limitation. Would obtain MRI L/S spin, brain spect.
[2018-09-13 10:17] LABS: ANISOCYTOSIS 1+; MACROCYTOSIS 0; OVALOCYTE 1+; PLATELET ESTIMATE DECREASED
--- NOTE | 2018-09-13 11:31 | PN ---
Progress Note (short form) - Note Progress Note: s: no chest pain, palps, sob, dizziness. L arm feeling stronger, L leg feels weak. Current Medications Acetaminophen (Ofirmev Injection -) 1,000 mg IVPB Q6H PRN PRN Reason: pain Last Admin: 09/12/18 17:01 Dose: 1,000 mg Zolpidem Tartrate (Ambien -) 5 mg PO HS PRN PRN Reason: INSOMNIA Last Admin: 09/12/18 23:51 Dose: 5 mg Vital Signs Period Temp Pulse Resp BP Sys/Berry Pulse Ox Last 24 Hr 98 F-98.8 F 76-83 18-20 113-145/59-77 99 Constitutional: Yes: No Distress, Calm Eyes: Yes: Conjunctiva Clear, EOM Intact HENT: Yes: Atraumatic, Normocephalic Neck: Yes: Supple, Trachea Midline Respiratory: Yes: Regular, CTA Bilaterally Gastrointestinal: Yes: Normal Bowel Sounds, Soft Cardiovascular: Yes: Regular Rate and Rhythm JVD: No Carotid Bruit: No PMI: Non-Displaced Heart Sounds: Yes: S1, S2 Murmur: No: Systolic Murmur Musculoskeletal: No: Back Pain Extremities: No: Cold Edema: No Peripheral Pulses WNL: Yes Peripheral Pulses: 2+ Left Doralis Pedis, 2+ Right Dorsalis Pedis Integumentary: No: Jaundice Neurological: Yes: Alert, Oriented Psychiatric: No: Agitated Assessment/Plan EKG: sinus, prolonged QTc 520 ms CXR: poor inspiration, no acute process echo 12/2017 nl LV fn, mildly dilated LA echo 09/2018 nl LV/RV function, mild MR, mild TR, PASP at least 31 mmHg CTA chest: no dissection 53F h/o thrombocytopenia, cirrhosis, htn prior PR with chest pain, L arm heavy, dizziness. chest pain - trop neg x2, EKG stable - CT chest no acute process - echo nl LV function - prior cath no significant CAD (per patient 2010), stress mibi 2014 nl perfusion - history of worse with position changes, palpation most likely MSK prolonged QTc - stable - avoid QT prolonging agents - maintain K >4.0, Mg >2.0 vertigo, L arm and leg pain, numbness - neuro consulted pancytopenia - manage pr primary
[2018-09-13] MEDS ORDERED: POTASSIUM CHLORIDE TABS 20 MEQ TABLET.ER (FP) PO ONE (14:34)
--- NOTE | 2018-09-13 14:36 | PN ---
Progress Note (short form) - Note Progress Note: Patient seen and examined No specific complaints Patient had bone marrow 12/09/17 It was a suboptimal aspirate . The biopsy was of cortical bone There was trilineage hematopoiesis ; myeloid and erythroid elements with normal maturation, Normal megakaryocytes. No increased blasts. Cytogenetics was normal FISH- normal Iron was noncontributory due to suboptimal aspirate . Based upon this marrow, the etiology of the pancytopenia appears to be cirrhosis, with hypersplenism. There are signs of portal hypertension with esophageal varices, splenic varices , and spleinc aneurysms with intraspleic aneurysms. Currently WBC-2.1 ANC-1.2 Hct-28% Platelets 49K Would monitor for now.
[2018-09-13] MEDS: ACETAMINOPHEN 325 MG TABLET (FP) PO PRN (21:07)
--- NOTE | 2018-09-13 23:13 | PN ---
Progress Note, Physician - Current Medication List Current Medications: Active Medications Acetaminophen (Tylenol -) 650 mg PO Q6H PRN PRN Reason: PAIN LEVEL 1 - 3 Last Admin: 09/13/18 21:07 Dose: 650 mg Zolpidem Tartrate (Ambien -) 5 mg PO HS PRN PRN Reason: INSOMNIA Last Admin: 09/12/18 23:51 Dose: 5 mg - Objective Vital Signs: Vital Signs Temperature 98.3 F 09/13/18 17:30 Pulse Rate 84 09/13/18 17:30 Respiratory Rate 18 09/13/18 17:30 Blood Pressure 144/68 09/13/18 17:30 O2 Sat by Pulse Oximetry (%) 100 09/13/18 09:00 Labs: CBC, BMP 09/13/18 07:20 09/13/18 07:20 INR, PTT INR 1.28 (0.83-1.09) H 09/09/18 16:33 Problem List - Problems (1) Pancytopenia Code(s): D61.818 - OTHER PANCYTOPENIA (2) Chest pain of uncertain etiology Code(s): R07.89 - OTHER CHEST PAIN (3) Liver cirrhosis secondary to DAILY (nonalcoholic steatohepatitis) Code(s): K75.81 - NONALCOHOLIC STEATOHEPATITIS (DAILY); K74.60 - UNSPECIFIED CIRRHOSIS OF LIVER (4) Weakness of left side of body Code(s): R53.1 - WEAKNESS (5) Esophageal varices Code(s): I85.00 - ESOPHAGEAL VARICES WITHOUT BLEEDING
[2018-09-13] MEDS: ZOLPIDEM TARTRATE 5 MG TABLET PO PRN (23:47)
[2018-09-14] MEDS: ACETAMINOPHEN 325 MG TABLET (FP) PO PRN ×2 (03:59→12:24)
[2018-09-14 04:08] LABS: URINE APPEARANCE CLEAR; URINE BILIRUBIN NEGATIVE (NEGATIVE); URINE COLOR YELLOW; URINE GLUCOSE (UA) NEGATIVE (NEGATIVE); URINE KETONE NEGATIVE (NEGATIVE); URINE LEUK ESTERASE NEGATIVE (NEGATIVE); URINE NITRITE NEGATIVE (NEGATIVE); URINE PROTEIN NEGATIVE (NEGATIVE)
[2018-09-14 07:18] LABS: BASO % 0.7 % (0-2.0); EOS % 3.1 % (0-4.5); HEMATOCRIT 27.1 % (32.4-45.2); HEMOGLOBIN 8.3 GM/dL (10.7-15.3); LYMPH % 32.2 % (8-40); MCH 21.7 pg (25.7-33.7); MCHC 30.6 g/dl (32.0-36.0); MEAN CELL VOLUME 70.9 fl (80-96); MEAN PLT VOLUME 8.7 fl (7.5-11.1); MONO % 7.8 % (3.8-10.2); NEUT % 56.2 % (42.8-82.8); PLATELET COUNT 45 K/MM3 (134-434); RBC 3.83 M/mm3 (3.60-5.2); RDW 21.8 % (11.6-15.6); WHITE BLOOD COUNT 2.2 K/mm3 (4.0-10.0)
[2018-09-14 07:46] LABS: ALBUMIN 2.9 g/dl (3.4-5.0); ALK PHOS 158 U/L (45-117); ANION GAP 8 MMOL/L (8-16); BILIRUBIN,TOTAL 0.6 mg/dL (0.2-1); BLOOD UREA NITROGEN 10 mg/dL (7-18); CALCIUM 7.7 mg/dL (8.5-10.1); CHLORIDE 109 mmol/L (98-107); CO2 22 mmol/L (21-32); CREATININE 0.5 mg/dL (0.55-1.3); GLUCOSE,RANDOM 113 mg/dL (74-106); POTASSIUM 3.6 mmol/L (3.5-5.1); SGOT/AST 29 U/L (15-37); SGPT/ALT 15 U/L (13-61); SODIUM 140 mmol/L (136-145); TOT PROT 7.1 g/dl (6.4-8.2)
[2018-09-14 11:21] LABS: ANISOCYTOSIS 2+; MACROCYTOSIS 0; OVALOCYTE 1+; PLATELET ESTIMATE DECREASED
[2018-09-14 11:22] LABS: TRANSGLUTAMINASE IGA < 2 U/mL (0-3); TRANSGLUTAMINASE IGG 2 U/mL (0-5)
[2018-09-14] MEDS ORDERED: LACTULOSE 20 GM/30 ML UDC (FOR ORAL USE ONLY) PO ONE (19:18)
--- NOTE | 2018-09-14 20:35 | PN ---
Progress Note (short form) - Note Progress Note: Patient seen and examined Feels ok AFVSS Cor: RSR, No murmurs, No gallops Lungs: Clear to P&A Abd: Soft, Normal bowel sounds, No organomegaly Ext:No significant edema Labs/Meds reviewed A/P 53F h/o, cirrhosis/ portal HTN/perisplenic varices ? fatty liver, htn , prior [facility] with chest pain, presenting with left sided weakness mri brain neg. for stroke mri c spine was nl strength is much improved in lue and lle ? pseudoperesis splenic aneurysms -- vascular consult noted high ammonia--discuss with hepatology pancytopenia dueto liver disease/portal htn/ splenomegaly will follow
--- NOTE | 2018-09-14 21:15 | PN.GI ---
GI Progress Note Subjective: GI NOte: Despite elevated ammonia level Dayana is free of clinical hepatic encephalopathy so can reserve lactulose for this. AFP is stable. No active GI bleeding has ensued - Objective Vital Signs: Vital Signs Temperature 98.8 F 09/14/18 15:14 Pulse Rate 94 H 09/14/18 15:14 Respiratory Rate 18 09/14/18 15:14 Blood Pressure 129/68 09/14/18 15:14 O2 Sat by Pulse Oximetry (%) 98 09/14/18 09:00 Laboratory Tests 12/09/17 09/13/18 09/13/18 06:30 07:20 07:20 Ammonia 75.50 H Tumor Marker AFP 7.2 7.2 Constitutional: Calm ...Auscultate: Yes: Normoactive Bowel Sounds ...Palpate: Yes: Soft, Other (nontender) Labs: CBC, BMP 09/14/18 06:00 09/14/18 06:00 INR, PTT INR 1.28 (0.83-1.09) H 09/09/18 16:33 Assessment/Plan Impression: Cirrhosis related to DAILY Esophageal varices Partial portal vein thrombosis Pancytopenia due to hypersplenisn Plan: I again advised Dayana that she should not drink alcohol. I encouraged her to continue to see Dr Grant at [facility] should she come to need a liver transplant in the future. She will need another round of rubber band ligation of varices if or when her platelet count and coagulation profile permit. Otherwise may need to initiate a nonselective beta ingrid. She agrees to followup with the Liver Center at [facility] where they can make this decision No GI objections to discharge Problem List - Problems (1) Liver cirrhosis secondary to DAILY (nonalcoholic steatohepatitis) Code(s): K75.81 - NONALCOHOLIC STEATOHEPATITIS (DAILY); K74.60 - UNSPECIFIED CIRRHOSIS OF LIVER (2) Pancytopenia Code(s): D61.818 - OTHER PANCYTOPENIA (3) Esophageal varices determined by endoscopy Code(s): I85.00 - ESOPHAGEAL VARICES WITHOUT BLEEDING (4) Portal hypertension Code(s): K76.6 - PORTAL HYPERTENSION (5) Chest pain of uncertain etiology Code(s): R07.89 - OTHER CHEST PAIN (6) Weakness of left side of body Code(s): R53.1 - WEAKNESS (7) Thrombocytopenia Code(s): D69.6 - THROMBOCYTOPENIA, UNSPECIFIED (8) History of colonic polyps Code(s): Z86.010 - PERSONAL HISTORY OF COLONIC POLYPS (9) Family history of primary liver cancer Code(s): Z80.0 - FAMILY HISTORY OF MALIGNANT NEOPLASM OF DIGESTIVE ORGANS
[2018-09-14] MEDS: ZOLPIDEM TARTRATE 5 MG TABLET PO PRN (21:32)
--- NOTE | 2018-09-14 22:35 | PN ---
Progress Note, Physician History of Present Illness: Pt complains of pain to Lt foot - Current Medication List Current Medications: Active Medications Acetaminophen (Tylenol -) 650 mg PO Q6H PRN PRN Reason: PAIN LEVEL 1 - 3 Last Admin: 09/14/18 12:24 Dose: 650 mg Zolpidem Tartrate (Ambien -) 5 mg PO HS PRN PRN Reason: INSOMNIA Last Admin: 09/14/18 21:32 Dose: 5 mg - Objective Vital Signs: Vital Signs Temperature 99.2 F 09/14/18 18:30 Pulse Rate 84 09/14/18 18:30 Respiratory Rate 18 09/14/18 18:30 Blood Pressure 132/68 09/14/18 18:30 O2 Sat by Pulse Oximetry (%) 98 09/14/18 09:00 Neck: Yes: WNL, Supple Cardiovascular: Yes: WNL, Regular Rate and Rhythm Respiratory: Yes: WNL, Regular, CTA Bilaterally Gastrointestinal: Yes: WNL, Normal Bowel Sounds, Soft Edema: No Labs: CBC, BMP 09/14/18 06:00 09/14/18 06:00 INR, PTT INR 1.28 (0.83-1.09) H 09/09/18 16:33 Problem List - Problems (1) Pancytopenia Assessment/Plan: Cont to monitor counts Due to cirrhosis DC planning for am Code(s): D61.818 - OTHER PANCYTOPENIA (2) Chest pain of uncertain etiology Assessment/Plan: Muscular skeletal in origin PT eval Code(s): R07.89 - OTHER CHEST PAIN (3) Liver cirrhosis secondary to DAILY (nonalcoholic steatohepatitis) Assessment/Plan: Long d/w pt about need for f/u w/ liver specialist at [facility] Will give doses of lactulose Code(s): K75.81 - NONALCOHOLIC STEATOHEPATITIS (DAILY); K74.60 - UNSPECIFIED CIRRHOSIS OF LIVER (4) Weakness of left side of body Assessment/Plan: Unclear etiology MRI LS spine reviewed w/ pt: bulging discs Pt enocurged to follow up w/ P.T. as outpatient Code(s): R53.1 - WEAKNESS (5) Esophageal varices Code(s): I85.00 - ESOPHAGEAL VARICES WITHOUT BLEEDING
[2018-09-15 05:42] VITALS: BP 117/58; PULSE 85; TEMP 98.2
[2018-09-15 08:03] LABS: BASO % 0.3 % (0-2.0); EOS % 4.3 % (0-4.5); HEMATOCRIT 29.1 % (32.4-45.2); HEMOGLOBIN 8.9 GM/dL (10.7-15.3); LYMPH % 27.3 % (8-40); MCH 21.4 pg (25.7-33.7); MCHC 30.5 g/dl (32.0-36.0); MEAN CELL VOLUME 70.3 fl (80-96); MEAN PLT VOLUME 9.1 fl (7.5-11.1); NEUT % 57.1 % (42.8-82.8); PLATELET COUNT 54 K/MM3 (134-434); RBC 4.14 M/mm3 (3.60-5.2); RDW 21.6 % (11.6-15.6); WHITE BLOOD COUNT 2.6 K/mm3 (4.0-10.0)
[2018-09-15 08:28] LABS: ALK PHOS 168 U/L (45-117); ANION GAP 8 MMOL/L (8-16); BILIRUBIN,TOTAL 0.6 mg/dL (0.2-1); BLOOD UREA NITROGEN 10 mg/dL (7-18); CALCIUM 8.2 mg/dL (8.5-10.1); CHLORIDE 108 mmol/L (98-107); CO2 22 mmol/L (21-32); CREATININE 0.5 mg/dL (0.55-1.3); GLUCOSE,RANDOM 130 mg/dL (74-106); POTASSIUM 3.5 mmol/L (3.5-5.1); SGOT/AST 30 U/L (15-37); SGPT/ALT 21 U/L (13-61); SODIUM 138 mmol/L (136-145); TOT PROT 7.6 g/dl (6.4-8.2)
--- NOTE | 2018-09-15 09:25 | PN ---
Progress Note (short form) - Note Progress Note: 53 yo F h/o uterine fibroids, pancytopenia, splenic and esophageal varices, cirrhosis BIBEMS for chest pain and L sided weakness on 09/10/18. patient noted sudden onset of chest pain and L arm heaviness right after lunch in bed (3Pm). She endorses L upper chest pain radiates to L jaw and L arm, sharp, reproducible , a/w L sided weakness and sensation loss and vertigo. denies n/v, fever, chills , urinary and bowel sx. CT HD (-); Given low platelets and NL CTA she was relatively contraindicated for TPA. MRI BRAIN was additionally (-) for stroke, CTA wet read did not show any large vessel occlusion or Dissection. s she endorses pain on the left side today , this limited her strength--she does feel she is moving left side better today. when touching left arm or left foot - she feels pain and has difficulty with strength testing. 09/09/18 19:24 Negative CTA of chest, MRI BRAIN prelim for stroke (-) MRI C S SPINE prelim no cord signal changes, no obvious hematoma /mass etc FU : slight weakness distal L hand, and pain to palpation Left ankle - Past Medical History Cardio/Vascular: Yes: HTN, Hyperlipdemia Gastrointestinal: Yes: Other (liver cirrhosis ? Esophageal varices) Hepatobiliary: Yes: Cirrhosis ...LMP: 02/03/18 - Past Surgical History Past Surgical History: Yes: Cholecystectomy, Tubal Ligation - Alcohol/Substance Use Hx Alcohol Use: No History of Substance Use: reports: None - Smoking History Smoking history: Never smoked Have you smoked in the past 12 months: No Aproximately how many cigarettes per day: 1 - Social History ADL: Independent Occupation: [employer] History of Recent Travel: No Home Medications - Allergies Allergies/Adverse Reactions: Allergies Allergy/AdvReac Type Severity Reaction Status Date / Time codeine [Codeine] Allergy Severe syncope Verified 09/09/18 15:50 - Home Medications Home Medications: Ambulatory Orders Oxycodone HCl/Acetaminophen [Percocet 5-325 mg Tablet -] 1 tab PO TID PRN #10 tablet MDD 3 03/29/18 Family Disease History - Family Disease History Family Disease History: Diabetes: Father, Mother (asthma), Brother (liver cancer - age 54), Heart Disease: Father, Other: Mother Physical Exam-Neuro Vital Signs: Vital Signs Temperature 98.2 F 09/15/18 05:41 Pulse Rate 85 09/15/18 05:41 Respiratory Rate 18 09/15/18 05:41 Blood Pressure 117/58 L 09/15/18 05:41 O2 Sat by Pulse Oximetry (%) 100 09/14/18 21:00 Labs: CBCD WBC 2.6 K/mm3 (4.0-10.0) L 09/15/18 06:30 RBC 4.14 M/mm3 (3.60-5.2) 09/15/18 06:30 Hgb 8.9 GM/dL (10.7-15.3) L 09/15/18 06:30 Hct 29.1 % (32.4-45.2) L 09/15/18 06:30 MCV 70.3 fl (80-96) L 09/15/18 06:30 MCHC 30.5 g/dl (32.0-36.0) L 09/15/18 06:30 RDW 21.6 % (11.6-15.6) H 09/15/18 06:30 Plt Count 54 K/MM3 (134-434) L 09/15/18 06:30 MPV 9.1 fl (7.5-11.1) 09/15/18 06:30 CMP Sodium 138 mmol/L (136-145) 09/15/18 06:30 Potassium 3.5 mmol/L (3.5-5.1) 09/15/18 06:30 Chloride 108 mmol/L (98-107) H 09/15/18 06:30 Carbon Dioxide 22 mmol/L (21-32) 09/15/18 06:30 Anion Gap 8 MMOL/L (8-16) 09/15/18 06:30 BUN 10 mg/dL (7-18) 09/15/18 06:30 Creatinine 0.5 mg/dL (0.55-1.3) L 09/15/18 06:30 Creat Clearance w eGFR 130.08 (>60) 09/15/18 06:30 Calcium 8.2 mg/dL (8.5-10.1) L 09/15/18 06:30 Total Bilirubin 0.6 mg/dL (0.2-1) 09/15/18 06:30 AST 30 U/L (15-37) 09/15/18 06:30 ALT 21 U/L (13-61) 09/15/18 06:30 Alkaline Phosphatase 168 U/L (45-117) H 09/15/18 06:30 Total Protein 7.6 g/dl (6.4-8.2) 09/15/18 06:30 Albumin 3.0 g/dl (3.4-5.0) L 09/15/18 06:30 - Neuro Exam Level Of Consciousness: Yes: Alert (awake, alert, no dysarthria, no facial, motor PAIN LIMITED though with best effort atleast 4/5 LUE and LLE (pain with local palpation), no sensory nlevel, reflexes symmetric ) Problem List - Problems (1) Chest pain of uncertain etiology Code(s): R07.89 - OTHER CHEST PAIN (2) Weakness of left side of body Code(s): R53.1 - WEAKNESS (3) Anemia Code(s): D64.9 - ANEMIA, UNSPECIFIED Qualifiers: Anemia type: unspecified type Qualified Code(s): D64.9 - Anemia, unspecified Assessment/Plan 53 yo F h/o uterine fibroids, pancytopenia, splenic and esophageal varices, cirrhosis BIBEMS for chest pain and L sided weakness on 09/10/18. patient noted sudden onset of chest pain and L arm heaviness right after lunch in bed (3Pm). She endorses L upper chest pain radiates to L jaw and L arm, sharp, reproducible , a/w L sided weakness and sensation loss and vertigo. denies n/v, fever, chills , urinary and bowel sx. CT HD (-); Given low platelets and NL CTA she was relatively contraindicated for TPA. MRI BRAIN was additionally (-) for stroke, CTA wet read did not show any large vessel occlusion or Dissection. she endorses pain on the left side today , this limited her strength--she does feel she is moving left side better today. when touching left arm or left foot - she feels pain and has difficulty with strength testing. 09/09/18 19:24 Negative CTA of chest, a/p no obvious hematoma /mass etc AP : initially with left sided hemiplegia ( arm and leg without face ) atypical for small vessel stroke; large vessel stroke (-) on MRI and limited CTA ; along with low platelets, so did not qualify for TPA or LVO procedure. now more pain limited phenomena Left hand and left ankle can get outpt EMG LUE , and rehab /PT for left ankle -reasonable to get XRAY LEFT ANKLE HEM FU for anemia NEURO SIGN OFF DR GAO Problem List - Problems (1) Chest pain of uncertain etiology Code(s): R07.89 - OTHER CHEST PAIN (2) Weakness of left side of body Code(s): R53.1 - WEAKNESS (3) Anemia Code(s): D64.9 - ANEMIA, UNSPECIFIED Qualifiers: Anemia type: unspecified type Qualified Code(s): D64.9 - Anemia, unspecified
== END 2018-09-15 14:25 | disposition home or self-care (01) | DRG 660 ==
LOC: JER 15:38 → JERBED 19:41 → OBSVTOIN 09-10 02:57 → J4W 09-10 15:46 → J7W 09-12 21:50
PROVIDERS: ADMIT Internal Medicine; ATTEND Internal Medicine
DX: D61.818 Other pancytopenia (principal); K75.81 Nonalcoholic steatohepatitis (NASH); I25.2 Old myocardial infarction; K74.69 Other cirrhosis of liver; I85.00 Esophageal varices without bleeding; M94.0 Chondrocostal junction syndrome [Tietze]; K76.6 Portal hypertension; J45.909 Unspecified asthma, uncomplicated; R20.2 Paresthesia of skin; I10 Essential (primary) hypertension; R07.89 Other chest pain; E78.5 Hyperlipidemia, unspecified; I86.8 Varicose veins of other specified sites; I45.81 Long QT syndrome; R53.1 Weakness; I72.8 Aneurysm of other specified arteries; D25.9 Leiomyoma of uterus, unspecified; D73.1 Hypersplenism; Z85.05 Personal history of malignant neoplasm of liver; Z86.010 Personal history of colon polyps
CPT/HCPCS: 36415; 36430; 70450-TC; 70498-TC; 70551-TC; 71045-TC-FY; 71270-TC; 72141-TC; 72148-TC; 74178-TC; 80053; 81003; 82105; 82140; 82550; 82977; 83010; 83021; 83516; 83615; 83880; 84484; 85025; 85044; 85610; 85651; 85660; 85730; 86038; 86140; 86431; 86850; 86900; 86901; 86922; 93005; 93010; 93306-TC; 93880-TC; 93926-TC; 93971-TC; 97116-GP; 97161-GP; 99285-25; G0378; J0131; P9038; P9058

== ENCOUNTER 2018-10-06 18:25 | Emergency (ER) | payer OTHER ==
[2018-10-06 18:38] VITALS: BP 127/61; PULSE 80; TEMP 98.2; BMI 34.2
--- NOTE | 2018-10-06 18:38 | PDOC ---
Rapid Medical Evaluation Time Seen by Provider: 10/06/18 18:33 Medical Evaluation: Allergies Allergy/AdvReac Type Severity Reaction Status Date / Time codeine [Codeine] Allergy Severe syncope Verified 10/06/18 18:33 10/06/18 18:34 I have performed a brief in-person evaluation of this patient. The patient presents with a chief complaint of: here because tampon is stuck inside vaginal vault x 45 minutes. No pain, vaginal dc, n/v/f/c. States she started feeling dizzy only after unable to get tampon out, otherwise no dizziness. H/o cirrhosis (2/2 fatty liver per pt), esophageal varices, pancytopenia, fibroids Pertinent physical exam findings:Stable and well saloni I have ordered the following:nothing The patient will proceed to the ED for further evaluation. Discharge Disposition - Diagnosis Retained tampon Qualifiers: Encounter type: initial encounter Qualified Code(s): T19.2XXA - Foreign body in vulva and vagina, initial encounter - Referrals - Patient Instructions - Post Discharge Activity
--- NOTE | 2018-10-06 19:31 | PDOC ---
History of Present Illness - General Chief Complaint: Pain, Acute Stated Complaint: DIZZINESS Time Seen by Provider: 10/06/18 18:33 History Source: Patient Exam Limitations: No Limitations - History of Present Illness Initial Comments: 10/06/18 19:26 Retained tampon for approximately 2 hours. Denies fever, drainage or discharge. 10/06/18 19:30 Occurred: reports: just prior to arrival Severity: reports: mild Loss of Consciousness: no loss of consciousness Associated Symptoms (Fall): denies symptoms Past History - Travel Traveled outside of the country in the last 30 days: No Close contact w/someone who was outside of country & ill: No - Past Medical History Allergies/Adverse Reactions: Allergies Allergy/AdvReac Type Severity Reaction Status Date / Time codeine [Codeine] Allergy Severe syncope Verified 10/06/18 18:33 Home Medications: Ambulatory Orders Zolpidem Tartrate [Ambien] 5 mg PO HS PRN #30 tablet MDD 1 09/13/18 Anemia: Yes Asthma: Yes Cancer: Yes (HX LIVER CANCER) Cardiac Disorders: Yes (MILD HEART ATTACK 10YRS AGO) CVA: No COPD: No CHF: No Dementia: No Diabetes: No GI Disorders: Yes (gastric ulcers) Disorders: No HTN: No Hypercholesterolemia: No Liver Disease: Yes (CIRRHOSIS/spleen swelling) Seizures: No Thyroid Disease: No - Surgical History Abdominal Surgery: Yes (TUBAL LIGATION.) Appendectomy: No Cardiac Surgery: No Cholecystectomy: Yes Lung Surgery: No Neurologic Surgery: No Orthopedic Surgery: No - Reproductive History Therapeutic (s) & number: No - Immunization History Immunization Up to Date: No - Suicide/Smoking/Psychosocial Hx Smoking Status: Yes Smoking History: Never smoked Have you smoked in the past 12 months: No Number of Cigarettes Smoked Daily: 1 'Breaking Loose' booklet given: 04/17/14 Hx Alcohol Use: No Drug/Substance Use Hx: No Substance Use Type: None Hx Substance Use Treatment: No Review of Systems - Review of Systems Able to Perform ROS?: Yes Is the patient limited Turkmen proficient: Yes Constitutional: Yes: Symptoms Reported, See HPI. No: Malaise All Other Systems: Reviewed and Negative *Physical Exam - Vital Signs Last Vital Signs Temp Pulse Resp BP Pulse Ox 98.2 F 80 18 127/61 100 10/06/18 18:34 10/06/18 18:34 10/06/18 18:34 10/06/18 18:34 10/06/18 18:34 - Physical Exam General Appearance: Yes: Nourished, Appropriately Dressed. No: Apparent Distress Female Pelvic Exam: positive: normal external exam, other ([place] foreign body noted in vaginal vault consistent with retained tampon. No bleeding, no ulceration or as noted) Gastrointestinal/Abdominal: positive: Soft. negative: Tender Musculoskeletal: positive: Normal Inspection Extremity: positive: Normal Capillary Refill Integumentary: positive: Normal Color, Dry, Warm Neurologic: positive: director of loss prevention II-XII NML intact, Fully Oriented Progress Note - Progress Note Progress Note: Retained foreign body/tampon removed without incident *DC/Admit/Observation/Transfer Diagnosis at time of Disposition: Retained tampon Qualifiers: Encounter type: initial encounter Qualified Code(s): T19.2XXA - Foreign body in vulva and vagina, initial encounter - Discharge Dispostion Disposition: HOME Condition at time of disposition: Stable Decision to Admit order: No - Referrals Referrals: Cecilio Alvarado MD [Primary Care Provider] - - Patient Instructions Printed Discharge Instructions: DI for Foreign Body in Vagina-Adult - Post Discharge Activity
== END 2018-10-06 19:31 | disposition home or self-care (01) ==
LOC: JER 18:25 → JERFT 18:25
DX: T19.2XXA Foreign body in vulva and vagina, initial encounter (principal); X58.XXXA Exposure to other specified factors, initial encounter; Y93.89 Activity, other specified; Y92.038 Other place in apartment as the place of occurrence of the external cause; Y99.8 Other external cause status; K74.60 Unspecified cirrhosis of liver; Z85.05 Personal history of malignant neoplasm of liver; I25.2 Old myocardial infarction
CPT/HCPCS: 99281-25